=== PATIENT | male | born 1970 | race Caucasian/White ===

== ENCOUNTER 2019-06-30 17:33 | Inpatient (IN) | payer OTHER ==
[~2019-06-30] VITALS: Ht 162.6 cm; Wt 44.2 kg
--- NOTE | 2019-06-30 17:50 | NUR ---
ED Nurse Note: pt walked in c/o abd pain diffused and diarrhea, pt reports it started some day and unable to recall how many days has he been having it. pt AA&ox4, gcs=15, skin warm and dry, resp even and unlabored, NSR on monitoring manager, vss, skin warm and dry, good skin turgor, will cont monitor. ERMD aware of pt's pain, will follow up with orders.
[2019-06-30 18:00] VITALS: BP 140/86
[2019-06-30] MEDS ORDERED: Morphine Sulfate 2mg/ml Inj(IV/IM USE ONLY) IVP ONE (18:00)
--- NOTE | 2019-06-30 18:00 | NUR ---
ED Nurse Note: pt provided w/ warm blanket for comfort, pt advised to notify staff if needed assist.
--- NOTE | 2019-06-30 18:05 | Emergency Room Report ---
History of Present Illness General Chief Complaint: Diarrhea Source: Patient Present Illness HPI The patient presents with diarrhea for 1 week. Also he has been vomiting and cannot keep down liquids at this time. He is complaining about abdominal pain and mainly right flank pain. He has been incontinent of urine and had some hematuria also. He has had extreme weight loss and feels weak when he is standing at this time. He feels thirsty and dehydrated. Its been years since he was hospitalized. He has not been seeking medical help in the past. He denies vomiting blood, coffee grounds, hematochezia or melena. Stools have been brown. The patient has been noncompliant with HIV medications for 4 to 5 years. No fevers, chills, sore throat, chest pain, palpitations, shortness of breath, joint pain, rashes, depression, anxiety, visual changes, headache. Allergies: Coded Allergies: No Known Allergies (Unverified , 06/30/19) Patient History Past Medical History: see triage record Social History: Reports: smoking, alcohol use, drug use Social History Narrative on streets. [place]. [employer]. Reviewed Nursing Documentation: PMH: Agreed; PSxH: Agreed Nursing Documentation-PMH Past Medical History: No Stated History Review of Systems All Other Systems: negative except mentioned in HPI Physical Exam Vital Signs Date Time Temp Pulse Resp B/P (MAP) Pulse Ox O2 Delivery O2 Flow Rate FiO2 06/30/19 17:40 97.9 87 18 123/86 (98) 99 Room Air Sp02 EP Interpretation: reviewed, normal General Appearance: no apparent distress, alert, GCS 15, non-toxic, thin - cachexia Head: normocephalic, atraumatic Eyes: bilateral eye normal inspection, bilateral eye PERRL, bilateral eye EOMI ENT: normal pharynx, dry mucus membranes - Poor dentition Neck: supple, no bony tend Respiratory: chest non-tender, lungs clear, normal breath sounds Cardiovascular #1: regular rate, rhythm, no edema Cardiovascular #2: 2+ radial (R) Gastrointestinal: normal bowel sounds, no mass, no guarding, no rebound, tenderness - Diffuse, scaphoid Genitourinary: no CVA tenderness Musculoskeletal: gait/station normal, normal range of motion, no calf tenderness Neurologic: alert, oriented x3, grossly normal Psychiatric: depressed affect Skin: other - Mata lower lip Medical Decision Making Diagnostic Impression: Primary Impression: Marasmus Additional Impressions: UTI (urinary tract infection) Qualified Codes: N30.01 - Acute cystitis with hematuria Substance abuse Noncompliance with HIV medications ER Course Patient presents with vomiting, diarrhea and weight loss. Also he claims to be noncompliant on his HIV medications. Differential includes infectious diarrhea , Kaposi's sarcoma, malabsorption, viral gastroenteritis, urinary tract infection, dehydration, renal failure rhabdomyolysis amongst others. The patient clearly has marasmus. Evaluation will be with EKG, chest x-ray abdominal film and labs. The patient will be treated with IV hydration, analgesia and Zofran. EKG without injury. Chest x-ray no infiltrate. Abdomen nonspecific bowel gas pattern without obstruction. Labs with normal white count and slight anemia. CMP with elevated BUN. Urinalysis with pyuria and hematuria. Tox screen positive for THC and amphetamines. Antibiotics begun for UTI. Patient somewhat improved and able to eat some food. Discussed with patient amphetamine abuse. Patient admitted to medical floor Dr. Mehta on for Dr. Allen. Social service consult ordered. Laboratory Tests Test 06/30/19 18:10 White Blood Count 5.4 K/UL (4.8-10.8) Red Blood Count 4.18 M/UL (4.70-6.10) L Hemoglobin 12.0 G/DL (14.2-18.0) L Hematocrit 34.4 % (42.0-52.0) L Mean Corpuscular Volume 82 FL (80-99) Mean Corpuscular Hemoglobin 28.8 PG (27.0-31.0) Mean Corpuscular Hemoglobin Concent 35.0 G/DL (32.0-36.0) Red Cell Distribution Width 10.9 % (11.6-14.8) L Platelet Count 390 K/UL (150-450) Mean Platelet Volume 5.5 FL (6.5-10.1) L Neutrophils (%) (Auto) 63.6 % (45.0-75.0) Lymphocytes (%) (Auto) 23.8 % (20.0-45.0) Monocytes (%) (Auto) 10.3 % (1.0-10.0) H Eosinophils (%) (Auto) 0.4 % (0.0-3.0) Basophils (%) (Auto) 1.9 % (0.0-2.0) Urine Color Yellow Urine Appearance Cloudy Urine pH 6 (4.5-8.0) Urine Specific [place] 1.020 (1.005-1.035) Urine Protein 3+ (NEGATIVE) H Urine Glucose (UA) Negative (NEGATIVE) Urine Ketones Negative (NEGATIVE) Urine Blood 5+ (NEGATIVE) H Urine Nitrite Negative (NEGATIVE) Urine Bilirubin Negative (NEGATIVE) Urine Urobilinogen Normal MG/DL (0.0-1.0) Urine Leukocyte Esterase 3+ (NEGATIVE) H Urine RBC 60-80 /HPF (0 - 0) H Urine WBC 40-60 /HPF (0 - 0) H Urine Squamous Epithelial Cells Occasional /LPF Urine Bacteria Moderate /HPF (NONE) H Sodium Level 132 MMOL/L (136-145) L Potassium Level 3.9 MMOL/L (3.5-5.1) Chloride Level 98 MMOL/L (98-107) Carbon Dioxide Level 29 MMOL/L (21-32) Anion Gap 5 mmol/L (5-15) Blood Urea Nitrogen 26 mg/dL (7-18) H Creatinine 1.3 MG/DL (0.55-1.30) Estimate Glomerular Filtration Rate 58.7 mL/min (>60) Glucose Level 114 MG/DL (74-106) H Lactic Acid Level 0.80 mmol/L (0.4-2.0) Calcium Level 9.2 MG/DL (8.5-10.1) Total Bilirubin 0.3 MG/DL (0.2-1.0) Aspartate Amino Transferase (AST) 18 U/L (15-37) Alanine Aminotransferase (ALT) 20 U/L (12-78) Alkaline Phosphatase 85 U/L (46-116) Total Creatine Kinase 101 U/L (26-308) Troponin I 0.000 ng/mL (0.000-0.056) Total Protein 8.9 G/DL (6.4-8.2) H Albumin 3.2 G/DL (3.4-5.0) L Globulin 5.7 g/dL Albumin/Globulin Ratio 0.6 (1.0-2.7) L Salicylates Level 0.6 ug/mL (2.8-20) L Urine Opiates Screen Negative (NEGATIVE) Acetaminophen Level < 2 MCG/ML (10-30) L Urine Barbiturates Screen Negative (NEGATIVE) Phencyclidine (PCP) Screen Negative (NEGATIVE) Urine Amphetamines Screen Positive (NEGATIVE) H Urine Benzodiazepines Screen Negative (NEGATIVE) Urine Cocaine Screen Negative (NEGATIVE) Urine Marijuana (THC) Screen Positive (NEGATIVE) H Serum Alcohol < 3 mg/dL Chlamydia trachomatis RNA Pending Neisseria gonorrhoeae RNA Pending EKG Diagnostic Results Rate: normal Rhythm: NSR ST Segments: no acute changes Rhythm Strip Diag. Results EP Interpretation: yes Rhythm: NSR, no PVC's, no ectopy Chest X-Ray Diagnostic Results Chest X-Ray Diagnostic Results : Chest X-Ray Ordered: Yes # of Views/Limited/Complete: 1 View Indication: Other EP Interpretation: Yes Interpretation: no consolidation, no effusion, no pneumothorax Impression: No acute disease Electronically Signed by: Electronically signed by Tom Nair MD Other X-Ray Diagnostic Results Other X-Ray Diagnostic Results : X-Ray ordered: Abdomen # of Views/Limited Vs Complete: 1 View Indication: Other EP Interpretation: Yes Interpretation: nonspecific bowel gas, no sbo, other - No obstruction Impression: Other Electronically Signed by: Electronically signed by Tom Nair MD Last Vital Signs Date Time Temp Pulse Resp B/P (MAP) Pulse Ox O2 Delivery O2 Flow Rate FiO2 07/01/19 00:00 97.0 61 18 124/73 (90) 99 06/30/19 21:57 Room Air Status: improved Disposition: ADMITTED INPATIENT Condition: Serious Scripts No Active Prescriptions or Reported Meds Tom Nair MD Jun 30, 2019 18:05
--- NOTE | 2019-06-30 18:23 | Diagnostic Imaging Report ---
EXAM: XR Chest, 1 View CLINICAL HISTORY: VOMITING TECHNIQUE: Frontal view of the chest. COMPARISON: None FINDINGS: Hardware: None. Lungs/pleura: Normal. No focal consolidation. No pleural effusion or pneumothorax. Heart/mediastinum: Normal. No cardiomegaly. Soft tissues: Unremarkable. Bones: No acute fracture. Possible mild resection changes of the distal left clavicle. Upper abdomen: Normal. IMPRESSION: No acute disease identified.
--- NOTE | 2019-06-30 18:30 | Diagnostic Imaging Report ---
EXAM: XR Abdomen, 2 Views CLINICAL HISTORY: VOMITING TECHNIQUE: Frontal view of the abdomen/pelvis with upright view of the abdomen. COMPARISON: None FINDINGS: Hardware: None. Abdomen: Nonobstructive but nonspecific bowel gas pattern. No free air. Bones: Normal. Soft tissues: Normal. Lower chest: Normal. IMPRESSION: Nonobstructive but nonspecific bowel gas pattern. No free air.
[2019-06-30 18:44] LABS: BASOPHILS % (AUTO) 1.9 % (0.0-2.0); EOSINOPHILS % (AUTO) 0.4 % (0.0-3.0); HEMATOCRIT 34.4 % (42.0-52.0); LYMPHOCYTES % (AUTO) 23.8 % (20.0-45.0); MEAN CORPUSCULAR VOLUME 82 FL (80-99); MONOCYTES % (AUTO) 10.3 % (1.0-10.0); NEUTROPHILS % (AUTO) 63.6 % (45.0-75.0); PLATELET COUNT 390 K/UL (150-450); RED BLOOD COUNT 4.18 M/UL (4.70-6.10); RED CELL DISTRIBUTION WIDTH 10.9 % (11.6-14.8); WHITE BLOOD COUNT 5.4 K/UL (4.8-10.8)
[2019-06-30 18:46] LABS: APPEARANCE,URINE CLOUDY; BILIRUBIN, URINE NEGATIVE (NEGATIVE); GLUCOSE, URINE (UA) NEGATIVE (NEGATIVE); KETONES,URINE NEGATIVE (NEGATIVE); LEUKOCYTE ESTERASE ,URINE 3+ (NEGATIVE); NITRITE,URINE NEGATIVE (NEGATIVE); PH,URINE 6 (4.5-8.0); PROTEIN,URINE 3+ (NEGATIVE); UROBILINOGEN,URINE NORMAL MG/DL (0.0-1.0)
[2019-06-30 18:49] LABS: COLOR,URINE YELLOW
[2019-06-30 18:54] LABS: ANION GAP 5 mmol/L (5-15); BLOOD UREA NITROGEN 26 mg/dL (7-18); CALCIUM 9.2 MG/DL (8.5-10.1); CARBON DIOXIDE 29 MMOL/L (21-32); CHLORIDE 98 MMOL/L (98-107); CREATININE 1.3 MG/DL (0.55-1.30); POTASSIUM 3.9 MMOL/L (3.5-5.1); SODIUM 132 MMOL/L (136-145)
--- NOTE | 2019-06-30 18:57 | NUR ---
HAND-OFF: Report given to MALIA WATERS and endorsed care. pt resting at this time, safety precautions in place.
[2019-06-30 18:58] LABS: ALANINE AMINOTRANSFERASE 20 U/L (12-78); ALBUMIN 3.2 G/DL (3.4-5.0); ALBUMIN/GLOBULIN RATIO 0.6 (1.0-2.7); ALKALINE PHOSPHATASE 85 U/L (46-116); ASPARTATE AMINO TRANSFERASE 18 U/L (15-37); BILIRUBIN,TOTAL 0.3 MG/DL (0.2-1.0); CREATINE KINASE 101 U/L (26-308)
--- NOTE | 2019-06-30 19:00 | NUR ---
ED Nurse Note: report received from MALIA Phipps . pt in bed playing with his phone. VSS
[2019-06-30] MEDS ORDERED: cefTRIAXone 1 GM in NS 55 ML IVPB ONE (19:15)
[2019-06-30 20:06] VITALS: BP 128/80
--- NOTE | 2019-06-30 20:47 | NUR ---
ER DISCHARGE NOTE: pt was brought up to M/S room 402 via gurney in stable condition. Report given to MALIA Berrios. Belonging list signed. pt has a valencia back pack with items in the backpack. the backpack was sent to security and taken by
--- NOTE | 2019-06-30 21:15 | NUR ---
NURSE NOTES: Pt is admitted from ER under Dr. Allen for abdominal pain , diarrhea and hematuria and Hx of HIV.Report received from MALIA [facility]. Vitals stable. Pt is awake, alert and ambulatory. Pt has no home Meds. Pt is from the street. No diarrhea or hematuria or vomiting now. Pt does complain of abdominal pain. Pt oriented to the unit. Skin intact. Dr. Allen's exchange is called for admission orders, message left with Keli at the office to have the doctor return call with admission orders. Pt signed the belonging sheet. Security confiscated a briggs bag with sharps which is with the security.
[2019-06-30 21:38] VITALS: BP 107/76
--- NOTE | 2019-06-30 22:00 | NUR ---
NURSE NOTES: Dr. Mehta called back with admission orders. Orders acknowledged and carried out.
[2019-06-30] MEDS ORDERED: Morphine Sulfate 2mg/ml Inj(IV/IM USE ONLY) IVP PRN (22:30)
[2019-06-30] MEDS ORDERED: cefTRIAXone 1 GM in D5W 55 ML IVPB SCH (22:30)
[2019-07-01] VITALS: BP 124/73
[2019-07-01] MEDS: D5 1/2NS 1,000 ML IV SCH ×3 (00:48→18:05)
--- NOTE | 2019-07-01 02:17 | NUR ---
NURSE NOTES: Pt is in bed, asleep, No acute distress noted. Vitals stable. No BM yet, unable to collect stool for c.diff and ova&parasite. D5 1/2NS running at 100ml/hr. SCDs on bilaterally.
[2019-07-01 04:00] VITALS: BP 105/73
--- NOTE | 2019-07-01 07:15 | NUR ---
HAND-OFF: Report given to Julissa De La Torre RN. Informed to collect stool sample for lab if patient has a BM.
[2019-07-01 07:36] LABS: BASOPHILS % (AUTO) 1.4 % (0.0-2.0); EOSINOPHILS % (AUTO) 0.9 % (0.0-3.0); HEMATOCRIT 31.3 % (42.0-52.0); HEMOGLOBIN 10.5 G/DL (14.2-18.0); LYMPHOCYTES % (AUTO) 26.2 % (20.0-45.0); MEAN CORPUSCULAR VOLUME 87 FL (80-99); MONOCYTES % (AUTO) 9.1 % (1.0-10.0); NEUTROPHILS % (AUTO) 62.4 % (45.0-75.0); PLATELET COUNT 369 K/UL (150-450); RED BLOOD COUNT 3.62 M/UL (4.70-6.10); RED CELL DISTRIBUTION WIDTH 11.8 % (11.6-14.8); WHITE BLOOD COUNT 3.9 K/UL (4.8-10.8)
[2019-07-01 07:58] LABS: ANION GAP 6 mmol/L (5-15); BLOOD UREA NITROGEN 21 mg/dL (7-18); CALCIUM 8.3 MG/DL (8.5-10.1); CARBON DIOXIDE 28 MMOL/L (21-32); CHLORIDE 100 MMOL/L (98-107); CREATININE 1.1 MG/DL (0.55-1.30); POTASSIUM 3.4 MMOL/L (3.5-5.1); SODIUM 134 MMOL/L (136-145)
[2019-07-01 08:00] VITALS: BP 123/72
--- NOTE | 2019-07-01 08:07 | NUR ---
NURSE NOTES: Patient alert x4: on room air, no sign of distress and shortness of breath; no sign of chest pain; IV RAC 20G D51/2NS 100cc running; patient asks another tray of breakfast, dietary made aware; patient ambulate with out assist; side rails up x2, breaks engaged, bed at lowest position; call light within reach; will keep monitoring.
[2019-07-01 12:00] VITALS: BP 126/79
[2019-07-01] MEDS ORDERED: NS 275ml ONE (13:31)
[2019-07-01] MEDS ORDERED: D5 1/2NS 1000ml IV ONE (13:31)
[2019-07-01] MEDS ORDERED: Tubing IV Secondary IV ONE (13:31)
--- NOTE | 2019-07-01 15:04 | NUR ---
NURSE NOTES: Stool for C.Diff and Ova & Parasite collected and sent to lab. Waiting for results.
--- NOTE | 2019-07-01 15:52 | NUR ---
NURSE NOTES: Patient complained sever pain of the left shoulder and Morphine Sulfate 2 Mg given. Will keep monitoring.
[2019-07-01 16:00] VITALS: BP 131/82
--- NOTE | 2019-07-01 17:28 | Infectious Diseases Prog Note ---
Assessment/Plan Assessment/Plan Full consult dictated: A) 1) uti 2) hiv, ? anti-retroviral tx 3) allergies - nkda P) 1) ceftriaxone 2) patient does not want anti-retroviral tx or further hiv related testing 3) check urine culture 40 thank you Subjective Allergies: Coded Allergies: No Known Allergies (Unverified , 06/30/19) Objective Vital Signs Last 24 Hour Vital Signs Date Time Temp Pulse Resp B/P (MAP) Pulse Ox O2 Delivery O2 Flow Rate FiO2 07/01/19 16:00 98.4 80 18 131/82 (98) 96 07/01/19 15:13 98.1 07/01/19 12:00 98.1 86 17 126/79 (95) 98 07/01/19 09:00 Room Air 07/01/19 08:00 97.6 81 18 123/72 (89) 96 07/01/19 04:00 97.0 59 18 105/73 (84) 100 07/01/19 00:00 97.0 61 18 124/73 (90) 99 06/30/19 21:57 Room Air 06/30/19 21:38 97.9 72 18 107/76 (86) 99 06/30/19 20:47 98.0 84 17 130/84 99 Room Air 06/30/19 20:06 98.0 85 18 128/80 99 Room Air 06/30/19 18:00 97.9 81 18 140/86 99 Room Air 06/30/19 17:40 97.9 87 18 123/86 (98) 99 Room Air Height (Feet): 5 Height (Inches): 4.00 Weight (Pounds): 98 Microbiology Date/Time Source Procedure Growth Status 06/30/19 18:10 Urine,Clean Catch Urine Culture - Preliminary NO GROWTH Resulted 06/30/19 20:45 Rectum Received Laboratory Tests Test 06/30/19 18:10 07/01/19 06:34 White Blood Count 5.4 K/UL (4.8-10.8) 3.9 K/UL (4.8-10.8) L Red Blood Count 4.18 M/UL (4.70-6.10) L 3.62 M/UL (4.70-6.10) L Hemoglobin 12.0 G/DL (14.2-18.0) L 10.5 G/DL (14.2-18.0) L Hematocrit 34.4 % (42.0-52.0) L 31.3 % (42.0-52.0) L Mean Corpuscular Volume 82 FL (80-99) 87 FL (80-99) Mean Corpuscular Hemoglobin 28.8 PG (27.0-31.0) 29.0 PG (27.0-31.0) Mean Corpuscular Hemoglobin Concent 35.0 G/DL (32.0-36.0) 33.5 G/DL (32.0-36.0) Red Cell Distribution Width 10.9 % (11.6-14.8) L 11.8 % (11.6-14.8) Platelet Count 390 K/UL (150-450) 369 K/UL (150-450) Mean Platelet Volume 5.5 FL (6.5-10.1) L 6.3 FL (6.5-10.1) L Neutrophils (%) (Auto) 63.6 % (45.0-75.0) 62.4 % (45.0-75.0) Lymphocytes (%) (Auto) 23.8 % (20.0-45.0) 26.2 % (20.0-45.0) Monocytes (%) (Auto) 10.3 % (1.0-10.0) H 9.1 % (1.0-10.0) Eosinophils (%) (Auto) 0.4 % (0.0-3.0) 0.9 % (0.0-3.0) Basophils (%) (Auto) 1.9 % (0.0-2.0) 1.4 % (0.0-2.0) Urine Color Yellow Urine Appearance Cloudy Urine pH 6 (4.5-8.0) Urine Specific [place] 1.020 (1.005-1.035) Urine Protein 3+ (NEGATIVE) H Urine Glucose (UA) Negative (NEGATIVE) Urine Ketones Negative (NEGATIVE) Urine Blood 5+ (NEGATIVE) H Urine Nitrite Negative (NEGATIVE) Urine Bilirubin Negative (NEGATIVE) Urine Urobilinogen Normal MG/DL (0.0-1.0) Urine Leukocyte Esterase 3+ (NEGATIVE) H Urine RBC 60-80 /HPF (0 - 0) H Urine WBC 40-60 /HPF (0 - 0) H Urine Squamous Epithelial Cells Occasional /LPF Urine Bacteria Moderate /HPF (NONE) H Sodium Level 132 MMOL/L (136-145) L 134 MMOL/L (136-145) L Potassium Level 3.9 MMOL/L (3.5-5.1) 3.4 MMOL/L (3.5-5.1) L Chloride Level 98 MMOL/L (98-107) 100 MMOL/L (98-107) Carbon Dioxide Level 29 MMOL/L (21-32) 28 MMOL/L (21-32) Anion Gap 5 mmol/L (5-15) 6 mmol/L (5-15) Blood Urea Nitrogen 26 mg/dL (7-18) H 21 mg/dL (7-18) H Creatinine 1.3 MG/DL (0.55-1.30) 1.1 MG/DL (0.55-1.30) Estimat Glomerular Filtration Rate 58.7 mL/min (>60) > 60 mL/min (>60) Glucose Level 114 MG/DL (74-106) H 100 MG/DL (74-106) Lactic Acid Level 0.80 mmol/L (0.4-2.0) Calcium Level 9.2 MG/DL (8.5-10.1) 8.3 MG/DL (8.5-10.1) L Total Bilirubin 0.3 MG/DL (0.2-1.0) Aspartate Amino Transf (AST/SGOT) 18 U/L (15-37) Alanine Aminotransferase (ALT/SGPT) 20 U/L (12-78) Alkaline Phosphatase 85 U/L (46-116) Total Creatine Kinase 101 U/L (26-308) Troponin I 0.000 ng/mL (0.000-0.056) Total Protein 8.9 G/DL (6.4-8.2) H Albumin 3.2 G/DL (3.4-5.0) L Globulin 5.7 g/dL Albumin/Globulin Ratio 0.6 (1.0-2.7) L Salicylates Level 0.6 ug/mL (2.8-20) L Urine Opiates Screen Negative (NEGATIVE) Acetaminophen Level < 2 MCG/ML (10-30) L Urine Barbiturates Screen Negative (NEGATIVE) Phencyclidine (PCP) Screen Negative (NEGATIVE) Urine Amphetamines Screen Positive (NEGATIVE) H Urine Benzodiazepines Screen Negative (NEGATIVE) Urine Cocaine Screen Negative (NEGATIVE) Urine Marijuana (THC) Screen Positive (NEGATIVE) H Serum Alcohol < 3 mg/dL Chlamydia trachomatis RNA Pending Neisseria gonorrhoeae RNA Pending Current Medications Medications (Trade) Dose Ordered Sig/Kenia Route PRN Reason Start Time Stop Time Status Last Admin Dose Admin Ceftriaxone Sodium 1 gm/ Dextrose 55 ml @ 110 mls/hr Q24H IVPB 07/01/19 19:00 07/08/19 18:59 Dextrose/Sodium Chloride 1,000 ml @ 100 mls/hr Q10H IV 06/30/19 22:30 07/30/19 22:29 07/01/19 08:30 Morphine Sulfate (Morphine Sulfate) 2 mg Q4H PRN IVP For Pain 06/30/19 22:30 07/07/19 22:29 07/01/19 14:43 Ondansetron HCl (Zofran) 4 mg Q4H PRN IVP Nausea & Vomiting 06/30/19 22:30 07/30/19 22:29 Ortiz Magana MD Jul 01, 2019 17:28
--- NOTE | 2019-07-01 18:18 | NUR ---
NURSE NOTES: Patient insisted that his IV access to be removed; RN explained that patient needs to get continues IV fluid and antibiotics; patient said if I don't take it out, he will remove it. I communicated the matter to Charge nurse, Endy; Charge nurse spoke with patient and explained the reason we need to keep the IV access; however patient refused and asked IV access to be removed; per patient's request IV access removed. Patient doesn't allow RN to try to get another IV access on him. Patient want the mini shifter to try to get IV access on his later. .
--- NOTE | 2019-07-01 18:38 | NUR ---
NURSE NOTES: Patient requested snacks, crackers and cranberry juice provided.
[2019-07-01] MEDS ORDERED: cefTRIAXone 1 GM in D5W 55 ML IVPB SCH (19:00)
--- NOTE | 2019-07-01 19:36 | General Progress Note ---
Subjective Allergies: Coded Allergies: No Known Allergies (Unverified , 06/30/19) Objective Last 24 Hour Vital Signs Date Time Temp Pulse Resp B/P (MAP) Pulse Ox O2 Delivery O2 Flow Rate FiO2 07/01/19 16:00 98.4 80 18 131/82 (98) 96 07/01/19 15:13 98.1 07/01/19 12:00 98.1 86 17 126/79 (95) 98 07/01/19 09:00 Room Air 07/01/19 08:00 97.6 81 18 123/72 (89) 96 07/01/19 04:00 97.0 59 18 105/73 (84) 100 07/01/19 00:00 97.0 61 18 124/73 (90) 99 06/30/19 21:57 Room Air 06/30/19 21:38 97.9 72 18 107/76 (86) 99 06/30/19 20:47 98.0 84 17 130/84 99 Room Air 06/30/19 20:06 98.0 85 18 128/80 99 Room Air Intake and Output 06/30/19 07/01/19 19:00 07:00 Intake Total 655 ml Balance 655 ml Intake IV Total 655 ml # Voids 1 3 Laboratory Tests 07/01/19 06:34: White Blood Count 3.9L, Red Blood Count 3.62L, Hemoglobin 10.5L, Hematocrit 31.3L, Mean Corpuscular Volume 87, Mean Corpuscular Hemoglobin 29.0, Mean Corpuscular Hemoglobin Concent 33.5, Red Cell Distribution Width 11.8, Platelet Count 369, Mean Platelet Volume 6.3L, Neutrophils (%) (Auto) 62.4, Lymphocytes ( %) (Auto) 26.2, Monocytes (%) (Auto) 9.1, Eosinophils (%) (Auto) 0.9, Basophils (%) (Auto) 1.4, Sodium Level 134L, Potassium Level 3.4L, Chloride Level 100, Carbon Dioxide Level 28, Anion Gap 6, Blood Urea Nitrogen 21H, Creatinine 1.1, Estimat Glomerular Filtration Rate > 60, Glucose Level 100, Calcium Level 8.3L Height (Feet): 5 Height (Inches): 4.00 Weight (Pounds): 98 Gold Frias M.D. Jul 01, 2019 19:36
--- NOTE | 2019-07-01 19:38 | History and Physical ---
History of Present Illness General Date patient seen: Jul 01, 2019 Reason for Hospitalization: Diarrhea Present Illness HPI 49-year-old male, comes in to the ED for diarrhea, vomiting, abdominal pain. Patient also has urinary symptoms including dysuria and frequency. He has also had weight loss. History of HIV, not on medications. Denies chest pain, cough, sob, palpitations, sick contacts, recent travel, night sweats. Abdominal marina is constant and crampy. right before the encounter patient had an accident and loose stools note dont he floor of the bathroom. PMH: HIV. marasmus. ALLERGIES: No known drug allergies. SOCIAL HISTORY: Currently is negative for smoking, alcohol, or illicit drug use. FAMILY HISTORY: Noncontributory. No history of HTN or DM MEDICATIONS: reviewed. Allergies: Coded Allergies: No Known Allergies (Unverified , 06/30/19) Medication History No Active Prescriptions or Reported Meds Patient History Healthcare decision maker Resuscitation status Full Code Advanced Directive on File Review of Systems All Other Systems: negative except mentioned in HPI ROS Narrative 10 systems ROS negative except as in HPI Physical Exam Physical Exam Narrative GENERAL: Alert, responsive, in no distress. HEAD AND NECK: Oral exam, No thrush. Eye exam, no icterus. Neck is supple. No JVD. Normocephalic. HEART: Regular. No gallop or murmur. ABDOMEN: Soft. Positive bowel sounds. Nontender. LUNGS: Clear bilaterally. No rhonchi or rales. SKIN: No rash. MUSCULOSKELETAL: No effusion. Legs are without cellulitis. PERIPHERAL VASCULAR: No cyanosis. GENITOURINARY: No Ochoa. NEUROLOGIC: grossly intact LINES: Line sites without phlebitis. Last 24 Hour Vital Signs Date Time Temp Pulse Resp B/P (MAP) Pulse Ox O2 Delivery O2 Flow Rate FiO2 07/01/19 16:00 98.4 80 18 131/82 (98) 96 07/01/19 15:13 98.1 07/01/19 12:00 98.1 86 17 126/79 (95) 98 07/01/19 09:00 Room Air 07/01/19 08:00 97.6 81 18 123/72 (89) 96 07/01/19 04:00 97.0 59 18 105/73 (84) 100 07/01/19 00:00 97.0 61 18 124/73 (90) 99 8/30/19 21:57 Room Air 06/30/19 21:38 97.9 72 18 107/76 (86) 99 06/30/19 20:47 98.0 84 17 130/84 99 Room Air 06/30/19 20:06 98.0 85 18 128/80 99 Room Air Intake and Output 06/30/19 07/01/19 19:00 07:00 Intake Total 655 ml Balance 655 ml Intake IV Total 655 ml # Voids 1 3 Laboratory Tests Test 07/01/19 06:34 White Blood Count 3.9 K/UL (4.8-10.8) L Red Blood Count 3.62 M/UL (4.70-6.10) L Hemoglobin 10.5 G/DL (14.2-18.0) L Hematocrit 31.3 % (42.0-52.0) L Mean Corpuscular Volume 87 FL (80-99) Mean Corpuscular Hemoglobin 29.0 PG (27.0-31.0) Mean Corpuscular Hemoglobin Concent 33.5 G/DL (32.0-36.0) Red Cell Distribution Width 11.8 % (11.6-14.8) Platelet Count 369 K/UL (150-450) Mean Platelet Volume 6.3 FL (6.5-10.1) L Neutrophils (%) (Auto) 62.4 % (45.0-75.0) Lymphocytes (%) (Auto) 26.2 % (20.0-45.0) Monocytes (%) (Auto) 9.1 % (1.0-10.0) Eosinophils (%) (Auto) 0.9 % (0.0-3.0) Basophils (%) (Auto) 1.4 % (0.0-2.0) Sodium Level 134 MMOL/L (136-145) L Potassium Level 3.4 MMOL/L (3.5-5.1) L Chloride Level 100 MMOL/L (98-107) Carbon Dioxide Level 28 MMOL/L (21-32) Anion Gap 6 mmol/L (5-15) Blood Urea Nitrogen 21 mg/dL (7-18) H Creatinine 1.1 MG/DL (0.55-1.30) Estimat Glomerular Filtration Rate > 60 mL/min (>60) Glucose Level 100 MG/DL (74-106) Calcium Level 8.3 MG/DL (8.5-10.1) L Microbiology Date/Time Source Procedure Growth Status 06/30/19 20:45 Rectum Received Height (Feet): 5 Height (Inches): 4.00 Weight (Pounds): 98 Medications Current Medications Medications (Trade) Dose Ordered Sig/Kenia Route PRN Reason Start Time Stop Time Status Last Admin Dose Admin Ceftriaxone Sodium 1 gm/ Dextrose 55 ml @ 110 mls/hr Q24H IVPB 07/01/19 19:00 07/08/19 18:59 07/01/19 18:05 Dextrose/Sodium Chloride 1,000 ml @ 100 mls/hr Q10H IV 06/30/19 22:30 07/30/19 22:29 07/01/19 18:05 Morphine Sulfate (Morphine Sulfate) 2 mg Q4H PRN IVP For Pain 06/30/19 22:30 07/07/19 22:29 07/01/19 14:43 Ondansetron HCl (Zofran) 4 mg Q4H PRN IVP Nausea & Vomiting 06/30/19 22:30 07/30/19 22:29 Assessment/Plan Status: stable Assessment/Plan: # UTI and cystitis. continue Ceftriaxone for Gram-negative coverage. Check urine culture. iD consult and recs appreciated. #Complicated UTI. #HIV, off anti-retroviral therapy. He does not want any testing for HIV, CD4, or viral load. He does not want anti-retroviral therapy. ID consulted. #Failure to thrive. #code status: full code Time of this note may not reflect time of encounter. I spent 70 minutes on this encounter, greater than 50% on counselling and care coordination. Gold Frias M.D. Jul 01, 2019 19:38
--- NOTE | 2019-07-01 19:46 | NUR ---
HAND-OFF: Report given to MALIA Emerson.
--- NOTE | 2019-07-01 19:50 | NUR ---
NURSE NOTES: Pt received in bed, head of bed elevated, alert and oriented, no c/o pain or signs of distress, no IV access pt requested to have it removed, will contact MD about PO antibiotic and PO pain medication order, able to make needs known, call light within reach, requesting to take a shower, will assist the patient and will continue to monitor.
[2019-07-01 20:00] VITALS: BP 144/92
--- NOTE | 2019-07-01 20:00 | NUR ---
NURSE NOTES: Informed Dr. Gilbert concerning pt without IV Access and refusing IV fluids and IV antibiotics, MD Aware and will see the patient tomorrow.
--- NOTE | 2019-07-01 20:15 | Consultation ---
DATE OF CONSULTATION: 07/01/2019 INFECTIOUS DISEASE CONSULTATION CONSULTING PHYSICIAN: Ortiz Magana M.D. ATTENDING PHYSICIAN: Perry Allen M.D. REFERRING PHYSICIAN: Dr. Get Mehta. REASON FOR CONSULTATION: UTI, history of HIV. CHIEF COMPLAINT: The patient's chief complaint coming into the hospital is failure to thrive. HISTORY OF PRESENT ILLNESS: This is a 49-year-old male, comes in to [facility] and was noted to have vomiting and abdominal pain. The patient also has urinary symptoms including dysuria and frequency. The patient has looks like weight loss. The patient has a history of HIV. It was noted the patient has urinary tract infection, was started on Rocephin. Infectious Disease consultation is requested for antibiotic management. The patient will be continued on Rocephin for UTI. He is currently off anti-retroviral therapy. MAR was noted. Orders were noted. Notes and records were reviewed. REVIEW OF SYSTEMS: CONSTITUTIONAL: The patient has generalized fatigue, came in with failure to thrive, weight loss. HEAD AND NECK: No head pain or neck pain. CARDIAC: No chest pain. GASTROINTESTINAL: He came in with abdominal pain, nausea, or vomiting. GENITOURINARY: He has dysuria and frequency . PULMONARY: No shortness of breath or cough. SKIN: No rash. NEUROLOGIC: No seizures. PAST MEDICAL HISTORY: The patient's past medical history includes the history of the following. He has a past medical history of HIV. He does not know his anti-retroviral therapy. I do not believe he is taking it at this time. It looks like he has been noncompliant for 4 to 5 years. Also, other past medical history looks like marasmus. No history of diabetes or hypertension. He has history of substance abuse. ALLERGIES: No known drug allergies. SOCIAL HISTORY: Currently is negative for smoking, alcohol, or drug use. FAMILY HISTORY: Noncontributory. MEDICATIONS: Upon reviewing the MAR, the patient is on the following medications. The patient is on Rocephin, IV fluids, Zofran, morphine. Outside medications noted and reconciliated. He is currently off anti-retroviral therapy. PHYSICAL EXAMINATION: VITAL SIGNS: Temperature is 98.4, pulse rate 80, respiratory rate 18, blood pressure 131/82, saturation 96%. GENERAL: Alert, responsive, in no distress. HEAD AND NECK: Oral exam, no thrush. Eye exam, no icterus. Neck is supple. No JVD. Normocephalic. HEART: Regular. No gallop or murmur. ABDOMEN: Soft. Positive bowel sounds. Nontender. LUNGS: Clear bilaterally. No rhonchi or rales. SKIN: No rash. MUSCULOSKELETAL: No effusion. Legs are without cellulitis. PERIPHERAL VASCULAR: No cyanosis. GENITOURINARY: No Ochoa. NEUROLOGIC: Intact. He looks cachectic, again no icterus, no thrush. LINES: Line sites without phlebitis. LABORATORY AND DIAGNOSTIC DATA: Laboratory data as follows. Urine culture is negative to date. UA had 3+ leukocyte esterase, white blood cells. Urine culture negative to date. Creatinine is 1.1. White count 3.9, hemoglobin 10.5. Chlamydia and gonorrhea RNA testing is pending, was done. Creatinine 1.1. Again, white count 3.9, hemoglobin 10.5. The patient does not want any anti-retroviral treatment or testing such as T-cell count and viral load or checking for HIV status. ASSESSMENT AND PLAN: 1. The patient has acute UTI and cystitis. The patient will continue on Rocephin for Gram-negative coverage. Continue Rocephin for UTI. Check urine culture. 2. Complicated UTI. 3. HIV, off anti-retroviral therapy. He does not want any testing for HIV, CD4, or viral load. He does not want anti-retroviral therapy I discussed with the patient before. 4. The patient is cachectic. 5. Failure to thrive. 6. Weakness. 7. No known drug allergies. 8. Social history is negative. 9. Family history is noncontributory. 10. MAR was noted. 11. Case was discussed with RN. 12. Continue treatment per primary consultants. Ortiz Magana M.D. DR: LAVON JOB#: [id number] CC:
[2019-07-02] VITALS: BP 119/56
[2019-07-02 04:00] VITALS: BP 105/66
[2019-07-02] MEDS: D5 1/2NS 1,000 ML IV SCH ×2 (04:30→14:30)
[2019-07-02 06:55] LABS: BASOPHILS % (AUTO) 0.9 % (0.0-2.0); EOSINOPHILS % (AUTO) 0.5 % (0.0-3.0); HEMATOCRIT 34.4 % (42.0-52.0); HEMOGLOBIN 11.5 G/DL (14.2-18.0); LYMPHOCYTES % (AUTO) 30.4 % (20.0-45.0); MEAN CORPUSCULAR VOLUME 86 FL (80-99); MONOCYTES % (AUTO) 7.3 % (1.0-10.0); NEUTROPHILS % (AUTO) 60.8 % (45.0-75.0); PLATELET COUNT 421 K/UL (150-450); RED BLOOD COUNT 3.99 M/UL (4.70-6.10); RED CELL DISTRIBUTION WIDTH 11.8 % (11.6-14.8); WHITE BLOOD COUNT 6.3 K/UL (4.8-10.8)
--- NOTE | 2019-07-02 07:14 | NUR ---
HAND-OFF: Report given to MALIA Costa.
--- NOTE | 2019-07-02 07:21 | NUR ---
NURSE NOTES: Patient awake, alert x4; room air, no sign of shortness of breath and distress; no sign of chest pain; patient is talkative; eating his breakfast while sitting on bed high decker position; according to the report from PM nurse, MD Ofelia Scott is aware that patient doesn't have IV access, PM requested MD Gilbert to change patient's antibiotics and pain medications to PO, told PM nurse that MD guevara come to see patient for this shift; patient ambulatory, makes his needs known; took shower last night; bed at lowest position, side rails up x2, breaks engaged; call light within reach; will keep monitoring.
[2019-07-02 07:36] LABS: ALANINE AMINOTRANSFERASE 15 U/L (12-78); ALBUMIN 2.5 G/DL (3.4-5.0); ALBUMIN/GLOBULIN RATIO 0.5 (1.0-2.7); ALKALINE PHOSPHATASE 73 U/L (46-116); ANION GAP 8 mmol/L (5-15); ASPARTATE AMINO TRANSFERASE 14 U/L (15-37); BILIRUBIN,TOTAL 0.2 MG/DL (0.2-1.0); BLOOD UREA NITROGEN 16 mg/dL (7-18); CALCIUM 8.4 MG/DL (8.5-10.1); CARBON DIOXIDE 26 MMOL/L (21-32); CHLORIDE 102 MMOL/L (98-107); POTASSIUM 3.8 MMOL/L (3.5-5.1); SODIUM 136 MMOL/L (136-145)
[2019-07-02 08:00] VITALS: BP 148/98
--- NOTE | 2019-07-02 11:07 | NUR ---
NURSE NOTES: Patient requested for Apple juice and Jello, provided as requested.
[2019-07-02 12:00] VITALS: BP 126/87
--- NOTE | 2019-07-02 13:51 | NUR ---
RD ASSESSMENT & RECOMMENDATIONS SEE CARE ACTIVITY FOR COMPLETE ASSESSMENT DAILY ESTIMATED NEEDS: Needs based on HIV, underweight 44.5kg 30-40 kcals/kg 1177-2645 total kcals 1-2 g protein/kg 45-89 g total protein 25-30 mL/kg 1551-2966 total fluid mLs NUTRITION DIAGNOSIS: Increased kcal and pro needs r/t HIV, underweight status as evidenced by pt is @75% ideal body weight, BMI underweight per guidelines. CURRENT DIET:Regular PO DIET RECOMMENDATIONS: Regular diet/ BLAND as tolerated ADDITIONAL RECOMMENDATIONS: 1) Obtain a STANDING weight as able 2) Ensure Enlive TID w/ meals 3) Snacks in b/w meals as tolerated 4) Check lytes daily w/ diarrhea
--- NOTE | 2019-07-02 14:30 | NUR ---
NURSE NOTES: Patient couldn't let RN to try to get an IV line on him. Patient stated that he doesn't want to have IV access. I communicated the matter to MD Gilbert.
--- NOTE | 2019-07-02 15:04 | NUR ---
NURSE NOTES: I called and left a message to Dr Magana regarding patient's not having IV access and if MD can change that antibiotics to PO. Waiting for order.
--- NOTE | 2019-07-02 15:15 | NUR ---
NURSE NOTES: I received order from MD Magana for PO antibiotics. Order carried out as order given.
--- NOTE | 2019-07-02 15:27 | General Progress Note ---
Assessment/Plan Status: stable Assessment/Plan: # UTI and cystitis. . Follow up urine culture. ID consult and recs appreciated. Was receiving ceftriaxone but lost IV access, changed to Ceftin #Complicated UTI. #HIV, off anti-retroviral therapy. He does not want any testing for HIV, CD4, or viral load. He does not want anti-retroviral therapy. ID consulted. #Failure to thrive. #code status: full code Time of this note may not reflect time of encounter. I spent 40 minutes on this encounter, greater than 50% on counselling and care coordination. Subjective Date patient seen: Jul 02, 2019 ROS Limited/Unobtainable: No Constitutional: Reports: malaise, weakness HEENT: Denies: no symptoms, eye pain, blurred vision, tearing, double vision, ear pain, ear discharge, nose pain, nose congestion, throat pain, throat swelling, mouth pain, mouth swelling, other Cardiovascular: Denies: no symptoms, chest pain, edema, irregular heart rate, lightheadedness, palpitations, syncope, other Respiratory: Denies: no symptoms, cough, orthopnea, shortness of breath, SOB with excertion, SOB at rest, sputum, stridor, wheezing, other Gastrointestinal/Abdominal: Reports: diarrhea Allergies: Coded Allergies: No Known Allergies (Unverified , 06/30/19) Subjective stable. NO IV access antibiotics to change to po Objective Last 24 Hour Vital Signs Date Time Temp Pulse Resp B/P (MAP) Pulse Ox O2 Delivery O2 Flow Rate FiO2 07/02/19 12:00 97.0 74 18 126/87 (100) 98 07/02/19 09:00 Room Air 07/02/19 08:00 98.1 75 18 148/98 (115) 99 07/02/19 04:00 97.6 69 18 105/66 (79) 95 07/02/19 00:00 97.8 66 18 119/56 (77) 96 07/01/19 21:00 Room Air 07/01/19 20:00 97.6 69 18 144/92 (109) 96 07/01/19 16:00 98.4 80 18 131/82 (98) 96 Intake and Output 07/01/19 07/02/19 18:59 06:59 Intake Total 2600 ml 360 ml Balance 2600 ml 360 ml Intake Oral 360 ml IV Total 1100 ml Other 1500 ml # Voids 3 Laboratory Tests 07/02/19 05:35: White Blood Count 6.3#, Red Blood Count 3.99L, Hemoglobin 11.5L, Hematocrit 34.4L, Mean Corpuscular Volume 86, Mean Corpuscular Hemoglobin 28.9, Mean Corpuscular Hemoglobin Concent 33.5, Red Cell Distribution Width 11.8, Platelet Count 421, Mean Platelet Volume 5.9L, Neutrophils (%) (Auto) 60.8, Lymphocytes ( %) (Auto) 30.4, Monocytes (%) (Auto) 7.3, Eosinophils (%) (Auto) 0.5, Basophils (%) (Auto) 0.9, Sodium Level 136, Potassium Level 3.8, Chloride Level 102, Carbon Dioxide Level 26, Anion Gap 8, Blood Urea Nitrogen 16, Creatinine 1.0, Estimat Glomerular Filtration Rate > 60, Glucose Level 110H, Calcium Level 8.4L , Total Bilirubin 0.2, Aspartate Amino Transf (AST/SGOT) 14L, Alanine Aminotransferase (ALT/SGPT) 15, Alkaline Phosphatase 73, Total Protein 7.2, Albumin 2.5L, Globulin 4.7, Albumin/Globulin Ratio 0.5L Height (Feet): 5 Height (Inches): 4.00 Weight (Pounds): 98 General Appearance: no apparent distress, cachetic EENT: PERRL/EOMI Neck: supple Cardiovascular: normal rate, regular rhythm, no JVD Respiratory/Chest: lungs clear Abdomen: soft Extremities: normal range of motion 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 Jul 02, 2019 15:27
[2019-07-02 16:00] VITALS: BP 131/92
--- NOTE | 2019-07-02 16:00 | NUR ---
NURSE NOTES: MD Frias on the floor, is aware that patient doesn't have IV access. No new order received.
--- NOTE | 2019-07-02 19:25 | NUR ---
NURSE NOTES: Received pt in bed. AAO x 4, on room air. Pt is ambulatory. Pt has no IV access. MD aware it. No c/o pain, no acute distress noted at this time. Bed locked, lowest position, alarm on, side rails up x 2, call light within reach. Will continue to monitor.
--- NOTE | 2019-07-02 19:39 | NUR ---
HAND-OFF: Report given to MALIA Smith.
[2019-07-02 20:00] VITALS: BP 120/78
[2019-07-03] VITALS: BP 117/74
[2019-07-03] MEDS: D5 1/2NS 1,000 ML IV SCH (00:30)
[2019-07-03 04:00] VITALS: BP 115/84
[2019-07-03 07:43] LABS: BASOPHILS % (AUTO) 0.8 % (0.0-2.0); EOSINOPHILS % (AUTO) 0.5 % (0.0-3.0); HEMATOCRIT 33.2 % (42.0-52.0); HEMOGLOBIN 11.8 G/DL (14.2-18.0); LYMPHOCYTES % (AUTO) 27.9 % (20.0-45.0); MEAN CORPUSCULAR VOLUME 84 FL (80-99); MONOCYTES % (AUTO) 9.2 % (1.0-10.0); NEUTROPHILS % (AUTO) 61.7 % (45.0-75.0); PLATELET COUNT 456 K/UL (150-450); RED BLOOD COUNT 3.96 M/UL (4.70-6.10); RED CELL DISTRIBUTION WIDTH 11.5 % (11.6-14.8); WHITE BLOOD COUNT 6.3 K/UL (4.8-10.8)
--- NOTE | 2019-07-03 07:53 | NUR ---
HAND-OFF: Report given to MALIA Estevez.
[2019-07-03 08:00] VITALS: BP 122/83
[2019-07-03 08:21] LABS: ALANINE AMINOTRANSFERASE 14 U/L (12-78); ALBUMIN 2.4 G/DL (3.4-5.0); ALBUMIN/GLOBULIN RATIO 0.5 (1.0-2.7); ALKALINE PHOSPHATASE 75 U/L (46-116); ANION GAP 9 mmol/L (5-15); ASPARTATE AMINO TRANSFERASE 16 U/L (15-37); BILIRUBIN,TOTAL 0.2 MG/DL (0.2-1.0); BLOOD UREA NITROGEN 15 mg/dL (7-18); CALCIUM 8.4 MG/DL (8.5-10.1); CARBON DIOXIDE 27 MMOL/L (21-32); CHLORIDE 102 MMOL/L (98-107); POTASSIUM 3.4 MMOL/L (3.5-5.1); SODIUM 138 MMOL/L (136-145)
--- NOTE | 2019-07-03 08:52 | NUR ---
NURSE NOTES: Patient alert x4, on room air, no sing of distress and shortness of breath; no sing of chest pain; NO IV ACCESS, MD MAYNARD AWARE; side rails up x2, breaks engaged, bed at lowest position, call light within reach; will keep monitoring.
--- NOTE | 2019-07-03 09:05 | General Progress Note ---
Assessment/Plan Status: stable Assessment/Plan: # UTI and cystitis. . Follow up urine culture. ID consult and recs appreciated. Was receiving ceftriaxone but lost IV access, changed to Ceftin #Complicated UTI. #HIV, off anti-retroviral therapy. He does not want any testing for HIV, CD4, or viral load. He does not want anti-retroviral therapy. ID consulted. #Failure to thrive. #code status: full code Stable for discharge. Needs SW assistance as patient is homeless. Time of this note may not reflect time of encounter. I spent 40 minutes on this encounter, greater than 50% on counselling and care coordination. Subjective Date patient seen: Jul 03, 2019 ROS Limited/Unobtainable: No Constitutional: Reports: weakness HEENT: Denies: no symptoms, eye pain, blurred vision, tearing, double vision, ear pain, ear discharge, nose pain, nose congestion, throat pain, throat swelling, mouth pain, mouth swelling, other Cardiovascular: Denies: no symptoms, chest pain, edema, irregular heart rate, lightheadedness, palpitations, syncope, other Respiratory: Denies: no symptoms, cough, orthopnea, shortness of breath, SOB with excertion, SOB at rest, sputum, stridor, wheezing, other Gastrointestinal/Abdominal: Denies: no symptoms, abdomen distended, abdominal pain, black stools, tarry stools, blood in stool, constipated, diarrhea, difficulty swallowing, nausea, poor appetite, poor fluid intake, rectal bleeding , vomiting, other Genitourinary: Denies: no symptoms, burning, discharge, frequency, flank pain, hematuria, incontinence, pain, urgency, other Neurologic/Psychiatric: Denies: no symptoms, anxiety, depressed, emotional problems, headache, numbness, paresthesia, pre-existing deficit, seizure, tingling, tremors, weakness, other Endocrine: Denies: no symptoms, excessive sweating, flushing, intolerance to cold, intolerance to heat, increased hunger, increased thirst, increased urine, unexplained weight gain, unexplained weight loss, other Hematologic/Lymphatic: Denies: no symptoms, anemia, easy bleeding, easy bruising, other Allergies: Coded Allergies: No Known Allergies (Unverified , 06/30/19) Subjective stable. No IV access antibiotics to change to po Objective Last 24 Hour Vital Signs Date Time Temp Pulse Resp B/P (MAP) Pulse Ox O2 Delivery O2 Flow Rate FiO2 07/03/19 04:00 98.7 81 18 115/84 (94) 100 07/03/19 00:00 98.0 82 17 117/74 (88) 100 07/02/19 21:00 Room Air 07/02/19 20:00 97.8 88 16 120/78 (92) 100 07/02/19 16:00 97.7 78 17 131/92 (105) 100 07/02/19 12:00 97.0 74 18 126/87 (100) 98 Intake and Output 07/02/19 07/03/19 19:00 07:00 Intake Total 1200 ml Balance 1200 ml Other 1200 ml # Voids 4 3 Laboratory Tests 07/03/19 05:30: White Blood Count 6.3, Red Blood Count 3.96L, Hemoglobin 11.8L, Hematocrit 33.2L , Mean Corpuscular Volume 84, Mean Corpuscular Hemoglobin 29.7, Mean Corpuscular Hemoglobin Concent 35.4, Red Cell Distribution Width 11.5L, Platelet Count 456H, Mean Platelet Volume 5.4L, Neutrophils (%) (Auto) 61.7, Lymphocytes (%) (Auto) 27.9, Monocytes (%) (Auto) 9.2, Eosinophils (%) (Auto) 0.5, Basophils (%) (Auto) 0.8, Sodium Level 138, Potassium Level 3.4L, Chloride Level 102, Carbon Dioxide Level 27, Anion Gap 9, Blood Urea Nitrogen 15, Creatinine 1.0, Estimat Glomerular Filtration Rate > 60, Glucose Level 94, Calcium Level 8.4L, Total Bilirubin 0.2, Aspartate Amino Transf (AST/SGOT) 16, Alanine Aminotransferase (ALT/SGPT) 14, Alkaline Phosphatase 75, Total Protein 7.3, Albumin 2.4L, Globulin 4.9, Albumin/Globulin Ratio 0.5L Height (Feet): 5 Height (Inches): 4.00 Weight (Pounds): 98 Objective General Appearance: no apparent distress, cachetic EENT: PERRL/EOMI Neck: supple Cardiovascular: normal rate, regular rhythm, no JVD Respiratory/Chest: lungs clear Abdomen: soft Extremities: normal range of motion 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 Jul 03, 2019 09:05
--- NOTE | 2019-07-03 11:00 | NUR ---
NURSE NOTES: I received order from MD Frias to MARCELA D51/2NS; order carried out as order given.
[2019-07-03 12:00] VITALS: BP 121/74
--- NOTE | 2019-07-03 14:11 | Infectious Diseases Prog Note ---
Assessment/Plan Assessment/Plan ASSESSMENT AND PLAN: 1. complicated uti - ceftin x 5 days 2. gonorrhea and chlamydia testing negative 3. HIV, off anti-retroviral therapy and does not want. He does not want any testing for hiv cd4/viral load 4. The patient is cachectic. 5. Failure to thrive. 6. Weakness. 7. No known drug allergies. 8. Social history is negative. 9. Family history is noncontributory. 10. MAR was noted. 11. Case was discussed with RN. 12. Continue treatment per primary consultants. Subjective Constitutional: Denies: fever HEENT: Denies: congestion Respiratory: Denies: shortness of breath Cardiovascular: Denies: chest pain Gastrointestinal/Abdominal: Denies: nausea, vomiting, diarrhea Genitourinary: Denies: dysuria Neurologic: Denies: headache Psychiatric: Denies: depression Skin: Denies: rash Hematologic: Denies: bleeding Musculoskeletal: Denies: pain Allergies: Coded Allergies: No Known Allergies (Unverified , 06/30/19) Objective Vital Signs Last 24 Hour Vital Signs Date Time Temp Pulse Resp B/P (MAP) Pulse Ox O2 Delivery O2 Flow Rate FiO2 07/03/19 09:00 Room Air 07/03/19 08:00 97.1 88 18 122/83 (96) 99 07/03/19 04:00 98.7 81 18 115/84 (94) 100 07/03/19 00:00 98.0 82 17 117/74 (88) 100 07/02/19 21:00 Room Air 07/02/19 20:00 97.8 88 16 120/78 (92) 100 07/02/19 16:00 97.7 78 17 131/92 (105) 100 Height (Feet): 5 Height (Inches): 4.00 Weight (Pounds): 98 General Appearance: no acute distress HEENT: normocephalic, atraumatic, anicteric, mucous membranes moist Respiratory/Chest: chest wall non-tender, lungs clear, normal breath sounds, no respiratory distress, no accessory muscle use Cardiovascular: normal rate, regular rhythm, no gallop/murmur, no JVD Abdomen: normal bowel sounds, no organomegaly, non distended Genitourinary: other - no ruff, no cva pain Extremities: no cyanosis Skin: no rash 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 Complete 07/01/19 14:00 Stool WBC Smear - Final Complete 07/01/19 14:00 Stool Clostridium difficile Toxin Assay - Final Complete 06/30/19 18:10 Urine,Clean Catch Urine Culture - Final Mixed Gram Positive Organism Complete 06/30/19 20:45 Rectum VRE Culture - Final NO VANCOMYCIN RESISTANT ENTEROCOCCUS ... Complete 06/30/19 20:45 Rectum - Final NO CARBAPENEM-RESISTANT ENTEROBACTERI... Complete Laboratory Tests Test 07/03/19 05:30 White Blood Count 6.3 K/UL (4.8-10.8) Red Blood Count 3.96 M/UL (4.70-6.10) L Hemoglobin 11.8 G/DL (14.2-18.0) L Hematocrit 33.2 % (42.0-52.0) L Mean Corpuscular Volume 84 FL (80-99) Mean Corpuscular Hemoglobin 29.7 PG (27.0-31.0) Mean Corpuscular Hemoglobin Concent 35.4 G/DL (32.0-36.0) Red Cell Distribution Width 11.5 % (11.6-14.8) L Platelet Count 456 K/UL (150-450) H Mean Platelet Volume 5.4 FL (6.5-10.1) L Neutrophils (%) (Auto) 61.7 % (45.0-75.0) Lymphocytes (%) (Auto) 27.9 % (20.0-45.0) Monocytes (%) (Auto) 9.2 % (1.0-10.0) Eosinophils (%) (Auto) 0.5 % (0.0-3.0) Basophils (%) (Auto) 0.8 % (0.0-2.0) Sodium Level 138 MMOL/L (136-145) Potassium Level 3.4 MMOL/L (3.5-5.1) L Chloride Level 102 MMOL/L (98-107) Carbon Dioxide Level 27 MMOL/L (21-32) Anion Gap 9 mmol/L (5-15) Blood Urea Nitrogen 15 mg/dL (7-18) Creatinine 1.0 MG/DL (0.55-1.30) Estimat Glomerular Filtration Rate > 60 mL/min (>60) Glucose Level 94 MG/DL (74-106) Calcium Level 8.4 MG/DL (8.5-10.1) L Total Bilirubin 0.2 MG/DL (0.2-1.0) Aspartate Amino Transf (AST/SGOT) 16 U/L (15-37) Alanine Aminotransferase (ALT/SGPT) 14 U/L (12-78) Alkaline Phosphatase 75 U/L (46-116) Total Protein 7.3 G/DL (6.4-8.2) Albumin 2.4 G/DL (3.4-5.0) L Globulin 4.9 g/dL Albumin/Globulin Ratio 0.5 (1.0-2.7) L Current Medications Medications (Trade) Dose Ordered Sig/Kenia Route PRN Reason Start Time Stop Time Status Last Admin Dose Admin Cefuroxime Axetil (Ceftin) 500 mg EVERY 12 HOURS ORAL 07/02/19 21:00 07/09/19 20:59 07/03/19 10:28 Morphine Sulfate (Morphine Sulfate) 2 mg Q4H PRN IVP For Pain 06/30/19 22:30 07/07/19 22:29 07/01/19 14:43 Ondansetron HCl (Zofran) 4 mg Q4H PRN IVP Nausea & Vomiting 06/30/19 22:30 07/30/19 22:29 Ortiz Magana MD Jul 03, 2019 14:11
[2019-07-03 16:00] VITALS: BP 117/80
--- NOTE | 2019-07-03 19:10 | NUR ---
NURSE NOTES: Received pt in bed. AAO x 4, on room air. Pt is ambulatory. Pt has no IV access. Dr. Frias aware it. No c/o pain, no acute respiratory distress noted at this time. Bed locked, lowest position, alarm on, side rails up x 2, call light within reach. Will continue to monitor.
--- NOTE | 2019-07-03 19:54 | NUR ---
HAND-OFF: Report given to MALIA Smith.
[2019-07-03 20:00] VITALS: BP 121/84
[2019-07-04] VITALS: BP 133/82
[2019-07-04 04:00] VITALS: BP 127/85
[2019-07-04 07:09] LABS: BASOPHILS % (AUTO) 0.8 % (0.0-2.0); EOSINOPHILS % (AUTO) 1.1 % (0.0-3.0); HEMATOCRIT 35.9 % (42.0-52.0); HEMOGLOBIN 11.8 G/DL (14.2-18.0); LYMPHOCYTES % (AUTO) 25.7 % (20.0-45.0); MEAN CORPUSCULAR VOLUME 87 FL (80-99); MONOCYTES % (AUTO) 8.7 % (1.0-10.0); NEUTROPHILS % (AUTO) 63.7 % (45.0-75.0); PLATELET COUNT 455 K/UL (150-450); RED BLOOD COUNT 4.11 M/UL (4.70-6.10); WHITE BLOOD COUNT 5.4 K/UL (4.8-10.8)
[2019-07-04 07:29] LABS: ALANINE AMINOTRANSFERASE 16 U/L (12-78); ALBUMIN 2.5 G/DL (3.4-5.0); ALBUMIN/GLOBULIN RATIO 0.5 (1.0-2.7); ALKALINE PHOSPHATASE 71 U/L (46-116); ANION GAP 6 mmol/L (5-15); ASPARTATE AMINO TRANSFERASE 17 U/L (15-37); BILIRUBIN,TOTAL 0.2 MG/DL (0.2-1.0); BLOOD UREA NITROGEN 17 mg/dL (7-18); CALCIUM 8.7 MG/DL (8.5-10.1); CARBON DIOXIDE 30 MMOL/L (21-32); CHLORIDE 102 MMOL/L (98-107); CREATININE 0.8 MG/DL (0.55-1.30); POTASSIUM 3.3 MMOL/L (3.5-5.1); SODIUM 138 MMOL/L (136-145)
--- NOTE | 2019-07-04 07:29 | NUR ---
HAND-OFF: Report given to MALIA Ortiz.
[2019-07-04 08:00] VITALS: BP 117/77
--- NOTE | 2019-07-04 11:37 | Cardiology Report ---
APPROVED REPORT EKG Measurement Heart [id number] Normal sinus rhythm Incomplete right bundle branch block Borderline ECG
[2019-07-04 12:00] VITALS: BP 109/78
[2019-07-04] MEDS: oxyCODONE HCL/Acetaminophen 5/325mg ORAL PRN ×3 (12:17→22:09)
--- NOTE | 2019-07-04 13:18 | General Progress Note ---
Assessment/Plan Status: stable Assessment/Plan: # UTI and cystitis/ Complicated UTI.. ID consult and recs appreciated. Was receiving ceftriaxone but lost IV access, changed to Ceftin #HIV, off anti-retroviral therapy. He does not want any testing for HIV, CD4, or viral load. He does not want anti-retroviral therapy. ID consulted. #Failure to thrive. #code status: full code Patient is medically stable for discharge. Needs SW assistance as patient is homeless. Time of this note may not reflect time of encounter. I spent 40 minutes on this encounter, greater than 50% on counselling and care coordination. Subjective Date patient seen: Jul 04, 2019 ROS Limited/Unobtainable: No Constitutional: Reports: other - back pain HEENT: Denies: no symptoms, eye pain, blurred vision, tearing, double vision, ear pain, ear discharge, nose pain, nose congestion, throat pain, throat swelling, mouth pain, mouth swelling, other Cardiovascular: Denies: no symptoms, chest pain, edema, irregular heart rate, lightheadedness, palpitations, syncope, other Respiratory: Denies: no symptoms, cough, orthopnea, shortness of breath, SOB with excertion, SOB at rest, sputum, stridor, wheezing, other Gastrointestinal/Abdominal: Denies: no symptoms, abdomen distended, abdominal pain, black stools, tarry stools, blood in stool, constipated, diarrhea, difficulty swallowing, nausea, poor appetite, poor fluid intake, rectal bleeding , vomiting, other Genitourinary: Denies: no symptoms, burning, discharge, frequency, flank pain, hematuria, incontinence, pain, urgency, other Neurologic/Psychiatric: Denies: no symptoms, anxiety, depressed, emotional problems, headache, numbness, paresthesia, pre-existing deficit, seizure, tingling, tremors, weakness, other Endocrine: Denies: no symptoms, excessive sweating, flushing, intolerance to cold, intolerance to heat, increased hunger, increased thirst, increased urine, unexplained weight gain, unexplained weight loss, other Hematologic/Lymphatic: Denies: no symptoms, anemia, easy bleeding, easy bruising, other Allergies: Coded Allergies: No Known Allergies (Unverified , 06/30/19) Subjective stable. No IV access refusing most treatment Objective Last 24 Hour Vital Signs Date Time Temp Pulse Resp B/P (MAP) Pulse Ox O2 Delivery O2 Flow Rate FiO2 07/04/19 12:00 98.6 86 19 109/78 (88) 97 07/04/19 09:00 Room Air 07/04/19 08:00 98.1 85 17 117/77 (90) 98 07/04/19 04:00 98.3 87 18 127/85 (99) 99 07/04/19 00:00 98.3 91 20 133/82 (99) 99 07/03/19 21:00 Room Air 07/03/19 20:00 99.0 89 20 121/84 (96) 98 07/03/19 16:00 98.1 88 18 117/80 (92) 98 Intake and Output 07/03/19 07/04/19 19:00 07:00 Intake Total 1600 ml Balance 1600 ml Intake Oral 400 ml Other 1200 ml # Voids 4 3 Laboratory Tests 07/04/19 05:55: White Blood Count 5.4, Red Blood Count 4.11L, Hemoglobin 11.8L, Hematocrit 35.9L , Mean Corpuscular Volume 87, Mean Corpuscular Hemoglobin 28.8, Mean Corpuscular Hemoglobin Concent 33.0, Red Cell Distribution Width 12.0, Platelet Count 455H, Mean Platelet Volume 5.7L, Neutrophils (%) (Auto) 63.7, Lymphocytes (%) (Auto) 25.7, Monocytes (%) (Auto) 8.7, Eosinophils (%) (Auto) 1.1, Basophils (%) (Auto) 0.8, Sodium Level 138, Potassium Level 3.3L, Chloride Level 102, Carbon Dioxide Level 30, Anion Gap 6, Blood Urea Nitrogen 17, Creatinine 0.8, Estimat Glomerular Filtration Rate > 60, Glucose Level 98, Calcium Level 8.7, Total Bilirubin 0.2, Aspartate Amino Transf (AST/SGOT) 17, Alanine Aminotransferase (ALT/SGPT) 16, Alkaline Phosphatase 71, Total Protein 7.1, Albumin 2.5L, Globulin 4.6, Albumin/Globulin Ratio 0.5L Height (Feet): 5 Height (Inches): 4.00 Weight (Pounds): 98 Objective General Appearance: no apparent distress, cachetic EENT: PERRL/EOMI Neck: supple Cardiovascular: normal rate, regular rhythm, no JVD Respiratory/Chest: lungs clear Abdomen: soft Extremities: normal range of motion 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 Jul 04, 2019 13:18
--- NOTE | 2019-07-04 14:28 | NUR ---
NURSE NOTES: PT AXOX4, CALM, RESTING IN BED. PT STATED PAIN IN LOWER BACK 05/10. PT REQUESTS PAIN MEDICATION. RN RECEIVED ORDER FROM DR MAYNARD FOR PERCOCET 5/325MG Q4H PRN SEVERE PAIN. RN ADMINISTERED PRN PERCOCET ORDERED. REFUSING IV ACCESS AND DR MAYNARD MADE AWARE. WILL CONTINUE TO MONITOR.
[2019-07-04 15:54] VITALS: BP 123/73
--- NOTE | 2019-07-04 18:45 | NUR ---
CASE MANAGEMENT: INITIAL REVIEW 49 YO PRESENTED TO OUR ED FROM HOME CC: DIARRHEA PMHx: HIV SI:FTT. IMMUNOCOMPROMISE. MARASMUS. T 97.9 HR 87 RR 18 B/P 123/86 SATS 99% ON RA NA 132 BUN 26 GLU 114 IS: NS BOLUS X2 ZOFRAN IV X1 MORPHINE IV X1 PATIENT ADMITTED TO MED/SURG 06/30/2019 @ 1838 DCP: PATIENT TO BE DISCHARGED TO HOME ONCE MEDICALLY CLEARED. PLAN OF CARE: ID CONSULT Addendum: 07/05/19 at 0745 by Abbey Bagley CM INTERQUAL
--- NOTE | 2019-07-04 19:32 | NUR ---
HAND-OFF: Report given to Owen BAER RN.
[2019-07-04 20:00] VITALS: BP 112/77
--- NOTE | 2019-07-04 20:00 | NUR ---
NURSE NOTES: Received patient awake in bed, AOx4, no IV access, ambulatory. No s/s of acute distress. Will administer pain medication per MD order.
[2019-07-05] VITALS: BP 127/75
[2019-07-05 04:00] VITALS: BP 117/72
[2019-07-05] MEDS: oxyCODONE HCL/Acetaminophen 5/325mg ORAL PRN (06:32)
--- NOTE | 2019-07-05 07:34 | NUR ---
HAND-OFF: Report given to MALIA Vargas.
--- NOTE | 2019-07-05 08:06 | NUR ---
NURSE NOTES: pts awake, a/O x 4, calm . denies pain. no SOB noted. no IV access , MD aware. will continue to monitor.
[2019-07-05 08:19] VITALS: BP 102/64
--- NOTE | 2019-07-05 10:35 | NUR ---
*-* INSURANCE *-* CLINICALS AND REVIEWS HAVE BEEN FAXED TO: [facility] NCM: APRIL P- [phone] F- [phone].....REVIEW /CLINICAL & [facility]ARE NCM: KHADIJAH FORDE P- [phone] F- [phone].....REVIEW/CLINICAL
--- NOTE | 2019-07-05 11:40 | General Progress Note ---
Assessment/Plan Status: stable Assessment/Plan: # UTI and cystitis/ Complicated UTI.. ID consult and recs appreciated. Was receiving ceftriaxone but lost IV access, changed to Ceftin #HIV, off anti-retroviral therapy. He does not want any testing for HIV, CD4, or viral load. He does not want anti-retroviral therapy. ID consulted. #Failure to thrive. #code status: full code Patient is medically stable for discharge. Needs SW assistance as patient is homeless. Time of this note may not reflect time of encounter. I spent 40 minutes on this encounter, greater than 50% on counselling and care coordination. Subjective Date patient seen: Jul 05, 2019 ROS Limited/Unobtainable: No Constitutional: Denies: no symptoms, chills, diaphoresis, fever, malaise, weakness, other HEENT: Denies: no symptoms, eye pain, blurred vision, tearing, double vision, ear pain, ear discharge, nose pain, nose congestion, throat pain, throat swelling, mouth pain, mouth swelling, other Cardiovascular: Denies: no symptoms, chest pain, edema, irregular heart rate, lightheadedness, palpitations, syncope, other Respiratory: Denies: no symptoms, cough, orthopnea, shortness of breath, SOB with excertion, SOB at rest, sputum, stridor, wheezing, other Gastrointestinal/Abdominal: Denies: no symptoms, abdomen distended, abdominal pain, black stools, tarry stools, blood in stool, constipated, diarrhea, difficulty swallowing, nausea, poor appetite, poor fluid intake, rectal bleeding , vomiting, other Genitourinary: Denies: no symptoms, burning, discharge, frequency, flank pain, hematuria, incontinence, pain, urgency, other Neurologic/Psychiatric: Denies: no symptoms, anxiety, depressed, emotional problems, headache, numbness, paresthesia, pre-existing deficit, seizure, tingling, tremors, weakness, other Endocrine: Denies: no symptoms, excessive sweating, flushing, intolerance to cold, intolerance to heat, increased hunger, increased thirst, increased urine, unexplained weight gain, unexplained weight loss, other Hematologic/Lymphatic: Denies: no symptoms, anemia, easy bleeding, easy bruising, other Allergies: Coded Allergies: No Known Allergies (Unverified , 06/30/19) Subjective stable. medically stable for discharge Objective Last 24 Hour Vital Signs Date Time Temp Pulse Resp B/P (MAP) Pulse Ox O2 Delivery O2 Flow Rate FiO2 07/05/19 09:00 Room Air 07/05/19 08:19 98.6 76 17 102/64 (77) 98 07/05/19 07:02 98.6 07/05/19 04:00 98.6 75 17 117/72 (87) 99 07/05/19 00:00 98.3 65 18 127/75 (92) 96 07/04/19 23:15 Room Air 07/04/19 20:00 97.7 77 18 112/77 (89) 96 07/04/19 15:54 98.4 72 19 123/73 (90) 96 07/04/19 12:00 98.6 86 19 109/78 (88) 97 Intake and Output 07/04/19 07/05/19 19:00 07:00 Intake Total 1140 ml 500 ml Balance 1140 ml 500 ml Intake Oral 1140 ml 500 ml # Voids 3 2 Height (Feet): 5 Height (Inches): 4.00 Weight (Pounds): 97 Objective General Appearance: no apparent distress, cachetic EENT: PERRL/EOMI Neck: supple Cardiovascular: normal rate, regular rhythm, no JVD Respiratory/Chest: lungs clear Abdomen: soft Extremities: normal range of motion Neurologic: peace officer II-XII grossly normal Gold Frias M.D. Jul 05, 2019 11:39
--- NOTE | 2019-07-05 12:00 | Infectious Diseases Prog Note ---
Assessment/Plan Assessment/Plan ASSESSMENT AND PLAN: 1. complicated uti - ceftin x 3 days 2. gonorrhea and chlamydia testing negative 3. HIV, off anti-retroviral therapy and does not want. He does not want any testing for hiv cd4/viral load 4. The patient is cachectic. 5. Failure to thrive. 6. Weakness. 7. No known drug allergies. 8. Social history is negative. 9. Family history is noncontributory. 10. MAR was noted. 11. Case was discussed with RN. 12. Continue treatment per primary consultants. Subjective Constitutional: Denies: fever HEENT: Denies: congestion Respiratory: Denies: shortness of breath Cardiovascular: Denies: chest pain Gastrointestinal/Abdominal: Denies: nausea, vomiting, diarrhea Genitourinary: Denies: dysuria Neurologic: Denies: headache Psychiatric: Denies: depression Skin: Denies: rash Hematologic: Denies: bleeding Musculoskeletal: Denies: pain Allergies: Coded Allergies: No Known Allergies (Unverified , 06/30/19) Objective Vital Signs Last 24 Hour Vital Signs Date Time Temp Pulse Resp B/P (MAP) Pulse Ox O2 Delivery O2 Flow Rate FiO2 07/05/19 09:00 Room Air 07/05/19 08:19 98.6 76 17 102/64 (77) 98 07/05/19 07:02 98.6 07/05/19 04:00 98.6 75 17 117/72 (87) 99 07/05/19 00:00 98.3 65 18 127/75 (92) 96 07/04/19 23:15 Room Air 07/04/19 20:00 97.7 77 18 112/77 (89) 96 07/04/19 15:54 98.4 72 19 123/73 (90) 96 07/04/19 12:00 98.6 86 19 109/78 (88) 97 Height (Feet): 5 Height (Inches): 4.00 Weight (Pounds): 97 General Appearance: no acute distress HEENT: normocephalic, atraumatic, anicteric, mucous membranes moist Respiratory/Chest: lungs clear, normal breath sounds, no respiratory distress, no accessory muscle use Cardiovascular: normal rate, regular rhythm, no gallop/murmur, no JVD Abdomen: normal bowel sounds, soft, non tender, no organomegaly, non distended Genitourinary: other - no ruff Extremities: no cyanosis Skin: no rash Neurologic/Psychiatric: colorer II-XII grossly normal, alert, oriented x 3, responsive Lymphatic: no neck adenopathy Musculoskeletal: no effusion Objective chest x-ray - nad, report noted Microbiology Date/Time Source Procedure Growth Status 07/01/19 10:55 Blood Blood Culture - Preliminary NO GROWTH AFTER 72 HOURS Resulted 06/30/19 20:45 Nasal Nares MRSA Culture - Final NO METHICILLIN RESISTANT STAPH AUREUS... Complete 07/01/19 14:00 Stool WBC Smear - Final Complete 06/30/19 18:10 Urine,Clean Catch Urine Culture - Final Mixed Gram Positive Organism Complete 06/30/19 20:45 Rectum VRE Culture - Final NO VANCOMYCIN RESISTANT ENTEROCOCCUS ... Complete Labs Test 07/03/19 05:30 07/04/19 05:55 White Blood Count 6.3 K/UL (4.8-10.8) 5.4 K/UL (4.8-10.8) Red Blood Count 3.96 M/UL (4.70-6.10) 4.11 M/UL (4.70-6.10) Hemoglobin 11.8 G/DL (14.2-18.0) 11.8 G/DL (14.2-18.0) Hematocrit 33.2 % (42.0-52.0) 35.9 % (42.0-52.0) Mean Corpuscular Volume 84 FL (80-99) 87 FL (80-99) Mean Corpuscular Hemoglobin 29.7 PG (27.0-31.0) 28.8 PG (27.0-31.0) Mean Corpuscular Hemoglobin Concent 35.4 G/DL (32.0-36.0) 33.0 G/DL (32.0-36.0) Red Cell Distribution Width 11.5 % (11.6-14.8) 12.0 % (11.6-14.8) Platelet Count 456 K/UL (150-450) 455 K/UL (150-450) Mean Platelet Volume 5.4 FL (6.5-10.1) 5.7 FL (6.5-10.1) Neutrophils (%) (Auto) 61.7 % (45.0-75.0) 63.7 % (45.0-75.0) Lymphocytes (%) (Auto) 27.9 % (20.0-45.0) 25.7 % (20.0-45.0) Monocytes (%) (Auto) 9.2 % (1.0-10.0) 8.7 % (1.0-10.0) Eosinophils (%) (Auto) 0.5 % (0.0-3.0) 1.1 % (0.0-3.0) Basophils (%) (Auto) 0.8 % (0.0-2.0) 0.8 % (0.0-2.0) Sodium Level 138 MMOL/L (136-145) 138 MMOL/L (136-145) Potassium Level 3.4 MMOL/L (3.5-5.1) 3.3 MMOL/L (3.5-5.1) Chloride Level 102 MMOL/L (98-107) 102 MMOL/L (98-107) Carbon Dioxide Level 27 MMOL/L (21-32) 30 MMOL/L (21-32) Anion Gap 9 mmol/L (5-15) 6 mmol/L (5-15) Blood Urea Nitrogen 15 mg/dL (7-18) 17 mg/dL (7-18) Creatinine 1.0 MG/DL (0.55-1.30) 0.8 MG/DL (0.55-1.30) Estimat Glomerular Filtration Rate > 60 mL/min (>60) > 60 mL/min (>60) Glucose Level 94 MG/DL (74-106) 98 MG/DL (74-106) Calcium Level 8.4 MG/DL (8.5-10.1) 8.7 MG/DL (8.5-10.1) Total Bilirubin 0.2 MG/DL (0.2-1.0) 0.2 MG/DL (0.2-1.0) Aspartate Amino Transf (AST/SGOT) 16 U/L (15-37) 17 U/L (15-37) Alanine Aminotransferase (ALT/SGPT) 14 U/L (12-78) 16 U/L (12-78) Alkaline Phosphatase 75 U/L (46-116) 71 U/L (46-116) Total Protein 7.3 G/DL (6.4-8.2) 7.1 G/DL (6.4-8.2) Albumin 2.4 G/DL (3.4-5.0) 2.5 G/DL (3.4-5.0) Globulin 4.9 g/dL 4.6 g/dL Albumin/Globulin Ratio 0.5 (1.0-2.7) 0.5 (1.0-2.7) Current Medications Medications (Trade) Dose Ordered Sig/Kenia Route PRN Reason Start Time Stop Time Status Last Admin Dose Admin Cefuroxime Axetil (Ceftin) 500 mg EVERY 12 HOURS ORAL 07/02/19 21:00 07/09/19 20:59 07/05/19 08:18 Morphine Sulfate (Morphine Sulfate) 2 mg Q4H PRN IVP For Pain 06/30/19 22:30 07/07/19 22:29 07/01/19 14:43 Ondansetron HCl (Zofran) 4 mg Q4H PRN IVP Nausea & Vomiting 06/30/19 22:30 07/30/19 22:29 Oxycodone/ Acetaminophen (Percocet 5-325) 1 tab Q4H PRN ORAL Severe Pain (Pain Scale 7-10) 07/04/19 12:00 07/11/19 11:59 07/05/19 06:32 Ortiz Magana MD Jul 05, 2019 12:00
--- NOTE | 2019-07-05 13:29 | NUR ---
CASE MANAGEMENT: REVIEW 07/05/2019 SI:FTT. IMMUNOCOMPROMISE. MARASMUS. T 98.6 HR 76 RR 17 B/P 102/64 SATS 98% ON RA NO LABS TODAY IS: CEFTIN PO Q12H MED/SURG STATUS DCP: PATIENT TO BE DISCHARGED TO HOME ONCE MEDICALLY CLEARED. PLAN OF CARE: ID CONSULT >> PT IS REFUSING ANTIRETROVIRALS
--- NOTE | 2019-07-05 14:59 | NUR ---
DISCHARGE PLANNING: NOTE PT TO BE DC TO "HOME" WITH FILLED RX CM SPOKE TO NURSING HOMELESS DC COORDINATOR TO SEE PT
--- NOTE | 2019-07-05 15:36 | NUR ---
Pt request to be discharge, refused placement. notified MD, received order to DC pt. VS stable, pt stable condition, denies pain, No SOB noted. pt refused placement, list of placement options given, verbalize understanding. belongings with pt, bus tokens given, DC instruction given, verbalize understanding, homeless patient discharge planning checklist done.
--- NOTE | 2019-07-05 15:54 | NUR ---
HOMELESS COORDINATOR HC spoke with patient and patient is alert and oriented. Patient does not have a contact number. Patient states he is chronically homeless and has been staying on [address] and [address]. Patient states he has been homeless for 6 years and using crack cocaine contributes his homelessness. Patient does have a field contact person, CC (friend) [phone]. Patient states he is receiving 1,000 in SSI, but doesn't want to use any of his money for placement at this time. Patient states the last time he used meth was about a week ago and refuses resources for substance abuse and mental health. Patient states he would like resources for community clinics to make his own follow-up appointment. Patient states he would like bus token upon discharge.
--- NOTE | 2019-07-06 12:32 | Discharge Summary ---
Discharge Summary Hospital Course Date of Admission Jun 30, 2019 at 18:35 Date of Discharge Jul 05, 2019 at 15:33 Admitting Diagnosis /complicated UTI/FTT/immune compromise/marasmus HPI Isaias Christian Jr is a 49 year old male who was admitted on Jun 30, 2019 at 18:35 for Failure To Thrive,Immune Compromise,Marasmus Consultations ID: Dr. Ward Hospital Course 49-year-old male, comes in to [facility] and was noted to have vomiting and abdominal pain. He also has urinary symptoms including dysuria and frequency. He is cachetic and reports weight loss. History of HIV and not on HAART. He was found to have a urinary tract infection and was started on IV ceftriaxone. # UTI and cystitis/ Complicated UTI.. ID consult and recs appreciated. Was receiving ceftriaxone but lost IV access, changed to Ceftin. finished 6 days. blood cultures negative. Urine culture grew mixed gram positive organism COLONY COUNT: 30,000 - 40,000 CFU/ML #HIV, off anti-retroviral therapy. He does not want any testing for HIV, CD4, or viral load. He does not want anti-retroviral therapy. ID consulted. Dr. Ward recs appreciated #Failure to thrive. and diarrhea. Stool wbc and c diff negative. Diarrhea resolved completely. #code status: full code Time of this note may not reflect time of encounter. I spent 40 minutes on this encounter, greater than 50% on counselling and care coordination. Discharge Condition Upon Discharge: stable Discharge Disposition Patient was discharged to home (street, he is homeless and wanted to return to the streets) Discharge Diagnoses: (1) Complicated UTI (urinary tract infection) (2) Failure to thrive (3) Weakness (4) Cachexia (5) HIV (human immunodeficiency virus infection) Gold Frias M.D. Jul 06, 2019 12:32
--- NOTE | 2019-07-07 11:25 | NUR ---
*-* INSURANCE *-* CLINICALS AND REVIEWS HAVE BEEN FAXED TO: [facility]: PEND P- [phone].....REVIEW /CLINICAL Addendum: 07/07/19 at 1126 by ALEXANDRE JIMENEZ DISCHARGE SUMMARY ALSO FAXED
== END 2019-07-05 15:33 | disposition home or self-care (01) | DRG 463 ==
LOC: EMR 17:50 → 4E 18:35 → EDBEDREQ 19:37 → 4E 07-03 17:40
DX: N39.0 Urinary tract infection, site not specified (principal); B20 Human immunodeficiency virus [HIV] disease; R62.7 Adult failure to thrive; R19.7 Diarrhea, unspecified; R64 Cachexia; Z59.0 Homelessness; R53.1 Weakness; Z91.19 Patient's noncompliance with other medical treatment and regimen; Z68.1 Body mass index [BMI] 19.9 or less, adult
CPT/HCPCS: 36415; 71045; 74018; 80048; 80053; 80307; 80329; 81003; 82550; 83605; 84484; 85025; 87040; 87081; 87086; 87205; 87324; 87491; 87590; 93005; 96361; 96365; 96375; 99285; J2405; J8499

== ENCOUNTER 2020-03-27 07:48 | Inpatient (IN) | payer OTHER ==
[~2020-03-27] VITALS: Ht 162.6 cm; Wt 54.4 kg
[2020-03-27 08:15] VITALS: BP 132/81
[2020-03-27 08:33] LABS: APPEARANCE,URINE CLOUDY; BILIRUBIN, URINE NEGATIVE (NEGATIVE); GLUCOSE, URINE (UA) NEGATIVE (NEGATIVE); KETONES,URINE NEGATIVE (NEGATIVE); LEUKOCYTE ESTERASE ,URINE 3+ (NEGATIVE); NITRITE,URINE NEGATIVE (NEGATIVE); PH,URINE 6 (4.5-8.0); PROTEIN,URINE 3+ (NEGATIVE); UROBILINOGEN,URINE NORMAL MG/DL (0.0-1.0)
[2020-03-27 08:37] LABS: COLOR,URINE YELLOW
[2020-03-27 08:59] LABS: BASOPHILS % (AUTO) 0.6 % (0.0-2.0); EOSINOPHILS % (AUTO) 0.1 % (0.0-3.0); HEMOGLOBIN 11.5 G/DL (14.2-18.0); LYMPHOCYTES % (AUTO) 10.4 % (20.0-45.0); MEAN CORPUSCULAR VOLUME 78 FL (80-99); MONOCYTES % (AUTO) 6.3 % (1.0-10.0); NEUTROPHILS % (AUTO) 82.8 % (45.0-75.0); PLATELET COUNT 565 K/UL (150-450); RED BLOOD COUNT 4.33 M/UL (4.70-6.10); RED CELL DISTRIBUTION WIDTH 11.8 % (11.6-14.8); WHITE BLOOD COUNT 7.7 K/UL (4.8-10.8)
[2020-03-27] MEDS ORDERED: cefTRIAXone 1 GM in NS 55 ML IVPB ONE (09:00)
[2020-03-27 09:09] LABS: ANION GAP 5 mmol/L (5-15); BLOOD UREA NITROGEN 16 mg/dL (7-18); CALCIUM 8.3 MG/DL (8.5-10.1); CARBON DIOXIDE 31 MMOL/L (21-32); CHLORIDE 96 MMOL/L (98-107); CREATININE 1.3 MG/DL (0.55-1.30); POTASSIUM 3.2 MMOL/L (3.5-5.1); SODIUM 132 MMOL/L (136-145)
[2020-03-27 09:15] LABS: ALANINE AMINOTRANSFERASE 54 U/L (12-78); ALBUMIN 2.3 G/DL (3.4-5.0); ALBUMIN/GLOBULIN RATIO 0.4 (1.0-2.7); ALKALINE PHOSPHATASE 110 U/L (46-116); ASPARTATE AMINO TRANSFERASE 54 U/L (15-37); BILIRUBIN,TOTAL 0.4 MG/DL (0.2-1.0)
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
[2020-03-27] MEDS ORDERED: Nystatin Susp 500,000 units/5ml ORAL ONE (10:15)
[2020-03-27] MEDS ORDERED: Tetanus/Diptheria/Pertussis IM ONE (10:15)
[2020-03-27] MEDS ORDERED: Fluconazole 100mg tab ORAL ONE (10:15)
--- NOTE | 2020-03-27 10:40 | Diagnostic Imaging Report ---
Indication: Shortness of breath Technique: One view of the chest Comparison: none Findings: Lungs and pleural spaces are clear. Heart size is normal. Bilateral basilar nipple shadows are noted. There is no significant interim change Impression: No acute process
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
[2020-03-27] MEDS ORDERED: Morphine Sulfate 4mg/ml Inj (IV USE ONLY) IVP PRN (13:30)
[2020-03-27] MEDS ORDERED: Morphine Sulfate 2mg/ml Inj(IV/IM USE ONLY) IVP PRN (13:30)
[2020-03-27 16:00] VITALS: BP 130/72
[2020-03-27 16:33] VITALS: BP 130/82
--- NOTE | 2020-03-27 20:15 | History and Physical Report ---
DATE OF ADMISSION: 03/27/2020 REASON FOR ADMISSION: Failure to thrive, HIV. HISTORY OF PRESENT ILLNESS: This is a 49-year-old male, homeless, presents for evaluation. Patient appears to be very restless and weak overall. Patient is seen and evaluated in the emergency room. Patient has been having some painful urination since discharge, also some lower back pain, history of HIV, but not treated. Significant amount of weight loss. PAST MEDICAL HISTORY: Notable for the above. HIV. No COVID related symptoms noted at present. MEDICATIONS: Reviewed. ALLERGIES: Reviewed. REVIEW OF SYSTEMS: Notable for some diarrhea, weight loss, weakness, fatigue, penile discharge. PHYSICAL EXAMINATION: GENERAL: Ill-appearing male, appears to be chronically ill and debilitated. VITAL SIGNS: Stable. HEENT: Negative. NECK: Supple. LUNGS: Clear. CARDIAC: S1, S2. Regular rate and rhythm. ABDOMEN: Soft, nontender. EXTREMITIES: No edema. LABORATORY DATA: Reviewed. IMPRESSION: Hyponatremia, hypokalemia, hyperglycemia, transaminitis, severe protein-calorie malnutrition, HIV, anemia, thrombocytosis. RECOMMENDATION: IV hydration. ID evaluation. HIV viral load. T-cell count. Hydration. Swallow evaluation. PT evaluation and case management to assist with disposition. Tino Cao M.D. DR: MADELAINE JOB#: [id number] CC:
[2020-03-27] MEDS: Heparin 5000 units/ml inj SUBQ SCH (21:00)
[2020-03-28 04:00] VITALS: BP 124/74
[2020-03-28 06:22] LABS: BASOPHILS % (AUTO) 0.5 % (0.0-2.0); EOSINOPHILS % (AUTO) 0.2 % (0.0-3.0); HEMATOCRIT 30.1 % (42.0-52.0); HEMOGLOBIN 10.1 G/DL (14.2-18.0); LYMPHOCYTES % (AUTO) 17.7 % (20.0-45.0); MEAN CORPUSCULAR VOLUME 79 FL (80-99); MONOCYTES % (AUTO) 6.9 % (1.0-10.0); NEUTROPHILS % (AUTO) 74.7 % (45.0-75.0); PLATELET COUNT 531 K/UL (150-450); RED BLOOD COUNT 3.81 M/UL (4.70-6.10); RED CELL DISTRIBUTION WIDTH 11.9 % (11.6-14.8); WHITE BLOOD COUNT 7.5 K/UL (4.8-10.8)
[2020-03-28 06:54] LABS: ANION GAP 7 mmol/L (5-15); BLOOD UREA NITROGEN 10 mg/dL (7-18); CALCIUM 7.6 MG/DL (8.5-10.1); CARBON DIOXIDE 28 MMOL/L (21-32); CHLORIDE 99 MMOL/L (98-107); CREATININE 1.2 MG/DL (0.55-1.30); SODIUM 134 MMOL/L (136-145)
[2020-03-28 08:00] VITALS: BP 146/94
--- NOTE | 2020-03-28 08:56 | General Progress Note ---
Assessment/Plan Assessment/Plan: IMPRESSION: Hyponatremia, hypokalemia, hyperglycemia, transaminitis, severe protein-calorie malnutrition, HIV, anemia, thrombocytosis. PLAN as is ID to see CM to assist with dc planning speech and PT to see impression, plan, and exam edited and reviewed in detail care discussed with RN Subjective Allergies: Coded Allergies: No Known Allergies (Unverified , 06/30/19) Objective Last 24 Hour Vital Signs Date Time Temp Pulse Resp B/P (MAP) Pulse Ox O2 Delivery O2 Flow Rate FiO2 03/28/20 08:00 97.7 90 20 146/94 (111) 99 03/28/20 04:00 97.9 72 20 124/74 (91) 95 03/27/20 21:00 Room Air 03/27/20 16:33 97.7 74 17 130/82 (98) 100 03/27/20 16:00 97.9 71 20 130/72 (91) 97 03/27/20 15:38 Room Air 03/27/20 15:08 98.4 03/27/20 11:18 98.4 87 16 125/79 98 Room Air Intake and Output 03/27/20 03/28/20 19:00 07:00 Intake Total 600 ml 1100 ml Output Total 700 ml 5 ml Balance -100 ml 1095 ml Intake IV Total 600 ml 1100 ml Output Urine Total 700 ml 5 ml # Voids 1 # Bowel Movements 1 Laboratory Tests 03/27/20 09:19: Lactic Acid Level 0.90 03/27/20 16:35: Chlamydia trachomatis RNA [Pending], Neisseria gonorrhoeae RNA [Pending] 03/28/20 05:00: White Blood Count [Pending], Red Blood Count 3.81L, Hemoglobin 10.1L, Hematocrit 30.1L, Mean Corpuscular Volume 79L, Mean Corpuscular Hemoglobin 26.5L , Mean Corpuscular Hemoglobin Concent 33.6, Red Cell Distribution Width 11.9, Platelet Count 531H, Mean Platelet Volume 5.0L, Neutrophils (%) (Auto) 74.7, Lymphocytes (%) (Auto) 17.7L, Monocytes (%) (Auto) 6.9, Eosinophils (%) (Auto) 0.2, Basophils (%) (Auto) 0.5, Lymphocytes [Pending], Sodium Level 134L, Potassium Level 3.0L, Chloride Level 99, Carbon Dioxide Level 28, Anion Gap 7, Blood Urea Nitrogen 10, Creatinine 1.2, Estimat Glomerular Filtration Rate > 60 , Glucose Level 114H, Calcium Level 7.6L, Percent CD3 Cells [Pending], Absolute CD3 Count [Pending], Percent CD4 Cells [Pending], Absolute CD4 Count [Pending], T-Lymphocyte CD4/CD8 Ratio [Pending], Percent CD8 Cells [Pending], Absolute CD8 Count [Pending], Rapid Plasma Reagin [Pending], Hepatitis C Antibody [Pending], HIV-1 RNA (PCR) log10 Value [Pending], HIV-1 RNA Ultraquantitative (PCR) [ Pending] Height (Feet): 5 Height (Inches): 4.00 Weight (Pounds): 120 Objective GENERAL: Ill-appearing male, appears to be chronically ill and debilitated. VITAL SIGNS: Stable. HEENT: Negative. NECK: Supple. LUNGS: Clear. CARDIAC: S1, S2. Regular rate and rhythm. ABDOMEN: Soft, nontender. EXTREMITIES: No edema. Tino Cao MD March 28, 2020 08:56
[2020-03-28] MEDS: Heparin 5000 units/ml inj SUBQ SCH ×2 (09:13→22:00)
[2020-03-28 12:00] VITALS: BP 156/94
[2020-03-28] MEDS ORDERED: cefTRIAXone 1 GM in D5W 55 ML IVPB SCH (14:00)
[2020-03-28 16:00] VITALS: BP 122/83
--- NOTE | 2020-03-28 19:45 | Consultation ---
DATE OF CONSULTATION: 03/28/2020 INFECTIOUS DISEASE CONSULTATION This consult is for coverage of Dr. Ware. CONSULTING PHYSICIAN: Pasha Mendez MD. PRIMARY ATTENDING: Tino Cao MD. REASON FOR CONSULT: UTI, oral herpes, and HIV. HISTORY OF PRESENT ILLNESS: This is a 49-year-old white male admitted yesterday because of weakness, restlessness. Had painful urination. Patient has a history of HIV, but noncompliance with medications. Has painful oral lesion. PAST MEDICAL HISTORY: HIV unknown duration, anemia, protein-calorie malnutrition. MEDICATIONS: Started on acyclovir, ceftriaxone, Protonix, heparin, clotrimazole, morphine sulfate, Mylanta. SOCIAL HISTORY: Homeless. Denies alcohol abuse. Denies smoking. Smokes marijuana. REVIEW OF SYSTEMS: Very poor historian. Painful oral lesion. No fever. No cough. No shortness of breath. No nausea. No vomiting. Has pain in the rectal area. Has dysuria. PHYSICAL EXAMINATION: VITAL SIGNS: Temperature 97.7, pulse 90, blood pressure is 146/94. GENERAL APPEARANCE: Seems to be Malnourished. HEAD AND NECK: Has severe labial lesions that are painful. Has poor dental hygiene. HEART: Normal rate. LUNGS: Clear. ABDOMEN: Soft, nontender. EXTREMITIES: No edema. MUSCULOSKELETAL: Has muscle atrophy. LABORATORY AND DIAGNOSTIC DATA: Sodium 134, potassium 3, chloride 99, bicarbonate 28, BUN 10, creatinine 1.2, glucose is 114. Urine toxicology was positive for amphetamine and marijuana. UA showed wbc's of 60 to 80, rbc's of 10 to 15, blood 3+. Chest x-ray, no acute process. CT scan of the head negative for intracranial bleeding or mass. IMPRESSION: Pyuria, likely UTI. We will also try to rule out sexually transmitted disease. Has HIV, unknown stage. Has oral herpes. Has anemia. He is homeless. Has protein-calorie malnutrition. Has history of marasmus before. RECOMMENDATION: Continue ceftriaxone. Continue acyclovir. We will follow up HIV viral load, CD4. We will follow up urine chlamydia and Neisseria and RPR. We will follow up hepatitis C. At the end of my exam, I thank Dr. Cao, for involving me in the care of this patient. Pasha Mendez M.D. DR: NIKITA JOB#: [id number] CC:
[2020-03-28 20:00] VITALS: BP 148/76
[2020-03-29] VITALS: BP 150/93
[2020-03-29 04:00] VITALS: BP 134/91
[2020-03-29 08:00] VITALS: BP 131/88
[2020-03-29] MEDS: Heparin 5000 units/ml inj SUBQ SCH ×3 (08:35→21:00)
--- NOTE | 2020-03-29 08:47 | General Progress Note ---
Assessment/Plan Assessment/Plan: IMPRESSION: Hyponatremia, hypokalemia, hyperglycemia, transaminitis, severe protein-calorie malnutrition, HIV, anemia, thrombocytosis. UTI +RPR, + Hep C PLAN ID clearance ertapenam CM to assist with dc planning speech and PT outpatient follow up needed impression, plan, and exam edited and reviewed in detail care discussed with RN Subjective Allergies: Coded Allergies: No Known Allergies (Unverified , 06/30/19) Subjective ID noted +UTI Objective Last 24 Hour Vital Signs Date Time Temp Pulse Resp B/P (MAP) Pulse Ox O2 Delivery O2 Flow Rate FiO2 03/29/20 08:00 97.3 84 18 131/88 (102) 99 03/29/20 04:00 97.8 81 18 134/91 (105) 99 03/29/20 00:00 98.4 84 18 150/93 (112) 99 03/28/20 21:00 Room Air 03/28/20 20:00 98.8 86 19 148/76 (100) 99 03/28/20 16:00 97.9 80 19 122/83 (96) 97 03/28/20 12:00 97.7 88 18 156/94 (114) 99 03/28/20 09:00 Room Air Intake and Output 03/28/20 03/29/20 19:00 07:00 Intake Total 2255 ml 1100 ml Output Total 900 ml Balance 1355 ml 1100 ml Intake Oral 1000 ml IV Total 1255 ml 1100 ml Output Urine Total 900 ml # Voids 4 # Bowel Movements 2 Height (Feet): 5 Height (Inches): 4.00 Weight (Pounds): 120 Objective GENERAL: Ill-appearing male, appears to be chronically ill and debilitated. VITAL SIGNS: Stable. HEENT: Negative. NECK: Supple. LUNGS: Clear. CARDIAC: S1, S2. Regular rate and rhythm. ABDOMEN: Soft, nontender. EXTREMITIES: No edema. Tino Cao MD March 29, 2020 08:47
--- NOTE | 2020-03-29 11:01 | Infectious Diseases Prog Note ---
Assessment/Plan Assessment/Plan antibiotics : ceftriaxone, acyclovir A 1. e.coli esbl UTI 2. oral herpes 3. hepatitis C 4. HIV 5. syphilis P 1. start ertapenem 2. continue acyclovir 8 more days 3. 1 dose benzathine penicillin 4. will follow up cultures Subjective ROS Limited/Unobtainable: Yes Constitutional: Denies: fever Respiratory: Denies: shortness of breath, dry cough Gastrointestinal/Abdominal: Reports: diarrhea; Denies: nausea, vomiting Musculoskeletal: Reports: pain - in mouth Allergies: Coded Allergies: No Known Allergies (Unverified , 06/30/19) Objective Vital Signs Last 24 Hour Vital Signs Date Time Temp Pulse Resp B/P (MAP) Pulse Ox O2 Delivery O2 Flow Rate FiO2 03/29/20 08:00 97.3 84 18 131/88 (102) 99 03/29/20 04:00 97.8 81 18 134/91 (105) 99 03/29/20 00:00 98.4 84 18 150/93 (112) 99 03/28/20 21:00 Room Air 03/28/20 20:00 98.8 86 19 148/76 (100) 99 03/28/20 16:00 97.9 80 19 122/83 (96) 97 03/28/20 12:00 97.7 88 18 156/94 (114) 99 Height (Feet): 5 Height (Inches): 4.00 Weight (Pounds): 120 Microbiology Date/Time Source Procedure Growth Status 03/27/20 09:19 Blood Blood Culture - Preliminary NO GROWTH AFTER 24 HOURS Resulted 03/27/20 09:04 Blood Blood Culture - Preliminary NO GROWTH AFTER 24 HOURS Resulted 03/27/20 09:49 Nasal Nares MRSA Culture - Final NO METHICILLIN RESISTANT STAPH AUREUS... Complete 03/27/20 08:13 Urine,Clean Catch Urine Culture - Preliminary Escherichia Coli - Esbl Resulted 03/27/20 09:47 Rectum VRE Culture - Final NO VANCOMYCIN RESISTANT ENTEROCOCCUS ... Complete 03/27/20 09:47 Rectum - Final NO CARBAPENEM-RESISTANT ENTEROBACTERI... Complete Current Medications Medications (Trade) Dose Ordered Sig/Kenia Route PRN Reason Start Time Stop Time Status Last Admin Dose Admin Acetaminophen (Tylenol) 650 mg Q4H PRN ORAL Mild Pain (Pain Scale 1-3) 03/27/20 13:30 04/26/20 13:29 Acyclovir (Zovirax) 800 mg EVERY 8 HOURS ORAL 03/28/20 14:00 04/27/20 13:59 03/29/20 05:11 Al Hydroxide/Mg Hydroxide (Mylanta) 30 ml Q4H PRN ORAL stomach pain 03/27/20 13:30 04/26/20 13:29 Clotrimazole (Mycelex Lo) 10 mg QID RAJWINDER 03/27/20 18:00 04/03/20 17:59 03/29/20 08:34 Ertapenem 1 gm/ Sodium Chloride 55 ml @ 110 mls/hr Q24H IVPB 03/29/20 12:00 03/30/20 11:59 Heparin Sodium (Porcine) (Heparin 5000 units/ml) 5,000 units Q12HR SUBQ 03/27/20 21:00 05/11/20 20:59 03/28/20 22:00 Morphine Sulfate (Morphine Sulfate) 2 mg Q3H PRN IVP MODERATE PAIN 03/27/20 13:30 04/03/20 13:29 03/27/20 14:27 Morphine Sulfate (Morphine Sulfate) 4 mg Q3H PRN IVP Severe Pain (Pain Scale 7-10) 03/27/20 13:30 04/03/20 13:29 03/29/20 08:49 Pantoprazole (Protonix) 40 mg DAILY ORAL 03/28/20 09:00 04/27/20 08:59 03/29/20 08:41 Sodium Chloride 1,000 ml @ 100 mls/hr Q10H IV 03/27/20 13:30 04/26/20 13:29 03/29/20 05:30 Katie Ware MD March 29, 2020 11:01
[2020-03-29 12:00] VITALS: BP 118/86
[2020-03-29] MEDS: Ertapenem 1 GM in NS 55 ML IVPB SCH (12:25)
[2020-03-29] MEDS ORDERED: Bicillin LA 2.4MMU/4ML SYR IM SCH (13:00)
[2020-03-29 15:35] VITALS: BP 129/75
[2020-03-29 20:00] VITALS: BP 118/81
[2020-03-30] VITALS: BP 121/76
[2020-03-30 04:00] VITALS: BP 118/75
[2020-03-30] MEDS: Heparin 5000 units/ml inj SUBQ SCH ×2 (09:00→21:00)
[2020-03-30 10:17] VITALS: BP 135/64
[2020-03-30 12:00] VITALS: BP 155/106
[2020-03-30] MEDS: Ertapenem 1 GM in NS 55 ML IVPB SCH (14:26)
--- NOTE | 2020-03-30 15:13 | Pulmonology Progress Note ---
Subjective ROS Limited/Unobtainable: No Constitutional: Denies: fever Gastrointestinal/Abdominal: Reports: diarrhea; Denies: nausea, vomiting Musculoskeletal: Reports: pain - in mouth Allergies: Coded Allergies: No Known Allergies (Unverified , 06/30/19) Objective Last 24 Hour Vital Signs Date Time Temp Pulse Resp B/P (MAP) Pulse Ox O2 Delivery O2 Flow Rate FiO2 03/30/20 12:00 97.5 99 20 155/106 (122) 99 03/30/20 10:22 Room Air 03/30/20 10:17 98.1 104 18 135/64 (87) 99 03/30/20 04:00 98.0 83 18 118/75 (89) 97 03/30/20 00:00 97.9 85 18 121/76 (91) 99 03/29/20 21:00 Room Air 03/29/20 20:00 98.0 82 18 118/81 (93) 98 03/29/20 15:35 97.0 80 18 129/75 (93) 6 Intake and Output 03/29/20 03/30/20 19:00 07:00 Intake Total 1055 ml 650 ml Output Total 1150 ml Balance 1055 ml -500 ml Intake Oral 650 ml IV Total 1055 ml Output Urine Total 1150 ml # Voids 8 # Bowel Movements 3 1 Current Medications Medications (Trade) Dose Ordered Sig/Kenia Route PRN Reason Start Time Stop Time Status Last Admin Dose Admin Acetaminophen (Tylenol) 650 mg Q4H PRN ORAL Mild Pain (Pain Scale 1-3) 03/27/20 13:30 04/26/20 13:29 Acyclovir (Zovirax) 800 mg EVERY 8 HOURS ORAL 03/28/20 14:00 04/27/20 13:59 03/30/20 14:13 Al Hydroxide/Mg Hydroxide (Mylanta) 30 ml Q4H PRN ORAL stomach pain 03/27/20 13:30 04/26/20 13:29 Clotrimazole (Mycelex Lo) 10 mg QID RAJWINDER 03/27/20 18:00 04/03/20 17:59 03/30/20 14:13 Ertapenem 1 gm/ Sodium Chloride 55 ml @ 110 mls/hr Q24H IVPB 03/29/20 12:00 04/03/20 11:59 03/30/20 14:26 Heparin Sodium (Porcine) (Heparin 5000 units/ml) 5,000 units Q12HR SUBQ 03/27/20 21:00 05/11/20 20:59 03/28/20 22:00 Morphine Sulfate (Morphine Sulfate) 2 mg Q3H PRN IVP MODERATE PAIN 03/27/20 13:30 04/03/20 13:29 03/27/20 14:27 Morphine Sulfate (Morphine Sulfate) 4 mg Q3H PRN IVP Severe Pain (Pain Scale 7-10) 03/27/20 13:30 04/03/20 13:29 03/29/20 08:49 Pantoprazole (Protonix) 40 mg DAILY ORAL 03/28/20 09:00 04/27/20 08:59 03/30/20 10:09 Sodium Chloride 1,000 ml @ 100 mls/hr Q10H IV 03/27/20 13:30 04/26/20 13:29 03/30/20 14:13 Assessment/Plan Assessment/Plan Pulmonary Progress Note Assessment/Plan: IMPRESSION: Patient with hyponatremia, hypokalemia, hyperglycemia, transaminitis, severe protein-calorie malnutrition, HIV, anemia, thrombocytosis. UTI +RPR, + Hep C PLAN ID following ertapenam CM to assist with dc planning speech and PT outpatient follow up needed impression, plan, and exam edited and reviewed in detail care discussed with RN Subjective Allergies: Coded Allergies: No Known Allergies (Unverified , 06/30/19) Subjective ID noted +UTI, + Syphilis Objective Vital Signs Noted Height (Feet): 5 Height (Inches): 4.00 Weight (Pounds): 120 Objective GENERAL: Ill-appearing male, appears to be chronically ill and debilitated. VITAL SIGNS: Stable. HEENT: Negative. NECK: Supple. LUNGS: Clear. CARDIAC: S1, S2. Regular rate and rhythm. ABDOMEN: Soft, nontender. EXTREMITIES: No edema. Tom Laird MD March 30, 2020 15:13
[2020-03-30 16:00] VITALS: BP 112/72
[2020-03-30 20:00] VITALS: BP 154/79
[2020-03-31] VITALS: BP 121/87
[2020-03-31 04:00] VITALS: BP 123/76
[2020-03-31 08:00] VITALS: BP 129/78
[2020-03-31 09:01] LABS: ANION GAP 4 mmol/L (5-15); BLOOD UREA NITROGEN 11 mg/dL (7-18); CALCIUM 7.5 MG/DL (8.5-10.1); CARBON DIOXIDE 32 MMOL/L (21-32); CHLORIDE 105 MMOL/L (98-107); CREATININE 1.1 MG/DL (0.55-1.30); POTASSIUM 3.6 MMOL/L (3.5-5.1); SODIUM 141 MMOL/L (136-145)
[2020-03-31] MEDS: Heparin 5000 units/ml inj SUBQ SCH (09:35)
[2020-03-31 12:00] VITALS: BP 116/73
[2020-03-31] MEDS: Ertapenem 1 GM in NS 55 ML IVPB SCH (12:38)
--- NOTE | 2020-03-31 13:09 | Infectious Diseases Prog Note ---
Assessment/Plan Assessment/Plan A 1. E.coli esbl UTI 2. Oral herpes 3. Hepatitis C 4. HIV, AIDS CD4=37 5. syphilis P 1. Continue Ertapenem 2. continue acyclovir 6 more days 3. Got 1 dose benzathine penicillin 4. Start on Zithromax & Bactrim prophylaxis Subjective ROS Limited/Unobtainable: Yes Allergies: Coded Allergies: No Known Allergies (Unverified , 06/30/19) Objective Vital Signs Last 24 Hour Vital Signs Date Time Temp Pulse Resp B/P (MAP) Pulse Ox O2 Delivery O2 Flow Rate FiO2 03/31/20 12:00 96.8 99 18 116/73 (87) 99 03/31/20 09:45 Room Air 03/31/20 08:00 97.5 100 18 129/78 (95) 99 03/31/20 04:00 97.6 86 20 123/76 (92) 97 03/31/20 00:00 97.7 88 20 121/87 (98) 98 03/30/20 21:00 Room Air 03/30/20 20:00 98.1 102 20 154/79 (104) 100 03/30/20 16:00 98.0 109 20 112/72 (85) 99 Height (Feet): 5 Height (Inches): 4.00 Weight (Pounds): 120 General Appearance: no acute distress HEENT: other - lips lesions are better Respiratory/Chest: no respiratory distress Cardiovascular: normal rate Abdomen: soft, non tender Extremities: no edema Neurologic/Psychiatric: other - sleeping Laboratory Tests Test 03/31/20 06:29 Sodium Level 141 MMOL/L (136-145) Potassium Level 3.6 MMOL/L (3.5-5.1) Chloride Level 105 MMOL/L (98-107) Carbon Dioxide Level 32 MMOL/L (21-32) Anion Gap 4 mmol/L (5-15) L Blood Urea Nitrogen 11 mg/dL (7-18) Creatinine 1.1 MG/DL (0.55-1.30) Estimat Glomerular Filtration Rate > 60 mL/min (>60) Glucose Level 96 MG/DL (74-106) Calcium Level 7.5 MG/DL (8.5-10.1) L Current Medications Medications (Trade) Dose Ordered Sig/Kenia Route PRN Reason Start Time Stop Time Status Last Admin Dose Admin Acetaminophen (Tylenol) 650 mg Q4H PRN ORAL Mild Pain (Pain Scale 1-3) 03/27/20 13:30 04/26/20 13:29 Acyclovir (Zovirax) 800 mg EVERY 8 HOURS ORAL 03/28/20 14:00 04/27/20 13:59 03/31/20 06:08 Al Hydroxide/Mg Hydroxide (Mylanta) 30 ml Q4H PRN ORAL stomach pain 03/27/20 13:30 04/26/20 13:29 Clotrimazole (Mycelex Lo) 10 mg QID RAJWINDER 03/27/20 18:00 04/03/20 17:59 03/31/20 09:33 Ertapenem 1 gm/ Sodium Chloride 55 ml @ 110 mls/hr Q24H IVPB 03/29/20 12:00 04/03/20 11:59 03/31/20 12:38 Heparin Sodium (Porcine) (Heparin 5000 units/ml) 5,000 units Q12HR SUBQ 03/27/20 21:00 05/11/20 20:59 03/31/20 09:35 Morphine Sulfate (Morphine Sulfate) 2 mg Q3H PRN IVP MODERATE PAIN 03/27/20 13:30 04/03/20 13:29 03/27/20 14:27 Morphine Sulfate (Morphine Sulfate) 4 mg Q3H PRN IVP Severe Pain (Pain Scale 7-10) 03/27/20 13:30 04/03/20 13:29 03/29/20 08:49 Pantoprazole (Protonix) 40 mg DAILY ORAL 03/28/20 09:00 04/27/20 08:59 03/31/20 09:33 Sodium Chloride 1,000 ml @ 100 mls/hr Q10H IV 03/27/20 13:30 04/26/20 13:29 03/31/20 06:09 Pasha Mendez MD March 31, 2020 13:09
--- NOTE | 2020-03-31 13:19 | Pulmonology Progress Note ---
Subjective ROS Limited/Unobtainable: No Constitutional: Denies: fever Gastrointestinal/Abdominal: Reports: diarrhea; Denies: nausea, vomiting Musculoskeletal: Reports: pain - in mouth Allergies: Coded Allergies: No Known Allergies (Unverified , 06/30/19) Objective Last 24 Hour Vital Signs Date Time Temp Pulse Resp B/P (MAP) Pulse Ox O2 Delivery O2 Flow Rate FiO2 03/31/20 12:00 96.8 99 18 116/73 (87) 99 03/31/20 09:45 Room Air 03/31/20 08:00 97.5 100 18 129/78 (95) 99 03/31/20 04:00 97.6 86 20 123/76 (92) 97 03/31/20 00:00 97.7 88 20 121/87 (98) 98 03/30/20 21:00 Room Air 03/30/20 20:00 98.1 102 20 154/79 (104) 100 03/30/20 16:00 98.0 109 20 112/72 (85) 99 Intake and Output 03/30/20 03/31/20 19:00 07:00 Intake Total 2160 ml 2000 ml Output Total 200 ml Balance 1960 ml 2000 ml Intake Oral 960 ml 1000 ml IV Total 1200 ml 1000 ml Output Urine Total 200 ml # Voids 4 4 # Bowel Movements 1 Laboratory Tests 03/31/20 06:29: Sodium Level 141, Potassium Level 3.6, Chloride Level 105, Carbon Dioxide Level 32, Anion Gap 4L, Blood Urea Nitrogen 11, Creatinine 1.1, Estimat Glomerular Filtration Rate > 60, Glucose Level 96, Calcium Level 7.5L Current Medications Medications (Trade) Dose Ordered Sig/Kenia Route PRN Reason Start Time Stop Time Status Last Admin Dose Admin Acetaminophen (Tylenol) 650 mg Q4H PRN ORAL Mild Pain (Pain Scale 1-3) 03/27/20 13:30 04/26/20 13:29 Acyclovir (Zovirax) 800 mg EVERY 8 HOURS ORAL 03/28/20 14:00 04/27/20 13:59 03/31/20 06:08 Al Hydroxide/Mg Hydroxide (Mylanta) 30 ml Q4H PRN ORAL stomach pain 03/27/20 13:30 04/26/20 13:29 Azithromycin (Zithromax) 1,200 mg ONCE A WEEK ORAL 03/31/20 14:00 04/07/20 13:59 Clotrimazole (Mycelex Lo) 10 mg QID RAJWINDER 03/27/20 18:00 04/03/20 17:59 03/31/20 09:33 Ertapenem 1 gm/ Sodium Chloride 55 ml @ 110 mls/hr Q24H IVPB 03/29/20 12:00 04/03/20 11:59 03/31/20 12:38 Heparin Sodium (Porcine) (Heparin 5000 units/ml) 5,000 units Q12HR SUBQ 03/27/20 21:00 05/11/20 20:59 03/31/20 09:35 Morphine Sulfate (Morphine Sulfate) 2 mg Q3H PRN IVP MODERATE PAIN 03/27/20 13:30 04/03/20 13:29 03/27/20 14:27 Morphine Sulfate (Morphine Sulfate) 4 mg Q3H PRN IVP Severe Pain (Pain Scale 7-10) 03/27/20 13:30 04/03/20 13:29 03/29/20 08:49 Pantoprazole (Protonix) 40 mg DAILY ORAL 03/28/20 09:00 04/27/20 08:59 03/31/20 09:33 Sodium Chloride 1,000 ml @ 100 mls/hr Q10H IV 03/27/20 13:30 04/26/20 13:29 03/31/20 06:09 Trimethoprim/ Sulfamethoxazole (Bactrim Single Strength) 1 tab EVERY 12 HOURS ORAL 03/31/20 21:00 04/07/20 20:59 Assessment/Plan Assessment/Plan Pulmonary Progress Note Assessment/Plan: Patient with hyponatremia, hypokalemia, hyperglycemia, transaminitis, severe protein-calorie malnutrition, HIV, anemia, thrombocytosis. UTI +RPR, + Hep C ID following ertapenam CM to assist with dc planning speech and PT outpatient follow up needed impression, plan, and exam edited and reviewed in detail care discussed with RN Subjective Allergies: No Known Allergies Subjective ID noted +UTI, + Syphilis Objective Height (Feet): 5 Height (Inches): 4.00 Weight (Pounds): 120 Objective GENERAL: Chronically ill appearing debilitated. Vital Signs Noted HEENT: Negative. NECK: Supple. LUNGS: Clear. CARDIAC: S1, S2. Regular rate and rhythm. ABDOMEN: Soft, nontender. EXTREMITIES: No edema. Tom Laird MD March 31, 2020 13:19
[2020-03-31] MEDS ORDERED: Azithromycin 600mg Tab ORAL SCH (14:00)
[2020-03-31] MEDS ORDERED: Bactrim SS Tab ORAL SCH (21:00)
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
== END 2020-03-31 15:20 | disposition left against medical advice (07) | DRG 893 ==
LOC: EMR 08:10 → 4E 08:34 → EDBEDREQ 09:11
DX: A53.9 Syphilis, unspecified (principal); E43 Unspecified severe protein-calorie malnutrition; E87.1 Hypo-osmolality and hyponatremia; B20 Human immunodeficiency virus [HIV] disease; N39.0 Urinary tract infection, site not specified; E87.6 Hypokalemia; R73.9 Hyperglycemia, unspecified; D64.9 Anemia, unspecified; R74.0 Nonspecific elevation of levels of transaminase and lactic acid dehydrogenase [LDH]; D47.3 Essential (hemorrhagic) thrombocythemia; B00.89 Other herpesviral infection; Z91.14 Patient's other noncompliance with medication regimen; Z59.0 Homelessness; B96.20 Unspecified Escherichia coli [E. coli] as the cause of diseases classified elsewhere; Z16.12 Extended spectrum beta lactamase (ESBL) resistance; B19.20 Unspecified viral hepatitis C without hepatic coma; S00.81XA Abrasion of other part of head, initial encounter; W22.8XXA Striking against or struck by other objects, initial encounter; Z23 Encounter for immunization; B37.0 Candidal stomatitis; B96.1 Klebsiella pneumoniae [K. pneumoniae] as the cause of diseases classified elsewhere
CPT/HCPCS: 36415; 70450; 71045; 80048; 80053; 80307; 81003; 83605; 85025; 86360; 86592; 86803; 87040; 87081; 87086; 87181; 87491; 87536; 87590; 87635; 90471; 90715; 96361; 96365; 99285; G0480; J7030; J8499

== ENCOUNTER 2020-06-20 07:09 | Inpatient (IN) | payer OTHER ==
[~2020-06-20] VITALS: Ht 162.6 cm; Wt 49.9 kg
[2020-06-20 07:27] VITALS: BP 120/91
[2020-06-20] MEDS ORDERED: Nystatin Susp 500,000 units/5ml ORAL SCH (07:30)
[2020-06-20] MEDS ORDERED: Acyclovir 1,000 MG in D5W 275 ML IV ONE (07:30)
--- NOTE | 2020-06-20 07:35 | Emergency Room Report ---
History of Present Illness General Chief Complaint: General Complaint Source: Patient Present Illness HPI 50-year-old male history of HIV off his medications for many months, patient states that he has not been on his meds and cannot remember what medications they are patient endorses 2 weeks of right-sided chest wall pain sharp in nature /burning, pain in his mouth and when he swallows severity is moderate, constant he also endorses white patches forming in his mouth he endorses fever/chills, weakness, severity moderate, he endorses pain with swallowing alleviated by not swallowing he also endorses constant chest wall pain with no aggravating relieving factors Allergies: Coded Allergies: No Known Allergies (Unverified , 06/30/19) COVID-19 Screening Contact w/high risk pt: No Recent Travel to affected area: No Experienced COVID-19 symptoms?: No COVID-19 symptoms experienced: Cough, Runny Nose 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 Patient History Past Medical History: see triage record Reviewed Nursing Documentation: PMH: Agreed; PSxH: Agreed Nursing Documentation-PMH Past Medical History: No History, Except For Hx Cardiac Problems: No Hx Cancer: No Hx Gastrointestinal Problems: Yes - Abdominal pain, diarrhea Hx Neurological Problems: No Hx Weakness: Yes Hx Fatigue: Yes Review of Systems All Other Systems: negative except mentioned in HPI Physical Exam Vital Signs Date Time Temp Pulse Resp B/P (MAP) Pulse Ox O2 Delivery O2 Flow Rate FiO2 06/20/20 07:14 98.2 106 17 114/92 (99) 98 Sp02 EP Interpretation: reviewed, normal General Appearance: alert, moderate distress Head: normocephalic, atraumatic Eyes: bilateral eye PERRL, bilateral eye EOMI ENT: other - White patches throughout his entire mouth and lips, back of throat Neck: supple, thyroid normal, supple/symm/no masses Respiratory: lungs clear, no respiratory distress, no retraction, no accessory muscle use Cardiovascular #1: normal peripheral pulses, no edema, no gallop, no murmur, tachycardia Gastrointestinal: non tender, soft, no guarding, no rebound Musculoskeletal: normal inspection Neurologic: alert, oriented x3 Psychiatric: mood/affect normal Skin: rash - Vesicular rash right chest wall following a dermatome, warm/dry Medical Decision Making Diagnostic Impression: Primary Impression: AIDS Additional Impressions: Danita infection Herpes zoster complicated Pneumonia Qualified Codes: J18.9 - Pneumonia, unspecified organism ER Course 50-year-old male presents with HIV in full AIDS Plan for admission broad-spectrum antibiotic started for possible sepsis, patient will be started on nystatin for oral thrush, additionally patient will also be started on acyclovir given he also has zoster following a dermatomal distribution he will be complicated zoster given the fact that he is completely immunocompromised Patient given broad spectrum abx cefepime, and vanco. Patient with possible LLL pneumonia Patient admitted to Dr. Crawford Laboratory Tests Test 06/20/20 07:20 06/20/20 08:00 06/20/20 09:00 White Blood Count Pending 5.4 K/UL (4.8-10.8) Lymphocytes Pending Percent CD3 Cells Pending Absolute CD3 Count Pending Percent CD4 Cells Pending Absolute CD4 Count Pending T-Lymphocyte CD4/CD8 Ratio Pending Percent CD8 Cells Pending Absolute CD8 Count Pending Red Blood Count 3.74 M/UL (4.70-6.10) L Hemoglobin 9.6 G/DL (14.2-18.0) L Hematocrit 29.7 % (42.0-52.0) L Mean Corpuscular Volume 79 FL (80-99) L Mean Corpuscular Hemoglobin 25.7 PG (27.0-31.0) L Mean Corpuscular Hemoglobin Concent 32.3 G/DL (32.0-36.0) Red Cell Distribution Width 19.5 % (11.6-14.8) H Platelet Count 398 K/UL (150-450) Mean Platelet Volume 5.8 FL (6.5-10.1) L Neutrophils (%) (Auto) 69.3 % (45.0-75.0) Lymphocytes (%) (Auto) 19.4 % (20.0-45.0) L Monocytes (%) (Auto) 9.4 % (1.0-10.0) Eosinophils (%) (Auto) 1.3 % (0.0-3.0) Basophils (%) (Auto) 0.7 % (0.0-2.0) Prothrombin Time 12.0 SEC (9.30-11.50) H Prothrombin Time INR 1.1 (0.9-1.1) Activated Partial Thromboplast Time 29 SEC (23-33) Sodium Level 133 MMOL/L (136-145) L Potassium Level 3.0 MMOL/L (3.5-5.1) L Chloride Level 100 MMOL/L (98-107) Carbon Dioxide Level 29 MMOL/L (21-32) Anion Gap 4 mmol/L (5-15) L Blood Urea Nitrogen 13 mg/dL (7-18) Creatinine 1.0 MG/DL (0.55-1.30) Estimated Glomerular Filtration Rate > 60 mL/min (>60) Glucose Level 109 MG/DL (74-106) H Lactic Acid Level 1.00 mmol/L (0.4-2.0) Calcium Level 8.9 MG/DL (8.5-10.1) Phosphorus Level 3.3 MG/DL (2.5-4.9) Magnesium Level 1.5 MG/DL (1.8-2.4) L Total Bilirubin 0.3 MG/DL (0.2-1.0) Aspartate Amino Transferase (AST) 24 U/L (15-37) Alanine Aminotransferase (ALT) 16 U/L (12-78) Alkaline Phosphatase 96 U/L (46-116) Troponin I 0.000 ng/mL (0.000-0.056) Pro-B-Type Natriuretic Peptide 129 pg/mL (0-125) H Total Protein 8.9 G/DL (6.4-8.2) H Albumin 2.3 G/DL (3.4-5.0) L Globulin 6.6 g/dL Albumin/Globulin Ratio 0.3 (1.0-2.7) L Lipase 151 U/L (73-393) Urine Color Pale yellow Urine Appearance Slightly cloudy Urine pH 7 (4.5-8.0) Urine Specific [place] 1.010 (1.005-1.035) Urine Protein 2+ (NEGATIVE) H Urine Glucose (UA) Negative (NEGATIVE) Urine Ketones Negative (NEGATIVE) Urine Blood 2+ (NEGATIVE) H Urine Nitrite Negative (NEGATIVE) Urine Bilirubin Negative (NEGATIVE) Urine Urobilinogen Normal MG/DL (0.0-1.0) Urine Leukocyte Esterase 2+ (NEGATIVE) H Urine RBC 0 /HPF (0 - 0) Urine WBC 15-20 /HPF (0 - 0) H Urine Squamous Epithelial Cells Occasional /LPF Urine Bacteria Many /HPF (NONE) H Microbiology Date/Time Source Procedure Growth Status 06/20/20 08:00 Nasopharynx SARS-CoV-2 RdRp Gene Assay - Final Complete EKG Diagnostic Results EKG Time: 07:52 EP Interpretation: NSR, rate 78, QTc 506, no acute ST elevations, normal axis Rhythm Strip Diag. Results Rhythm Strip Time: 08:56 EP Interpretation: yes Rate: 99 Rhythm: NSR, no PVC's, no ectopy Chest X-Ray Diagnostic Results Chest X-Ray Diagnostic Results : Chest X-Ray Ordered: Yes # of Views/Limited/Complete: 1 View Indication: Shortness of Breath EP Interpretation: Yes Interpretation: other - consolidation LLL Impression: Other - consolidation LLL Electronically Signed by: Kieran Ellsworth MD Last Vital Signs Date Time Temp Pulse Resp B/P (MAP) Pulse Ox O2 Delivery O2 Flow Rate FiO2 06/20/20 07:14 98.2 106 17 114/92 (99) 98 Disposition: ADMITTED INPATIENT Condition: Stable Scripts No Active Prescriptions or Reported Meds Kieran Ellsworth MD Jun 20, 2020 07:35
[2020-06-20] MEDS ORDERED: Vancomycin 1 GM in NS 275 ML IVPB ONE (07:45)
[2020-06-20] MEDS ORDERED: Cefepime HCl 1 GM in D5W 55 ML IVPB ONE (07:45)
[2020-06-20] MEDS ORDERED: Morphine Sulfate 4mg/ml Inj (IV USE ONLY) IVP ONE (08:30)
[2020-06-20 08:32] LABS: BASOPHILS % (AUTO) 0.7 % (0.0-2.0); EOSINOPHILS % (AUTO) 1.3 % (0.0-3.0); HEMATOCRIT 29.7 % (42.0-52.0); HEMOGLOBIN 9.6 G/DL (14.2-18.0); LYMPHOCYTES % (AUTO) 19.4 % (20.0-45.0); MEAN CORPUSCULAR VOLUME 79 FL (80-99); MONOCYTES % (AUTO) 9.4 % (1.0-10.0); NEUTROPHILS % (AUTO) 69.3 % (45.0-75.0); PLATELET COUNT 398 K/UL (150-450); RED BLOOD COUNT 3.74 M/UL (4.70-6.10); RED CELL DISTRIBUTION WIDTH 19.5 % (11.6-14.8); WHITE BLOOD COUNT 5.4 K/UL (4.8-10.8)
[2020-06-20 08:43] LABS: INR 1.1 (0.9-1.1)
[2020-06-20 08:49] LABS: ANION GAP 4 mmol/L (5-15); BLOOD UREA NITROGEN 13 mg/dL (7-18); CALCIUM 8.9 MG/DL (8.5-10.1); CARBON DIOXIDE 29 MMOL/L (21-32); CHLORIDE 100 MMOL/L (98-107); SODIUM 133 MMOL/L (136-145)
[2020-06-20 08:52] LABS: ALANINE AMINOTRANSFERASE 16 U/L (12-78); ALBUMIN 2.3 G/DL (3.4-5.0); ALBUMIN/GLOBULIN RATIO 0.3 (1.0-2.7); ALKALINE PHOSPHATASE 96 U/L (46-116); ASPARTATE AMINO TRANSFERASE 24 U/L (15-37); BILIRUBIN,TOTAL 0.3 MG/DL (0.2-1.0); PHOSPHORUS 3.3 MG/DL (2.5-4.9)
--- NOTE | 2020-06-20 09:10 | Diagnostic Imaging Report ---
Indication: Reason For Exam: SOB Technique: Single AP view of the chest. Comparison: Chest radiograph dated 03/27/2020 Findings: The cardiomediastinal silhouette is unchanged in appearance. No new airspace consolidation. Patchy left infrahilar left basilar airspace opacity is noted. No pneumothorax or pleural effusion. No acute osseous abnormality. Bilateral nipple shadows are identified. IMPRESSION: New patchy left lower lung airspace opacity, which could represent atelectasis or pneumonia.
[2020-06-20 09:15] LABS: APPEARANCE,URINE SLIGHTLY CLOUDY; BILIRUBIN, URINE NEGATIVE (NEGATIVE); COLOR,URINE PALE YELLOW; GLUCOSE, URINE (UA) NEGATIVE (NEGATIVE); KETONES,URINE NEGATIVE (NEGATIVE); LEUKOCYTE ESTERASE ,URINE 2+ (NEGATIVE); NITRITE,URINE NEGATIVE (NEGATIVE); PH,URINE 7 (4.5-8.0); PROTEIN,URINE 2+ (NEGATIVE); UROBILINOGEN,URINE NORMAL MG/DL (0.0-1.0)
[2020-06-20] MEDS ORDERED: DiphenhydrAMINE 50mg/ml Inj IVP ONE (09:30)
[2020-06-20 10:53] VITALS: BP 123/86
[2020-06-20] MEDS ORDERED: Miralax 17gm pkt ORAL PRN (11:15)
[2020-06-20] MEDS ORDERED: Nitroglycerin Subl 0.4mg tab SL PRN (11:15)
[2020-06-20] MEDS ORDERED: Promethazine/Codeine 5ml UD ORAL PRN (11:15)
[2020-06-20] MEDS ORDERED: Albuterol/Ipratropium 3ml neb HHN PRN (11:15)
[2020-06-20 13:17] VITALS: BP 129/90
[2020-06-20 16:00] VITALS: BP 152/101
--- NOTE | 2020-06-20 18:15 | History & Physical ---
History and Physical History & Physicial Dictated for Int med-Dr Crawford no. [id number]. Jeovanny Watson MD Jun 20, 2020 18:15
[2020-06-20] MEDS: Fluconazole 100mg tab ORAL SCH (18:44)
--- NOTE | 2020-06-20 19:45 | History and Physical Report ---
DATE OF ADMISSION: 06/20/2020 CHIEF COMPLAINT: The patient is a 50-year-old male, who presents with a chief complaint of rash on his right chest. HISTORY OF PRESENT ILLNESS: Began approximately two weeks ago. The patient noticed a rash on his right flank and right chest. The patient has a history of HIV, he has been noncompliant with his medication. The patient presented to [place] emergency room. The patient appeared to have shingles to the right chest and right flank. The patient was also noted to have thrush. The patient is admitted with herpes zoster of the right chest area and oral candidiasis. REVIEW OF SYSTEMS: CONSTITUTIONAL: The patient denies weight loss or weight gain. The patient denies fevers or chills. HEENT: The patient denies ear or throat pain. The patient complains of oral thrush as above. CARDIOVASCULAR: The patient denies palpitations or chest pain. CHEST: The patient denies wheeze or shortness of breath. ABDOMEN: The patient denies nausea, vomiting, diarrhea, or constipation. GENITOURINARY: The patient denies dysuria or increased frequency of urination. NEUROMUSCULAR: The patient denies seizures or generalized weakness. PAST MEDICAL HISTORY: Significant for: 1. HIV which the patient has been noncompliant with his medications. 2. Hepatitis C, status post pegylated interferon treatment. PAST SURGICAL HISTORY: The patient denies. CURRENT MEDICATIONS: The patient denies. ALLERGIES: No known drug allergies. SOCIAL HISTORY: The patient is homeless. The patient admits to methamphetamine use. The patient states he last smoked methamphetamine on 06/20/2020. The patient denies tobacco use. The patient admits to rare alcohol use. PHYSICAL EXAMINATION: VITAL SIGNS: Temperature 98.2, respirations 17, pulse 106, blood pressure 114/92. GENERAL: The patient is a cachectic-appearing male, in no apparent distress. HEENT: The patient has copious amounts of thrush over the upper and lower lips and tongue. NECK: Supple without lymphadenopathy. CHEST: Lungs are clear to auscultation bilaterally without wheezes or rales. CARDIOVASCULAR: Regular rhythm and rate. S1, S2 normal without murmurs, rubs, or gallops. ABDOMEN: Soft, nontender, and nondistended. Positive bowel sounds. No evidence of hepatosplenomegaly. Currently, no rebound or guarding noted. EXTREMITIES: Negative for clubbing, cyanosis, or edema. INTEGUMENTARY: Presence of vesicular rash over the right rib cage, extending from the right flank to the right rib cage. NEUROMUSCULAR: Cranial nerves II through XII are grossly intact without focal deficits. Motor strength is 5/5 bilaterally. Deep tendon reflexes are 2+ plantar. LABORATORY STUDIES: WBC 5.4, hemoglobin 9.6, hematocrit 29.7, and platelets 398,000. Sodium 133, potassium 3.0, chloride 100, CO2 29, BUN 13, creatinine 1.0. Glucose 109. Chest x-ray revealed left lower lung airspace opacity consistent with left lower lobe pneumonia. ASSESSMENT: This is a 50-year-old male with: 1. Left lower lobe pneumonia. 2. Herpes zoster of the right rib cage. 3. Oral candidiasis, probable esophageal candidiasis. 4. HIV. 5. Probable full-blown AIDS. TREATMENT: 1. Left lower lobe pneumonia. The patient has been placed empirically on intravenous cefepime and vancomycin. A Pulmonary consultation has been obtained with Dr. Ricci Gates. We will follow recommendations of Pulmonary. Initial COVID-19 test was negative. 2. Herpes zoster. The patient has been placed empirically on intravenous acyclovir. An Infectious Disease consultation has been obtained with Dr. Toribio. 3. Oral candidiasis. The patient has been started on nystatin swish and swallow. The patient has also been started on fluconazole 200 mg p.o. daily. We will follow recommendations of Infectious Disease. 4. HIV. As above, an Infectious Disease consultation has been obtained with Dr. Toribio. A CD4 count and absolute HIV viral load is pending. Jeovanny Watson M.D. DR: ANTONIETA JOB#: [id number] CC:
[2020-06-20 20:00] VITALS: BP 141/100
[2020-06-20] MEDS: Nystatin Susp 500,000 units/5ml ORAL SCH (21:32)
[2020-06-20] MEDS: Cefepime HCl 1 GM in D5W 55 ML IV SCH (21:33)
[2020-06-20] MEDS: Heparin 5000 units/ml inj SUBQ SCH (21:41)
[2020-06-21] VITALS: BP 138/94
[2020-06-21 04:00] VITALS: BP 131/83
[2020-06-21 06:34] LABS: EOSINOPHILS % (AUTO) 2.5 % (0.0-3.0); HEMATOCRIT 30.4 % (42.0-52.0); HEMOGLOBIN 9.5 G/DL (14.2-18.0); MEAN CORPUSCULAR VOLUME 82 FL (80-99); MONOCYTES % (AUTO) 6.3 % (1.0-10.0); NEUTROPHILS % (AUTO) 72.2 % (45.0-75.0); PLATELET COUNT 415 K/UL (150-450); RED BLOOD COUNT 3.72 M/UL (4.70-6.10); RED CELL DISTRIBUTION WIDTH 18.4 % (11.6-14.8); WHITE BLOOD COUNT 6.2 K/UL (4.8-10.8)
[2020-06-21 06:59] LABS: ALBUMIN 2.2 G/DL (3.4-5.0); ANION GAP 6 mmol/L (5-15); BLOOD UREA NITROGEN 8 mg/dL (7-18); CALCIUM 7.8 MG/DL (8.5-10.1); CARBON DIOXIDE 28 MMOL/L (21-32); CHLORIDE 100 MMOL/L (98-107); CREATININE 0.9 MG/DL (0.55-1.30); PHOSPHORUS 2.5 MG/DL (2.5-4.9); POTASSIUM 4.7 MMOL/L (3.5-5.1); SODIUM 134 MMOL/L (136-145)
[2020-06-21 07:02] LABS: ANION GAP 6 mmol/L (5-15); BLOOD UREA NITROGEN 6 mg/dL (7-18); CALCIUM 7.8 MG/DL (8.5-10.1); CARBON DIOXIDE 28 MMOL/L (21-32); CHLORIDE 100 MMOL/L (98-107); CREATININE 0.9 MG/DL (0.55-1.30); SODIUM 134 MMOL/L (136-145)
[2020-06-21 08:00] VITALS: BP 120/67
[2020-06-21] MEDS: Heparin 5000 units/ml inj SUBQ SCH ×2 (08:56→21:56)
[2020-06-21] MEDS: Nystatin Susp 500,000 units/5ml ORAL SCH ×4 (08:57→21:58)
[2020-06-21] MEDS: Fluconazole 100mg tab ORAL SCH (08:57)
[2020-06-21] MEDS: Cefepime HCl 1 GM in D5W 55 ML IV SCH ×2 (08:57→21:59)
[2020-06-21 12:00] VITALS: BP 126/73
--- NOTE | 2020-06-21 12:56 | Internal Med Progress Note ---
Subjective Date of Service: Jun 21, 2020 Physician Name Jeovanny Watson Attending Physician Johny Crawford MD Current Medications Medications (Trade) Dose Ordered Sig/Kenia Route PRN Reason Start Time Stop Time Status Last Admin Dose Admin Acetaminophen (Tylenol) 650 mg Q4H PRN ORAL fever 06/20/20 11:15 07/20/20 11:14 06/21/20 05:42 Acyclovir (Zovirax) 800 mg EVERY 8 HOURS ORAL 06/20/20 16:30 07/20/20 16:29 06/21/20 05:41 Albuterol/ Ipratropium (Albuterol/ Ipratropium) 3 ml EVERY 4 HOURS PRN HHN Shortness of Breath 06/20/20 11:15 06/25/20 11:14 Cefepime HCl 1 gm/ Dextrose 55 ml @ 110 mls/hr EVERY 12 HOURS IV 06/20/20 21:00 06/27/20 20:59 06/21/20 08:57 Clonidine HCl (Catapres Tab) 0.1 mg Q4H PRN ORAL SBP>150 or DBP>100 06/20/20 18:30 09/18/20 18:29 06/20/20 18:45 Fluconazole (Diflucan) 200 mg DAILY ORAL 06/20/20 18:15 06/27/20 18:14 06/21/20 08:57 Heparin Sodium (Porcine) (Heparin 5000 units/ml) 5,000 units EVERY 12 HOURS SUBQ 06/20/20 21:00 08/04/20 20:59 06/21/20 08:56 Nitroglycerin (Ntg) 0.4 mg Q5M PRN SL Prn Chest Pain 06/20/20 11:15 07/20/20 11:14 Nystatin (Nystatin) 5 ml QID ORAL 06/20/20 21:00 06/27/20 07:29 06/21/20 08:57 Ondansetron HCl (Zofran) 4 mg Q6H PRN IVP Nausea & Vomiting 06/20/20 11:15 07/20/20 11:14 Polyethylene Glycol (Miralax) 17 gm DAILYPRN PRN ORAL Constipation 06/20/20 11:15 07/20/20 11:14 Promethazine HCl/ Codeine (Phenergan with Codeine) 5 ml Q4H PRN ORAL For Cough 06/20/20 11:15 07/20/20 11:14 Temazepam (Restoril) 15 mg HSPRN PRN ORAL Insomnia 06/20/20 11:15 06/27/20 11:14 06/20/20 21:32 Allergies: Coded Allergies: No Known Allergies (Unverified , 06/30/19) ROS Limited/Unobtainable: No Constitutional: Reports: no symptoms HEENT: Reports: no symptoms Cardiovascular: Reports: no symptoms Respiratory: Reports: no symptoms Gastrointestinal/Abdominal: Reports: no symptoms Genitourinary: Reports: no symptoms Neurologic/Psychiatric: Reports: no symptoms Subjective 50 YO M admitted with right chest pain. Now herpes zoster and oral thrush. Cover for Int Hira-Dr Crawford Objective Last Vital Signs Date Time Temp Pulse Resp B/P (MAP) Pulse Ox O2 Delivery O2 Flow Rate FiO2 06/21/20 12:00 98.9 89 18 126/73 (90) 97 06/21/20 09:00 Room Air 06/20/20 13:18 98 Laboratory Tests Test 06/21/20 05:25 White Blood Count 6.2 K/UL (4.8-10.8) Red Blood Count 3.72 M/UL (4.70-6.10) L Hemoglobin 9.5 G/DL (14.2-18.0) L Hematocrit 30.4 % (42.0-52.0) L Mean Corpuscular Volume 82 FL (80-99) Mean Corpuscular Hemoglobin 25.6 PG (27.0-31.0) L Mean Corpuscular Hemoglobin Concent 31.3 G/DL (32.0-36.0) L Red Cell Distribution Width 18.4 % (11.6-14.8) H Platelet Count 415 K/UL (150-450) Mean Platelet Volume 5.4 FL (6.5-10.1) L Neutrophils (%) (Auto) 72.2 % (45.0-75.0) Lymphocytes (%) (Auto) 18.0 % (20.0-45.0) L Monocytes (%) (Auto) 6.3 % (1.0-10.0) Eosinophils (%) (Auto) 2.5 % (0.0-3.0) Basophils (%) (Auto) 1.0 % (0.0-2.0) Sodium Level 134 MMOL/L (136-145) L Potassium Level 5.0 MMOL/L (3.5-5.1) Chloride Level 100 MMOL/L (98-107) Carbon Dioxide Level 28 MMOL/L (21-32) Anion Gap 6 mmol/L (5-15) Blood Urea Nitrogen 6 mg/dL (7-18) L Creatinine 0.9 MG/DL (0.55-1.30) Estimat Glomerular Filtration Rate > 60 mL/min (>60) Glucose Level 115 MG/DL (74-106) H Calcium Level 7.8 MG/DL (8.5-10.1) L Phosphorus Level 2.5 MG/DL (2.5-4.9) Albumin 2.2 G/DL (3.4-5.0) L Microbiology Date/Time Source Procedure Growth Status 06/20/20 08:00 Nasopharynx SARS-CoV-2 RdRp Gene Assay - Final Complete 06/20/20 09:00 Urine,Clean Catch Urine Culture - Preliminary Gram Negative Kunal Resulted Intake and Output 06/20/20 06/21/20 19:00 07:00 Intake Total 560 ml 415 ml Balance 560 ml 415 ml Intake Oral 360 ml 360 ml IV Total 200 ml 55 ml # Voids 2 # Bowel Movements 1 1 Objective PHYSICAL EXAMINATION: GENERAL: The patient is a cachectic-appearing male, in no apparent distress. HEENT: The patient has copious amounts of thrush over the upper and lower lips and tongue. NECK: Supple without lymphadenopathy. CHEST: Lungs are clear to auscultation bilaterally without wheezes or rales. CARDIOVASCULAR: Regular rhythm and rate. S1, S2 normal without murmurs, rubs, or gallops. ABDOMEN: Soft, nontender, and nondistended. Positive bowel sounds. No evidence of hepatosplenomegaly. Currently, no rebound or guarding noted. EXTREMITIES: Negative for clubbing, cyanosis, or edema. INTEGUMENTARY: Presence of vesicular rash over the right rib cage, extending from the right flank to the right rib cage. NEUROMUSCULAR: Cranial nerves II through XII are grossly intact without focal deficits. Motor strength is 5/5 bilaterally. Deep tendon reflexes are 2+ plantar. Assessment/Plan Assessment/Plan ASSESSMENT: This is a 50-year-old male with: 1. Left lower lobe pneumonia. 2. Herpes zoster of the right rib cage. 3. Oral candidiasis, probable esophageal candidiasis. 4. HIV. 5. Probable full-blown AIDS. TREATMENT: 1. Left lower lobe pneumonia. The patient has been placed empirically on intravenous cefepime and vancomycin. A Pulmonary consultation has been obtained with Dr. Ricci Gates. We will follow recommendations of Pulmonary. Initial COVID-19 test was negative. 2. Herpes zoster. The patient has been placed empirically on intravenous acyclovir. An Infectious Disease consultation has been obtained with Dr. Toribio. 3. Oral/esophageal candidiasis. The patient has been started on nystatin swish and swallow. The patient has also been started on fluconazole 200 mg p.o. daily. We will follow recommendations of Infectious Disease. 4. HIV. As above, an Infectious Disease consultation has been obtained with Dr. Toribio. Abs CD4 count=55 Jeovanny Watson MD Jun 21, 2020 12:56
--- NOTE | 2020-06-21 14:29 | Consultation ---
History of Present Illness General Chief Complaint: General Complaint Present Illness Allergies: Coded Allergies: No Known Allergies (Unverified , 06/30/19) Medication History No Active Prescriptions or Reported Meds Patient History Healthcare decision maker Resuscitation status Advanced Directive on File Physical Exam Last 24 Hour Vital Signs Date Time Temp Pulse Resp B/P (MAP) Pulse Ox O2 Delivery O2 Flow Rate FiO2 06/21/20 12:00 98.9 89 18 126/73 (90) 97 06/21/20 09:00 Room Air 06/21/20 08:00 99.0 100 19 120/67 (84) 97 06/21/20 04:00 98.0 95 19 131/83 (99) 95 06/21/20 00:00 97.8 98 19 138/94 (109) 94 06/20/20 21:00 Room Air 06/20/20 20:00 98.2 100 19 141/100 (114) 96 06/20/20 19:15 98.6 06/20/20 18:45 152/101 06/20/20 16:00 97.7 90 20 152/101 (118) 97 06/20/20 15:33 Room Air Intake and Output 06/20/20 06/21/20 19:00 07:00 Intake Total 560 ml 415 ml Balance 560 ml 415 ml Intake Oral 360 ml 360 ml IV Total 200 ml 55 ml # Voids 2 # Bowel Movements 1 1 Laboratory Tests Test 06/21/20 05:25 White Blood Count 6.2 K/UL (4.8-10.8) Red Blood Count 3.72 M/UL (4.70-6.10) L Hemoglobin 9.5 G/DL (14.2-18.0) L Hematocrit 30.4 % (42.0-52.0) L Mean Corpuscular Volume 82 FL (80-99) Mean Corpuscular Hemoglobin 25.6 PG (27.0-31.0) L Mean Corpuscular Hemoglobin Concent 31.3 G/DL (32.0-36.0) L Red Cell Distribution Width 18.4 % (11.6-14.8) H Platelet Count 415 K/UL (150-450) Mean Platelet Volume 5.4 FL (6.5-10.1) L Neutrophils (%) (Auto) 72.2 % (45.0-75.0) Lymphocytes (%) (Auto) 18.0 % (20.0-45.0) L Monocytes (%) (Auto) 6.3 % (1.0-10.0) Eosinophils (%) (Auto) 2.5 % (0.0-3.0) Basophils (%) (Auto) 1.0 % (0.0-2.0) Sodium Level 134 MMOL/L (136-145) L Potassium Level 5.0 MMOL/L (3.5-5.1) Chloride Level 100 MMOL/L (98-107) Carbon Dioxide Level 28 MMOL/L (21-32) Anion Gap 6 mmol/L (5-15) Blood Urea Nitrogen 6 mg/dL (7-18) L Creatinine 0.9 MG/DL (0.55-1.30) Estimat Glomerular Filtration Rate > 60 mL/min (>60) Glucose Level 115 MG/DL (74-106) H Calcium Level 7.8 MG/DL (8.5-10.1) L Phosphorus Level 2.5 MG/DL (2.5-4.9) Albumin 2.2 G/DL (3.4-5.0) L Height (Feet): 5 Height (Inches): 4.00 Weight (Pounds): 110 Medications Current Medications Medications (Trade) Dose Ordered Sig/Kenia Route PRN Reason Start Time Stop Time Status Last Admin Dose Admin Acetaminophen (Tylenol) 650 mg Q4H PRN ORAL fever 06/20/20 11:15 07/20/20 11:14 06/21/20 05:42 Acyclovir (Zovirax) 800 mg EVERY 8 HOURS ORAL 06/20/20 16:30 07/20/20 16:29 06/21/20 05:41 Albuterol/ Ipratropium (Albuterol/ Ipratropium) 3 ml EVERY 4 HOURS PRN HHN Shortness of Breath 06/20/20 11:15 06/25/20 11:14 Cefepime HCl 1 gm/ Dextrose 55 ml @ 110 mls/hr EVERY 12 HOURS IV 06/20/20 21:00 06/27/20 20:59 06/21/20 08:57 Clonidine HCl (Catapres Tab) 0.1 mg Q4H PRN ORAL SBP>150 or DBP>100 06/20/20 18:30 09/18/20 18:29 06/20/20 18:45 Fluconazole (Diflucan) 200 mg DAILY ORAL 06/20/20 18:15 06/27/20 18:14 06/21/20 08:57 Heparin Sodium (Porcine) (Heparin 5000 units/ml) 5,000 units EVERY 12 HOURS SUBQ 06/20/20 21:00 08/04/20 20:59 06/21/20 08:56 Nitroglycerin (Ntg) 0.4 mg Q5M PRN SL Prn Chest Pain 06/20/20 11:15 07/20/20 11:14 Nystatin (Nystatin) 5 ml QID ORAL 06/20/20 21:00 06/27/20 07:29 06/21/20 08:57 Ondansetron HCl (Zofran) 4 mg Q6H PRN IVP Nausea & Vomiting 06/20/20 11:15 07/20/20 11:14 Polyethylene Glycol (Miralax) 17 gm DAILYPRN PRN ORAL Constipation 06/20/20 11:15 07/20/20 11:14 Promethazine HCl/ Codeine (Phenergan with Codeine) 5 ml Q4H PRN ORAL For Cough 06/20/20 11:15 07/20/20 11:14 Temazepam (Restoril) 15 mg HSPRN PRN ORAL Insomnia 06/20/20 11:15 06/27/20 11:14 06/20/20 21:32 Assessment/Plan Problem List: (1) Danita infection ICD Codes: B37.9 - Candidiasis, unspecified SNOMED: 15583516 (2) Acute chest pain ICD Codes: R07.9 - Chest pain, unspecified SNOMED: 367943080 (3) COPD (chronic obstructive pulmonary disease) ICD Codes: J44.9 - Chronic obstructive pulmonary disease, unspecified SNOMED: 24914228 (4) AIDS ICD Codes: B20 - Human immunodeficiency virus [HIV] disease SNOMED: 43892529 (5) Severe protein-calorie malnutrition ICD Codes: E43 - Unspecified severe protein-calorie malnutrition SNOMED: 925358138, 868903319, 950114835 (6) Failure to thrive in child ICD Codes: R62.51 - Failure to thrive in child SNOMED: 981817593 Assessment/Plan: symptomatic treatment check sputum ID evaluation CD4 count dvt prophylaxis respiratory treatment chest PT Ricci Gates MD Jun 21, 2020 14:29
--- NOTE | 2020-06-21 14:40 | Internal Med Progress Note ---
Subjective Physician Name Johny Crawford Attending Physician Johny Crawford MD Current Medications Medications (Trade) Dose Ordered Sig/Kenia Route PRN Reason Start Time Stop Time Status Last Admin Dose Admin Acetaminophen (Tylenol) 650 mg Q4H PRN ORAL fever 06/20/20 11:15 07/20/20 11:14 06/21/20 05:42 Acyclovir (Zovirax) 800 mg EVERY 8 HOURS ORAL 06/20/20 16:30 07/20/20 16:29 06/21/20 05:41 Albuterol/ Ipratropium (Albuterol/ Ipratropium) 3 ml EVERY 4 HOURS PRN HHN Shortness of Breath 06/20/20 11:15 06/25/20 11:14 Cefepime HCl 1 gm/ Dextrose 55 ml @ 110 mls/hr EVERY 12 HOURS IV 06/20/20 21:00 06/27/20 20:59 06/21/20 08:57 Clonidine HCl (Catapres Tab) 0.1 mg Q4H PRN ORAL SBP>150 or DBP>100 06/20/20 18:30 09/18/20 18:29 06/20/20 18:45 Fluconazole (Diflucan) 200 mg DAILY ORAL 06/20/20 18:15 06/27/20 18:14 06/21/20 08:57 Heparin Sodium (Porcine) (Heparin 5000 units/ml) 5,000 units EVERY 12 HOURS SUBQ 06/20/20 21:00 08/04/20 20:59 06/21/20 08:56 Nitroglycerin (Ntg) 0.4 mg Q5M PRN SL Prn Chest Pain 06/20/20 11:15 07/20/20 11:14 Nystatin (Nystatin) 5 ml QID ORAL 06/20/20 21:00 06/27/20 07:29 06/21/20 08:57 Ondansetron HCl (Zofran) 4 mg Q6H PRN IVP Nausea & Vomiting 06/20/20 11:15 07/20/20 11:14 Polyethylene Glycol (Miralax) 17 gm DAILYPRN PRN ORAL Constipation 06/20/20 11:15 07/20/20 11:14 Promethazine HCl/ Codeine (Phenergan with Codeine) 5 ml Q4H PRN ORAL For Cough 06/20/20 11:15 9/19/20 11:14 Temazepam (Restoril) 15 mg HSPRN PRN ORAL Insomnia 06/20/20 11:15 06/27/20 11:14 06/20/20 21:32 Allergies: Coded Allergies: No Known Allergies (Unverified , 06/30/19) Subjective patient was seen earlier by Dr. Watson Objective Last Vital Signs Date Time Temp Pulse Resp B/P (MAP) Pulse Ox O2 Delivery O2 Flow Rate FiO2 06/21/20 12:00 98.9 89 18 126/73 (90) 97 06/21/20 09:00 Room Air 06/20/20 13:18 98 Laboratory Tests Test 06/21/20 05:25 White Blood Count 6.2 K/UL (4.8-10.8) Red Blood Count 3.72 M/UL (4.70-6.10) L Hemoglobin 9.5 G/DL (14.2-18.0) L Hematocrit 30.4 % (42.0-52.0) L Mean Corpuscular Volume 82 FL (80-99) Mean Corpuscular Hemoglobin 25.6 PG (27.0-31.0) L Mean Corpuscular Hemoglobin Concent 31.3 G/DL (32.0-36.0) L Red Cell Distribution Width 18.4 % (11.6-14.8) H Platelet Count 415 K/UL (150-450) Mean Platelet Volume 5.4 FL (6.5-10.1) L Neutrophils (%) (Auto) 72.2 % (45.0-75.0) Lymphocytes (%) (Auto) 18.0 % (20.0-45.0) L Monocytes (%) (Auto) 6.3 % (1.0-10.0) Eosinophils (%) (Auto) 2.5 % (0.0-3.0) Basophils (%) (Auto) 1.0 % (0.0-2.0) Sodium Level 134 MMOL/L (136-145) L Potassium Level 5.0 MMOL/L (3.5-5.1) Chloride Level 100 MMOL/L (98-107) Carbon Dioxide Level 28 MMOL/L (21-32) Anion Gap 6 mmol/L (5-15) Blood Urea Nitrogen 6 mg/dL (7-18) L Creatinine 0.9 MG/DL (0.55-1.30) Estimat Glomerular Filtration Rate > 60 mL/min (>60) Glucose Level 115 MG/DL (74-106) H Calcium Level 7.8 MG/DL (8.5-10.1) L Phosphorus Level 2.5 MG/DL (2.5-4.9) Albumin 2.2 G/DL (3.4-5.0) L Microbiology Date/Time Source Procedure Growth Status 06/20/20 08:00 Nasopharynx SARS-CoV-2 RdRp Gene Assay - Final Complete 06/20/20 09:00 Urine,Clean Catch Urine Culture - Preliminary Gram Negative Kunal Resulted Intake and Output 06/20/20 06/21/20 19:00 07:00 Intake Total 560 ml 415 ml Balance 560 ml 415 ml Intake Oral 360 ml 360 ml IV Total 200 ml 55 ml # Voids 2 # Bowel Movements 1 1 Johny Crawford MD Jun 21, 2020 14:40
[2020-06-21 16:00] VITALS: BP 129/79
[2020-06-21 20:00] VITALS: BP 127/80
[2020-06-22] VITALS: BP 121/69
[2020-06-22 04:00] VITALS: BP 138/74
[2020-06-22 06:32] LABS: EOSINOPHILS % (AUTO) 4.2 % (0.0-3.0); HEMATOCRIT 31.8 % (42.0-52.0); HEMOGLOBIN 10.1 G/DL (14.2-18.0); LYMPHOCYTES % (AUTO) 29.2 % (20.0-45.0); MEAN CORPUSCULAR VOLUME 82 FL (80-99); MONOCYTES % (AUTO) 5.2 % (1.0-10.0); NEUTROPHILS % (AUTO) 60.4 % (45.0-75.0); PLATELET COUNT 401 K/UL (150-450); RED BLOOD COUNT 3.86 M/UL (4.70-6.10); RED CELL DISTRIBUTION WIDTH 18.5 % (11.6-14.8); WHITE BLOOD COUNT 6.3 K/UL (4.8-10.8)
[2020-06-22 06:43] LABS: ANION GAP 6 mmol/L (5-15); BLOOD UREA NITROGEN 16 mg/dL (7-18); CALCIUM 8.4 MG/DL (8.5-10.1); CARBON DIOXIDE 30 MMOL/L (21-32); CHLORIDE 99 MMOL/L (98-107); CREATININE 1.2 MG/DL (0.55-1.30); POTASSIUM 4.5 MMOL/L (3.5-5.1); SODIUM 135 MMOL/L (136-145)
[2020-06-22 08:00] VITALS: BP 137/87
[2020-06-22] MEDS: Nystatin Susp 500,000 units/5ml ORAL SCH ×4 (08:46→21:08)
[2020-06-22] MEDS: Cefepime HCl 1 GM in D5W 55 ML IV SCH ×2 (08:47→21:09)
[2020-06-22] MEDS: Fluconazole 100mg tab ORAL SCH (08:47)
[2020-06-22] MEDS: Heparin 5000 units/ml inj SUBQ SCH ×2 (08:48→21:13)
[2020-06-22 12:00] VITALS: BP 125/80
[2020-06-22 16:00] VITALS: BP 137/83
--- NOTE | 2020-06-22 16:59 | Pulmonology Progress Note ---
Subjective ROS Limited/Unobtainable: No Allergies: Coded Allergies: No Known Allergies (Unverified , 06/30/19) Objective Last 24 Hour Vital Signs Date Time Temp Pulse Resp B/P (MAP) Pulse Ox O2 Delivery O2 Flow Rate FiO2 06/22/20 16:00 98.4 93 18 137/83 (101) 99 06/22/20 12:00 98.2 90 20 125/80 (95) 99 06/22/20 09:00 Room Air 06/22/20 08:00 99.0 98 20 137/87 (104) 99 06/22/20 04:00 97.7 98 18 138/74 (95) 95 06/22/20 00:00 98.0 94 19 121/69 (86) 95 06/21/20 21:00 Room Air 06/21/20 20:00 97.5 85 18 127/80 (96) 97 Intake and Output 06/21/20 06/22/20 19:00 07:00 Intake Total 500 ml 600 ml Balance 500 ml 600 ml Intake Oral 600 ml Other 500 ml # Voids 2 General Appearance: cachetic HEENT: normocephalic, atraumatic Respiratory: chest wall non-tender, lungs clear Cardiovascular: normal peripheral pulses, normal rate Abdomen: normal bowel sounds, soft, non tender Genitourinary: normal external genitalia Extremities: no cyanosis Skin: no ulcers Neurologic: breakfast and room attendant II-XII grossly normal, abnormal gait Microbiology Date/Time Source Procedure Growth Status 06/20/20 08:10 Blood Blood Culture - Preliminary NO GROWTH AFTER 24 HOURS Resulted 06/20/20 08:00 Blood Blood Culture - Preliminary NO GROWTH AFTER 24 HOURS Resulted 06/20/20 08:00 Nasopharynx SARS-CoV-2 RdRp Gene Assay - Final Complete 06/20/20 09:00 Urine,Clean Catch Urine Culture - Preliminary Gram Negative Kunal Resulted Laboratory Tests 06/22/20 05:00: White Blood Count 6.3, Red Blood Count 3.86L, Hemoglobin 10.1L, Hematocrit 31.8L , Mean Corpuscular Volume 82, Mean Corpuscular Hemoglobin 26.2L, Mean Corpuscular Hemoglobin Concent 31.8L, Red Cell Distribution Width 18.5H, Platelet Count 401, Mean Platelet Volume 5.3L, Neutrophils (%) (Auto) 60.4, Lymphocytes (%) (Auto) 29.2, Monocytes (%) (Auto) 5.2, Eosinophils (%) (Auto) 4.2H, Basophils (%) (Auto) 1.0, Sodium Level 135L, Potassium Level 4.5, Chloride Level 99, Carbon Dioxide Level 30, Anion Gap 6, Blood Urea Nitrogen 16 , Creatinine 1.2, Estimat Glomerular Filtration Rate > 60, Glucose Level 117H, Calcium Level 8.4L, Coccidioides Antibody (Comp Fix) [Pending], Cryptococcus Antigen [Pending], Histoplasma Mycelial Antibody [Pending], Histoplasma Antibody w Mycelial Ag [Pending], Histoplasma Antibody with Yeast Ag [Pending] 06/22/20 12:47: Histoplasma Antigen [Pending], Urine Legionella Antigen [Pending] Current Medications Medications (Trade) Dose Ordered Sig/Kenia Route PRN Reason Start Time Stop Time Status Last Admin Dose Admin Acetaminophen (Tylenol) 650 mg Q4H PRN ORAL fever 06/20/20 11:15 07/20/20 11:14 06/21/20 05:42 Acyclovir (Zovirax) 800 mg EVERY 8 HOURS ORAL 06/20/20 16:30 07/20/20 16:29 06/22/20 13:05 Albuterol/ Ipratropium (Albuterol/ Ipratropium) 3 ml EVERY 4 HOURS PRN HHN Shortness of Breath 06/20/20 11:15 06/25/20 11:14 Cefepime HCl 1 gm/ Dextrose 55 ml @ 110 mls/hr EVERY 12 HOURS IV 06/20/20 21:00 06/27/20 20:59 06/22/20 08:47 Clonidine HCl (Catapres Tab) 0.1 mg Q4H PRN ORAL SBP>150 or DBP>100 06/20/20 18:30 09/18/20 18:29 06/20/20 18:45 Fluconazole (Diflucan) 200 mg DAILY ORAL 06/22/20 09:00 06/29/20 08:59 06/22/20 08:47 Heparin Sodium (Porcine) (Heparin 5000 units/ml) 5,000 units EVERY 12 HOURS SUBQ 06/20/20 21:00 08/04/20 20:59 06/22/20 08:48 Nitroglycerin (Ntg) 0.4 mg Q5M PRN SL Prn Chest Pain 06/20/20 11:15 07/20/20 11:14 Nystatin (Nystatin) 5 ml QID ORAL 06/20/20 21:00 06/27/20 07:29 06/22/20 13:05 Ondansetron HCl (Zofran) 4 mg Q6H PRN IVP Nausea & Vomiting 06/20/20 11:15 07/20/20 11:14 Polyethylene Glycol (Miralax) 17 gm DAILYPRN PRN ORAL Constipation 06/20/20 11:15 07/20/20 11:14 Promethazine HCl/ Codeine (Phenergan with Codeine) 5 ml Q4H PRN ORAL For Cough 06/20/20 11:15 07/20/20 11:14 Temazepam (Restoril) 15 mg HSPRN PRN ORAL Insomnia 06/20/20 11:15 06/27/20 11:14 06/20/20 21:32 Assessment/Plan Problems: (1) Danita infection (2) Acute chest pain (3) COPD (chronic obstructive pulmonary disease) (4) AIDS (5) Severe protein-calorie malnutrition (6) Failure to thrive in child Assessment/Plan symptomatic treatment check sputum ID evaluation CD4 count dvt prophylaxis respiratory treatment chest PT Ricci Gates MD Jun 22, 2020 16:59
--- NOTE | 2020-06-22 18:15 | Internal Med Progress Note ---
Subjective Date of Service: Jun 22, 2020 Physician Name Jeovanny Watson Attending Physician Johny Crawford MD Current Medications Medications (Trade) Dose Ordered Sig/Kenia Route PRN Reason Start Time Stop Time Status Last Admin Dose Admin Acetaminophen (Tylenol) 650 mg Q4H PRN ORAL fever 06/20/20 11:15 07/20/20 11:14 06/21/20 05:42 Acyclovir (Zovirax) 800 mg EVERY 8 HOURS ORAL 06/20/20 16:30 07/20/20 16:29 06/22/20 13:05 Albuterol/ Ipratropium (Albuterol/ Ipratropium) 3 ml EVERY 4 HOURS PRN HHN Shortness of Breath 06/20/20 11:15 06/25/20 11:14 Cefepime HCl 1 gm/ Dextrose 55 ml @ 110 mls/hr EVERY 12 HOURS IV 06/20/20 21:00 06/27/20 20:59 06/22/20 08:47 Clonidine HCl (Catapres Tab) 0.1 mg Q4H PRN ORAL SBP>150 or DBP>100 06/20/20 18:30 09/18/20 18:29 06/20/20 18:45 Fluconazole (Diflucan) 200 mg DAILY ORAL 06/22/20 09:00 06/29/20 08:59 06/22/20 08:47 Heparin Sodium (Porcine) (Heparin 5000 units/ml) 5,000 units EVERY 12 HOURS SUBQ 06/20/20 21:00 08/04/20 20:59 06/22/20 08:48 Nitroglycerin (Ntg) 0.4 mg Q5M PRN SL Prn Chest Pain 06/20/20 11:15 07/20/20 11:14 Nystatin (Nystatin) 5 ml QID ORAL 06/20/20 21:00 06/27/20 07:29 06/22/20 17:01 Ondansetron HCl (Zofran) 4 mg Q6H PRN IVP Nausea & Vomiting 06/20/20 11:15 07/20/20 11:14 Polyethylene Glycol (Miralax) 17 gm DAILYPRN PRN ORAL Constipation 06/20/20 11:15 07/20/20 11:14 Promethazine HCl/ Codeine (Phenergan with Codeine) 5 ml Q4H PRN ORAL For Cough 06/20/20 11:15 07/20/20 11:14 Temazepam (Restoril) 15 mg HSPRN PRN ORAL Insomnia 06/20/20 11:15 06/27/20 11:14 06/20/20 21:32 Allergies: Coded Allergies: No Known Allergies (Unverified , 06/30/19) ROS Limited/Unobtainable: No Constitutional: Reports: no symptoms HEENT: Reports: no symptoms Cardiovascular: Reports: no symptoms Respiratory: Reports: no symptoms Gastrointestinal/Abdominal: Reports: no symptoms Genitourinary: Reports: no symptoms Neurologic/Psychiatric: Reports: no symptoms Subjective 50 YO M admitted with right chest pain. Now herpes zoster and oral thrush. Cover for Int Hira-Dr Crawford Objective Last Vital Signs Date Time Temp Pulse Resp B/P (MAP) Pulse Ox O2 Delivery O2 Flow Rate FiO2 06/22/20 16:00 98.4 93 18 137/83 (101) 99 06/22/20 09:00 Room Air 06/20/20 13:18 98 Laboratory Tests Test 06/22/20 05:00 06/22/20 12:47 White Blood Count 6.3 K/UL (4.8-10.8) Red Blood Count 3.86 M/UL (4.70-6.10) L Hemoglobin 10.1 G/DL (14.2-18.0) L Hematocrit 31.8 % (42.0-52.0) L Mean Corpuscular Volume 82 FL (80-99) Mean Corpuscular Hemoglobin 26.2 PG (27.0-31.0) L Mean Corpuscular Hemoglobin Concent 31.8 G/DL (32.0-36.0) L Red Cell Distribution Width 18.5 % (11.6-14.8) H Platelet Count 401 K/UL (150-450) Mean Platelet Volume 5.3 FL (6.5-10.1) L Neutrophils (%) (Auto) 60.4 % (45.0-75.0) Lymphocytes (%) (Auto) 29.2 % (20.0-45.0) Monocytes (%) (Auto) 5.2 % (1.0-10.0) Eosinophils (%) (Auto) 4.2 % (0.0-3.0) H Basophils (%) (Auto) 1.0 % (0.0-2.0) Sodium Level 135 MMOL/L (136-145) L Potassium Level 4.5 MMOL/L (3.5-5.1) Chloride Level 99 MMOL/L (98-107) Carbon Dioxide Level 30 MMOL/L (21-32) Anion Gap 6 mmol/L (5-15) Blood Urea Nitrogen 16 mg/dL (7-18) Creatinine 1.2 MG/DL (0.55-1.30) Estimat Glomerular Filtration Rate > 60 mL/min (>60) Glucose Level 117 MG/DL (74-106) H Calcium Level 8.4 MG/DL (8.5-10.1) L Coccidioides Antibody (Comp Fix) Pending Cryptococcus Antigen Pending Histoplasma Mycelial Antibody Pending Histoplasma Antibody w Mycelial Ag Pending Histoplasma Antibody with Yeast Ag Pending Histoplasma Antigen Pending Urine Legionella Antigen Pending Microbiology Date/Time Source Procedure Growth Status 06/20/20 08:10 Blood Blood Culture - Preliminary NO GROWTH AFTER 24 HOURS Resulted 06/20/20 08:00 Blood Blood Culture - Preliminary NO GROWTH AFTER 24 HOURS Resulted 06/20/20 08:00 Nasopharynx SARS-CoV-2 RdRp Gene Assay - Final Complete 06/20/20 09:00 Urine,Clean Catch Urine Culture - Preliminary Gram Negative Kunal Resulted Intake and Output 06/21/20 06/22/20 19:00 07:00 Intake Total 500 ml 600 ml Balance 500 ml 600 ml Intake Oral 600 ml Other 500 ml # Voids 2 Objective PHYSICAL EXAMINATION: GENERAL: The patient is a cachectic-appearing male, in no apparent distress. HEENT: The patient has copious amounts of thrush over the upper and lower lips and tongue. NECK: Supple without lymphadenopathy. CHEST: Lungs are clear to auscultation bilaterally without wheezes or rales. CARDIOVASCULAR: Regular rhythm and rate. S1, S2 normal without murmurs, rubs, or gallops. ABDOMEN: Soft, nontender, and nondistended. Positive bowel sounds. No evidence of hepatosplenomegaly. Currently, no rebound or guarding noted. EXTREMITIES: Negative for clubbing, cyanosis, or edema. INTEGUMENTARY: Presence of vesicular rash over the right rib cage, extending from the right flank to the right rib cage. NEUROMUSCULAR: Cranial nerves II through XII are grossly intact without focal deficits. Motor strength is 5/5 bilaterally. Deep tendon reflexes are 2+ plantar. Assessment/Plan Assessment/Plan ASSESSMENT: This is a 50-year-old male with: 1. Left lower lobe pneumonia. 2. Herpes zoster of the right rib cage. 3. Oral candidiasis, probable esophageal candidiasis. 4. HIV. 5. Probable full-blown AIDS. TREATMENT: 1. Left lower lobe pneumonia. ABX= cefepime and S/P vancomycin. A Pulmonary consultation has been obtained with Dr. Ricci Gates. We will follow recommendations of Pulmonary. Initial COVID-19 test was negative. 2. Herpes zoster. The patient has been placed empirically on intravenous acyclovir. An Infectious Disease consultation has been obtained with Dr. Martines. 3. Oral/esophageal candidiasis. The patient has been started on nystatin swish and swallow. The patient has also been started on fluconazole 200 mg p.o. daily. We will follow recommendations of Infectious Disease. 4. HIV. As above, an Infectious Disease consultation has been obtained with Dr. Toribio. Abs CD4 count=55 Jeovanny Watson MD Jun 22, 2020 18:15
[2020-06-22 20:00] VITALS: BP 124/92
[2020-06-23] VITALS: BP 132/93
[2020-06-23 04:00] VITALS: BP 128/70
[2020-06-23 07:11] LABS: BASOPHILS % (AUTO) 1.1 % (0.0-2.0); EOSINOPHILS % (AUTO) 3.2 % (0.0-3.0); HEMATOCRIT 32.1 % (42.0-52.0); HEMOGLOBIN 10.2 G/DL (14.2-18.0); LYMPHOCYTES % (AUTO) 34.2 % (20.0-45.0); MEAN CORPUSCULAR VOLUME 82 FL (80-99); MONOCYTES % (AUTO) 6.5 % (1.0-10.0); PLATELET COUNT 437 K/UL (150-450); RED BLOOD COUNT 3.91 M/UL (4.70-6.10); RED CELL DISTRIBUTION WIDTH 18.7 % (11.6-14.8); WHITE BLOOD COUNT 6.5 K/UL (4.8-10.8)
[2020-06-23 07:30] LABS: ANION GAP 8 mmol/L (5-15); BLOOD UREA NITROGEN 20 mg/dL (7-18); CALCIUM 8.7 MG/DL (8.5-10.1); CARBON DIOXIDE 29 MMOL/L (21-32); CHLORIDE 100 MMOL/L (98-107); CREATININE 1.1 MG/DL (0.55-1.30); POTASSIUM 4.4 MMOL/L (3.5-5.1); SODIUM 137 MMOL/L (136-145)
[2020-06-23 08:00] VITALS: BP_SYST 118; BP_SYST 132; BP_DIAS 80; BP_DIAS 93
[2020-06-23] MEDS: Heparin 5000 units/ml inj SUBQ SCH ×3 (09:00→20:19)
[2020-06-23] MEDS: Fluconazole 100mg tab ORAL SCH (09:07)
[2020-06-23] MEDS: Cefepime HCl 1 GM in D5W 55 ML IV SCH (09:07)
[2020-06-23] MEDS: Nystatin Susp 500,000 units/5ml ORAL SCH ×4 (09:07→20:19)
--- NOTE | 2020-06-23 11:19 | Infectious Diseases Prog Note ---
Subjective Allergies: Coded Allergies: No Known Allergies (Unverified , 06/30/19) DIc # [id number] Objective Last 24 Hour Vital Signs Date Time Temp Pulse Resp B/P (MAP) Pulse Ox O2 Delivery O2 Flow Rate FiO2 06/23/20 09:00 Room Air 06/23/20 08:00 98.0 100 18 118/80 (93) 98 06/23/20 04:00 97.6 102 22 128/70 (89) 96 06/23/20 00:00 98.4 96 22 132/93 (106) 98 06/22/20 21:00 Room Air 06/22/20 20:00 96.8 111 22 124/92 (103) 97 06/22/20 16:00 98.4 93 18 137/83 (101) 99 06/22/20 12:00 98.2 90 20 125/80 (95) 99 Height (Feet): 5 Height (Inches): 4.00 Weight (Pounds): 110 Laboratory Tests Test 06/22/20 12:47 06/23/20 06:30 Histoplasma Antigen Pending Urine Legionella Antigen Pending White Blood Count 6.5 K/UL (4.8-10.8) Red Blood Count 3.91 M/UL (4.70-6.10) L Hemoglobin 10.2 G/DL (14.2-18.0) L Hematocrit 32.1 % (42.0-52.0) L Mean Corpuscular Volume 82 FL (80-99) Mean Corpuscular Hemoglobin 26.0 PG (27.0-31.0) L Mean Corpuscular Hemoglobin Concent 31.7 G/DL (32.0-36.0) L Red Cell Distribution Width 18.7 % (11.6-14.8) H Platelet Count 437 K/UL (150-450) Mean Platelet Volume 5.7 FL (6.5-10.1) L Neutrophils (%) (Auto) 55.0 % (45.0-75.0) Lymphocytes (%) (Auto) 34.2 % (20.0-45.0) Monocytes (%) (Auto) 6.5 % (1.0-10.0) Eosinophils (%) (Auto) 3.2 % (0.0-3.0) H Basophils (%) (Auto) 1.1 % (0.0-2.0) Sodium Level 137 MMOL/L (136-145) Potassium Level 4.4 MMOL/L (3.5-5.1) Chloride Level 100 MMOL/L (98-107) Carbon Dioxide Level 29 MMOL/L (21-32) Anion Gap 8 mmol/L (5-15) Blood Urea Nitrogen 20 mg/dL (7-18) H Creatinine 1.1 MG/DL (0.55-1.30) Estimat Glomerular Filtration Rate > 60 mL/min (>60) Glucose Level 118 MG/DL (74-106) H Calcium Level 8.7 MG/DL (8.5-10.1) Current Medications Medications (Trade) Dose Ordered Sig/Kenia Route PRN Reason Start Time Stop Time Status Last Admin Dose Admin Acetaminophen (Tylenol) 650 mg Q4H PRN ORAL fever 06/20/20 11:15 07/20/20 11:14 06/22/20 21:10 Acyclovir (Zovirax) 800 mg EVERY 8 HOURS ORAL 06/20/20 16:30 07/20/20 16:29 06/23/20 05:21 Albuterol/ Ipratropium (Albuterol/ Ipratropium) 3 ml EVERY 4 HOURS PRN HHN Shortness of Breath 06/20/20 11:15 06/25/20 11:14 Cefepime HCl 1 gm/ Dextrose 55 ml @ 110 mls/hr EVERY 12 HOURS IV 06/20/20 21:00 06/27/20 20:59 06/23/20 09:07 Clonidine HCl (Catapres Tab) 0.1 mg Q4H PRN ORAL SBP>150 or DBP>100 06/20/20 18:30 09/18/20 18:29 06/20/20 18:45 Fluconazole (Diflucan) 200 mg DAILY ORAL 06/22/20 09:00 06/29/20 08:59 06/23/20 09:07 Heparin Sodium (Porcine) (Heparin 5000 units/ml) 5,000 units EVERY 12 HOURS SUBQ 06/20/20 21:00 08/04/20 20:59 06/22/20 21:13 Nitroglycerin (Ntg) 0.4 mg Q5M PRN SL Prn Chest Pain 06/20/20 11:15 07/20/20 11:14 Nystatin (Nystatin) 5 ml QID ORAL 06/20/20 21:00 06/27/20 07:29 06/23/20 09:07 Ondansetron HCl (Zofran) 4 mg Q6H PRN IVP Nausea & Vomiting 06/20/20 11:15 07/20/20 11:14 Polyethylene Glycol (Miralax) 17 gm DAILYPRN PRN ORAL Constipation 06/20/20 11:15 07/20/20 11:14 Promethazine HCl/ Codeine (Phenergan with Codeine) 5 ml Q4H PRN ORAL For Cough 06/20/20 11:15 07/20/20 11:14 Temazepam (Restoril) 15 mg HSPRN PRN ORAL Insomnia 06/20/20 11:15 06/27/20 11:14 06/22/20 21:08 Harvinder Gifford MD Jun 23, 2020 11:19
[2020-06-23 12:00] VITALS: BP 115/77
[2020-06-23] MEDS: Ertapenem 1 GM in NS 55 ML IVPB SCH (12:54)
[2020-06-23 16:00] VITALS: BP 111/73
--- NOTE | 2020-06-23 16:23 | Internal Med Progress Note ---
Subjective Date of Service: Jun 23, 2020 Physician Name Jeovanny Watson Attending Physician Johny Crawford MD Current Medications Medications (Trade) Dose Ordered Sig/Kenia Route PRN Reason Start Time Stop Time Status Last Admin Dose Admin Acetaminophen (Tylenol) 650 mg Q4H PRN ORAL fever 06/20/20 11:15 07/20/20 11:14 06/22/20 21:10 Albuterol/ Ipratropium (Albuterol/ Ipratropium) 3 ml EVERY 4 HOURS PRN HHN Shortness of Breath 06/20/20 11:15 06/25/20 11:14 Clonidine HCl (Catapres Tab) 0.1 mg Q4H PRN ORAL SBP>150 or DBP>100 06/20/20 18:30 09/18/20 18:29 06/20/20 18:45 Ertapenem 1 gm/ Sodium Chloride 55 ml @ 110 mls/hr Q24H IVPB 06/23/20 12:00 06/28/20 11:59 06/23/20 12:54 Fluconazole (Diflucan) 200 mg DAILY ORAL 06/22/20 09:00 06/29/20 08:59 06/23/20 09:07 Heparin Sodium (Porcine) (Heparin 5000 units/ml) 5,000 units EVERY 12 HOURS SUBQ 06/20/20 21:00 08/04/20 20:59 06/22/20 21:13 Nitroglycerin (Ntg) 0.4 mg Q5M PRN SL Prn Chest Pain 06/20/20 11:15 07/20/20 11:14 Nystatin (Nystatin) 5 ml QID ORAL 06/20/20 21:00 06/27/20 07:29 06/23/20 12:54 Ondansetron HCl (Zofran) 4 mg Q6H PRN IVP Nausea & Vomiting 06/20/20 11:15 07/20/20 11:14 Polyethylene Glycol (Miralax) 17 gm DAILYPRN PRN ORAL Constipation 06/20/20 11:15 07/20/20 11:14 Promethazine HCl/ Codeine (Phenergan with Codeine) 5 ml Q4H PRN ORAL For Cough 06/20/20 11:15 07/20/20 11:14 Temazepam (Restoril) 15 mg HSPRN PRN ORAL Insomnia 06/20/20 11:15 06/27/20 11:14 06/22/20 21:08 Trimethoprim/ Sulfamethoxazole (Bactrim-DS) 1 tab DAILY ORAL 06/24/20 12:00 07/01/20 11:59 Allergies: Coded Allergies: No Known Allergies (Unverified , 06/30/19) ROS Limited/Unobtainable: No Constitutional: Reports: no symptoms HEENT: Reports: no symptoms Cardiovascular: Reports: no symptoms Respiratory: Reports: no symptoms Gastrointestinal/Abdominal: Reports: no symptoms Genitourinary: Reports: no symptoms Neurologic/Psychiatric: Reports: no symptoms Subjective 50 YO M admitted with right chest pain. Now herpes zoster and oral thrush. Cover for Int Hira-Dr Crawford. C/O itch on zoster lesions. Pain not controlled with tylenol Objective Last Vital Signs Date Time Temp Pulse Resp B/P (MAP) Pulse Ox O2 Delivery O2 Flow Rate FiO2 06/23/20 16:00 98.4 90 18 111/73 (86) 98 06/23/20 09:00 Room Air 06/20/20 13:18 98 Laboratory Tests Test 06/23/20 06:30 White Blood Count 6.5 K/UL (4.8-10.8) Red Blood Count 3.91 M/UL (4.70-6.10) L Hemoglobin 10.2 G/DL (14.2-18.0) L Hematocrit 32.1 % (42.0-52.0) L Mean Corpuscular Volume 82 FL (80-99) Mean Corpuscular Hemoglobin 26.0 PG (27.0-31.0) L Mean Corpuscular Hemoglobin Concent 31.7 G/DL (32.0-36.0) L Red Cell Distribution Width 18.7 % (11.6-14.8) H Platelet Count 437 K/UL (150-450) Mean Platelet Volume 5.7 FL (6.5-10.1) L Neutrophils (%) (Auto) 55.0 % (45.0-75.0) Lymphocytes (%) (Auto) 34.2 % (20.0-45.0) Monocytes (%) (Auto) 6.5 % (1.0-10.0) Eosinophils (%) (Auto) 3.2 % (0.0-3.0) H Basophils (%) (Auto) 1.1 % (0.0-2.0) Sodium Level 137 MMOL/L (136-145) Potassium Level 4.4 MMOL/L (3.5-5.1) Chloride Level 100 MMOL/L (98-107) Carbon Dioxide Level 29 MMOL/L (21-32) Anion Gap 8 mmol/L (5-15) Blood Urea Nitrogen 20 mg/dL (7-18) H Creatinine 1.1 MG/DL (0.55-1.30) Estimat Glomerular Filtration Rate > 60 mL/min (>60) Glucose Level 118 MG/DL (74-106) H Calcium Level 8.7 MG/DL (8.5-10.1) Intake and Output 06/22/20 06/23/20 19:00 07:00 Intake Total 810 ml 625 ml Balance 810 ml 625 ml Intake Oral 700 ml 625 ml IV Total 110 ml # Voids 3 3 # Bowel Movements 1 2 Objective PHYSICAL EXAMINATION: GENERAL: The patient is a cachectic-appearing male, in no apparent distress. HEENT: The patient has copious amounts of thrush over the upper and lower lips and tongue. NECK: Supple without lymphadenopathy. CHEST: Lungs are clear to auscultation bilaterally without wheezes or rales. CARDIOVASCULAR: Regular rhythm and rate. S1, S2 normal without murmurs, rubs, or gallops. ABDOMEN: Soft, nontender, and nondistended. Positive bowel sounds. No evidence of hepatosplenomegaly. Currently, no rebound or guarding noted. EXTREMITIES: Negative for clubbing, cyanosis, or edema. INTEGUMENTARY: Presence of vesicular rash over the right rib cage, extending from the right flank to the right rib cage. NEUROMUSCULAR: Cranial nerves II through XII are grossly intact without focal deficits. Motor strength is 5/5 bilaterally. Deep tendon reflexes are 2+ plantar. Assessment/Plan Assessment/Plan ASSESSMENT: This is a 50-year-old male with: 1. Left lower lobe pneumonia. 2. Herpes zoster of the right rib cage. 3. Oral candidiasis, probable esophageal candidiasis. 4. HIV. 5. Probable full-blown AIDS. TREATMENT: 1. Left lower lobe pneumonia. ABX= cefepime and S/P vancomycin. A Pulmonary consultation has been obtained with Dr. Ricci Gates. We will follow recommendations of Pulmonary. Initial COVID-19 test was negative. 2. Herpes zoster. The patient has been placed empirically on intravenous acyclovir. An Infectious Disease consultation has been obtained with Dr. Martines. 3. Oral/esophageal candidiasis. The patient has been started on nystatin swish and swallow. The patient has also been started on fluconazole 200 mg p.o. daily. We will follow recommendations of Infectious Disease. 4. HIV. As above, an Infectious Disease consultation has been obtained with Dr. Toribio. Abs CD4 count=55; await HIV viral load Jeovanny Watson MD Jun 23, 2020 16:23
[2020-06-23] MEDS ORDERED: HYDROcodone/Acetamin 5/325 tab ORAL PRN (16:30)
[2020-06-23] MEDS ORDERED: HydrOXYzine tab 25mg tab ORAL PRN (16:30)
[2020-06-23] MEDS ORDERED: HYDROcodone/Acetamin 10/325 tab ORAL PRN (16:30)
--- NOTE | 2020-06-23 18:16 | Pulmonology Progress Note ---
Subjective ROS Limited/Unobtainable: No Constitutional: Reports: no symptoms HEENT: Repors: no symptoms Respiratory: Reports: no symptoms Allergies: Coded Allergies: No Known Allergies (Unverified , 06/30/19) Objective Last 24 Hour Vital Signs Date Time Temp Pulse Resp B/P (MAP) Pulse Ox O2 Delivery O2 Flow Rate FiO2 06/23/20 16:00 98.4 90 18 111/73 (86) 98 06/23/20 12:00 98.1 90 18 115/77 (90) 98 06/23/20 09:00 Room Air 06/23/20 08:00 98.0 100 18 118/80 (93) 98 06/23/20 04:00 97.6 102 22 128/70 (89) 96 06/23/20 00:00 98.4 96 22 132/93 (106) 98 06/22/20 21:00 Room Air 06/22/20 20:00 96.8 111 22 124/92 (103) 97 Intake and Output 06/22/20 06/23/20 19:00 07:00 Intake Total 810 ml 625 ml Balance 810 ml 625 ml Intake Oral 700 ml 625 ml IV Total 110 ml # Voids 3 3 # Bowel Movements 1 2 General Appearance: cachetic HEENT: normocephalic, atraumatic Respiratory: chest wall non-tender, lungs clear Cardiovascular: normal peripheral pulses, normal rate Abdomen: normal bowel sounds, soft, non tender Genitourinary: normal external genitalia Extremities: no cyanosis Skin: no ulcers 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, abnormal gait Laboratory Tests 06/23/20 06:30: White Blood Count 6.5, Red Blood Count 3.91L, Hemoglobin 10.2L, Hematocrit 32.1L , Mean Corpuscular Volume 82, Mean Corpuscular Hemoglobin 26.0L, Mean Corpuscular Hemoglobin Concent 31.7L, Red Cell Distribution Width 18.7H, Platelet Count 437, Mean Platelet Volume 5.7L, Neutrophils (%) (Auto) 55.0, Lymphocytes (%) (Auto) 34.2, Monocytes (%) (Auto) 6.5, Eosinophils (%) (Auto) 3.2H, Basophils (%) (Auto) 1.1, Sodium Level 137, Potassium Level 4.4, Chloride Level 100, Carbon Dioxide Level 29, Anion Gap 8, Blood Urea Nitrogen 20H, Creatinine 1.1, Estimat Glomerular Filtration Rate > 60, Glucose Level 118H, Calcium Level 8.7 06/23/20 16:55: HIV-1 RNA, Quantitative copies/mL [Pending], HIV-1 RNA (PCR) log10 Value [ Pending], HIV-1 RNA Ultraquantitative (PCR) [Pending], HIV Genotype [Pending] Current Medications Medications (Trade) Dose Ordered Sig/Kenia Route PRN Reason Start Time Stop Time Status Last Admin Dose Admin Acetaminophen (Tylenol) 650 mg Q4H PRN ORAL fever 06/20/20 11:15 07/20/20 11:14 06/22/20 21:10 Acetaminophen/ Hydrocodone Bitart ([place] 10/325) 1 tab Q4H PRN ORAL Severe Pain (Pain Scale 7-10) 06/23/20 16:30 06/30/20 16:29 Acetaminophen/ Hydrocodone Bitart ([place] 5/325) 1 tab Q4H PRN ORAL Moderate Pain (Pain Scale 4-6) 06/23/20 16:30 06/30/20 16:29 06/23/20 17:02 Albuterol/ Ipratropium (Albuterol/ Ipratropium) 3 ml EVERY 4 HOURS PRN HHN Shortness of Breath 06/20/20 11:15 06/25/20 11:14 Clonidine HCl (Catapres Tab) 0.1 mg Q4H PRN ORAL SBP>150 or DBP>100 06/20/20 18:30 09/18/20 18:29 06/20/20 18:45 Ertapenem 1 gm/ Sodium Chloride 55 ml @ 110 mls/hr Q24H IVPB 06/23/20 12:00 06/28/20 11:59 06/23/20 12:54 Fluconazole (Diflucan) 200 mg DAILY ORAL 06/22/20 09:00 06/29/20 08:59 06/23/20 09:07 Heparin Sodium (Porcine) (Heparin 5000 units/ml) 5,000 units EVERY 12 HOURS SUBQ 06/20/20 21:00 08/04/20 20:59 06/22/20 21:13 Hydroxyzine HCl (Atarax) 25 mg Q6H PRN ORAL Itching 06/23/20 16:30 07/23/20 16:29 06/23/20 17:02 Nitroglycerin (Ntg) 0.4 mg Q5M PRN SL Prn Chest Pain 06/20/20 11:15 07/20/20 11:14 Nystatin (Nystatin) 5 ml QID ORAL 06/20/20 21:00 06/27/20 07:29 06/23/20 17:01 Ondansetron HCl (Zofran) 4 mg Q6H PRN IVP Nausea & Vomiting 06/20/20 11:15 07/20/20 11:14 Polyethylene Glycol (Miralax) 17 gm DAILYPRN PRN ORAL Constipation 06/20/20 11:15 07/20/20 11:14 Promethazine HCl/ Codeine (Phenergan with Codeine) 5 ml Q4H PRN ORAL For Cough 06/20/20 11:15 07/20/20 11:14 Temazepam (Restoril) 15 mg HSPRN PRN ORAL Insomnia 06/20/20 11:15 06/27/20 11:14 06/22/20 21:08 Trimethoprim/ Sulfamethoxazole (Bactrim-DS) 1 tab DAILY ORAL 06/24/20 12:00 07/01/20 11:59 Assessment/Plan Problems: (1) Danita infection (2) Acute chest pain (3) COPD (chronic obstructive pulmonary disease) (4) AIDS (5) Severe protein-calorie malnutrition (6) Failure to thrive in child Assessment/Plan symptomatic treatment check sputum ID evaluation CD4 count dvt prophylaxis respiratory treatment chest PT Ricci Gates MD Jun 23, 2020 18:16
--- NOTE | 2020-06-23 19:00 | Consultation ---
DATE OF CONSULTATION: 06/23/2020 INFECTIOUS DISEASE CONSULTATION CONSULTING PHYSICIAN: Harvinder Gifford M.D. REFERRING PHYSICIAN: Jeovanny Watson M.D. REASON FOR CONSULTATION: Evaluation of the patient for UTI, HIV/AIDS, shingles, oral thrush. HISTORY OF PRESENT ILLNESS: The patient is a 50-year-old male with past medical history significant for HIV/AIDS, off of antiretroviral, who was admitted to this medical center with subjective history of fever. The patient was found to have oral thrush at the time of admission with rash over the right lower chest and abdomen. The patient does not complain of any cough or shortness of breath. Infectious disease consultation has been requested for further evaluation of the patient's antibiotic management. PAST MEDICAL HISTORY: 1. Significant for HIV/AIDS. 2. History of weight loss. 3. History of urinary tract infection. 4. Bipolar disorder/depression. 5. History of methamphetamine abuse (IV/smoking). 6. History of hepatitis C, status post treatment (the patient reportedly has cleared). SOCIAL HISTORY: As mentioned above. FAMILY HISTORY: Noncontributory. REVIEW OF SYSTEMS: A 10-point review was done. The patient has no shortness of breath. No cough. No abdominal pain. The patient has a rash over the lower chest and upper abdomen about 2 weeks ago. That area is pruritic. The patient has a history of dysuria. MEDICATIONS: The patient is off of antiretroviral. In the hospital, the patient is on acyclovir, Diflucan, and cefepime. ALLERGIES: No known drug allergies. PHYSICAL EXAMINATION: VITAL SIGNS: Temperature 96.8, pulse 86, respiratory rate 18, and blood pressure 118/80. HEENT: Poor oral hygiene. No thrush at the time of my examination. NECK: No lymphadenopathy. CHEST: Bilateral air entry. ABDOMEN: Soft. SKIN: The patient has vesicular rash since the patient has zoster in the area is healing. EXTREMITIES: No edema. NEUROLOGIC: Awake and alert. LABS: White blood cells 6.5, hemoglobin 10, platelets 437. UA, 15-20 white blood cells. BUN 20 and creatinine 1.1. Fungal serology is pending. CD4 count 55. Chest x-ray, lower lobe airspace disease consistent with atelectasis. ASSESSMENT: 1. The patient is a 50-year-old male with thrush at the time of admission. 2. Shingles, healed, episode about 2 weeks ago. 3. Dysuria, UTI, urine culture is growing ESBL E. coli. 4. Doubt pneumonia (no cough, no shortness of breath). 5. Chest x-ray showed left lower lobe atelectasis versus pneumonia. 6. SARS COVID rapid test negative. 7. HIV/AIDS, noncompliance, not willing to take medications at this time. PLAN: 1. We will discontinue acyclovir as the patient has no active shingles. 2. Continue Diflucan x10 days. 3. Change cefepime to ertapenem for uncomplicated UTI. 4. Start the patient on Bactrim for PCP prophylaxis. 5. Ultrasound of kidneys. 6. Discontinue contact airborne isolation. 7. The patient needs to follow up as an outpatient for HIV care. 8. A followup fungal serology has been ordered. Thank you, Dr. Watson, for allowing me to participate in the care of this patient. I will follow the patient with you in this hospitalization. Harvinder Gifford M.D. DR: MAYRA JOB#: [id number] CC:
[2020-06-23 20:00] VITALS: BP 135/100
[2020-06-24] VITALS: BP 141/93
[2020-06-24 04:00] VITALS: BP 130/89
[2020-06-24 08:00] VITALS: BP 124/78
[2020-06-24 08:32] LABS: HEMATOCRIT 33.5 % (42.0-52.0); HEMOGLOBIN 10.4 G/DL (14.2-18.0); LYMPHOCYTES % (AUTO) 25.1 % (20.0-45.0); MEAN CORPUSCULAR VOLUME 82 FL (80-99); MONOCYTES % (AUTO) 6.9 % (1.0-10.0); PLATELET COUNT 459 K/UL (150-450); RED BLOOD COUNT 4.08 M/UL (4.70-6.10); RED CELL DISTRIBUTION WIDTH 18.6 % (11.6-14.8); WHITE BLOOD COUNT 5.7 K/UL (4.8-10.8)
[2020-06-24 08:54] LABS: ANION GAP 7 mmol/L (5-15); BLOOD UREA NITROGEN 17 mg/dL (7-18); CALCIUM 9.6 MG/DL (8.5-10.1); CARBON DIOXIDE 30 MMOL/L (21-32); CHLORIDE 98 MMOL/L (98-107); CREATININE 0.9 MG/DL (0.55-1.30); POTASSIUM 4.4 MMOL/L (3.5-5.1); SODIUM 135 MMOL/L (136-145)
[2020-06-24] MEDS: Nystatin Susp 500,000 units/5ml ORAL SCH ×2 (09:03→12:21)
[2020-06-24] MEDS: Fluconazole 100mg tab ORAL SCH (09:03)
[2020-06-24] MEDS: Heparin 5000 units/ml inj SUBQ SCH (09:04)
--- NOTE | 2020-06-24 11:15 | Infectious Diseases Prog Note ---
Assessment/Plan ASSESSMENT: -. Shingles, healed, episode about 2 weeks ago. - Dysuria, UTI, urine culture is growing ESBL E. coli. -. Doubt pneumonia (no cough, no shortness of breath). -06/20 CXR: New patchy left lower lung airspace opacity, which could represent atelectasis orpneumonia. - SARS COVID rapid test negative. - HIV/AIDS, noncompliance, not willing to take medications at this time. --Cd4 55 (5%) - oral thrush History of weight loss. History of urinary tract infection. Bipolar disorder/depression. History of methamphetamine abuse (IV/smoking). . History of hepatitis C, status post treatment (the patient reportedly has cleared). PLAN: - Continue Diflucan #5 /10 -Ertapenem #2/5-7 for UTI -Continue Bactrim for PCP ppx and start prophylatic azithromycin -06/23 SP Acyclovir #4, Cefepime #4 - The patient needs to follow up as an outpatient for HIV care. - A followup fungal serology has been ordered. -RPR, GC/CL Thank you, Dr. Watson, for allowing me to participate in the care of this patient. I will follow the patient with you in this hospitalization. Subjective Allergies: Coded Allergies: No Known Allergies (Unverified , 06/30/19) afebrile Objective Last 24 Hour Vital Signs Date Time Temp Pulse Resp B/P (MAP) Pulse Ox O2 Delivery O2 Flow Rate FiO2 06/24/20 09:00 Room Air 06/24/20 08:00 97.7 88 20 124/78 (93) 97 06/24/20 04:00 98.2 98 19 130/89 (103) 97 06/24/20 00:00 97.9 102 20 141/93 (109) 98 06/23/20 21:00 Room Air 06/23/20 20:00 98.1 105 20 135/100 (112) 97 06/23/20 16:00 98.4 90 18 111/73 (86) 98 06/23/20 12:00 98.1 90 18 115/77 (90) 98 Height (Feet): 5 Height (Inches): 4.00 Weight (Pounds): 110 HEENT: Poor oral hygiene. No thrush at the time of my examination. NECK: No lymphadenopathy. CHEST: Bilateral air entry. ABDOMEN: Soft. EXTREMITIES: No edema. NEUROLOGIC: Awake and alert. Microbiology Date/Time Source Procedure Growth Status 06/22/20 12:47 Urine,Clean Catch Urine Culture - Preliminary NO GROWTH AFTER 24 HOURS Resulted Laboratory Tests Test 06/23/20 16:55 06/24/20 07:35 HIV-1 RNA, Quantitative copies/mL Pending HIV-1 RNA (PCR) log10 Value Pending HIV-1 RNA Ultraquantitative (PCR) Pending HIV Genotype Pending White Blood Count 5.7 K/UL (4.8-10.8) Red Blood Count 4.08 M/UL (4.70-6.10) L Hemoglobin 10.4 G/DL (14.2-18.0) L Hematocrit 33.5 % (42.0-52.0) L Mean Corpuscular Volume 82 FL (80-99) Mean Corpuscular Hemoglobin 25.6 PG (27.0-31.0) L Mean Corpuscular Hemoglobin Concent 31.2 G/DL (32.0-36.0) L Red Cell Distribution Width 18.6 % (11.6-14.8) H Platelet Count 459 K/UL (150-450) H Mean Platelet Volume 5.4 FL (6.5-10.1) L Neutrophils (%) (Auto) 62.0 % (45.0-75.0) Lymphocytes (%) (Auto) 25.1 % (20.0-45.0) Monocytes (%) (Auto) 6.9 % (1.0-10.0) Eosinophils (%) (Auto) 5.0 % (0.0-3.0) H Basophils (%) (Auto) 1.0 % (0.0-2.0) Sodium Level 135 MMOL/L (136-145) L Potassium Level 4.4 MMOL/L (3.5-5.1) Chloride Level 98 MMOL/L (98-107) Carbon Dioxide Level 30 MMOL/L (21-32) Anion Gap 7 mmol/L (5-15) Blood Urea Nitrogen 17 mg/dL (7-18) Creatinine 0.9 MG/DL (0.55-1.30) Estimat Glomerular Filtration Rate > 60 mL/min (>60) Glucose Level 100 MG/DL (74-106) Calcium Level 9.6 MG/DL (8.5-10.1) Current Medications Medications (Trade) Dose Ordered Sig/Kenia Route PRN Reason Start Time Stop Time Status Last Admin Dose Admin Acetaminophen (Tylenol) 650 mg Q4H PRN ORAL fever 06/20/20 11:15 07/20/20 11:14 06/22/20 21:10 Acetaminophen/ Hydrocodone Bitart ([place] 10/325) 1 tab Q4H PRN ORAL Severe Pain (Pain Scale 7-10) 06/23/20 16:30 06/30/20 16:29 Acetaminophen/ Hydrocodone Bitart ([place] 5/325) 1 tab Q4H PRN ORAL Moderate Pain (Pain Scale 4-6) 06/23/20 16:30 06/30/20 16:29 06/23/20 17:02 Albuterol/ Ipratropium (Albuterol/ Ipratropium) 3 ml EVERY 4 HOURS PRN HHN Shortness of Breath 06/20/20 11:15 06/25/20 11:14 Clonidine HCl (Catapres Tab) 0.1 mg Q4H PRN ORAL SBP>150 or DBP>100 06/20/20 18:30 09/18/20 18:29 06/20/20 18:45 Ertapenem 1 gm/ Sodium Chloride 55 ml @ 110 mls/hr Q24H IVPB 06/23/20 12:00 06/28/20 11:59 06/23/20 12:54 Fluconazole (Diflucan) 200 mg DAILY ORAL 06/22/20 09:00 06/29/20 08:59 06/24/20 09:03 Heparin Sodium (Porcine) (Heparin 5000 units/ml) 5,000 units EVERY 12 HOURS SUBQ 06/20/20 21:00 08/04/20 20:59 06/24/20 09:04 Hydroxyzine HCl (Atarax) 25 mg Q6H PRN ORAL Itching 06/23/20 16:30 07/23/20 16:29 06/23/20 17:02 Nitroglycerin (Ntg) 0.4 mg Q5M PRN SL Prn Chest Pain 06/20/20 11:15 07/20/20 11:14 Nystatin (Nystatin) 5 ml QID ORAL 06/20/20 21:00 06/27/20 07:29 06/24/20 09:03 Ondansetron HCl (Zofran) 4 mg Q6H PRN IVP Nausea & Vomiting 06/20/20 11:15 07/20/20 11:14 Polyethylene Glycol (Miralax) 17 gm DAILYPRN PRN ORAL Constipation 06/20/20 11:15 07/20/20 11:14 Promethazine HCl/ Codeine (Phenergan with Codeine) 5 ml Q4H PRN ORAL For Cough 06/20/20 11:15 07/20/20 11:14 Temazepam (Restoril) 15 mg HSPRN PRN ORAL Insomnia 06/20/20 11:15 06/27/20 11:14 06/22/20 21:08 Trimethoprim/ Sulfamethoxazole (Bactrim-DS) 1 tab DAILY ORAL 06/24/20 12:00 07/01/20 11:59 Pilar Toribio M.D. Jun 24, 2020 11:15
[2020-06-24] MEDS: Ertapenem 1 GM in NS 55 ML IVPB SCH (11:35)
[2020-06-24 12:00] VITALS: BP 142/89
[2020-06-24] MEDS ORDERED: Bactrim-DS 1 tab ORAL SCH (12:00)
--- NOTE | 2020-06-24 12:08 | Diagnostic Imaging Report ---
Indication: Right flank pain, hematuria, abnormal renal function tests Technique: Grayscale and duplex images of the kidneys, retroperitoneum, and bladder were obtained. Comparison: none Findings: Right kidney measures 10.9 cm in length. Left kidney measures 10.8 cm in length. Both kidneys demonstrate normal echogenicity. There is mild bilateral hydronephrosis, which persists after voiding. No focal abnormality. Normal inferior vena cava. Bladder demonstrates post void residual volume of 153 mL. Calculated prostate volume 27 mL Impression: Bilateral hydronephrosis, etiology not demonstrated Post void bladder residual volume 153 mL.
[2020-06-24] MEDS ORDERED: Azithromycin 600mg Tab ORAL SCH (13:00)
--- NOTE | 2020-06-24 13:07 | Pulmonology Progress Note ---
Subjective ROS Limited/Unobtainable: No Constitutional: Reports: no symptoms HEENT: Repors: no symptoms Respiratory: Reports: no symptoms Allergies: Coded Allergies: No Known Allergies (Unverified , 06/30/19) Objective Last 24 Hour Vital Signs Date Time Temp Pulse Resp B/P (MAP) Pulse Ox O2 Delivery O2 Flow Rate FiO2 06/24/20 12:00 97.9 94 19 142/89 (106) 99 06/24/20 09:00 Room Air 06/24/20 08:00 97.7 88 20 124/78 (93) 97 06/24/20 04:00 98.2 98 19 130/89 (103) 97 06/24/20 00:00 97.9 102 20 141/93 (109) 98 06/23/20 21:00 Room Air 06/23/20 20:00 98.1 105 20 135/100 (112) 97 06/23/20 16:00 98.4 90 18 111/73 (86) 98 Intake and Output 06/23/20 06/24/20 19:00 07:00 Intake Total 815 ml 720 ml Balance 815 ml 720 ml Intake Oral 760 ml 720 ml IV Total 55 ml # Voids 3 # Bowel Movements 1 General Appearance: cachetic HEENT: normocephalic, atraumatic Respiratory: chest wall non-tender, lungs clear Cardiovascular: normal peripheral pulses, normal rate Abdomen: normal bowel sounds, soft, non tender Genitourinary: normal external genitalia Extremities: no cyanosis Skin: no ulcers 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, abnormal gait Microbiology Date/Time Source Procedure Growth Status 06/22/20 12:47 Urine,Clean Catch Urine Culture - Preliminary NO GROWTH AFTER 24 HOURS Resulted Laboratory Tests 06/23/20 16:55: HIV-1 RNA, Quantitative copies/mL [Pending], HIV-1 RNA (PCR) log10 Value [ Pending], HIV-1 RNA Ultraquantitative (PCR) [Pending], HIV Genotype [Pending] 06/24/20 07:35: White Blood Count 5.7, Red Blood Count 4.08L, Hemoglobin 10.4L, Hematocrit 33.5L , Mean Corpuscular Volume 82, Mean Corpuscular Hemoglobin 25.6L, Mean Corpuscular Hemoglobin Concent 31.2L, Red Cell Distribution Width 18.6H, Platelet Count 459H, Mean Platelet Volume 5.4L, Neutrophils (%) (Auto) 62.0, Lymphocytes (%) (Auto) 25.1, Monocytes (%) (Auto) 6.9, Eosinophils (%) (Auto) 5.0H, Basophils (%) (Auto) 1.0, Sodium Level 135L, Potassium Level 4.4, Chloride Level 98, Carbon Dioxide Level 30, Anion Gap 7, Blood Urea Nitrogen 17 , Creatinine 0.9, Estimat Glomerular Filtration Rate > 60, Glucose Level 100, Calcium Level 9.6 Current Medications Medications (Trade) Dose Ordered Sig/Kenia Route PRN Reason Start Time Stop Time Status Last Admin Dose Admin Acetaminophen (Tylenol) 650 mg Q4H PRN ORAL fever 06/20/20 11:15 07/20/20 11:14 06/22/20 21:10 Acetaminophen/ Hydrocodone Bitart ([place] 10/325) 1 tab Q4H PRN ORAL Severe Pain (Pain Scale 7-10) 06/23/20 16:30 06/30/20 16:29 Acetaminophen/ Hydrocodone Bitart ([place] 5/325) 1 tab Q4H PRN ORAL Moderate Pain (Pain Scale 4-6) 06/23/20 16:30 06/30/20 16:29 06/23/20 17:02 Albuterol/ Ipratropium (Albuterol/ Ipratropium) 3 ml EVERY 4 HOURS PRN HHN Shortness of Breath 06/20/20 11:15 06/25/20 11:14 Azithromycin (Zithromax) 1,200 mg ONCE A WEEK ORAL 06/24/20 13:00 07/01/20 12:59 Clonidine HCl (Catapres Tab) 0.1 mg Q4H PRN ORAL SBP>150 or DBP>100 06/20/20 18:30 09/18/20 18:29 06/20/20 18:45 Ertapenem 1 gm/ Sodium Chloride 55 ml @ 110 mls/hr Q24H IVPB 06/23/20 12:00 06/28/20 11:59 06/24/20 11:35 Fluconazole (Diflucan) 200 mg DAILY ORAL 06/22/20 09:00 06/29/20 08:59 06/24/20 09:03 Heparin Sodium (Porcine) (Heparin 5000 units/ml) 5,000 units EVERY 12 HOURS SUBQ 06/20/20 21:00 08/04/20 20:59 06/24/20 09:04 Hydroxyzine HCl (Atarax) 25 mg Q6H PRN ORAL Itching 06/23/20 16:30 07/23/20 16:29 06/23/20 17:02 Nitroglycerin (Ntg) 0.4 mg Q5M PRN SL Prn Chest Pain 06/20/20 11:15 07/20/20 11:14 Nystatin (Nystatin) 5 ml QID ORAL 06/20/20 21:00 06/27/20 07:29 06/24/20 12:21 Ondansetron HCl (Zofran) 4 mg Q6H PRN IVP Nausea & Vomiting 06/20/20 11:15 07/20/20 11:14 Polyethylene Glycol (Miralax) 17 gm DAILYPRN PRN ORAL Constipation 06/20/20 11:15 07/20/20 11:14 Promethazine HCl/ Codeine (Phenergan with Codeine) 5 ml Q4H PRN ORAL For Cough 06/20/20 11:15 07/20/20 11:14 Temazepam (Restoril) 15 mg HSPRN PRN ORAL Insomnia 06/20/20 11:15 06/27/20 11:14 06/22/20 21:08 Trimethoprim/ Sulfamethoxazole (Bactrim-DS) 1 tab DAILY ORAL 06/24/20 12:00 07/01/20 11:59 06/24/20 11:35 Assessment/Plan Problems: (1) Danita infection (2) Acute chest pain (3) COPD (chronic obstructive pulmonary disease) (4) AIDS (5) Severe protein-calorie malnutrition (6) Failure to thrive in child Assessment/Plan symptomatic treatment check sputum ID evaluation CD4 count dvt prophylaxis respiratory treatment chest PT Ricci Gates MD Jun 24, 2020 13:07
--- NOTE | 2020-06-24 13:44 | Internal Med Progress Note ---
Subjective Date of Service: Jun 24, 2020 Physician Name ShirleyJeovanny Attending Physician Johny Crawford MD Current Medications Medications (Trade) Dose Ordered Sig/Kenia Route PRN Reason Start Time Stop Time Status Last Admin Dose Admin Acetaminophen (Tylenol) 650 mg Q4H PRN ORAL fever 06/20/20 11:15 07/20/20 11:14 06/22/20 21:10 Acetaminophen/ Hydrocodone Bitart ([place] 10/325) 1 tab Q4H PRN ORAL Severe Pain (Pain Scale 7-10) 06/23/20 16:30 06/30/20 16:29 Acetaminophen/ Hydrocodone Bitart ([place] 5/325) 1 tab Q4H PRN ORAL Moderate Pain (Pain Scale 4-6) 06/23/20 16:30 06/30/20 16:29 06/23/20 17:02 Albuterol/ Ipratropium (Albuterol/ Ipratropium) 3 ml EVERY 4 HOURS PRN HHN Shortness of Breath 06/20/20 11:15 06/25/20 11:14 Azithromycin (Zithromax) 1,200 mg ONCE A WEEK ORAL 06/24/20 13:00 07/01/20 12:59 06/24/20 13:17 Clonidine HCl (Catapres Tab) 0.1 mg Q4H PRN ORAL SBP>150 or DBP>100 06/20/20 18:30 09/18/20 18:29 06/20/20 18:45 Ertapenem 1 gm/ Sodium Chloride 55 ml @ 110 mls/hr Q24H IVPB 06/23/20 12:00 06/28/20 11:59 06/24/20 11:35 Fluconazole (Diflucan) 200 mg DAILY ORAL 06/22/20 09:00 06/29/20 08:59 06/24/20 09:03 Heparin Sodium (Porcine) (Heparin 5000 units/ml) 5,000 units EVERY 12 HOURS SUBQ 06/20/20 21:00 08/04/20 20:59 06/24/20 09:04 Hydroxyzine HCl (Atarax) 25 mg Q6H PRN ORAL Itching 06/23/20 16:30 07/23/20 16:29 06/23/20 17:02 Nitroglycerin (Ntg) 0.4 mg Q5M PRN SL Prn Chest Pain 06/20/20 11:15 07/20/20 11:14 Nystatin (Nystatin) 5 ml QID ORAL 06/20/20 21:00 06/27/20 07:29 06/24/20 12:21 Ondansetron HCl (Zofran) 4 mg Q6H PRN IVP Nausea & Vomiting 06/20/20 11:15 07/20/20 11:14 Polyethylene Glycol (Miralax) 17 gm DAILYPRN PRN ORAL Constipation 06/20/20 11:15 07/20/20 11:14 Promethazine HCl/ Codeine (Phenergan with Codeine) 5 ml Q4H PRN ORAL For Cough 06/20/20 11:15 07/20/20 11:14 Temazepam (Restoril) 15 mg HSPRN PRN ORAL Insomnia 06/20/20 11:15 06/27/20 11:14 06/22/20 21:08 Trimethoprim/ Sulfamethoxazole (Bactrim-DS) 1 tab DAILY ORAL 06/24/20 12:00 07/01/20 11:59 06/24/20 11:35 Allergies: Coded Allergies: No Known Allergies (Unverified , 06/30/19) ROS Limited/Unobtainable: No Constitutional: Reports: no symptoms HEENT: Reports: no symptoms Cardiovascular: Reports: no symptoms Respiratory: Reports: no symptoms Gastrointestinal/Abdominal: Reports: no symptoms Genitourinary: Reports: no symptoms Neurologic/Psychiatric: Reports: no symptoms Subjective 50 YO M admitted with right chest pain. Now herpes zoster and oral thrush. Cover for Int Hira-Dr Crawford. C/O itch on zoster lesions. Pain not controlled with tylenol Objective Last Vital Signs Date Time Temp Pulse Resp B/P (MAP) Pulse Ox O2 Delivery O2 Flow Rate FiO2 06/24/20 12:00 97.9 94 19 142/89 (106) 99 06/24/20 09:00 Room Air 06/20/20 13:18 98 Laboratory Tests Test 06/23/20 16:55 06/24/20 07:35 HIV-1 RNA, Quantitative copies/mL Pending HIV-1 RNA (PCR) log10 Value Pending HIV-1 RNA Ultraquantitative (PCR) Pending HIV Genotype Pending White Blood Count 5.7 K/UL (4.8-10.8) Red Blood Count 4.08 M/UL (4.70-6.10) L Hemoglobin 10.4 G/DL (14.2-18.0) L Hematocrit 33.5 % (42.0-52.0) L Mean Corpuscular Volume 82 FL (80-99) Mean Corpuscular Hemoglobin 25.6 PG (27.0-31.0) L Mean Corpuscular Hemoglobin Concent 31.2 G/DL (32.0-36.0) L Red Cell Distribution Width 18.6 % (11.6-14.8) H Platelet Count 459 K/UL (150-450) H Mean Platelet Volume 5.4 FL (6.5-10.1) L Neutrophils (%) (Auto) 62.0 % (45.0-75.0) Lymphocytes (%) (Auto) 25.1 % (20.0-45.0) Monocytes (%) (Auto) 6.9 % (1.0-10.0) Eosinophils (%) (Auto) 5.0 % (0.0-3.0) H Basophils (%) (Auto) 1.0 % (0.0-2.0) Sodium Level 135 MMOL/L (136-145) L Potassium Level 4.4 MMOL/L (3.5-5.1) Chloride Level 98 MMOL/L (98-107) Carbon Dioxide Level 30 MMOL/L (21-32) Anion Gap 7 mmol/L (5-15) Blood Urea Nitrogen 17 mg/dL (7-18) Creatinine 0.9 MG/DL (0.55-1.30) Estimat Glomerular Filtration Rate > 60 mL/min (>60) Glucose Level 100 MG/DL (74-106) Calcium Level 9.6 MG/DL (8.5-10.1) Microbiology Date/Time Source Procedure Growth Status 06/22/20 12:47 Urine,Clean Catch Urine Culture - Preliminary NO GROWTH AFTER 24 HOURS Resulted Intake and Output 06/23/20 06/24/20 19:00 07:00 Intake Total 815 ml 720 ml Balance 815 ml 720 ml Intake Oral 760 ml 720 ml IV Total 55 ml # Voids 3 # Bowel Movements 1 Objective PHYSICAL EXAMINATION: GENERAL: The patient is a cachectic-appearing male, in no apparent distress. HEENT: The patient has copious amounts of thrush over the upper and lower lips and tongue. NECK: Supple without lymphadenopathy. CHEST: Lungs are clear to auscultation bilaterally without wheezes or rales. CARDIOVASCULAR: Regular rhythm and rate. S1, S2 normal without murmurs, rubs, or gallops. ABDOMEN: Soft, nontender, and nondistended. Positive bowel sounds. No evidence of hepatosplenomegaly. Currently, no rebound or guarding noted. EXTREMITIES: Negative for clubbing, cyanosis, or edema. INTEGUMENTARY: Presence of vesicular rash over the right rib cage, extending from the right flank to the right rib cage. NEUROMUSCULAR: Cranial nerves II through XII are grossly intact without focal deficits. Motor strength is 5/5 bilaterally. Deep tendon reflexes are 2+ plantar. Assessment/Plan Assessment/Plan ASSESSMENT: This is a 50-year-old male with: 1. Left lower lobe pneumonia. 2. Herpes zoster of the right rib cage-improving 3. Oral candidiasis, probable esophageal candidiasis-improving 4. HIV. 5. Probable full-blown AIDS. TREATMENT: 1. Left lower lobe pneumonia. ABX= cefepime and S/P vancomycin. A Pulmonary consultation has been obtained with Dr. Ricci Gates. We will follow recommendations of Pulmonary. Initial COVID-19 test was negative. 2. Herpes zoster. The patient has been placed empirically on intravenous acyclovir. An Infectious Disease consultation has been obtained with Dr. Martines. 3. Oral/esophageal candidiasis. The patient has been started on nystatin swish and swallow. The patient has also been started on fluconazole 200 mg p.o. daily. We will follow recommendations of Infectious Disease. 4. HIV. As above, an Infectious Disease consultation has been obtained with Dr. Toribio. Abs CD4 count=55; await HIV viral load 5. discharge planning Jeovanny Watson MD Jun 24, 2020 13:44
--- NOTE | 2020-06-24 15:45 | Diagnostic Imaging Report ---
Indication: Cough Technique: One view of the chest Comparison: 06/20/2020 Findings: There are bilateral interstitial and airspace opacities in a peribronchial vascular distribution, increased from the prior exam. The heart size is normal. The pleural spaces are clear. Impression: Increased bilateral infiltrates, likely pneumonia, since prior exam of 4 days earlier
[2020-06-24 16:00] VITALS: BP 131/90
--- NOTE | 2020-06-25 12:03 | Discharge Summary ---
Discharge Summary Discharge Summary _ DATE OF ADMISSION: 06/20/2020 DATE OF DISCHARGE: 06/24/2020 DISCHARGED BY: Dr. Crawford REASON FOR ADMISSION: 50 years old male, with past medical history of HIV, off medications for many months, presented with two weeks of chest wall pain ; sharp, burning pain in his mouth when he swallowed along with multiple white patches in his mouth. He also reported fever and chills along with generalized weakness. He reported pain with swallowing. Upon evaluation patient was afebrile with mild tachycardia. Laboratory work-up revealed no leukocytosis, hemoglobin 9.6, hematocrit 29.7, platelet count 398. Sodium 133, potassium 3.0. BUN 13, creatinine 1.0. Lactic acid 1.0. Magnesium 1.5. Troponin negative. pro BNP 129. Albumin 2.3. Rapid COVID-19 was negative. Urinalysis revealed pyuria and many bacteria, +2 protein. Chest x-ray revealed new patchy left lower lung airspace opacity , representing atelectasis versus pneumonia. Physical examination revealed vesicular rash right chest wall following a dermatome, white patches throughout his entire mouth and lips as well as the back of the throat . Septic work-up initiated . Patient pancultured , started on broad-spectrum antibiotic and admitted for further management. CONSULTANTS: pulmonary Dr. Gates ID specialist Dr. Gifford [facility]SE: Patient admitted to medical surgical floor and started on empiric antibiotic as per ID specialist recommendation. Supplemental oxygen was on board as needed to keep pulse oximetry above 92% . Pulmonary toilet provided as needed. Follow-up chest x-ray revealed increased bilateral infiltrates , likely pneumonia Blood cultures were negative. Sputum culture came back negative. Initial urine culture revealed E. coli ESBL, repeat urine culture were negative T-cell subsets revealed CD4 55 . Patient was treated with acyclovir for shingles. Lesions were slowly drying. Patient started on prophylaxis for opportunistic infection with Bactrim and azithromycin. Patient was treated with Diflucan for oral thrush. Patient received treatment for UTI and pneumonia. Ordered fungal serology , RPR and GC/CL still pending at the time of this doctation. Renal ultrasound revealed bilateral hydronephrosis , post void residual 153 mL. Renal parameters electrolytes were closely monitored. Magnesium was replaced . Protein supplements provided as per registered dietitian recommendation. Patient clinically stabilized and was ready for discharge. Patient received a packet for jail preferences. The treating physician and consultants had assessed and agreed that patient was medically stable for discharge to an outpatient disposition. FINAL DIAGNOSES: HIV/AIDS with CD4 55 Noncompliance with medication Acute chest wall pain due to shingles UTI with E. coli ESBL Probably pneumonia Oral thrush/Danita infection Severe protein calorie malnutrition History of hepatitis C ,status post treatment History of methamphetamine abuse Bipolar disorder DISCHARGE MEDICATIONS: List of medication provided to patient. DISCHARGE INSTRUCTIONS: Patient was discharged to outpatient disposition. Patient was advised on compliance with medication regimen. I have been assigned to dictate discharge summary for this account. I was not involved in the patient's management. Geovanna Valdez NP Jun 25, 2020 12:03
== END 2020-06-24 18:25 | disposition home or self-care (01) | DRG 893 ==
LOC: EMR 07:35 → 3E 10:17 → EDBEDREQ 11:08 → 4E 12:43
DX: J18.9 Pneumonia, unspecified organism (principal); B37.81 Candidal esophagitis; B20 Human immunodeficiency virus [HIV] disease; B37.0 Candidal stomatitis; B02.9 Zoster without complications; R07.89 Other chest pain; J44.9 Chronic obstructive pulmonary disease, unspecified; E43 Unspecified severe protein-calorie malnutrition; Z91.14 Patient's other noncompliance with medication regimen; Z86.19 Personal history of other infectious and parasitic diseases; Z59.0 Homelessness; N39.0 Urinary tract infection, site not specified; B96.20 Unspecified Escherichia coli [E. coli] as the cause of diseases classified elsewhere; Z16.12 Extended spectrum beta lactamase (ESBL) resistance; F15.10 Other stimulant abuse, uncomplicated; F31.9 Bipolar disorder, unspecified; R62.7 Adult failure to thrive
CPT/HCPCS: 36415; 71045; 76770; 80048; 80053; 80069; 81003; 82164; 83605; 83690; 83735; 83880; 84100; 84484; 85025; 85610; 85730; 86171; 86360; 86635; 86777; 86778; 87040; 87070; 87086; 87181; 87205; 87385; 87449; 87535; 87536; 93005; 96361; 96365; 96367; 96368; 96375; 99285; J2405; J7030; J8499; U0002

== ENCOUNTER 2020-09-09 16:43 | Inpatient (IN) | payer OTHER ==
[~2020-09-09] VITALS: Ht 162.6 cm; Wt 54.4 kg
[2020-09-09 17:17] VITALS: BP 152/100
--- NOTE | 2020-09-09 17:17 | NUR ---
ED Nurse Note: Pt walked into ED for c/o mid chest pain 7/10 for 1 year and lower abdominal pain for 1 year. No distention or bloating. Pt has severe mouth thrush. EKG taken and IV established. He is alert and orientedx4, amb with assist.
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
[2020-09-09] MEDS: Nystatin Susp 500,000 units/5ml ORAL SCH (18:19)
[2020-09-09] MEDS ORDERED: Vancomycin 1 GM in NS 275 ML IVPB ONE (18:45)
[2020-09-09] MEDS ORDERED: Cefepime HCl 2 GM in D5W 55 ML IVPB ONE (18:45)
[2020-09-09] MEDS ORDERED: Trimethoprim/Sulfamethoxazole 10 ML in D5W 275 ML IV ONE (18:45)
[2020-09-09 19:06] LABS: BASOPHILS % (AUTO) 0.6 % (0.0-2.0); EOSINOPHILS % (AUTO) 0.3 % (0.0-3.0); HEMATOCRIT 35.8 % (42.0-52.0); HEMOGLOBIN 11.5 G/DL (14.2-18.0); LYMPHOCYTES % (AUTO) 18.4 % (20.0-45.0); MEAN CORPUSCULAR VOLUME 85 FL (80-99); NEUTROPHILS % (AUTO) 74.7 % (45.0-75.0); PLATELET COUNT 485 K/UL (150-450); RED CELL DISTRIBUTION WIDTH 15.9 % (11.6-14.8); WHITE BLOOD COUNT 6.1 K/UL (4.8-10.8)
[2020-09-09 19:07] LABS: ANION GAP 5 mmol/L (5-15); BLOOD UREA NITROGEN 14 mg/dL (7-18); CALCIUM 8.7 MG/DL (8.5-10.1); CARBON DIOXIDE 29 MMOL/L (21-32); CHLORIDE 98 MMOL/L (98-107); CREATININE 1.1 MG/DL (0.55-1.30); POTASSIUM 3.6 MMOL/L (3.5-5.1); SODIUM 132 MMOL/L (136-145)
[2020-09-09 19:08] LABS: INR 1.1 (0.9-1.1)
[2020-09-09 19:12] LABS: ALANINE AMINOTRANSFERASE 9 U/L (12-78); ALBUMIN/GLOBULIN RATIO 0.3 (1.0-2.7); ALKALINE PHOSPHATASE 117 U/L (46-116); ASPARTATE AMINO TRANSFERASE 24 U/L (15-37); BILIRUBIN,TOTAL 0.2 MG/DL (0.2-1.0); CREATINE KINASE 30 U/L (26-308)
[2020-09-09 19:22] VITALS: BP 159/110
[2020-09-09 19:23] LABS: APPEARANCE,URINE CLOUDY; BILIRUBIN, URINE NEGATIVE (NEGATIVE); GLUCOSE, URINE (UA) NEGATIVE (NEGATIVE); KETONES,URINE NEGATIVE (NEGATIVE); LEUKOCYTE ESTERASE ,URINE 3+ (NEGATIVE); NITRITE,URINE NEGATIVE (NEGATIVE); PH,URINE 6 (4.5-8.0); PROTEIN,URINE 2+ (NEGATIVE); UROBILINOGEN,URINE 1 MG/DL (0.0-1.0)
[2020-09-09] MEDS ORDERED: Aspirin Baby 81mg ORAL SCH (19:30)
--- NOTE | 2020-09-09 19:30 | NUR ---
ED Nurse Note: Pt resting in bed with eyes closed, mild labored breathing noted, spo2 95% on room air, IV fluids infusing per order
[2020-09-09 20:02] LABS: COLOR,URINE YELLOW
--- NOTE | 2020-09-09 21:00 | NUR ---
ED Nurse Note: PT to CT
--- NOTE | 2020-09-09 21:10 | NUR ---
ED Nurse Note: PT back from CT
--- NOTE | 2020-09-09 21:15 | Diagnostic Imaging Report ---
EXAM: CT Abdomen and Pelvis Without Intravenous Contrast CLINICAL HISTORY: PAIN TECHNIQUE: Axial computed tomography images of the abdomen and pelvis without intravenous contrast. CTDI is 3.0 mGy and DLP is 204.3 mGy-cm. One or more of the following dose reduction techniques were used: automated exposure control, adjustment of the mA and/or kV according to patient size, use of iterative reconstruction technique. COMPARISON: No relevant prior studies available. FINDINGS: Limitations: Limited noncontrast study ABDOMEN: Liver: Unremarkable Gallbladder and bile ducts: Cholelithiasis. Pancreas: Unremarkable. Spleen: Unremarkable. Adrenals: Unremarkable. Kidneys and ureters: Mild right hydroureteronephrosis and suggestion of mild thickening in the urothelium. Could be from inflammatory process/infection. No obstructing ureteral stone. Tiny right renal stone. Stomach and bowel: No marlin mural thickening. Nonobstructive bowel gas pattern. PELVIS: Appendix: Appendix not identified. Bladder: Unremarkable. Reproductive: Unremarkable. ABDOMEN and PELVIS: Intraperitoneal space: Unremarkable. Bones/joints: Avascular necrosis of the left hip Soft tissues: Unremarkable. Vasculature: Mild ectasia of the left collecting system. No abdominal aortic aneurysm. IMPRESSION: Mild right hydroureteronephrosis and suggestion of mild thickening in the urothelium. Could be from inflammatory process/infection. No obstructing ureteral stone. EXAM: CT Chest Without Intravenous Contrast CLINICAL HISTORY: PAIN TECHNIQUE: Axial computed tomography images of the chest without intravenous contrast. CTDI is 3.0 mGy and DLP is 204.3 mGy-cm. One or more of the following dose reduction techniques were used: automated exposure control, adjustment of the mA and/or kV according to patient size, use of iterative reconstruction technique. COMPARISON: No relevant prior studies available. FINDINGS: Limitations: Limited noncontrast study. Lungs: Bilateral diffuse airspace, groundglass, interstitial and nodular opacities with some cavitary lesions. Pulmonary emphysema. Pleural space: Moderate right pneumothorax. Heart: No cardiomegaly. No pericardial effusion. Bones/joints: No acute fracture. Soft tissues: Gynecomastia. Vasculature: Unremarkable. No thoracic aortic aneurysm. IMPRESSION: 1. Moderate right pneumothorax. 2. Bilateral diffuse airspace, groundglass, interstitial and nodular opacities with some cavitary lesions. <MYCVCSECTION> Communications: 09/09/20 21:17 Call Doctor Regarding Other, called Dr Swanson on 09/09 21:18 (-08:00)
[2020-09-09 21:30] VITALS: BP 148/98
[2020-09-09] MEDS ORDERED: Lidocaine 2% 20mg/ml/EPI 0.01mg/ml 20ml INJ ONE (21:30)
[2020-09-09] MEDS ORDERED: Midazolam 2mg/2ml Inj IVP ONE (21:30)
--- NOTE | 2020-09-09 21:50 | NUR ---
HAND-OFF: Report given to MALIA Lynn.
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
--- NOTE | 2020-09-09 22:08 | NUR ---
ED Nurse Note: assisted ermd for right chest tube placement. pleuravac attached to intermittent suction. imaging confirmation completed at bedside with cath lab radiology technician.
--- NOTE | 2020-09-09 22:15 | NUR ---
ED Nurse Note: report given to wesley broderick. patient to be admitted to sdu 243 under the care of negro mas. endorsed airborne precaution. per admitting nurse pt to be admitted to iso room 237; another patient currently in room; admitting nurse will call when room is ready .
--- NOTE | 2020-09-09 22:32 | Diagnostic Imaging Report ---
EXAM: XR Chest, 1 View CLINICAL HISTORY: TUBE PLCMT TECHNIQUE: Frontal view of the chest. COMPARISON: No relevant prior studies available. FINDINGS: Lungs: Bilateral pulmonary infiltrates. Pleural space: See below. Heart: Unremarkable. No cardiomegaly. Mediastinum: Unremarkable. Bones/joints: No acute fracture. Soft tissues: Subcutaneous emphysema in the right chest wall. Tubes, lines and devices: Interval placement of a right chest tube. No apparent pneumothorax. Other findings: Single view 09/09/20 at 2202. IMPRESSION: Interval placement of a right chest tube. No apparent pneumothorax.
[2020-09-09 22:41] VITALS: BP 135/96
--- NOTE | 2020-09-09 23:00 | NUR ---
ED Nurse Note: confirmed home address with patient. denies homelessness. denies home meds. belongings list completed with previous RN. EKG on file.
[2020-09-10] VITALS (7 sets, daily range): BP systolic 105–145; BP diastolic 71–89
--- NOTE | 2020-09-10 00:45 | NUR ---
TRANSFER TO FLOOR: Patient transferred to sdu 237 as ordered, per negro mas. Report given to wesley broderick. patient stable for transport. transferred to unit via gurney with rn. belongings and admission packet sent with patient.
--- NOTE | 2020-09-10 00:50 | NUR ---
NURSE NOTES: Pt received from MALIA Galarza alert and oriented x4 with no acute s/s of distress noted. Chest tube noted on R lateral chest connected to pleurevac (20cm H2O, connected to intermittent suction). No output noted upon admission. Received on 15L nonrebreather, saturating at 100%. cardiac monitor on - Sinus Rhythm (80s). Airborne isolations followed through per TB rule out protocol. IV site asymptomatic and patent on R ac 20g, saline lock. Belongings with patient upon admission. Partial thickness loss noted on R buttock, WCP taken and wound care protocol followed. VS stable.
[2020-09-10] MEDS: Nystatin Susp 500,000 units/5ml ORAL SCH ×5 (01:38→20:33)
--- NOTE | 2020-09-10 02:10 | NUR ---
NURSE NOTES: Pt weaned down from 15L nonrebreather to 5L NC, saturating at 98% with no acute s/s of distress noted. Yellow/White thrush noted on mouth and inner lips.
[2020-09-10 05:09] LABS: BASOPHILS % (AUTO) 0.7 % (0.0-2.0); EOSINOPHILS % (AUTO) 0.5 % (0.0-3.0); HEMOGLOBIN 10.4 G/DL (14.2-18.0); LYMPHOCYTES % (AUTO) 16.6 % (20.0-45.0); MEAN CORPUSCULAR VOLUME 88 FL (80-99); MONOCYTES % (AUTO) 5.8 % (1.0-10.0); NEUTROPHILS % (AUTO) 76.4 % (45.0-75.0); PLATELET COUNT 366 K/UL (150-450); RED BLOOD COUNT 3.76 M/UL (4.70-6.10); RED CELL DISTRIBUTION WIDTH 15.2 % (11.6-14.8); WHITE BLOOD COUNT 4.8 K/UL (4.8-10.8)
[2020-09-10 05:38] LABS: ALANINE AMINOTRANSFERASE < 6 U/L (12-78); ALBUMIN 1.6 G/DL (3.4-5.0); ALBUMIN/GLOBULIN RATIO 0.3 (1.0-2.7); ALKALINE PHOSPHATASE 96 U/L (46-116); ANION GAP 7 mmol/L (5-15); ASPARTATE AMINO TRANSFERASE 21 U/L (15-37); BILIRUBIN,TOTAL 0.2 MG/DL (0.2-1.0); BLOOD UREA NITROGEN 10 mg/dL (7-18); CALCIUM 7.9 MG/DL (8.5-10.1); CARBON DIOXIDE 25 MMOL/L (21-32); CHLORIDE 101 MMOL/L (98-107); POTASSIUM 3.2 MMOL/L (3.5-5.1); SODIUM 133 MMOL/L (136-145)
--- NOTE | 2020-09-10 07:00 | NUR ---
NURSE NOTES: Received patient from MALIA Casey. Patient is A&O x4 resting in bed. Sinus rhythm on the monitor, on 2L nasal cannula sating at 100%. Patient has a chest tube in place, clean and intact, 20 cm H2O intermittent suction. patient is currently NPO. Will continue plan of care.
--- NOTE | 2020-09-10 07:25 | NUR ---
NURSE HAND-OFF REPORT: Important Events on Shift: Chest tube output noted 10 ml sanguineous output. Pt tolerated wean from 15L nonrebreather to 2L NC. Patient Status: Stable Diet: NPO Pending Orders: Tyrone Duplex Pending Results/Labs: n/a Pending MD notification: n/a Latest Vital Signs: Temperature 98.4 , Pulse 75 , B/P 125 /88 , Respiratory Rate 21 , O2 SAT 99 , Nasal Cannula, O2 Flow Rate 2.0 . Vital Sign Comment: WNL EKG Rhythm: Sinus Rhythm Rhythm change?: N MD Notified?: - MD Response: Latest Estrella Fall Score: 45 Fall Risk: High Risk Safety Measures: Call light Within Reach, Bed Alarm Zone 2, Side Rails Side Rails x2, Bed position Low and Locked. Fall Precautions: Yes Yellow Socks Yellow Gown Door Sign Patient Fall Education Report given to Dede RN and Thanh RN.
[2020-09-10 08:02] LABS: PHOSPHORUS 3.7 MG/DL (2.5-4.9)
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
[2020-09-10] MEDS ORDERED: Fluconazole 100mg tab ORAL SCH (11:00)
--- NOTE | 2020-09-10 11:00 | Consultation ---
DATE OF CONSULTATION: 09/10/2020 PULMONARY CONSULTATION HISTORY OF PRESENT ILLNESS: This is a 50-year-old male who is noted to be HIV positive. He came to the hospital with shortness of breath. He also reported chest pain. The patient reports he has not been on medications for many years. He was admitted after he was found to have a pneumothorax. A left-sided chest tube was placed spontaneous pneumothorax. PAST MEDICAL HISTORY: Chronic marijuana usage, COPD, HIV positivity. HOME MEDICATIONS: The patient states at this time that he is taking no medications. Currently he is taking cefepime, vancomycin, potassium, and Bactrim. REVIEW OF SYSTEMS: Denies any headaches, hematemesis, melena, hematochezia, night sweats, or weight loss. PHYSICAL EXAMINATION: GENERAL: Reveals a 50-year-old male. VITAL SIGNS: Blood pressure 106/80, heart rate 74, respiratory rate 18, O2 saturation 99% on two liters of oxygen. HEENT: Unremarkable. CHEST: Decreased breath sounds bilaterally. He has a left-sided chest tube in place. ABDOMEN: Soft. EXTREMITIES: There is no edema. NEUROLOGIC: Nonfocal. LABORATORY AND DIAGNOSTIC DATA: Lab testing shows hemoglobin 10.4, platelet count is 366,000. Chemistry shows sodium 133, potassium 3.2, calcium 7.9. Coags are negative. Toxicology is positive for amphetamine. Urinalysis shows few pus cells. IMAGING STUDIES: The patient underwent initial chest, abdomen, pelvis CT which showed mild right hydronephrosis and a right pneumothorax. There are also cavitary lesions bilaterally. X-ray chest shows interval placement of right-sided chest tube with mild subcutaneous emphysema. There were no apparent cavitary lesion seen on this study. Review of the chest, abdomen, pelvis CT show apical bullae. There are multiple lesions scattered bilaterally, some of them may represent cavitary lesions. IMPRESSION: 1. Cavitary pneumonia. 2. Spontaneous right pneumothorax. 3. AIDS. 4. Chronic marijuana usage. DISCUSSION: I suspect he has PCP pneumonia with cavitary lesions and pneumothorax. A chest tube has been placed. He will benefit from antibiotics. We will recommend sputum induction for PCP. Bactrim discontinued. ID consult recommended. Continue oxygen and pulmonary hygiene. We will follow. All Magallon M.D. DR: Margot JOB#: [id number] CC:
--- NOTE | 2020-09-10 11:48 | Cardiac Electrophysiology PN ---
Subjective Subjective [id number] Objective Last 24 Hour Vital Signs Date Time Temp Pulse Resp B/P (MAP) Pulse Ox O2 Delivery O2 Flow Rate FiO2 09/10/20 08:00 2.0 09/10/20 08:00 Nasal Cannula 2.0 09/10/20 08:00 97.3 75 21 105/88 (94) 98 09/10/20 07:48 70 09/10/20 04:00 98.4 75 21 125/88 (100) 99 09/10/20 04:00 80 09/10/20 04:00 Nasal Cannula 2.0 09/10/20 01:32 5.0 09/10/20 01:30 97.1 81 20 124/71 (88) 100 09/10/20 01:27 Nasal Cannula 4.0 09/10/20 00:59 93 09/10/20 00:45 98.0 82 31 145/89 100 Non-Rebreather 15.0 09/10/20 00:33 98.0 82 31 145/89 100 Non-Rebreather 15.0 09/09/20 22:41 98.0 94 22 135/96 98 Non-Rebreather 15.0 09/09/20 21:30 98.0 98 18 148/98 97 Room Air 99 09/09/20 19:22 98.4 100 18 159/110 100 Room Air 09/09/20 17:17 98.4 104 15 152/100 99 Room Air 09/09/20 17:17 104 15 Room Air 99 09/09/20 16:56 98.4 115 16 161/109 (126) 100 Room Air Intake and Output 09/09/20 09/10/20 19:00 07:00 Intake Total 0 ml 250 ml Output Total 705 ml Balance 0 ml -455 ml Intake Oral 0 ml IV Total 250 ml Output Urine Total 700 ml Chest Tube Drainage Total 5 ml Laboratory Tests Test 09/09/20 18:08 09/09/20 18:10 09/10/20 04:30 09/10/20 10:50 White Blood Count 6.1 K/UL (4.8-10.8) 4.8 K/UL (4.8-10.8) Pending Red Blood Count 4.20 M/UL (4.70-6.10) L 3.76 M/UL (4.70-6.10) L Hemoglobin 11.5 G/DL (14.2-18.0) L 10.4 G/DL (14.2-18.0) L Hematocrit 35.8 % (42.0-52.0) L 33.0 % (42.0-52.0) L Mean Corpuscular Volume 85 FL (80-99) 88 FL (80-99) Mean Corpuscular Hemoglobin 27.5 PG (27.0-31.0) 27.8 PG (27.0-31.0) Mean Corpuscular Hemoglobin Concent 32.2 G/DL (32.0-36.0) 31.6 G/DL (32.0-36.0) L Red Cell Distribution Width 15.9 % (11.6-14.8) H 15.2 % (11.6-14.8) H Platelet Count 485 K/UL (150-450) H 366 K/UL (150-450) Mean Platelet Volume 6.0 FL (6.5-10.1) L 6.1 FL (6.5-10.1) L Neutrophils (%) (Auto) 74.7 % (45.0-75.0) 76.4 % (45.0-75.0) H Lymphocytes (%) (Auto) 18.4 % (20.0-45.0) L 16.6 % (20.0-45.0) L Monocytes (%) (Auto) 6.0 % (1.0-10.0) 5.8 % (1.0-10.0) Eosinophils (%) (Auto) 0.3 % (0.0-3.0) 0.5 % (0.0-3.0) Basophils (%) (Auto) 0.6 % (0.0-2.0) 0.7 % (0.0-2.0) Prothrombin Time 12.3 SEC (9.30-11.50) H Prothromb Time International Ratio 1.1 (0.9-1.1) Activated Partial Thromboplast Time 28 SEC (23-33) Sodium Level 132 MMOL/L (136-145) L 133 MMOL/L (136-145) L Potassium Level 3.6 MMOL/L (3.5-5.1) 3.2 MMOL/L (3.5-5.1) L Chloride Level 98 MMOL/L (98-107) 101 MMOL/L (98-107) Carbon Dioxide Level 29 MMOL/L (21-32) 25 MMOL/L (21-32) Anion Gap 5 mmol/L (5-15) 7 mmol/L (5-15) Blood Urea Nitrogen 14 mg/dL (7-18) 10 mg/dL (7-18) Creatinine 1.1 MG/DL (0.55-1.30) 1.0 MG/DL (0.55-1.30) Estimat Glomerular Filtration Rate > 60 mL/min (>60) > 60 mL/min (>60) Glucose Level 100 MG/DL (74-106) 102 MG/DL (74-106) Lactic Acid Level 0.90 mmol/L (0.4-2.0) Calcium Level 8.7 MG/DL (8.5-10.1) 7.9 MG/DL (8.5-10.1) L Magnesium Level 1.8 MG/DL (1.8-2.4) 1.7 MG/DL (1.8-2.4) L Total Bilirubin 0.2 MG/DL (0.2-1.0) 0.2 MG/DL (0.2-1.0) Aspartate Amino Transf (AST/SGOT) 24 U/L (15-37) 21 U/L (15-37) Alanine Aminotransferase (ALT/SGPT) 9 U/L (12-78) L < 6 U/L (12-78) L Alkaline Phosphatase 117 U/L (46-116) H 96 U/L (46-116) Total Creatine Kinase 30 U/L (26-308) Troponin I 0.001 ng/mL (0.000-0.056) Total Protein 8.8 G/DL (6.4-8.2) H 7.1 G/DL (6.4-8.2) Albumin 2.0 G/DL (3.4-5.0) L 1.6 G/DL (3.4-5.0) L Globulin 6.8 g/dL 5.5 g/dL Albumin/Globulin Ratio 0.3 (1.0-2.7) L 0.3 (1.0-2.7) L Urine Color Yellow Urine Appearance Cloudy Urine pH 6 (4.5-8.0) Urine Specific [place] 1.015 (1.005-1.035) Urine Protein 2+ (NEGATIVE) H Urine Glucose (UA) Negative (NEGATIVE) Urine Ketones Negative (NEGATIVE) Urine Blood 2+ (NEGATIVE) H Urine Nitrite Negative (NEGATIVE) Urine Bilirubin Negative (NEGATIVE) Urine Urobilinogen 1 MG/DL (0.0-1.0) H Urine Leukocyte Esterase 3+ (NEGATIVE) H Urine RBC 10-15 /HPF (0 - 0) H Urine WBC Tntc /HPF (0 - 0) H Urine Squamous Epithelial Cells None /LPF (NONE/OCC) Urine Bacteria Many /HPF (NONE) H Urine Opiates Screen Negative (NEGATIVE) Urine Barbiturates Screen Negative (NEGATIVE) Phencyclidine (PCP) Screen Negative (NEGATIVE) Urine Amphetamines Screen Positive (NEGATIVE) H Urine Benzodiazepines Screen Negative (NEGATIVE) Urine Cocaine Screen Negative (NEGATIVE) Urine Marijuana (THC) Screen Negative (NEGATIVE) Uric Acid 4.9 MG/DL (2.6-7.2) Phosphorus Level 3.7 MG/DL (2.5-4.9) Lactate Dehydrogenase 403 U/L (81-234) H Lymphocytes Pending Percent CD3 Cells Pending Absolute CD3 Count Pending Percent CD4 Cells Pending Absolute CD4 Count Pending T-Lymphocyte CD4/CD8 Ratio Pending Percent CD8 Cells Pending Absolute CD8 Count Pending TB Test (T-Spot) Pending TB Test Nil Control (T-Spot) Pending TB Test Panel A (T-Spot) Pending TB Test Panel B (T-Spot) Pending TB Test Positive Control (T-Spot) Pending Microbiology Date/Time Source Procedure Growth Status 09/09/20 18:08 Nasopharynx SARS-CoV-2 RdRp Gene Assay - Final Complete Artur Patton MD Sep 10, 2020 11:48
[2020-09-10] MEDS: Fluconazole 100mg tab ORAL SCH (13:03)
[2020-09-10] MEDS: Cefepime HCl 1 GM in D5W 55 ML IVPB SCH ×2 (13:05→20:33)
--- NOTE | 2020-09-10 13:40 | NUR ---
NURSE NOTES: contacted Dr. Mahmood regarding potassium chloride IVP. patient is not tolerating IV. Dr. Mahmood changed IV to potassium oral 20 mEq. Will take note and carry out.
--- NOTE | 2020-09-10 14:02 | Diagnostic Imaging Report ---
Indication: Reason For Exam: DVT Technique: Grayscale and duplex images of the bilateral lower extremity veins Comparison: Findings: Bilaterally, grayscale and duplex images demonstrate no evidence of intraluminal thrombus. Normal phasic Doppler waveforms, demonstrating normal augmentation response and no evidence of valvular insufficiency. Greater saphenous vein(s) and tibial veins are patent. Normal compressibility. Impression: Negative for evidence of lower extremity deep venous thrombosis bilaterally
[2020-09-10] MEDS ORDERED: Haloperidol 5mg/ml Inj IM PRN (15:30)
--- NOTE | 2020-09-10 15:45 | Consultation ---
DATE OF CONSULTATION: 09/10/2020 CARDIOLOGY CONSULTATION CONSULTING PHYSICIAN: Artur Patton MD REFERRING PHYSICIAN: Tino Rodriges MD REASON FOR CONSULTATION: Respiratory failure. HISTORY OF PRESENT ILLNESS: The patient is a 50-year-old gentleman with history of HIV, was has not been on his medication for last five years, presented to the emergency room with mouth pain due to thrush. The patient also was complaining of intermittent chest pain over the last year. The patient was noted to have pneumothorax and underwent right-sided chest tube placement. The patient was also noted to have UTI and amphetamine use. REVIEW OF SYSTEMS: Negative other than what was mentioned in history of present illness. PAST MEDICAL HISTORY: As mentioned above. FAMILY HISTORY: Noncontributory. SOCIAL HISTORY: There is a history of amphetamine use. PHYSICAL EXAMINATION: VITAL SIGNS: Blood pressure of 105/88, pulse 75, respiratory rate 20, temperature 97.3. HEAD AND NECK: No JVD. There is oral thrush. LUNGS: Coarse rhonchi. CARDIOVASCULAR: Regular S1 and S2 with no gallop. ABDOMEN: Soft. EXTREMITIES: No pitting edema. LABORATORY DATA: His labs show white count of 4.8, hematocrit 10.5, hematocrit 33, and platelet count of 366. Sodium 133, potassium 3.2, BUN of 10, creatinine 1, and glucose of 102. His first troponin is negative. ASSESSMENT AND PLAN: 1. Chest pain and shortness of breath. First troponin was negative. We will completely rule out CO protocol. The patient's amphetamine is positive. The patient, however, also has pneumothorax, related to the pain. We will get an echocardiogram for further evaluation. 2. HIV, with oral thrush. 3. Rule out TB in view of cavitary lesion. 4. Pneumothorax, status post right-sided chest tube, on IV antibiotic with cefepime and Diflucan. 5. Substance abuse. Thank you very much for allowing me to participate in the care of this patient. Please do not hesitate to contact me for any questions regarding my evaluation. Artur Patton M.D. DR: ERIN JOB#: [id number] CC:
--- NOTE | 2020-09-10 15:53 | Diagnostic Imaging Report ---
Indication: Chest pain Technique: One view of the chest Comparison: 06/24/2020 Findings: Nodular and ill-defined opacities are seen throughout both lungs, markedly increased, diffuse left lung, sparing the right upper lobe which probably has bullous changes. The heart size is normal. The pleural spaces are clear. Impression: Increased bilateral nodular and ill-defined opacities in both lungs; this could represent new/recurrent bilateral pneumonia. The possibility of metastatic neoplasm should also be considered. Correlate with clinical history
--- NOTE | 2020-09-10 16:34 | NUR ---
NURSE NOTES: left a message to Dr. Mendez regarding blood culture (+) for gram positive cocci X2 bottles. awaiting callback and new orders.
--- NOTE | 2020-09-10 17:30 | Consultation ---
DATE OF CONSULTATION: 09/10/2020 INFECTIOUS DISEASE CONSULTATION CONSULTING PHYSICIAN: Pasha Mendez M.D. PRIMARY ATTENDING PHYSICIAN: Tino Rodriges M.D. REASON FOR CONSULT: Oral candidiasis, HIV/AIDS, UTI, and pneumonia. HISTORY OF PRESENT ILLNESS: This is a 50-year-old white male admitted yesterday with complaint of right side chest pain. He was found to have pneumothorax and a chest tube was placed in the ER in the right side. He has also severe candidiasis, has pyuria, is suspected for UTI. The patient has HIV/AIDS with a CD4 count of 55, currently on no medication. PAST MEDICAL HISTORY: HIV for 15 years, anemia, emphysema, homelessness, bipolar disorder, cachexia, bilateral hydronephrosis that was present in the past admission in June 2020, and hepatitis C that according to the patient was treated. ALLERGIES: No known drug allergies. MEDICATIONS:, vancomycin, and cefepime. SOCIAL HISTORY: Single. Homeless. Uses methamphetamine. Denies alcohol abuse. Denies smoking. REVIEW OF SYSTEMS: Has weight loss. No fever. No chills. No significant coughing, but has chest pain at the site of chest tube. Has decreased appetite. No nausea. No vomiting. No dysuria. PHYSICAL EXAMINATION: VITAL SIGNS: Temperature is 97.3, pulse 75, blood pressure is 105/80. GENERAL APPEARANCE: Looks cachectic. HEAD AND NECK: Has oral candidiasis and poor dentition. HEART: Normal rate. LUNGS: Has chest tube in the right side. Decreased sounds. ABDOMEN: Soft, nontender. EXTREMITIES: Has no edema, has muscle atrophy. NEUROLOGIC: Awake, responsive. LABORATORY AND DIAGNOSTIC DATA: Sodium 133, potassium 4.2, chloride 101, bicarb 25, BUN 10, creatinine 1. Glucose 102. WBC 4.8, hemoglobin 10.4, hematocrit 33, platelets 366,000. Chest x-ray showed right chest tube. CT scan of the abdomen, pelvis, and chest was done, showed moderate right pneumothorax, bilateral airspace disease, ground-glass appearance, some cavitary lesions, mild right hydronephrosis, mild thickening of urothelium, cholelithiasis. IMPRESSION: Pneumonia with cavitary lesions, seems to be chronic. We will try to rule out tuberculosis. We will try to rule out Pneumocystis. Has pyuria, may have UTI. Has right hydronephrosis, HIV/AIDS, emphysema, severe oral candidiasis, anemia, cachexia. RECOMMENDATIONS: We will continue antibiotic with cefepime. We will send sputum for Pneumocystis. We will send AFB x3. We will check T spot test. We will give the patient oral fluconazole. We will follow up the cultures. At the end of my exam, I thank Dr. Rodriges for involving me in the care of this patient. Pasha Mendez M.D. DR: KYRIE JOB#: [id number] CC: DICK
--- NOTE | 2020-09-10 17:50 | Cardiology Report ---
APPROVED REPORT EXAM: Two-dimensional and M-mode echocardiogram with Doppler and color Doppler. INDICATION OTHER M-Mode DIMENSIONS IVSd0.6 (0.7-1.1cm)Left Atrium (MM)3.0 (1.6-4.0cm) LVDd4.0 (3.5-5.6cm)Aortic Root3.1 (2.0-3.7cm) PWd0.8 (0.7-1.1cm)Aortic Cusp Exc.1.4 (1.5-2.0cm) IVSs0.8 cm LVDs3.2 (2.5-4.0cm) PWs0.6 cm <Conclusion> Normal left ventricular chamber size. Mild proximal anterior wall hypokinesis. Left ventricular ejection fraction estimated to be 55-60 %. No evidence of left ventricular hypertrophy. No evidence of pericardial effusion. All other cardiac chamber sizes are within normal limits. Calcification of aortic valve with reduced cusp excursion. Thickened mitral valve leaflets with normal excursion. On some apical views increased mitral valve echos noted , clinical correlation recomended consider further evaluation if clinically indicated Mitral annulus and aortic root calcification. Pulmonic valve not well visualized. Normal tricuspid valve structure. IVC at normal size with physiologic collapse. A color flow and spectral Doppler study was performed and revealed: Trace to mild aortic insufficiency. Peak aortic valve gradient of 6 mm Hg and a mean of 3 mmHg. Aortic valve area 2.3 cm2 calculated by continuity equation. Trace mitral regurgitation. Mitral diastolic velocities suggest reduced left ventricular relaxation c/w mild LV diastolic dysfunction (Grade I ). Mild tricuspid regurgitation. Tricuspid systolic velocities suggests peak right ventricular systolic pressure of [address] message sent for [address] carvajal regarding Mitral valve finding at 17:49 pm 09/10/2020
--- NOTE | 2020-09-10 18:14 | Cardiology Report ---
APPROVED REPORT EKG Measurement Heart [id number] SD [id number] <Conclusion> Suspect arm lead reversal, interpretation assumes no reversal Normal sinus rhythm Right atrial enlargement Rightward axis Pulmonary disease pattern Junctional ST depression, probably normal Abnormal ECG
--- NOTE | 2020-09-10 18:14 | Cardiology Report ---
APPROVED REPORT EKG Measurement Heart [id number] NC 134P91 [id number] <Conclusion> Suspect arm lead reversal, interpretation assumes no reversal Normal sinus rhythm Rightward axis Borderline ECG
[2020-09-10] MEDS ORDERED: Varibar Thin Liquid powder 148gm MC PRN (18:45)
[2020-09-10] MEDS ORDERED: Varibar Pudding 230ml MC PRN (18:45)
[2020-09-10] MEDS ORDERED: Varibar Honey 250ml MC PRN (18:45)
[2020-09-10] MEDS ORDERED: Varibar Nectar 240ml MC PRN (18:45)
--- NOTE | 2020-09-10 19:17 | NUR ---
NURSE HAND-OFF REPORT: Important Events on Shift:patient stable Patient Status: FULL Diet: regular Pending Orders: ST eval, CXR, Labs Pending Results/Labs:[] Pending MD notification:[] Latest Vital Signs: Temperature 97.3 , Pulse 79 , B/P 125 /79 , Respiratory Rate 26 , O2 SAT 99 , Room Air, O2 Flow Rate 2.0 . Vital Sign Comment: stable EKG Rhythm: Sinus Rhythm Rhythm change?: N MD Notified?: - MD Response: Latest Estrella Fall Score: 45 Fall Risk: High Risk Safety Measures: Call light Within Reach, Bed Alarm Zone 1, Side Rails Side Rails x2, Bed position Low and Locked. Fall Precautions: Yellow Socks Yellow Gown Door Sign Patient Fall Education Report given to Stacey Woods RN.
--- NOTE | 2020-09-10 19:18 | NUR ---
NURSE NOTES: received pt from Dede RN., and Meche RN., pt is awake and AOx4 but pt occasionally confused. pt states " I am a doctor, you know that?" and asked if which specialized doctor. and pt states " no, I don't know what I want." and pt is screaming and talking to himself often. pt follows some commands yet pt refuses to have another IV insertion. pt is in RA O2sat is at 100% without SOB. skin alternation noted, dressing sites are intact, clean, and patent. left FA 22g Iv site intact clean, and patent. chest tube on right side with low intermittent suction. pt able to turn by himself and reposition. ABD soft and non-tender. chest tube site dressing, intact, secured, dry, and patent. call light within reach. will continue to monitor pt with plan of care. bed at the lowest position, alarmed, and locked. side rails x3 up.
[2020-09-10] MEDS: Vancomycin 750 MG in NS 275 ML IVPB SCH (20:32)
--- NOTE | 2020-09-10 20:45 | History and Physical Report ---
DATE OF ADMISSION: 09/09/2020 HISTORY OF PRESENT ILLNESS: The patient has a chest tube. He is homeless. He is complaining of weight loss and oral thrush. The patient was screaming, agitated and was not answering my questions appropriately. The patient does have some weight loss as well. Denies fever or chills. Did have some shortness of breath. The patient also has history of HIV, but no HIV medications, came in with oral thrush as well. We want to rule out TB. CT showed cavitary lesions. So the patient is on airborne isolation to rule out TB. The patient also had pneumothorax on the x-ray, so chest tube was placed by the ER doctor. The patient is also being treated for UTI as well. The patient is being admitted for respiratory insufficiency as well. The patient denies night sweats. Does have some sore throat. Denies fever or chills. Denies night sweats. PAST MEDICAL HISTORY: History of HIV, history of COPD, history of cachexia, anxiety, history of failure to thrive, history of malnutrition, and history of drug abuse. PAST SURGICAL HISTORY: The patient uses chest tube. MEDICATIONS: He does not take any medication. ALLERGIES: No known allergies. FAMILY HISTORY: Noncontributory. SOCIAL HISTORY: The patient denies history of alcohol abuse. Does have history of drug abuse. Denies history of smoking. REVIEW OF SYSTEMS: HEENT: Denies headaches. RESPIRATORY: Does have some shortness of breath. Denies cough. CARDIOVASCULAR: Denies chest pain. Denies nausea, vomiting, or diarrhea. EXTREMITIES: Denies pain in lower extremities. CENTRAL NERVOUS SYSTEM: Denies change in speech pattern. Feels weak. PHYSICAL EXAMINATION: VITAL SIGNS: Temperature is 98.4, pulse is 75, blood pressure 125/88. HEENT: PERRLA. NECK: Supple. No lymphadenopathy. CHEST: Clear to auscultation. CARDIOVASCULAR: Regular rate and rhythm. No murmurs or extra sounds. GASTROINTESTINAL: Soft, nontender, and nondistended. Chest tube site is intact. ABDOMEN: Soft. No organomegaly. Positive bowel sounds. EXTREMITIES: Lower extremity, no edema. He is able to move his extremities. Also, he did have pedal pulses present. Sensory intact to light touch. LABORATORY DATA: WBC of 6.1, hemoglobin 11.5, and platelets of 485. Sodium 133, potassium of 3.2, BUN of 10, creatinine of 1, and glucose of 102. ASSESSMENT AND PLAN: UTI, respiratory insufficiency, electrolyte imbalance, hypokalemia, the patient has a chest tube, history of HIV, agitated, screaming at times, rule out TB. The patient is on airborne isolation room. I have asked Dr. Jaquez, Dr. Mahmood, Dr. Patton, Dr. All Magallon, Dr. Pasha Mendez to see the patient for the above-mentioned abnormalities on the imaging as well as abnormalities on the laboratory and abdominal symptoms. Antibiotics per Dr. Pasha Mendez. The patient is on airborne isolation to rule out TB currently. Tino Rodriges M.D. DR: Eloisa JOB#: [id number] CC:
[2020-09-11] VITALS: BP 122/72
--- NOTE | 2020-09-11 | Consultation ---
DATE OF CONSULTATION: 09/10/2020 CONSULTING PHYSICIAN: Denae Jaquez MD HISTORY OF PRESENT ILLNESS: This is a 50-year-old male with history of COPD, HIV, failure to thrive, depression, anxiety, history of substance use disorder who came into the emergency room. Patient had , now he is in isolation for ruling out tuberculosis. Patient has been having weight loss, severely agitated, screaming, and is not able to be engaged in any evaluation. Patient has episodes of agitation. PAST PSYCHIATRIC HISTORY: Significant for anxiety, depression. No suicide attempt. PAST MEDICAL HISTORY: 1. COPD. 2. Cachexia. 3. Failure to thrive. ALLERGIES: No known drug allergies. SUBSTANCE ABUSE HISTORY: Significant for amphetamine addiction. MENTAL STATUS EXAMINATION: Patient is alert, oriented times self, place, situation. Mood is anxious. Affect is blunted, congruent with mood. Thought process is concrete. Thought content, there is no suicidal or homicidal ideation. Cognition is impaired. ASSESSMENT: Benton I Anxiety disorder. Depressive disorder. Benton II Deferred. Benton III HIV. Benton IV Moderate. Benton V 40. PLAN: 1. Seroquel mg at bedtime. 2. Haldol p.r.n. 3. Provide the patient with reality orientation and discussed with the nurse. Denae Jaquez M.D. DR: WILIAN JOB#: [id number] CC:
--- NOTE | 2020-09-11 | NUR ---
NURSE NOTES: pt sleeping at this time, no SOB noted. call light within reach. will continue to monitor pt
--- NOTE | 2020-09-11 03:00 | NUR ---
NURSE NOTES: pt called and BM noted. provided new gown, oral care, and changed whole bed. pt follow command ocassionally. pt gets mad frequently and screaming to staffs. pt uses inappropriate word towards staffs as well. explained why we are changing the whole bed due to BM. chest tube site intact, cleaned, and patent. call light within reach. will continue to monitor pt with plan of care.
[2020-09-11 04:00] VITALS: BP 115/82
--- NOTE | 2020-09-11 04:00 | NUR ---
HAND-OFF: Report given to [].
--- NOTE | 2020-09-11 04:30 | NUR ---
NURSE NOTES: collected sputum. sent out to lab. call light within reach. no SOB noted.
--- NOTE | 2020-09-11 04:50 | NUR ---
NURSE NOTES: pt refused to draw the blood for AM lab, Johnson (lab[employer]) notified. will endorse to AM nurse to follow up AM lab.
--- NOTE | 2020-09-11 07:20 | NUR ---
NURSE HAND-OFF REPORT: Important Events on Shift:[EKG SR, chest tube, pt cough with liquid, pt refused AM lab] Patient Status: [stable] Diet: [regular diet] Pending Orders: [n/a] Pending Results/Labs:[pt refused will need to do it again] Pending MD notification:[n/a] Latest Vital Signs: Temperature 98.0 , Pulse 87 , B/P 115 /82 , Respiratory Rate 26 , O2 SAT 99 , Room Air, O2 Flow Rate 2.0 . Vital Sign Comment: [stable] EKG Rhythm: Sinus Rhythm Rhythm change?: N MD Notified?: - MD Response: Latest Estrella Fall Score: 45 Fall Risk: High Risk Safety Measures: Call light Within Reach, Bed Alarm Zone 1, Side Rails Side Rails x2, Bed position Low and Locked. Fall Precautions: Yellow Socks Yellow Gown Door Sign Patient Fall Education Report given to [Prince FINLEY.,].
--- NOTE | 2020-09-11 07:36 | NUR ---
NURSE HAND-OFF REPORT: Important Events on Shift:[EKG SR, chest tube, pt cough with liquid, pt refused AM lab] Patient Status: [stable] Diet: [regular diet] Pending Orders: [n/a] Pending Results/Labs:[pt refused will need to do it again, sputum for TB] Pending MD notification:[n/a] Latest Vital Signs: Temperature 98.0 , Pulse 87 , B/P 115 /82 , Respiratory Rate 26 , O2 SAT 99 , Room Air, O2 Flow Rate 2.0 . Vital Sign Comment: [stable] EKG Rhythm: Sinus Rhythm Rhythm change?: N MD Notified?: - MD Response: Latest Estrella Fall Score: 45 Fall Risk: High Risk Safety Measures: Call light Within Reach, Bed Alarm Zone 1, Side Rails Side Rails x2, Bed position Low and Locked. Fall Precautions: Yellow Socks Yellow Gown Door Sign Patient Fall Education Report given to [Prince FINLEY.,].
--- NOTE | 2020-09-11 07:40 | NUR ---
NURSE NOTES: Received patient from MALIA Cochran under the care of Dr. Rodriges for the admitting dx. of PNA, sepsis, and psumothorax. Patient NKA, no allergies noted. On airborne isolation to rule out TB and has positive symptoms for Flu. Patient is alert and oriented x 4 with bi-polar tendencies. Patient is tolerating RA well, with no sign of distress noted. Has R side chest tube on low intermittent suctioning, draining well. Will continue to monitor.
[2020-09-11 08:00] VITALS: BP 149/92
[2020-09-11] MEDS: Vancomycin 750 MG in NS 275 ML IVPB SCH ×2 (08:00→20:38)
--- NOTE | 2020-09-11 08:15 | NUR ---
RESPIRATORY NOTE: Attempted to draw ABG ordered by however patient refused at time and to come after lunch. RN Prince notified. Will try again at a later time.
--- NOTE | 2020-09-11 08:17 | NUR ---
Speech Pathology Note (Dysphagia Evaluation) Brief note: Mr. Christian is a 50 year old male presents with HIV admitted OM on 09/09/2020 for right side pneumothorax, bullae, subQ emphysema, rule out TB. Right side chest tube was placed on 09/09/2020. Clinically he is doing well. PMH: HIV, COPD, Cachexia, failure to thrive, Drug abuse Labs, vital signs and imaging reviewed. Findings: Mr. Christian is having his breakfast meal independently. He denies dyspnea, odynophagia, dysphagia with solid or liquid. Oral exam revealed mild to moderate degree of thrush. His voice is intact. He was able to tolerate solid and liquid without dysphagia or s.s of aspiration. However, further discussion with RN and patient, he has problems with swallowing pills without crushing them. He occasionally cough on thin liquid. I observed him taking crush pills with apple sauce, and taking drinks from cup, he tolerated them well without clinical concerns. Interpretation: 1. Functional swallow for diet -Dysphagia with pills 2. Oral thrush c.w with mary kay due HIV 3. Possible and probable esophageal mary kay may results esophageal dysphagia Plan: 1. Regular diet and thin liquid -Crush pills with apple sauce 2.3. ID on board for anti-fungal swish swallow No skilled Speech tx indicated at this time. Ariel Garcia
--- NOTE | 2020-09-11 08:20 | NUR ---
RD ASSESSMENT & RECOMMENDATIONS SEE CARE ACTIVITY FOR COMPLETE ASSESSMENT DAILY ESTIMATED NEEDS: Needs based on HIV, h/o underweight/ 55kg 30-35 kcals/kg 3013-0535 total kcals 1-2 g protein/kg 55-110 g total protein 25-30 mL/kg 5772-4464 total fluid mLs NUTRITION DIAGNOSIS: Altered nutrition related lab values r/t clinical status as evidenced by low K(3.2), low mg(1.7), elev LD(403). CURRENT DIET:Regular PO DIET RECOMMENDATIONS: REGULAR/ texture as tolerated ADDITIONAL RECOMMENDATIONS: 1) Obtain a STANDING weight for accurate CBW 2) Ensure Enlive TID w/ meals + snacks in b/w 3) Monitor PO tolerance, need for texture downgrade: h/o +oral thrush 4) Monitor lytes, replete as needed 5) Rec WC eval, partial thickness buttock wound Add CARLO BID
[2020-09-11] MEDS: Nystatin Susp 500,000 units/5ml ORAL SCH ×4 (08:35→20:39)
[2020-09-11] MEDS: Cefepime HCl 1 GM in D5W 55 ML IVPB SCH ×2 (08:35→21:40)
[2020-09-11] MEDS: Fluconazole 100mg tab ORAL SCH (08:35)
[2020-09-11 08:53] LABS: BASOPHILS % (AUTO) 0.6 % (0.0-2.0); EOSINOPHILS % (AUTO) 3.1 % (0.0-3.0); HEMATOCRIT 35.4 % (42.0-52.0); HEMOGLOBIN 11.1 G/DL (14.2-18.0); LYMPHOCYTES % (AUTO) 19.3 % (20.0-45.0); MEAN CORPUSCULAR VOLUME 89 FL (80-99); MONOCYTES % (AUTO) 4.4 % (1.0-10.0); NEUTROPHILS % (AUTO) 72.6 % (45.0-75.0); PLATELET COUNT 389 K/UL (150-450); RED BLOOD COUNT 3.98 M/UL (4.70-6.10); RED CELL DISTRIBUTION WIDTH 15.3 % (11.6-14.8); WHITE BLOOD COUNT 4.6 K/UL (4.8-10.8)
--- NOTE | 2020-09-11 09:00 | NUR ---
NURSE NOTES: Patient awake and verbally responsive with clear speech. Denies pain at this time. No sign of apparent distress noted. Patient refused blood draw, explained risks and benefits, verbalized understanding. Patient verbalized "let's try after lunch, I think I can do after lunch". Will try again after lunch.
--- NOTE | 2020-09-11 09:11 | NUR ---
RADIOLOGY DEPT., CHEST X-RAY DONE.-P.DYE
[2020-09-11 09:15] LABS: GAMMA GLUTAMYL TRANSPEPTIDASE 15 U/L (5-85); LACTATE DEHYDROGENASE 207 U/L (81-234); PHOSPHORUS 2.7 MG/DL (2.5-4.9)
[2020-09-11 09:21] LABS: ALANINE AMINOTRANSFERASE 8 U/L (12-78); ALBUMIN 1.5 G/DL (3.4-5.0); ALBUMIN/GLOBULIN RATIO 0.3 (1.0-2.7); ALKALINE PHOSPHATASE 94 U/L (46-116); ANION GAP 6 mmol/L (5-15); ASPARTATE AMINO TRANSFERASE 19 U/L (15-37); BILIRUBIN,TOTAL 0.2 MG/DL (0.2-1.0); BLOOD UREA NITROGEN 13 mg/dL (7-18); CALCIUM 8.1 MG/DL (8.5-10.1); CARBON DIOXIDE 26 MMOL/L (21-32); CHLORIDE 102 MMOL/L (98-107); CHOLESTEROL 75 MG/DL (< 200); HDL CHOLESTEROL 22 MG/DL (40-60); POTASSIUM 3.9 MMOL/L (3.5-5.1); SODIUM 134 MMOL/L (136-145); TRIGLYCERIDES 73 MG/DL (30-150)
[2020-09-11 09:22] LABS: % IRON SATURATION 8 % (15-50); IRON 15 ug/dL (50-175); TOTAL IRON BINDING CAPACITY 196 ug/dL (250-450)
--- NOTE | 2020-09-11 09:44 | Nephrology Progress Note ---
Assessment/Plan Problem List: (1) Pneumothorax (2) Amphetamine abuse (3) HIV (human immunodeficiency virus infection) (4) Severe protein-calorie malnutrition (5) Electrolyte imbalance (6) Proteinuria Assessment Electrolyte imbalance: Hypokalemia, hyponatremia Hypoalbuminemia, 2+ proteinuria UTI Cavitary pneumonia Anemia Drug abuse, urine positive for amphetamine Right chest tube, spontaneous right pneumothorax AIDS Plan Aim to correct electrolytes Per pulmonary, per ID Keep the blood pressure and blood sugar in check Per orders Subjective ROS Limited/Unobtainable: No Constitutional: Reports: malaise, weakness Objective Objective Last 24 Hour Vital Signs Date Time Temp Pulse Resp B/P (MAP) Pulse Ox O2 Delivery O2 Flow Rate FiO2 09/11/20 08:00 Room Air 09/11/20 04:00 98.0 87 26 115/82 (93) 99 09/11/20 04:00 Room Air 09/11/20 03:27 100 09/11/20 00:00 Room Air 09/11/20 00:00 98.9 107 26 122/72 (89) 99 09/10/20 23:30 113 09/10/20 20:00 Room Air 09/10/20 20:00 98.8 94 26 125/77 (93) 99 09/10/20 19:21 95 09/10/20 16:00 97.3 79 26 125/79 (94) 99 09/10/20 16:00 Room Air 09/10/20 15:48 90 09/10/20 12:00 Nasal Cannula 2.0 09/10/20 12:00 97.1 98 26 125/88 (100) 100 09/10/20 11:51 84 Intake and Output 09/10/20 09/11/20 19:00 07:00 Intake Total 1800 ml 1030.000 ml Output Total 1467 ml 1303 ml Balance 333 ml -273.000 ml Intake Oral 1000 ml 400 ml IV Total 800 ml 630.000 ml Output Urine Total 1450 ml 1300 ml Chest Tube Drainage Total 17 ml 3 ml # Bowel Movements 2 Current Medications Medications (Trade) Dose Ordered Sig/Kenia Route PRN Reason Start Time Stop Time Status Last Admin Dose Admin Acetaminophen (Tylenol) 650 mg Q4H PRN ORAL Mild Pain (Pain Scale 1-3) 09/10/20 01:15 10/10/20 01:14 09/10/20 22:51 Barium Sulfate (Varibar Honey) 250 ml NOW PRN MC RAD 09/10/20 18:45 09/13/20 18:36 Barium Sulfate (Varibar [place]) 240 ml NOW PRN MC RAD 09/10/20 18:45 09/13/20 18:36 Barium Sulfate (Varibar Pudding) 230 ml NOW PRN MC RAD 09/10/20 18:45 09/13/20 18:36 Barium Sulfate (Varibar Thin Liquid powder) 148 gm NOW PRN MC RAD 09/10/20 18:45 09/13/20 18:36 Cefepime HCl 1 gm/ Dextrose 55 ml @ 110 mls/hr EVERY 12 HOURS IVPB 09/10/20 12:00 09/17/20 11:59 09/11/20 08:35 Fluconazole (Diflucan) 400 mg DAILY ORAL 09/10/20 11:00 09/17/20 10:59 09/11/20 08:35 Haloperidol Lactate (Haldol) 5 mg Q6H PRN IM Agitation 09/10/20 15:30 10/25/20 15:29 Magnesium Sulfate 100 ml @ 100 mls/hr Q1H IVPB 09/11/20 09:45 09/11/20 11:44 UNV Nystatin (Nystatin) 5 ml QID ORAL 09/09/20 18:00 09/16/20 17:59 09/11/20 08:35 Quetiapine Fumarate (SEROqueL) 50 mg BEDTIME ORAL 09/10/20 21:00 10/25/20 20:59 09/10/20 20:33 Vancomycin HCl (Vanco pharmacy to dose) 1 ea DAILY PRN MISC Per rx protocol 09/10/20 18:15 10/10/20 18:14 Vancomycin HCl 750 mg/Sodium Chloride 275 ml @ 183.333 mls/hr Q12HR@0800,2000 IVPB 09/10/20 20:00 09/15/20 19:59 09/10/20 20:32 Laboratory Tests 09/10/20 10:50: White Blood Count [Pending], Lymphocytes [Pending], Percent CD3 Cells [Pending], Absolute CD3 Count [Pending], Percent CD4 Cells [Pending], Absolute CD4 Count [Pending], T-Lymphocyte CD4/CD8 Ratio [Pending], Percent CD8 Cells [Pending], Absolute CD8 Count [Pending], TB Test (T-Spot) [Pending], TB Test Nil Control (T-Spot) [Pending], TB Test Panel A (T-Spot) [Pending], TB Test Panel B (T-Spot) [Pending], TB Test Positive Control (T-Spot) [Pending] 09/10/20 16:00: Urine Osmolality 504H, Urine Random Sodium 151H 09/11/20 08:35: White Blood Count 4.6L, Red Blood Count 3.98L, Hemoglobin 11.1L, Hematocrit 35.4L, Mean Corpuscular Volume 89, Mean Corpuscular Hemoglobin 27.8, Mean Corpuscular Hemoglobin Concent 31.2L, Red Cell Distribution Width 15.3H, Platelet Count 389, Mean Platelet Volume 5.9L, Neutrophils (%) (Auto) 72.6, Lymphocytes (%) (Auto) 19.3L, Monocytes (%) (Auto) 4.4, Eosinophils (%) (Auto) 3.1H, Basophils (%) (Auto) 0.6, Sodium Level 134L, Potassium Level 3.9, Chloride Level 102, Carbon Dioxide Level 26, Anion Gap 6, Blood Urea Nitrogen 13, Cr eatinine 1.0, Estimat Glomerular Filtration Rate > 60, Glucose Level 102, Hemoglobin A1c [Pending], Osmolality [Pending], Lactic Acid Level [Pending], Uric Acid 3.3, Calcium Level 8.1L, Phosphorus Level 2.7, Magnesium Level 1.6L, Iron Level 15L, Total Iron Binding Capacity 196L, Percent Iron Saturation 8L, Unsaturated Iron Binding 181, Total Bilirubin 0.2, Gamma Glutamyl Transpeptidase 15, Aspartate Amino Transf (AST/SGOT) 19, Alanine Aminotransferase (ALT/SGPT) 8L, Alkaline Phosphatase 94, Lactate Dehydrogenase 207, Troponin I [Pending], C- Reactive Protein, Quantitative 5.7H, Pro-B-Type Natriuretic Peptide 331H, Total Protein 7.3, Albumin 1.5L, Globulin 5.8, Albumin/Globulin Ratio 0.3L, Triglycerides Level 73, Cholesterol Level 75, LDL Cholesterol 50, HDL Cholesterol 22L, Cholesterol/HDL Ratio 3.4, Vitamin B12 Level [Pending], Folate [Pending], Thyroid Stimulating Hormone (TSH) 2.478 Height (Feet): 5 Height (Inches): 4.00 Weight (Pounds): 120 Cardiovascular: tachycardia Respiratory/Chest: decreased breath sounds Abdomen: distended Jimy Mahmood MD Sep 11, 2020 09:44
--- NOTE | 2020-09-11 09:53 | Pulmonology Progress Note ---
Subjective ROS Limited/Unobtainable: No Interval Events: None new Constitutional: Reports: no symptoms HEENT: Repors: no symptoms Respiratory: Reports: no symptoms Cardiovascular: Reports: no symptoms Gastrointestinal/Abdominal: Reports: no symptoms Genitourinary: Reports: no symptoms Neurologic: Reports: no symptoms Allergies: Coded Allergies: No Known Allergies (Unverified , 06/30/19) Objective Last 24 Hour Vital Signs Date Time Temp Pulse Resp B/P (MAP) Pulse Ox O2 Delivery O2 Flow Rate FiO2 09/11/20 08:00 Room Air 09/11/20 04:00 98.0 87 26 115/82 (93) 99 09/11/20 04:00 Room Air 09/11/20 03:27 100 09/11/20 00:00 Room Air 09/11/20 00:00 98.9 107 26 122/72 (89) 99 09/10/20 23:30 113 09/10/20 20:00 Room Air 09/10/20 20:00 98.8 94 26 125/77 (93) 99 09/10/20 19:21 95 09/10/20 16:00 97.3 79 26 125/79 (94) 99 09/10/20 16:00 Room Air 09/10/20 15:48 90 09/10/20 12:00 Nasal Cannula 2.0 09/10/20 12:00 97.1 98 26 125/88 (100) 100 09/10/20 11:51 84 Intake and Output 09/10/20 09/11/20 19:00 07:00 Intake Total 1800 ml 1030.000 ml Output Total 1467 ml 1303 ml Balance 333 ml -273.000 ml Intake Oral 1000 ml 400 ml IV Total 800 ml 630.000 ml Output Urine Total 1450 ml 1300 ml Chest Tube Drainage Total 17 ml 3 ml # Bowel Movements 2 General Appearance: no acute distress HEENT: normocephalic Respiratory: chest wall non-tender, lungs clear Cardiovascular: normal peripheral pulses, normal rate Abdomen: normal bowel sounds Microbiology Date/Time Source Procedure Growth Status 09/09/20 18:10 Urine,Clean Catch Urine Culture - Preliminary Gram Negative Kunal Resulted 09/09/20 18:08 Nasopharynx SARS-CoV-2 RdRp Gene Assay - Final Complete 09/09/20 17:53 Blood Blood Culture - Preliminary Resulted Laboratory Tests 09/10/20 10:50: White Blood Count [Pending], Lymphocytes [Pending], Percent CD3 Cells [Pending], Absolute CD3 Count [Pending], Percent CD4 Cells [Pending], Absolute CD4 Count [Pending], T-Lymphocyte CD4/CD8 Ratio [Pending], Percent CD8 Cells [Pending], Absolute CD8 Count [Pending], TB Test (T-Spot) [Pending], TB Test Nil Control (T -Spot) [Pending], TB Test Panel A (T-Spot) [Pending], TB Test Panel B (T-Spot) [Pending], TB Test Positive Control (T-Spot) [Pending] 09/10/20 16:00: Urine Osmolality 504H, Urine Random Sodium 151H 09/11/20 08:30: Ferritin [Pending] 09/11/20 08:35: White Blood Count 4.6L, Red Blood Count 3.98L, Hemoglobin 11.1L, Hematocrit 35.4L, Mean Corpuscular Volume 89, Mean Corpuscular Hemoglobin 27.8, Mean Corpuscular Hemoglobin Concent 31.2L, Red Cell Distribution Width 15.3H, Platelet Count 389, Mean Platelet Volume 5.9L, Neutrophils (%) (Auto) 72.6, Lymphocytes (%) (Auto) 19.3L, Monocytes (%) (Auto) 4.4, Eosinophils (%) (Auto) 3.1H, Basophils (%) (Auto) 0.6, Sodium Level 134L, Potassium Level 3.9, Chloride Level 102, Carbon Dioxide Level 26, Anion Gap 6, Blood Urea Nitrogen 13, Creatinine 1.0, Estimat Glomerular Filtration Rate > 60, Glucose Level 102, Hemoglobin A1c 6.4H, Osmolality [Pending], Lactic Acid Level 2.80H, Uric Acid 3.3, Calcium Level 8.1L, Phosphorus Level 2.7, Magnesium Level 1.6L, Iron Level 15L, Total Iron Binding Capacity 196L, Percent Iron Saturation 8L, Unsaturated Iron Binding 181, Total Bilirubin 0.2, Gamma Glutamyl Transpeptidase 15, Aspartate Amino Transf (AST/SGOT) 19, Alanine Aminotransferase (ALT/SGPT) 8L, Alkaline Phosphatase 94, Lactate Dehydrogenase 207, Troponin I [Pending], C- Reactive Protein, Quantitative 5.7H, Pro-B-Type Natriuretic Peptide 331H, Total Protein 7.3, Albumin 1.5L, Globulin 5.8, Albumin/Globulin Ratio 0.3L, Triglycerides Level 73, Cholesterol Level 75, LDL Cholesterol 50, HDL Cholesterol 22L, Cholesterol/HDL Ratio 3.4, Vitamin B12 Level [Pending], Folate [Pending], Thyroid Stimulating Hormone (TSH) 2.478 Current Medications Medications (Trade) Dose Ordered Sig/Kenia Route PRN Reason Start Time Stop Time Status Last Admin Dose Admin Acetaminophen (Tylenol) 650 mg Q4H PRN ORAL Mild Pain (Pain Scale 1-3) 09/10/20 01:15 10/10/20 01:14 09/10/20 22:51 Barium Sulfate (Varibar Honey) 250 ml NOW PRN MC RAD 09/10/20 18:45 09/13/20 18:36 Barium Sulfate (Varibar [place]) 240 ml NOW PRN MC RAD 09/10/20 18:45 09/13/20 18:36 Barium Sulfate (Varibar Pudding) 230 ml NOW PRN MC RAD 09/10/20 18:45 09/13/20 18:36 Barium Sulfate (Varibar Thin Liquid powder) 148 gm NOW PRN MC RAD 09/10/20 18:45 09/13/20 18:36 Cefepime HCl 1 gm/ Dextrose 55 ml @ 110 mls/hr EVERY 12 HOURS IVPB 09/10/20 12:00 09/17/20 11:59 09/11/20 08:35 Fluconazole (Diflucan) 400 mg DAILY ORAL 09/10/20 11:00 09/17/20 10:59 09/11/20 08:35 Haloperidol Lactate (Haldol) 5 mg Q6H PRN IM Agitation 09/10/20 15:30 10/25/20 15:29 Magnesium Sulfate 100 ml @ 100 mls/hr Q1H IVPB 09/11/20 09:45 09/11/20 11:44 Nystatin (Nystatin) 5 ml QID ORAL 09/09/20 18:00 09/16/20 17:59 09/11/20 08:35 Quetiapine Fumarate (SEROqueL) 50 mg BEDTIME ORAL 09/10/20 21:00 10/25/20 20:59 09/10/20 20:33 Vancomycin HCl (Vanco pharmacy to dose) 1 ea DAILY PRN MISC Per rx protocol 09/10/20 18:15 10/10/20 18:14 Vancomycin HCl 750 mg/Sodium Chloride 275 ml @ 183.333 mls/hr Q12HR@0800,1999 IVPB 09/10/20 20:00 09/15/20 19:59 09/11/20 08:00 Assessment/Plan Assessment/Plan IMPRESSION: 1. Cavitary pneumonia. 2. Spontaneous right pneumothorax. 3. AIDS. 4. Chronic marijuana usage. DISCUSSION: I suspect he has PCP pneumonia with cavitary lesions and pneumothorax. A chest tube has been placed. He will benefit from antibiotics. Await sputum induction for PCP. Bactrim to be continued. ID consult noted. Continue oxygen and pulmonary hygiene. I will follow. Will review CXR John Salguero Omar Syed MD Sep 11, 2020 09:53
[2020-09-11 12:00] VITALS: BP 126/88
--- NOTE | 2020-09-11 12:00 | NUR ---
NURSE NOTES: Patient is eating lunch and reminded him about the blood draw. Patient said that he "just cant do it, my blood vessels hurt, they take too much blood from me, we can try tomorrow". Explained risks and benefits again, and patient verbalized understanding, tried to bargain with patient regarding blood draw to this afternoon. Will try again.
--- NOTE | 2020-09-11 12:50 | Cardiac Electrophysiology PN ---
Assessment/Plan Assessment/Plan 1. Chest pain and shortness of breath. Ruled out for [place] protocol. The patient's amphetamine is positive. The patient, however, also has pneumothorax, related to the pain. EF 55% 2. HIV, with oral thrush. 3. Rule out TB in view of cavitary lesion. 4. Pneumothorax, status post right-sided chest tube, on IV antibiotic with cefepime and Diflucan. 5. Substance abuse. Subjective Subjective Alert in NAD. Second sputum Cx is pending. In TB isolation Objective Last 24 Hour Vital Signs Date Time Temp Pulse Resp B/P (MAP) Pulse Ox O2 Delivery O2 Flow Rate FiO2 09/11/20 08:00 92 09/11/20 08:00 Room Air 09/11/20 08:00 98.1 87 24 149/92 (111) 99 09/11/20 04:00 98.0 87 26 115/82 (93) 99 09/11/20 04:00 Room Air 09/11/20 03:27 100 09/11/20 00:00 Room Air 09/11/20 00:00 98.9 107 26 122/72 (89) 99 09/10/20 23:30 113 09/10/20 20:00 Room Air 09/10/20 20:00 98.8 94 26 125/77 (93) 99 09/10/20 19:21 95 09/10/20 16:00 97.3 79 26 125/79 (94) 99 09/10/20 16:00 Room Air 09/10/20 15:48 90 Intake and Output 09/10/20 09/11/20 18:59 06:59 Intake Total 1750 ml 1080.000 ml Output Total 1467 ml 1303 ml Balance 283 ml -223.000 ml Intake Oral 1000 ml 400 ml IV Total 750 ml 680.000 ml Output Urine Total 1450 ml 1300 ml Chest Tube Drainage Total 17 ml 3 ml # Bowel Movements 2 Laboratory Tests Test 09/10/20 16:00 09/11/20 08:30 09/11/20 08:35 Urine Osmolality 504 mOsm/kg (429-449) H Urine Random Sodium 151 mmol/L (20-110) H Ferritin 229 NG/ML (8-388) White Blood Count 4.6 K/UL (4.8-10.8) L Red Blood Count 3.98 M/UL (4.70-6.10) L Hemoglobin 11.1 G/DL (14.2-18.0) L Hematocrit 35.4 % (42.0-52.0) L Mean Corpuscular Volume 89 FL (80-99) Mean Corpuscular Hemoglobin 27.8 PG (27.0-31.0) Mean Corpuscular Hemoglobin Concent 31.2 G/DL (32.0-36.0) L Red Cell Distribution Width 15.3 % (11.6-14.8) H Platelet Count 389 K/UL (150-450) Mean Platelet Volume 5.9 FL (6.5-10.1) L Neutrophils (%) (Auto) 72.6 % (45.0-75.0) Lymphocytes (%) (Auto) 19.3 % (20.0-45.0) L Monocytes (%) (Auto) 4.4 % (1.0-10.0) Eosinophils (%) (Auto) 3.1 % (0.0-3.0) H Basophils (%) (Auto) 0.6 % (0.0-2.0) Sodium Level 134 MMOL/L (136-145) L Potassium Level 3.9 MMOL/L (3.5-5.1) Chloride Level 102 MMOL/L (98-107) Carbon Dioxide Level 26 MMOL/L (21-32) Anion Gap 6 mmol/L (5-15) Blood Urea Nitrogen 13 mg/dL (7-18) Creatinine 1.0 MG/DL (0.55-1.30) Estimat Glomerular Filtration Rate > 60 mL/min (>60) Glucose Level 102 MG/DL (74-106) Hemoglobin A1c 6.4 % (4.3-6.0) H Osmolality 284 mOsm/kg (297-317) L Lactic Acid Level 2.80 mmol/L (0.4-2.0) H Uric Acid 3.3 MG/DL (2.6-7.2) Calcium Level 8.1 MG/DL (8.5-10.1) L Phosphorus Level 2.7 MG/DL (2.5-4.9) Magnesium Level 1.6 MG/DL (1.8-2.4) L Iron Level 15 ug/dL (50-175) L Total Iron Binding Capacity 196 ug/dL (250-450) L Percent Iron Saturation 8 % (15-50) L Unsaturated Iron Binding 181 ug/dL (112-346) Total Bilirubin 0.2 MG/DL (0.2-1.0) Gamma Glutamyl Transpeptidase 15 U/L (5-85) Aspartate Amino Transf (AST/SGOT) 19 U/L (15-37) Alanine Aminotransferase (ALT/SGPT) 8 U/L (12-78) L Alkaline Phosphatase 94 U/L (46-116) Lactate Dehydrogenase 207 U/L (81-234) Troponin I 0.003 ng/mL (0.000-0.056) C-Reactive Protein, Quantitative 5.7 mg/dL (0.00-0.90) H Pro-B-Type Natriuretic Peptide 331 pg/mL (0-125) H Total Protein 7.3 G/DL (6.4-8.2) Albumin 1.5 G/DL (3.4-5.0) L Globulin 5.8 g/dL Albumin/Globulin Ratio 0.3 (1.0-2.7) L Triglycerides Level 73 MG/DL (30-150) Cholesterol Level 75 MG/DL (< 200) LDL Cholesterol 50 mg/dL (<100) HDL Cholesterol 22 MG/DL (40-60) L Cholesterol/HDL Ratio 3.4 (3.3-4.4) Vitamin B12 Level 274 PG/ML (193-986) Folate 4.4 NG/ML (8.6-58.9) L Thyroid Stimulating Hormone (TSH) 2.478 uiU/mL (0.358-3.740) Microbiology Date/Time Source Procedure Growth Status 09/09/20 18:10 Urine,Clean Catch Urine Culture - Preliminary Gram Negative Kunal Resulted 09/09/20 18:08 Nasopharynx SARS-CoV-2 RdRp Gene Assay - Final Complete 09/09/20 17:53 Blood Blood Culture - Preliminary Resulted Objective HEAD AND NECK: No JVD. There is oral thrush. LUNGS: Coarse rhonchi. CARDIOVASCULAR: Regular S1 and S2 with no gallop. ABDOMEN: Soft. EXTREMITIES: No pitting edema. Artur Patton MD Sep 11, 2020 12:50
--- NOTE | 2020-09-11 12:52 | Infectious Diseases Prog Note ---
Assessment/Plan Assessment/Plan IMPRESSION: Pneumonia with cavitary lesions Pneumothorax Bacteremia will try to rule out tuberculosis & Pneumocystis. Pyuria, may have UTI. Has right hydronephrosis, HIV/AIDS, Emphysema, Oral candidiasis, anemia, cachexia. RECOMMENDATIONS: We will continue antibiotic with cefepime, Vancomycin & fluconazole Will f/u sputum for Pneumocystis. We will f/u AFB x3. We will check T spot test. We will follow up the cultures. Subjective ROS Limited/Unobtainable: No Constitutional: Reports: no symptoms Respiratory: Reports: other - R sidechest pain Gastrointestinal/Abdominal: Reports: no symptoms Genitourinary: Reports: no symptoms Allergies: Coded Allergies: No Known Allergies (Unverified , 06/30/19) Objective Last 24 Hour Vital Signs Date Time Temp Pulse Resp B/P (MAP) Pulse Ox O2 Delivery O2 Flow Rate FiO2 09/11/20 08:00 92 09/11/20 08:00 Room Air 09/11/20 08:00 98.1 87 24 149/92 (111) 99 09/11/20 04:00 98.0 87 26 115/82 (93) 99 09/11/20 04:00 Room Air 09/11/20 03:27 100 09/11/20 00:00 Room Air 09/11/20 00:00 98.9 107 26 122/72 (89) 99 09/10/20 23:30 113 09/10/20 20:00 Room Air 09/10/20 20:00 98.8 94 26 125/77 (93) 99 09/10/20 19:21 95 09/10/20 16:00 97.3 79 26 125/79 (94) 99 09/10/20 16:00 Room Air 09/10/20 15:48 90 Height (Feet): 5 Height (Inches): 4.00 Weight (Pounds): 120 General Appearance: no acute distress HEENT: mucous membranes moist Respiratory/Chest: decreased breath sounds, other - R chest tube Abdomen: soft, non tender Extremities: no edema Neurologic/Psychiatric: alert, responsive Musculoskeletal: atrophy Microbiology Date/Time Source Procedure Growth Status 09/09/20 18:10 Urine,Clean Catch Urine Culture - Preliminary Gram Negative Kunal Resulted 09/09/20 18:08 Nasopharynx SARS-CoV-2 RdRp Gene Assay - Final Complete 09/09/20 17:53 Blood Blood Culture - Preliminary Resulted Laboratory Tests Test 09/10/20 16:00 09/11/20 08:30 09/11/20 08:35 Urine Osmolality 504 mOsm/kg (429-449) H Urine Random Sodium 151 mmol/L (20-110) H Ferritin 229 NG/ML (8-388) White Blood Count 4.6 K/UL (4.8-10.8) L Red Blood Count 3.98 M/UL (4.70-6.10) L Hemoglobin 11.1 G/DL (14.2-18.0) L Hematocrit 35.4 % (42.0-52.0) L Mean Corpuscular Volume 89 FL (80-99) Mean Corpuscular Hemoglobin 27.8 PG (27.0-31.0) Mean Corpuscular Hemoglobin Concent 31.2 G/DL (32.0-36.0) L Red Cell Distribution Width 15.3 % (11.6-14.8) H Platelet Count 389 K/UL (150-450) Mean Platelet Volume 5.9 FL (6.5-10.1) L Neutrophils (%) (Auto) 72.6 % (45.0-75.0) Lymphocytes (%) (Auto) 19.3 % (20.0-45.0) L Monocytes (%) (Auto) 4.4 % (1.0-10.0) Eosinophils (%) (Auto) 3.1 % (0.0-3.0) H Basophils (%) (Auto) 0.6 % (0.0-2.0) Sodium Level 134 MMOL/L (136-145) L Potassium Level 3.9 MMOL/L (3.5-5.1) Chloride Level 102 MMOL/L (98-107) Carbon Dioxide Level 26 MMOL/L (21-32) Anion Gap 6 mmol/L (5-15) Blood Urea Nitrogen 13 mg/dL (7-18) Creatinine 1.0 MG/DL (0.55-1.30) Estimat Glomerular Filtration Rate > 60 mL/min (>60) Glucose Level 102 MG/DL (74-106) Hemoglobin A1c 6.4 % (4.3-6.0) H Osmolality 284 mOsm/kg (297-317) L Lactic Acid Level 2.80 mmol/L (0.4-2.0) H Uric Acid 3.3 MG/DL (2.6-7.2) Calcium Level 8.1 MG/DL (8.5-10.1) L Phosphorus Level 2.7 MG/DL (2.5-4.9) Magnesium Level 1.6 MG/DL (1.8-2.4) L Iron Level 15 ug/dL (50-175) L Total Iron Binding Capacity 196 ug/dL (250-450) L Percent Iron Saturation 8 % (15-50) L Unsaturated Iron Binding 181 ug/dL (112-346) Total Bilirubin 0.2 MG/DL (0.2-1.0) Gamma Glutamyl Transpeptidase 15 U/L (5-85) Aspartate Amino Transf (AST/SGOT) 19 U/L (15-37) Alanine Aminotransferase (ALT/SGPT) 8 U/L (12-78) L Alkaline Phosphatase 94 U/L (46-116) Lactate Dehydrogenase 207 U/L (81-234) Troponin I 0.003 ng/mL (0.000-0.056) C-Reactive Protein, Quantitative 5.7 mg/dL (0.00-0.90) H Pro-B-Type Natriuretic Peptide 331 pg/mL (0-125) H Total Protein 7.3 G/DL (6.4-8.2) Albumin 1.5 G/DL (3.4-5.0) L Globulin 5.8 g/dL Albumin/Globulin Ratio 0.3 (1.0-2.7) L Triglycerides Level 73 MG/DL (30-150) Cholesterol Level 75 MG/DL (< 200) LDL Cholesterol 50 mg/dL (<100) HDL Cholesterol 22 MG/DL (40-60) L Cholesterol/HDL Ratio 3.4 (3.3-4.4) Vitamin B12 Level 274 PG/ML (193-986) Folate 4.4 NG/ML (8.6-58.9) L Thyroid Stimulating Hormone (TSH) 2.478 uiU/mL (0.358-3.740) Current Medications Medications (Trade) Dose Ordered Sig/Kenia Route PRN Reason Start Time Stop Time Status Last Admin Dose Admin Acetaminophen (Tylenol) 650 mg Q4H PRN ORAL Mild Pain (Pain Scale 1-3) 09/10/20 01:15 10/10/20 01:14 09/10/20 22:51 Barium Sulfate (Varibar Honey) 250 ml NOW PRN MC RAD 09/10/20 18:45 09/13/20 18:36 Barium Sulfate (Varibar [place]) 240 ml NOW PRN MC RAD 09/10/20 18:45 09/13/20 18:36 Barium Sulfate (Varibar Pudding) 230 ml NOW PRN MC RAD 09/10/20 18:45 09/13/20 18:36 Barium Sulfate (Varibar Thin Liquid powder) 148 gm NOW PRN MC RAD 09/10/20 18:45 09/13/20 18:36 Cefepime HCl 1 gm/ Dextrose 55 ml @ 110 mls/hr EVERY 12 HOURS IVPB 09/10/20 12:00 09/17/20 11:59 09/11/20 08:35 Fluconazole (Diflucan) 400 mg DAILY ORAL 09/10/20 11:00 09/17/20 10:59 09/11/20 08:35 Haloperidol Lactate (Haldol) 5 mg Q6H PRN IM Agitation 09/10/20 15:30 10/25/20 15:29 Nystatin (Nystatin) 5 ml QID ORAL 09/09/20 18:00 09/16/20 17:59 09/11/20 08:35 Quetiapine Fumarate (SEROqueL) 50 mg BEDTIME ORAL 09/10/20 21:00 10/25/20 20:59 09/10/20 20:33 Vancomycin HCl ([facility] pharmacy to dose) 1 ea DAILY PRN MISC Per rx protocol 09/10/20 18:15 10/10/20 18:14 Vancomycin HCl 750 mg/Sodium Chloride 275 ml @ 183.333 mls/hr Q12HR@0800,1999 IVPB 09/10/20 20:00 09/15/20 19:59 09/11/20 08:00 Pasha Mendez MD Sep 11, 2020 12:52
--- NOTE | 2020-09-11 12:55 | NUR ---
RESPIRATORY NOTE: Returned after lunch per patient's request to draw ABG however he refused. Patient states, " I do not want it at all". Explained the importance of the ABG and why it's done however patient still refuses. MALIA Morrison notified.
--- NOTE | 2020-09-11 13:27 | Diagnostic Imaging Report ---
Indication: Dyspnea Technique: One view of the chest Comparison: 09/09/2020 Findings: Right chest tube remains. There is decreased subcutaneous emphysema. No pneumothorax is apparent. Bilateral interstitial and nodular airspace opacities throughout both lungs are again demonstrated, probably unchanged. Impression: Decreased subcutaneous emphysema of the right chest wall. 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
[2020-09-11] MEDS ORDERED: 1/2 NS 1000ml IV ONE (13:44)
--- NOTE | 2020-09-11 13:45 | NUR ---
NURSE NOTES:WOUND ASSESSMENT PATIENT AWAKE ALERT AND ABLE TO ASSIST WITH REPOSITIONING. RIGHT CHEST TUBE NOTED. SACRUM-STAGE II PRESSURE ULCER MEASURES 2.0X1.0X0.2CM. WOUND BED WITH PINK GRANULATION TISSUE AND NO DRAINAGE. HEATHER-WOUND JEISON RED IN COLOR. RECOMMEND-CLEAN AREA WITH SALINE. PAT DRY. APPLY CALAZINE AND COVER WITH OPTIFOAM DRESSING. REPLACE DRESSING EVERY 2 DAYS OR NEEDED. ALSO RECOMMEND: REMIND PATIENT TO REPOSITION SELF FREQUENTLY ELEVATE HEELS WITH PILLOWS CONTINUE WOUND PREVENTION PROTOCOLS
--- NOTE | 2020-09-11 14:00 | NUR ---
NURSE NOTES: Tried to approach resident of blood draw. Patient said "maybe tomorrow, or in two days". Explained risks and benefits, Patient verbalized understanding. Patient noted with no distress or discomfort noted. Denies pain at this time. Alert and oriented x 4 responsive with clear speech. Noted with good appetite. Will continue to monitor.
--- NOTE | 2020-09-11 14:20 | Cardiology Report ---
APPROVED REPORT EKG Measurement Heart [id number] OK [id number] <Conclusion> Normal sinus rhythm Rightward axis Borderline ECG
--- NOTE | 2020-09-11 14:37 | Cardiology Report ---
APPROVED REPORT EKG Measurement Heart [id number] <Conclusion> Normal sinus rhythm Cannot rule out Anterior infarct, age undetermined Abnormal ECG
--- NOTE | 2020-09-11 15:23 | NUR ---
OFFICE SUPPORT ASSOCIATE NOTE SW met w/ pt to clarify his current living situation. Pt presents as A&O4x. Pt admits he is currently homeless and the address on facesheet is his mailing address [address] [address]. Pt has been homeless for more than 7 years. Pt's [place] [facility] [place]. Pt is single and has no children. Pt declined to provide emergency contact. Pt receives SSI and has $100 left for this month. UDS positive for amphetamine. Pt declined counseling/tx intervention on substance abuse. Pt also declined to receive community resource packet and substance abuse resource. Pt denies having mental health issue. Pt plans to return to his familiar area, [facility] when he is medically cleared. Pt awaiting r/o TB at this time. SW explained negative ramification of unlicensed facilities/self-directing. Pt verbalized understanding. Pt does not share any concern/needs at this time. SW will F/U as needed.
[2020-09-11 16:00] VITALS: BP 136/90
--- NOTE | 2020-09-11 16:00 | NUR ---
NURSE NOTES: Patient continues to be in stable condition. All due meds given, denies pain at this time. No sign of apparent distress or discomfort noted. Vitals WNL. will continue to monitor.
--- NOTE | 2020-09-11 16:10 | NUR ---
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 98.9 HR 113 RR 26 B/P 122/72 WBC 4.6 LACTID ACID 2.80 MG 1.6 AFB X 3 PENDING CXR=Decreased subcutaneous emphysema of the right chest wall. IS: VANCO IV CEFEPIME IV AIRBORNE ISOLATION STEP DOWN STATUS
--- NOTE | 2020-09-11 17:27 | NUR ---
INSURANCE CLINICALS/REVIEW (09/09-09/11) FAXED TO [facility] [phone]
--- NOTE | 2020-09-11 19:10 | NUR ---
NURSE NOTES: received report from Camryn Rao RN. pt remains stable. pt is alert and oriented times 4, able to follow simple commands. pt is on awake overnight monitor showing SR, no acute cardiac distress noted. pt is breathing room air, sating 97% O2. chest tube noted in pts r sided chest. pt bed is low, locked, armed, call light within reach, bed rails up times 3, will follow plan of care.
--- NOTE | 2020-09-11 19:15 | NUR ---
NURSE HAND-OFF REPORT: Important Events on Shift: Patient refused blood draws. Patient Status: Stable Diet: Regular Pending Orders: Pending Results/Labs: Pending MD notification: Latest Vital Signs: Temperature 98.0 , Pulse 108 , B/P 136 /90 , Respiratory Rate 22 , O2 SAT 99 , Room Air, O2 Flow Rate 2.0 . Vital Sign Comment: WNL EKG Rhythm: Sinus Tachycardia Rhythm change?: Y MD Notified?: N - MD Response: Latest Estrella Fall Score: 45 Fall Risk: High Risk Safety Measures: Call light Within Reach, Bed Alarm Zone 1, Side Rails Side Rails x2, Bed position Low and Locked. Fall Precautions: Yellow Socks Yellow Gown Door Sign Patient Fall Education Report given to MALIA Summers.
[2020-09-11 20:00] VITALS: BP 151/97
--- NOTE | 2020-09-11 20:20 | General Progress Note ---
Subjective ROS Limited/Unobtainable: Yes Allergies: Coded Allergies: No Known Allergies (Unverified , 06/30/19) Objective Last 24 Hour Vital Signs Date Time Temp Pulse Resp B/P (MAP) Pulse Ox O2 Delivery O2 Flow Rate FiO2 09/11/20 16:00 Room Air 09/11/20 16:00 108 09/11/20 16:00 98.0 108 22 136/90 (105) 99 09/11/20 12:00 Room Air 09/11/20 12:00 97.8 94 25 126/88 (101) 99 09/11/20 12:00 94 09/11/20 08:00 92 09/11/20 08:00 Room Air 09/11/20 08:00 98.1 87 24 149/92 (111) 99 09/11/20 04:00 98.0 87 26 115/82 (93) 99 09/11/20 04:00 Room Air 09/11/20 03:27 100 09/11/20 00:00 Room Air 09/11/20 00:00 98.9 107 26 122/72 (89) 99 09/10/20 23:30 113 Intake and Output 09/10/20 09/11/20 19:00 07:00 Intake Total 1800 ml 1030.000 ml Output Total 1467 ml 1303 ml Balance 333 ml -273.000 ml Intake Oral 1000 ml 400 ml IV Total 800 ml 630.000 ml Output Urine Total 1450 ml 1300 ml Chest Tube Drainage Total 17 ml 3 ml # Bowel Movements 2 Laboratory Tests 09/11/20 08:30: Ferritin 229 09/11/20 08:35: White Blood Count 4.6L, Red Blood Count 3.98L, Hemoglobin 11.1L, Hematocrit 35.4L, Mean Corpuscular Volume 89, Mean Corpuscular Hemoglobin 27.8, Mean Corpuscular Hemoglobin Concent 31.2L, Red Cell Distribution Width 15.3H, Platelet Count 389, Mean Platelet Volume 5.9L, Neutrophils (%) (Auto) 72.6, Lymphocytes (%) (Auto) 19.3L, Monocytes (%) (Auto) 4.4, Eosinophils (%) (Auto) 3.1H, Basophils (%) (Auto) 0.6, Sodium Level 134L, Potassium Level 3.9, Chloride Level 102, Carbon Dioxide Level 26, Anion Gap 6, Blood Urea Nitrogen 13, Cre atinine 1.0, Estimat Glomerular Filtration Rate > 60, Glucose Level 102, Hemoglobin A1c 6.4H, Osmolality 284L, Lactic Acid Level 2.80H, Uric Acid 3.3, Calcium Level 8.1L, Phosphorus Level 2.7, Magnesium Level 1.6L, Iron Level 15L, Total Iron Binding Capacity 196L, Percent Iron Saturation 8L, Unsaturated Iron Binding 181, Total Bilirubin 0.2, Gamma Glutamyl Transpeptidase 15, Aspartate Amino Transf (AST/SGOT) 19, Alanine Aminotransferase (ALT/SGPT) 8L, Alkaline Phosphatase 94, Lactate Dehydrogenase 207, Troponin I 0.003, C-Reactive Protein, Quantitative 5.7H, Pro-B-Type Natriuretic Peptide 331H, Total Protein 7.3, Albumin 1.5L, Globulin 5.8, Albumin/Globulin Ratio 0.3L, Triglycerides Level 73, Cholesterol Level 75, LDL Cholesterol 50, HDL Cholesterol 22L, Cholesterol/HDL Ratio 3.4, Vitamin B12 Level 274, Folate 4.4L, Thyroid Stimulating Hormone (TSH) 2.478 Height (Feet): 5 Height (Inches): 4.00 Weight (Pounds): 120 Assessment/Plan Problem List: (1) Oral thrush ICD Codes: B37.0 - Candidal stomatitis SNOMED: 23798446 (2) Pneumonia ICD Codes: J18.9 - Pneumonia, unspecified organism SNOMED: 607882039 (3) Amphetamine abuse ICD Codes: F15.10 - Other stimulant abuse, uncomplicated SNOMED: 64426214 (4) Pneumonia ICD Codes: J18.9 - Pneumonia, unspecified organism SNOMED: 548410723 (5) Pneumothorax ICD Codes: J93.9 - Pneumothorax, unspecified SNOMED: 94730299 (6) Cachexia ICD Codes: R64 - Cachexia SNOMED: 511538549 (7) HIV (human immunodeficiency virus infection) ICD Codes: B20 - Human immunodeficiency virus [HIV] disease SNOMED: 17542140 (8) COPD (chronic obstructive pulmonary disease) ICD Codes: J44.9 - Chronic obstructive pulmonary disease, unspecified SNOMED: 40287252 (9) Severe protein-calorie malnutrition ICD Codes: E43 - Unspecified severe protein-calorie malnutrition SNOMED: 966210267, 702515502, 881372521 Status: progressing Assessment/Plan: afebrile hiv cachexia r/o TB pneumothorax chest tube malnutrition pna cavitary lesion Tino Rodriges MD Sep 11, 2020 20:20
--- NOTE | 2020-09-11 21:00 | NUR ---
NURSE NOTES: assessed pt, vital signs stable. chest tube in place. pt is sating 95% O2.
--- NOTE | 2020-09-11 23:09 | Psychiatric Progress Note ---
Psychiatry Progress Note Psychiatry Progress Note Medications Current Medications Medications (Trade) Dose Ordered Sig/Kenia Route PRN Reason Start Time Stop Time Status Last Admin Dose Admin Acetaminophen (Tylenol) 650 mg Q4H PRN ORAL Mild Pain (Pain Scale 1-3) 09/10/20 01:15 10/10/20 01:14 09/10/20 22:51 Barium Sulfate (Varibar Honey) 250 ml NOW PRN RAD 09/10/20 18:45 09/13/20 18:36 Barium Sulfate (Varibar [place]) 240 ml NOW PRN RAD 09/10/20 18:45 09/13/20 18:36 Barium Sulfate (Varibar Pudding) 230 ml NOW PRN RAD 09/10/20 18:45 09/13/20 18:36 Barium Sulfate (Varibar Thin Liquid powder) 148 gm NOW PRN RAD 09/10/20 18:45 09/13/20 18:36 Cefepime HCl 1 gm/ Dextrose 55 ml @ 110 mls/hr EVERY 12 HOURS IVPB 09/10/20 12:00 09/17/20 11:59 09/11/20 21:40 Fluconazole (Diflucan) 400 mg DAILY ORAL 09/10/20 11:00 09/17/20 10:59 09/11/20 08:35 Haloperidol Lactate (Haldol) 5 mg Q6H PRN IM Agitation 09/10/20 15:30 10/25/20 15:29 Nystatin (Nystatin) 5 ml QID ORAL 09/09/20 18:00 09/16/20 17:59 09/11/20 20:39 Quetiapine Fumarate (SEROqueL) 50 mg BEDTIME ORAL 09/10/20 21:00 10/25/20 20:59 09/11/20 20:38 Vancomycin HCl (Vanco pharmacy to dose) 1 ea DAILY PRN MISC Per rx protocol 09/10/20 18:15 10/10/20 18:14 Vancomycin HCl 750 mg/Sodium Chloride 275 ml @ 183.333 mls/hr Q12HR@0800,2000 IVPB 09/10/20 20:00 09/15/20 19:59 09/11/20 20:38 Neurological/Psychiatric: Reports: anxiety, depressed, emotional problems Allergies: Coded Allergies: No Known Allergies (Unverified , 06/30/19) Objective Data Height (Feet): 5 Height (Inches): 4.00 Weight (Pounds): 120 Additional Comments: lert, oriented times self, place, situation. Mood is anxious. Affect is blunted, congruent with mood. Thought process is concrete. Thought content, there is no suicidal or homicidal ideation. Cognition is impaired. Assessment/Plan Status: progressing Assessment/Plan: ASSESSMENT: [place] I Anxiety disorder. Depressive disorder. [place] II Deferred. [place] III HIV. [place] IV Moderate. [place] V 40. PLAN: 1. Seroquel at bedtime. 2. Haldol p.r.n. 3. Provide the patient with reality orientation and discussed with the nurse. Denae Jaquez MD Sep 11, 2020 23:08
--- NOTE | 2020-09-11 23:10 | NUR ---
NURSE NOTES: assessed pt. pt requested "juice and a snack." offered pt 1 cup apple juice and two crackers from unit pantry.
[2020-09-12] VITALS: BP 123/88
--- NOTE | 2020-09-12 01:00 | NUR ---
NURSE NOTES: pt is asleep at the moment. vital signs stable. no apparent distress noted.
--- NOTE | 2020-09-12 03:15 | NUR ---
NURSE NOTES: pt refused to be cleaned. IV tubings up to date. vital signs stable. no signs symptoms of acute resp distress.
[2020-09-12 04:00] VITALS: BP 129/90
--- NOTE | 2020-09-12 06:00 | NUR ---
NURSE NOTES: pts sputum sent to lab.
--- NOTE | 2020-09-12 07:10 | NUR ---
NURSE HAND-OFF REPORT: Important Events on Shift:[monitoring chest tube] Patient Status: [stable] Diet: [as doctor order] Pending Orders: [NA] Pending Results/Labs:[NA] Pending MD notification:[NA] Latest Vital Signs: Temperature 97.6 , Pulse 115 , B/P 129 /90 , Respiratory Rate 22 , O2 SAT 95 , Room Air, O2 Flow Rate 2.0 . Vital Sign Comment: [stable] EKG Rhythm: Sinus Rhythm Rhythm change?: N MD Notified?: N - MD Response: Latest Estrella Fall Score: 45 Fall Risk: High Risk Safety Measures: Call light Within Reach, Bed Alarm Zone 1, Side Rails Side Rails x2, Bed position Low and Locked. Fall Precautions: Yellow Socks Yellow Gown Door Sign Patient Fall Education Report given to [Tone Terrell RN].
[2020-09-12 08:00] VITALS: BP 141/99
--- NOTE | 2020-09-12 08:16 | NUR ---
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 Patient has SCD's on bilateral lower extremities, patient is on isolation for rule out TB, chest tube is in place and draining to gravity on intermittent suction. L IV site is clean dry and intact running 1/2NS@50Ml/HR. Bed in the low and locked position with call light within reach, will follow plan of care.
[2020-09-12] MEDS: Vancomycin 750 MG in NS 275 ML IVPB SCH ×3 (08:29→23:32)
--- NOTE | 2020-09-12 09:15 | Pulmonology Progress Note ---
Subjective ROS Limited/Unobtainable: Yes Interval Events: None new Constitutional: Reports: no symptoms HEENT: Repors: no symptoms Respiratory: Reports: no symptoms Cardiovascular: Reports: no symptoms Gastrointestinal/Abdominal: Reports: no symptoms Genitourinary: Reports: no symptoms Neurologic: Reports: no symptoms Allergies: Coded Allergies: No Known Allergies (Unverified , 06/30/19) Objective Last 24 Hour Vital Signs Date Time Temp Pulse Resp B/P (MAP) Pulse Ox O2 Delivery O2 Flow Rate FiO2 09/12/20 08:00 98.1 117 17 141/99 (113) 97 09/12/20 08:00 Room Air 09/12/20 04:00 Room Air 09/12/20 04:00 97.6 115 22 129/90 (103) 95 09/12/20 03:39 106 09/12/20 00:00 Room Air 09/12/20 00:00 131 09/12/20 00:00 97.4 117 22 123/88 (100) 94 09/11/20 20:00 Room Air 09/11/20 20:00 98.5 108 22 151/97 (115) 95 09/11/20 19:01 109 09/11/20 16:00 Room Air 09/11/20 16:00 108 09/11/20 16:00 98.0 108 22 136/90 (105) 99 09/11/20 12:00 Room Air 09/11/20 12:00 97.8 94 25 126/88 (101) 99 09/11/20 12:00 94 Intake and Output 09/11/20 09/12/20 19:00 07:00 Intake Total 700 ml 330.000 ml Output Total 1453 ml 2000 ml Balance -753 ml -1670.000 ml Intake Oral 700 ml IV Total 330.000 ml Output Urine Total 1450 ml 2000 ml Chest Tube Drainage Total 3 ml # Bowel Movements 6 1 General Appearance: no acute distress HEENT: normocephalic Respiratory: chest wall non-tender, lungs clear Cardiovascular: normal peripheral pulses, normal rate Abdomen: normal bowel sounds Microbiology Date/Time Source Procedure Growth Status 09/10/20 18:00 Sputum AFB Specimen Processing Tissue - Final Resulted 09/10/20 18:00 Sputum Acid Fast Bacilli Smear - Final Resulted 09/10/20 18:00 Sputum Acid Fast Bacilli Culture Pending Resulted 09/09/20 18:10 Urine,Clean Catch Urine Culture - Final Escherichia Coli - Esbl Complete 09/09/20 18:08 Nasopharynx SARS-CoV-2 RdRp Gene Assay - Final Complete 09/09/20 18:08 Blood Blood Culture - Preliminary NO GROWTH AFTER 48 HOURS Resulted 09/09/20 17:53 Blood Blood Culture - Preliminary Gram Positive Cocci Resulted Laboratory Tests 09/12/20 07:15: Vancomycin Level Trough [Pending] 09/12/20 08:49: Arterial Blood pH 7.444, Arterial Blood Partial Pressure CO2 37.0, Arterial Blood Partial Pressure O2 64.7L, Arterial Blood HCO3 24.8, Arterial Blood Oxygen Saturation 91.9L, Arterial Blood Base Excess 0.9, Rudi Test Positive Current Medications Medications (Trade) Dose Ordered Sig/Kenia Route PRN Reason Start Time Stop Time Status Last Admin Dose Admin Acetaminophen (Tylenol) 650 mg Q4H PRN ORAL Mild Pain (Pain Scale 1-3) 09/10/20 01:15 10/10/20 01:14 09/10/20 22:51 Barium Sulfate (Varibar Honey) 250 ml NOW PRN MC RAD 09/10/20 18:45 09/13/20 18:36 Barium Sulfate (Varibar [place]) 240 ml NOW PRN MC RAD 09/10/20 18:45 09/13/20 18:36 Barium Sulfate (Varibar Pudding) 230 ml NOW PRN MC RAD 09/10/20 18:45 09/13/20 18:36 Barium Sulfate (Varibar Thin Liquid powder) 148 gm NOW PRN MC RAD 09/10/20 18:45 09/13/20 18:36 Cefepime HCl 1 gm/ Dextrose 55 ml @ 110 mls/hr EVERY 12 HOURS IVPB 09/10/20 12:00 09/17/20 11:59 09/11/20 21:40 Fluconazole (Diflucan) 400 mg DAILY ORAL 09/10/20 11:00 09/17/20 10:59 09/11/20 08:35 Haloperidol Lactate (Haldol) 5 mg Q6H PRN IM Agitation 09/10/20 15:30 10/25/20 15:29 Nystatin (Nystatin) 5 ml QID ORAL 09/09/20 18:00 09/16/20 17:59 09/11/20 20:39 Quetiapine Fumarate (SEROqueL) 50 mg BEDTIME ORAL 09/10/20 21:00 10/25/20 20:59 09/11/20 20:38 Vancomycin HCl (Vanco pharmacy to dose) 1 ea DAILY PRN MISC Per rx protocol 09/10/20 18:15 10/10/20 18:14 Vancomycin HCl 750 mg/Sodium Chloride 275 ml @ 183.333 mls/hr Q12HR@0800,2000 IVPB 09/10/20 20:00 09/15/20 19:59 09/12/20 08:29 Assessment/Plan Assessment/Plan IMPRESSION: 1. Cavitary pneumonia. 2. Spontaneous right pneumothorax. 3. AIDS. 4. Chronic marijuana usage. DISCUSSION: I suspect he has PCP pneumonia with cavitary lesions and pneumothorax. A chest tube has been placed. He will benefit from antibiotics. Await sputum induction for PCP. Bactrim to be continued. ID consult noted. Continue oxygen and pulmonary hygiene. I will follow. Reviewed CXR Will clamp CT All Magallon M.D. All Magallon MD Sep 12, 2020 09:15
--- NOTE | 2020-09-12 09:33 | Nephrology Progress Note ---
Assessment/Plan Problem List: (1) Pneumothorax (2) Amphetamine abuse (3) HIV (human immunodeficiency virus infection) (4) Severe protein-calorie malnutrition (5) Electrolyte imbalance (6) Proteinuria Assessment Electrolyte imbalance: Hypokalemia, hyponatremia Hypoalbuminemia, 2+ proteinuria UTI Cavitary pneumonia Anemia Drug abuse, urine positive for amphetamine Right chest tube, spontaneous right pneumothorax AIDS Plan September 12: Patient continues to have chest tube over the right side. Minimal drainage according to the RN. Chemistry panel done today. Continue to watch electrolytes and renal parameters. Continue per consultants. Like acid and B12 ordered Previously: Aim to correct electrolytes Per pulmonary, per ID Keep the blood pressure and blood sugar in check Per orders Subjective ROS Limited/Unobtainable: No Constitutional: Reports: malaise Objective Objective Last 24 Hour Vital Signs Date Time Temp Pulse Resp B/P (MAP) Pulse Ox O2 Delivery O2 Flow Rate FiO2 09/12/20 08:00 98.1 117 17 141/99 (113) 97 09/12/20 08:00 Room Air 09/12/20 04:00 Room Air 09/12/20 04:00 97.6 115 22 129/90 (103) 95 09/12/20 03:39 106 09/12/20 00:00 Room Air 09/12/20 00:00 131 09/12/20 00:00 97.4 117 22 123/88 (100) 94 09/11/20 20:00 Room Air 09/11/20 20:00 98.5 108 22 151/97 (115) 95 09/11/20 19:01 109 09/11/20 16:00 Room Air 09/11/20 16:00 108 09/11/20 16:00 98.0 108 22 136/90 (105) 99 09/11/20 12:00 Room Air 09/11/20 12:00 97.8 94 25 126/88 (101) 99 09/11/20 12:00 94 Intake and Output 09/11/20 09/12/20 19:00 07:00 Intake Total 700 ml 330.000 ml Output Total 1453 ml 2000 ml Balance -753 ml -1670.000 ml Intake Oral 700 ml IV Total 330.000 ml Output Urine Total 1450 ml 2000 ml Chest Tube Drainage Total 3 ml # Bowel Movements 6 1 Laboratory Tests 09/12/20 07:15: Vancomycin Level Trough [Pending] 09/12/20 08:49: Arterial Blood pH 7.444, Arterial Blood Partial Pressure CO2 37.0, Arterial Blood Partial Pressure O2 64.7L, Arterial Blood HCO3 24.8, Arterial Blood Oxygen Saturation 91.9L, Arterial Blood Base Excess 0.9, Rudi Test Positive Height (Feet): 5 Height (Inches): 4.00 Weight (Pounds): 120 General Appearance: no apparent distress EENT: other - O2 in room air Cardiovascular: tachycardia Respiratory/Chest: decreased breath sounds, other - Chest tube on the right side with minimal drainage Abdomen: distended Jimy Mahmood MD Sep 12, 2020 09:33
[2020-09-12] MEDS: Cefepime HCl 1 GM in D5W 55 ML IVPB SCH (09:59)
[2020-09-12] MEDS: Fluconazole 100mg tab ORAL SCH (10:00)
[2020-09-12] MEDS: Nystatin Susp 500,000 units/5ml ORAL SCH ×4 (10:01→21:25)
--- NOTE | 2020-09-12 10:05 | NUR ---
NURSE NOTES:Dr Magallon rounded on patient and gave order to clamp chest tube. Chest tube clamped per MD order by Jazmin wong RN who demonstrated to me how to clamp the chest tube. Also ordered CXR at 1600.
--- NOTE | 2020-09-12 10:24 | NUR ---
NURSE NOTES: DR. Magallon made rounds ,ordered to clamp right chest tube- with light pink drainage,no shortness of breath,sitting on bed 1024 right chest tube clamp,encouraged to do deep breathing exercise,he verbalize he is doing it,continue to observe chest X ray 1600
--- NOTE | 2020-09-12 10:29 | Infectious Diseases Prog Note ---
Assessment/Plan Assessment/Plan IMPRESSION: Pneumonia with cavitary lesions E coli ESBL Pneumothorax Bacteremia will try to rule out tuberculosis, AFB X 1+ neg R/O Pneumocystis. Pyuria, may have UTI. Has right hydronephrosis, HIV/AIDS, CD4=29 Emphysema, Oral candidiasis, anemia, cachexia. RECOMMENDATIONS: We will change cefepime to Meropenem Continue Vancomycin & fluconazole Add Zithromax & Bactrim Will f/u sputum for Pneumocystis. We will f/u AFB x3. We will check T spot test. We will follow up the cultures. Subjective ROS Limited/Unobtainable: Yes Constitutional: Reports: no symptoms Respiratory: Reports: other - R side chest pain Musculoskeletal: Reports: pain Allergies: Coded Allergies: No Known Allergies (Unverified , 06/30/19) Objective Last 24 Hour Vital Signs Date Time Temp Pulse Resp B/P (MAP) Pulse Ox O2 Delivery O2 Flow Rate FiO2 09/12/20 08:00 98.1 117 17 141/99 (113) 97 09/12/20 08:00 Room Air 09/12/20 04:00 Room Air 09/12/20 04:00 97.6 115 22 129/90 (103) 95 09/12/20 03:39 106 09/12/20 00:00 Room Air 09/12/20 00:00 131 09/12/20 00:00 97.4 117 22 123/88 (100) 94 09/11/20 20:00 Room Air 09/11/20 20:00 98.5 108 22 151/97 (115) 95 09/11/20 19:01 109 09/11/20 16:00 Room Air 09/11/20 16:00 108 09/11/20 16:00 98.0 108 22 136/90 (105) 99 09/11/20 12:00 Room Air 09/11/20 12:00 97.8 94 25 126/88 (101) 99 09/11/20 12:00 94 Height (Feet): 5 Height (Inches): 4.00 Weight (Pounds): 120 General Appearance: no acute distress HEENT: mucous membranes moist Respiratory/Chest: other - R side chest tube Cardiovascular: normal rate Abdomen: soft, non tender Extremities: no edema Neurologic/Psychiatric: alert, responsive Microbiology Date/Time Source Procedure Growth Status 09/10/20 18:00 Sputum AFB Specimen Processing Tissue - Final Resulted 09/10/20 18:00 Sputum Acid Fast Bacilli Smear - Final Resulted 09/10/20 18:00 Sputum Acid Fast Bacilli Culture Pending Resulted 09/09/20 18:10 Urine,Clean Catch Urine Culture - Final Escherichia Coli - Esbl Complete 09/09/20 18:08 Nasopharynx SARS-CoV-2 RdRp Gene Assay - Final Complete 09/09/20 18:08 Blood Blood Culture - Preliminary NO GROWTH AFTER 48 HOURS Resulted 09/09/20 17:53 Blood Blood Culture - Preliminary Gram Positive Cocci Resulted Laboratory Tests Test 09/12/20 07:15 09/12/20 08:49 Vancomycin Level Trough 10.6 ug/mL (5.0-12.0) Arterial Blood pH 7.444 (7.350-7.450) Arterial Blood Partial Pressure CO2 37.0 mmHg (35.0-45.0) Arterial Blood Partial Pressure O2 64.7 mmHg (75.0-100.0) L Arterial Blood HCO3 24.8 mmol/L (22.0-26.0) Arterial Blood Oxygen Saturation 91.9 % (95-100) L Arterial Blood Base Excess 0.9 (-2-2) Rudi Test Positive Current Medications Medications (Trade) Dose Ordered Sig/Kenia Route PRN Reason Start Time Stop Time Status Last Admin Dose Admin Acetaminophen (Tylenol) 650 mg Q4H PRN ORAL Mild Pain (Pain Scale 1-3) 09/10/20 01:15 10/10/20 01:14 09/10/20 22:51 Barium Sulfate (Varibar Honey) 250 ml NOW PRN RAD 09/10/20 18:45 09/13/20 18:36 Barium Sulfate (Varibar [place]) 240 ml NOW PRN MC RAD 09/10/20 18:45 09/13/20 18:36 Barium Sulfate (Varibar Pudding) 230 ml NOW PRN MC RAD 09/10/20 18:45 09/13/20 18:36 Barium Sulfate (Varibar Thin Liquid powder) 148 gm NOW PRN MC RAD 09/10/20 18:45 09/13/20 18:36 Cefepime HCl 1 gm/ Dextrose 55 ml @ 110 mls/hr EVERY 12 HOURS IVPB 09/10/20 12:00 09/17/20 11:59 09/12/20 09:59 Cyanocobalamin (Vitamin B12) 1,000 mcg ONCE ONCE IM 09/12/20 10:30 09/12/20 10:31 Fluconazole (Diflucan) 400 mg DAILY ORAL 09/10/20 11:00 09/17/20 10:59 09/12/20 10:00 Folic Acid (Folate) 1 mg DAILY ORAL 09/12/20 09:30 10/12/20 09:29 09/12/20 10:05 Haloperidol Lactate (Haldol) 5 mg Q6H PRN IM Agitation 09/10/20 15:30 10/25/20 15:29 Nystatin (Nystatin) 5 ml QID ORAL 09/09/20 18:00 09/16/20 17:59 09/12/20 10:01 Quetiapine Fumarate (SEROqueL) 50 mg BEDTIME ORAL 09/10/20 21:00 10/25/20 20:59 09/11/20 20:38 Vancomycin HCl (Vanco pharmacy to dose) 1 ea DAILY PRN MISC Per rx protocol 09/10/20 18:15 10/10/20 18:14 Vancomycin HCl 750 mg/Sodium Chloride 275 ml @ 183.333 mls/hr Q8H IVPB 09/12/20 16:00 09/17/20 15:59 Pasha Mendez MD Sep 12, 2020 10:29
[2020-09-12] MEDS ORDERED: Vitamin B12 1000mcg/ml Inj IM ONE (10:30)
--- NOTE | 2020-09-12 10:35 | Cardiac Electrophysiology PN ---
Assessment/Plan Assessment/Plan 1. Chest pain and shortness of breath. Ruled out for MD protocol. The patient's amphetamine is positive. The patient, however, also has pneumothorax EF 55% 2. HIV, with oral thrush. 3. Rule out TB in view of cavitary lesion. 4. Pneumothorax, status post right-sided chest tube, on IV antibiotic Clamped and repeat XR at 4 pm pending 5. Substance abuse. Subjective Subjective Alert in NAD. Second and 3rd sputum Cx results is pending. In TB isolation. In SR with no CP.ABG done Objective Last 24 Hour Vital Signs Date Time Temp Pulse Resp B/P (MAP) Pulse Ox O2 Delivery O2 Flow Rate FiO2 09/12/20 08:00 98.1 117 17 141/99 (113) 97 09/12/20 08:00 Room Air 09/12/20 04:00 Room Air 09/12/20 04:00 97.6 115 22 129/90 (103) 95 09/12/20 03:39 106 09/12/20 00:00 Room Air 09/12/20 00:00 131 09/12/20 00:00 97.4 117 22 123/88 (100) 94 09/11/20 20:00 Room Air 09/11/20 20:00 98.5 108 22 151/97 (115) 95 09/11/20 19:01 109 09/11/20 16:00 Room Air 09/11/20 16:00 108 09/11/20 16:00 98.0 108 22 136/90 (105) 99 09/11/20 12:00 Room Air 09/11/20 12:00 97.8 94 25 126/88 (101) 99 09/11/20 12:00 94 Intake and Output 09/11/20 09/12/20 19:00 07:00 Intake Total 700 ml 330.000 ml Output Total 1453 ml 2000 ml Balance -753 ml -1670.000 ml Intake Oral 700 ml IV Total 330.000 ml Output Urine Total 1450 ml 2000 ml Chest Tube Drainage Total 3 ml # Bowel Movements 6 1 Laboratory Tests Test 09/12/20 07:15 09/12/20 08:49 Vancomycin Level Trough 10.6 ug/mL (5.0-12.0) Arterial Blood pH 7.444 (7.350-7.450) Arterial Blood Partial Pressure CO2 37.0 mmHg (35.0-45.0) Arterial Blood Partial Pressure O2 64.7 mmHg (75.0-100.0) L Arterial Blood HCO3 24.8 mmol/L (22.0-26.0) Arterial Blood Oxygen Saturation 91.9 % (95-100) L Arterial Blood Base Excess 0.9 (-2-2) Rudi Test Positive Microbiology Date/Time Source Procedure Growth Status 09/10/20 18:00 Sputum AFB Specimen Processing Tissue - Final Resulted 09/10/20 18:00 Sputum Acid Fast Bacilli Smear - Final Resulted 09/10/20 18:00 Sputum Acid Fast Bacilli Culture Pending Resulted 09/09/20 18:10 Urine,Clean Catch Urine Culture - Final Escherichia Coli - Esbl Complete 09/09/20 18:08 Nasopharynx SARS-CoV-2 RdRp Gene Assay - Final Complete 09/09/20 18:08 Blood Blood Culture - Preliminary NO GROWTH AFTER 48 HOURS Resulted 09/09/20 17:53 Blood Blood Culture - Preliminary Gram Positive Cocci Resulted Objective HEAD AND NECK: No JVD. There is oral thrush. LUNGS: Coarse rhonchi. CARDIOVASCULAR: Regular S1 and S2 with no gallop. ABDOMEN: Soft. EXTREMITIES: No pitting edema. Artur Patton MD Sep 12, 2020 10:35
[2020-09-12] MEDS ORDERED: Azithromycin 600mg Tab ORAL SCH (11:00)
--- NOTE | 2020-09-12 11:14 | General Progress Note ---
Subjective ROS Limited/Unobtainable: Yes Allergies: Coded Allergies: No Known Allergies (Unverified , 06/30/19) Objective Last 24 Hour Vital Signs Date Time Temp Pulse Resp B/P (MAP) Pulse Ox O2 Delivery O2 Flow Rate FiO2 09/12/20 08:00 98.1 117 17 141/99 (113) 97 09/12/20 08:00 Room Air 09/12/20 07:48 108 09/12/20 04:00 Room Air 09/12/20 04:00 97.6 115 22 129/90 (103) 95 09/12/20 03:39 106 09/12/20 00:00 Room Air 09/12/20 00:00 131 09/12/20 00:00 97.4 117 22 123/88 (100) 94 09/11/20 20:00 Room Air 09/11/20 20:00 98.5 108 22 151/97 (115) 95 09/11/20 19:01 109 09/11/20 16:00 Room Air 09/11/20 16:00 108 09/11/20 16:00 98.0 108 22 136/90 (105) 99 09/11/20 12:00 Room Air 09/11/20 12:00 97.8 94 25 126/88 (101) 99 09/11/20 12:00 94 Intake and Output 09/11/20 09/12/20 19:00 07:00 Intake Total 700 ml 330.000 ml Output Total 1453 ml 2000 ml Balance -753 ml -1670.000 ml Intake Oral 700 ml IV Total 330.000 ml Output Urine Total 1450 ml 2000 ml Chest Tube Drainage Total 3 ml # Bowel Movements 6 1 Laboratory Tests 09/12/20 07:15: Vancomycin Level Trough 10.6 09/12/20 08:49: Arterial Blood pH 7.444, Arterial Blood Partial Pressure CO2 37.0, Arterial Blood Partial Pressure O2 64.7L, Arterial Blood HCO3 24.8, Arterial Blood Oxygen Saturation 91.9L, Arterial Blood Base Excess 0.9, Rudi Test Positive Height (Feet): 5 Height (Inches): 4.00 Weight (Pounds): 120 Assessment/Plan Problem List: (1) Oral thrush ICD Codes: B37.0 - Candidal stomatitis SNOMED: 76348795 (2) Pneumonia ICD Codes: J18.9 - Pneumonia, unspecified organism SNOMED: 871834518 (3) Amphetamine abuse ICD Codes: F15.10 - Other stimulant abuse, uncomplicated SNOMED: 16137188 (4) Pneumonia ICD Codes: J18.9 - Pneumonia, unspecified organism SNOMED: 696816220 (5) Pneumothorax ICD Codes: J93.9 - Pneumothorax, unspecified SNOMED: 28109057 (6) Cachexia ICD Codes: R64 - Cachexia SNOMED: 011609753 (7) HIV (human immunodeficiency virus infection) ICD Codes: B20 - Human immunodeficiency virus [HIV] disease SNOMED: 27195146 (8) COPD (chronic obstructive pulmonary disease) ICD Codes: J44.9 - Chronic obstructive pulmonary disease, unspecified SNOMED: 31013779 (9) Severe protein-calorie malnutrition ICD Codes: E43 - Unspecified severe protein-calorie malnutrition SNOMED: 689270417, 711332246, 974264589 Status: progressing Assessment/Plan: hiv r/o TB pneumothorax chest tube draining afebrile anxious malnutrition pna cavitary lesion await tb results Tino Rodriges MD Sep 12, 2020 11:14
[2020-09-12 12:00] VITALS: BP 136/96
[2020-09-12] MEDS: Bactrim-DS 1 tab ORAL SCH ×2 (12:19→21:26)
--- NOTE | 2020-09-12 12:30 | NUR ---
NURSE NOTES:Patient accidentally removed IV whilst taking his gown off. New IV placed.
[2020-09-12] MEDS: Meropenem 500 MG in NS 55 ML IVPB SCH ×2 (14:06→21:26)
--- NOTE | 2020-09-12 15:18 | NUR ---
TIP INSERTERJACKSCREW MAN SI: SEPSIS,R/O TB RIGHT CHEST TUBE T. 97.4 HR 117 RR 17 B/P 141/99 AFB#1 NEGATIVE IS: VANCO IV MEROPENEM IV BACTRIM PO ZITHROMAX PO AIRBORNE ISOLATION STEP DOWN STATUS
--- NOTE | 2020-09-12 15:23 | NUR ---
VENDING SERVICE TECHNICIAN NOTES CLINICALS REVIEWED AND FAXED.
[2020-09-12 16:00] VITALS: BP 143/106
--- NOTE | 2020-09-12 16:52 | Diagnostic Imaging Report ---
Indication: Shortness of breath Technique: One view of the chest Comparison: 09/11/2020 Findings: Right chest tube remains. There is minimal residual subcutaneous emphysema in the right chest wall. No pneumothorax. Bilateral interstitial and nodular airspace opacities are again demonstrated, unchanged Impression: Decreased right chest wall emphysema. Otherwise unchanged.
--- NOTE | 2020-09-12 17:52 | NUR ---
NURSE NOTES:Called and spoke to Dr Magallon regarding 1600 Chest X-ray. Read back the results of the CXR to MD who stated to leave the chest tube clamped.
--- NOTE | 2020-09-12 19:10 | NUR ---
NURSE NOTES: pt report received from Tone Rao RN pt remains stable. pt is alert and oriented times 4, able to follow commands. pt breathing room air, sating at 97% O2, no complaints of shortness of breath. pt is on bushel girl showing ST, no other cardiac abnormalities noted. pt bed is low, locked, armed call light within reach, bed rails up times 3. will follow plan of care.
--- NOTE | 2020-09-12 19:15 | NUR ---
NURSE HAND-OFF REPORT: Important Events on Shift: Patient Status: Stable Diet:Regular Pending Orders: Pending Results/Labs: Pending MD notification: Latest Vital Signs: Temperature 97.6 , Pulse 104 , B/P 143 /106 , Respiratory Rate 20 , O2 SAT 97 , Room Air, O2 Flow Rate 2.0 . Vital Sign Comment: EKG Rhythm: Sinus Tachycardia Rhythm change?: N MD Notified?: N - MD Response: Latest Estrella Fall Score: 45 Fall Risk: High Risk Safety Measures: Call light Within Reach, Bed Alarm Zone 1, Side Rails Side Rails x2, Bed position Low and Locked. Fall Precautions: Yellow Socks Yellow Gown Door Sign Patient Fall Education Report given to MALIA Hollis.
[2020-09-12 20:00] VITALS: BP 135/93
--- NOTE | 2020-09-12 21:20 | NUR ---
NURSE NOTES: assessed pts chest tube. chest tube is clamped at the moment. no abnormalities to site. pt is breathing 2 L NC, 27 breaths/ min. sating 97% O2.
--- NOTE | 2020-09-12 22:21 | NUR ---
NURSE NOTES: pt found with chest tube removed. no bleeding to site. no change in condition, pt is alert and oriented times 4, able to respond to commands, able to follow commands. vital signs stable. pt is sating 97%O2 on 2L NC. respiration at 31 breath per min. petroleum dressing has been applied, 4 by 4 gauze applied and has been taped on 3 sides to previous chest tube site.
--- NOTE | 2020-09-12 22:26 | NUR ---
NURSE NOTES: called doctor Sherita O. reported pt pulled R chest tube. stated to doctor that petroleum dressing has been applied, 4 by 4 gauze applied and has been taped on 3 sides. reported no apparent change in condition, vital signs stable. respiration as 30, O2 sat 98% on 2 L NC. Doctor Magallon is made aware. Doctor Magallon ordered Chest X ray for tomorrow, 09/13/20. will continue to monitor pt.
--- NOTE | 2020-09-12 23:37 | Psychiatric Progress Note ---
Psychiatry Progress Note Psychiatry Progress Note Medications Current Medications Medications (Trade) Dose Ordered Sig/Kenia Route PRN Reason Start Time Stop Time Status Last Admin Dose Admin Acetaminophen (Tylenol) 650 mg Q4H PRN ORAL Mild Pain (Pain Scale 1-3) 09/10/20 01:15 10/10/20 01:14 09/10/20 22:51 Azithromycin (Zithromax) 1,200 mg ONCE A WEEK ORAL 09/12/20 11:00 09/19/20 10:59 09/12/20 12:20 Barium Sulfate (Varibar Honey) 250 ml NOW PRN RAD 09/10/20 18:45 09/13/20 18:36 Barium Sulfate (Varibar [place]) 240 ml NOW PRN MC RAD 09/10/20 18:45 09/13/20 18:36 Barium Sulfate (Varibar Pudding) 230 ml NOW PRN RAD 09/10/20 18:45 09/13/20 18:36 Barium Sulfate (Varibar Thin Liquid powder) 148 gm NOW PRN RAD 09/10/20 18:45 09/13/20 18:36 Folic Acid (Folate) 1 mg DAILY ORAL 09/12/20 09:30 10/12/20 09:29 09/12/20 10:05 Haloperidol Lactate (Haldol) 5 mg Q6H PRN IM Agitation 09/10/20 15:30 10/25/20 15:29 Meropenem 500 mg/ Sodium Chloride 55 ml @ 110 mls/hr EVERY 8 HOURS IVPB 09/12/20 14:00 09/17/20 13:59 09/12/20 21:26 Nystatin (Nystatin) 5 ml QID ORAL 09/09/20 18:00 09/16/20 17:59 09/12/20 21:25 Quetiapine Fumarate (SEROqueL) 50 mg BEDTIME ORAL 09/10/20 21:00 10/25/20 20:59 09/12/20 21:26 Trimethoprim/ Sulfamethoxazole (Bactrim-DS) 1 tab Q12HR ORAL 09/12/20 11:00 09/19/20 10:59 09/12/20 21:26 Vancomycin HCl (Vanco pharmacy to dose) 1 ea DAILY PRN MISC Per rx protocol 09/10/20 18:15 10/10/20 18:14 Vancomycin HCl 750 mg/Sodium Chloride 275 ml @ 183.333 mls/hr Q8H IVPB 09/12/20 16:00 09/17/20 15:59 09/12/20 23:32 Neurological/Psychiatric: Reports: anxiety, depressed, emotional problems Allergies: Coded Allergies: No Known Allergies (Unverified , 06/30/19) Objective Data Height (Feet): 5 Height (Inches): 4.00 Weight (Pounds): 120 General Appearance: alert, alert oriented x3 Additional Comments: lert, oriented times self, place, situation. Mood is anxious. Affect is blunted, congruent with mood. Thought process is concrete. Thought content, there is no suicidal or homicidal ideation. Cognition is impaired. Assessment/Plan Sigurd I: ASSESSMENT: Sigurd I Anxiety disorder. Depressive disorder. Sigurd II Deferred. Sigurd III HIV. Sigurd IV Moderate. Sigurd V 40. PLAN: 1. Seroquel at bedtime. 2. Haldol p.r.n. 3. Provide the patient with reality orientation and discussed with the nurse. Status: progressing Status Narrative ASSESSMENT: Sigurd I Anxiety disorder. Depressive disorder. Sigurd II Deferred. Sigurd III HIV. Sigurd IV Moderate. Sigurd V 40. PLAN: 1. Seroquel at bedtime. 2. Haldol p.r.n. 3. Provide the patient with reality orientation and discussed with the nurse. Assessment/Plan: ASSESSMENT: Sigurd I Anxiety disorder. Depressive disorder. Sigurd II Deferred. Sigurd III HIV. Sigurd IV Moderate. Sigurd V 40. PLAN: 1. Seroquel at bedtime. 2. Haldol p.r.n. 3. Provide the patient with reality orientation and discussed with the nurse. Denae Jaquez MD Sep 12, 2020 23:37
[2020-09-13] VITALS: BP 131/98
--- NOTE | 2020-09-13 00:15 | NUR ---
NURSE NOTES: assessed pt. pt resting comfortably in bed, sleeping. vital signs stable, no acute resp distress noted.
--- NOTE | 2020-09-13 01:55 | NUR ---
NURSE NOTES: pt was cleaned, bed linen changed. times 1 small BM noted. vital signs stable. pt is still on 2 L NC sating 99% O2.
--- NOTE | 2020-09-13 03:46 | NUR ---
NURSE NOTES: pt sleeping comfortably in bed, no apparent distress. vital sings stable. bed lock, and armed.
[2020-09-13 04:00] VITALS: BP 153/84
--- NOTE | 2020-09-13 04:20 | NUR ---
NURSE NOTES: pt refused lab/ blood draw.
[2020-09-13] MEDS: Meropenem 500 MG in NS 55 ML IVPB SCH ×3 (06:05→22:07)
--- NOTE | 2020-09-13 06:21 | NUR ---
NURSE NOTES: pt pulled put previous IV line. new 18G IV established R forearm.
--- NOTE | 2020-09-13 07:10 | NUR ---
NURSE HAND-OFF REPORT: Important Events on Shift:[Chest tube removal. monitoring.] Patient Status: [Stable] Diet: [as per Doctor order] Pending Orders: [follow up Chest X ray] Pending Results/Labs:[follow up Chest X ray] Pending MD notification:[follow up Chest X ray] Latest Vital Signs: Temperature 97.9 , Pulse 112 , B/P 153 /84 , Respiratory Rate 20 , O2 SAT 98 , Room Air, O2 Flow Rate 2.0 . Vital Sign Comment: [Stable] EKG Rhythm: Sinus Tachycardia Rhythm change?: N MD Notified?: N - MD Response: Latest Estrella Fall Score: 45 Fall Risk: High Risk Safety Measures: Call light Within Reach, Bed Alarm Zone 1, Side Rails Side Rails x2, Bed position Low and Locked. Fall Precautions: Yellow Socks Yellow Gown Door Sign Patient Fall Education Report given to [AVINASH aRo RN].
--- NOTE | 2020-09-13 07:15 | NUR ---
NURSE NOTES: Received patient from MALIA Summers under the care of Dr. Rodriges for the admitting dx. of PNA, sepsis, and psumothorax. Patient NKA and full code. On airborne isolation to rule out TB and has positive symptoms for Flu. Patient is alert and oriented x 4 with bi-polar tendencies. Patient is tolerating RA well, with no sign of distress noted. Patient S/P R side chest tube removal. Will continue to monitor.
[2020-09-13 08:00] VITALS: BP 127/86
[2020-09-13] MEDS: Vancomycin 750 MG in NS 275 ML IVPB SCH (08:00)
--- NOTE | 2020-09-13 08:00 | NUR ---
NURSE NOTES: Patient expressed that he is still hungry after breakfast, snacks provided. Denies pain at this time. Seen and examined by GLO Francisco at this time.
[2020-09-13] MEDS: Nystatin Susp 500,000 units/5ml ORAL SCH ×4 (08:50→20:14)
[2020-09-13] MEDS: Bactrim-DS 1 tab ORAL SCH ×2 (08:50→20:15)
--- NOTE | 2020-09-13 08:54 | Nephrology Progress Note ---
Assessment/Plan Problem List: (1) Pneumothorax (2) Amphetamine abuse (3) HIV (human immunodeficiency virus infection) (4) Severe protein-calorie malnutrition (5) Electrolyte imbalance (6) Proteinuria Assessment Electrolyte imbalance: Hypokalemia, hyponatremia Hypoalbuminemia, 2+ proteinuria UTI Cavitary pneumonia Anemia Drug abuse, urine positive for amphetamine Right chest tube, spontaneous right pneumothorax AIDS Plan September 13: No labs drawn yet today. Patient pulled out his chest tube last night. Continue per pulmonary. Further comments upon getting the blood results today. September 12: Patient continues to have chest tube over the right side. Minimal drainage according to the RN. Chemistry panel done today. Continue to watch electrolytes and renal parameters. Continue per consultants. Like acid and B12 ordered Previously: Aim to correct electrolytes Per pulmonary, per ID Keep the blood pressure and blood sugar in check Per orders Subjective ROS Limited/Unobtainable: No Objective Objective Last 24 Hour Vital Signs Date Time Temp Pulse Resp B/P (MAP) Pulse Ox O2 Delivery O2 Flow Rate FiO2 09/13/20 04:00 Room Air 09/13/20 04:00 97.9 63 20 153/84 (107) 98 09/13/20 04:00 112 09/13/20 00:00 97.2 115 20 131/98 (109) 98 09/13/20 00:00 Room Air 09/13/20 00:00 120 09/12/20 20:00 97.1 108 20 135/93 (107) 98 09/12/20 20:00 110 09/12/20 20:00 Room Air 09/12/20 16:00 104 09/12/20 16:00 Room Air 09/12/20 16:00 97.6 117 20 143/106 (118) 97 09/12/20 12:00 97.4 103 20 136/96 (109) 98 09/12/20 12:00 103 09/12/20 12:00 Room Air Intake and Output 09/12/20 09/13/20 19:00 07:00 Intake Total 480 ml 330.000 ml Output Total 1350 ml 1000 ml Balance -870 ml -670.000 ml Intake Oral 480 ml IV Total 330.000 ml Output Urine Total 1350 ml 1000 ml # Bowel Movements 1 2 No labs drawn yet today Height (Feet): 5 Height (Inches): 4.00 Weight (Pounds): 120 General Appearance: no apparent distress, lethargic Cardiovascular: tachycardia Respiratory/Chest: decreased breath sounds Abdomen: distended Jimy Mahmood MD Sep 13, 2020 08:54
--- NOTE | 2020-09-13 09:00 | NUR ---
NURSE NOTES: Patient refused blood draw for LABS, offered 3x still refused. Explained risks and consequences, patient verbalized understanding. Will try again later. Will continue to monitor.
--- NOTE | 2020-09-13 09:24 | Pulmonology Progress Note ---
Subjective ROS Limited/Unobtainable: No Interval Events: Chest tube dislodged yesterday Constitutional: Reports: no symptoms HEENT: Repors: no symptoms Respiratory: Reports: no symptoms Cardiovascular: Reports: no symptoms Gastrointestinal/Abdominal: Reports: no symptoms Genitourinary: Reports: no symptoms Neurologic: Reports: no symptoms Musculoskeletal: Reports: pain Allergies: Coded Allergies: No Known Allergies (Unverified , 06/30/19) Objective Last 24 Hour Vital Signs Date Time Temp Pulse Resp B/P (MAP) Pulse Ox O2 Delivery O2 Flow Rate FiO2 09/13/20 04:00 Room Air 09/13/20 04:00 97.9 63 20 153/84 (107) 98 09/13/20 04:00 112 09/13/20 00:00 97.2 115 20 131/98 (109) 98 09/13/20 00:00 Room Air 09/13/20 00:00 120 09/12/20 20:00 97.1 108 20 135/93 (107) 98 09/12/20 20:00 110 09/12/20 20:00 Room Air 09/12/20 16:00 104 09/12/20 16:00 Room Air 09/12/20 16:00 97.6 117 20 143/106 (118) 97 09/12/20 12:00 97.4 103 20 136/96 (109) 98 09/12/20 12:00 103 09/12/20 12:00 Room Air Intake and Output 09/12/20 09/13/20 19:00 07:00 Intake Total 480 ml 330.000 ml Output Total 1350 ml 1000 ml Balance -870 ml -670.000 ml Intake Oral 480 ml IV Total 330.000 ml Output Urine Total 1350 ml 1000 ml # Bowel Movements 1 2 General Appearance: no acute distress HEENT: normocephalic Respiratory: chest wall non-tender, lungs clear Cardiovascular: normal peripheral pulses, normal rate Abdomen: normal bowel sounds Microbiology Date/Time Source Procedure Growth Status 09/11/20 04:30 Sputum AFB Specimen Processing Tissue - Final Resulted 09/11/20 04:30 Sputum Acid Fast Bacilli Smear - Final Resulted 09/11/20 04:30 Sputum Acid Fast Bacilli Culture Pending Resulted 09/10/20 18:00 Sputum AFB Specimen Processing Tissue - Final Resulted 09/10/20 18:00 Sputum Acid Fast Bacilli Smear - Final Resulted 09/10/20 18:00 Sputum Acid Fast Bacilli Culture Pending Resulted Current Medications Medications (Trade) Dose Ordered Sig/Kenia Route PRN Reason Start Time Stop Time Status Last Admin Dose Admin Acetaminophen (Tylenol) 650 mg Q4H PRN ORAL Mild Pain (Pain Scale 1-3) 09/10/20 01:15 10/10/20 01:14 09/10/20 22:51 Azithromycin (Zithromax) 1,200 mg ONCE A WEEK ORAL 09/12/20 11:00 09/19/20 10:59 09/12/20 12:20 Barium Sulfate (Varibar Honey) 250 ml NOW PRN RAD 09/10/20 18:45 09/13/20 18:36 Barium Sulfate (Varibar [place]) 240 ml NOW PRN MC RAD 09/10/20 18:45 09/13/20 18:36 Barium Sulfate (Varibar Pudding) 230 ml NOW PRN RAD 09/10/20 18:45 09/13/20 18:36 Barium Sulfate (Varibar Thin Liquid powder) 148 gm NOW PRN RAD 09/10/20 18:45 09/13/20 18:36 Folic Acid (Folate) 1 mg DAILY ORAL 09/12/20 09:30 10/12/20 09:29 09/13/20 08:50 Haloperidol Lactate (Haldol) 5 mg Q6H PRN IM Agitation 09/10/20 15:30 10/25/20 15:29 Meropenem 500 mg/ Sodium Chloride 55 ml @ 110 mls/hr EVERY 8 HOURS IVPB 09/12/20 14:00 09/17/20 13:59 09/13/20 06:05 Nystatin (Nystatin) 5 ml QID ORAL 09/09/20 18:00 09/16/20 17:59 09/13/20 08:50 Quetiapine Fumarate (SEROqueL) 50 mg BEDTIME ORAL 09/10/20 21:00 10/25/20 20:59 09/12/20 21:26 Trimethoprim/ Sulfamethoxazole (Bactrim-DS) 1 tab Q12HR ORAL 09/12/20 11:00 09/19/20 10:59 09/13/20 08:50 Vancomycin HCl (Vanco pharmacy to dose) 1 ea DAILY PRN MISC Per rx protocol 09/10/20 18:15 10/10/20 18:14 Vancomycin HCl 750 mg/Sodium Chloride 275 ml @ 183.333 mls/hr Q8H IVPB 09/12/20 16:00 09/17/20 15:59 09/13/20 08:00 Assessment/Plan Assessment/Plan IMPRESSION: 1. Cavitary pneumonia. 2. Spontaneous right pneumothorax. 3. AIDS. 4. Chronic marijuana usage. DISCUSSION: Chest tube clamped yesterday Dislodged last night This Am cxr does not show PTX; lung stays fully expanded AFB smear x 2 negative OK to dc home if third AFB is also negative Would recommend treatment for PCP (empirically) John Salguero Omar Syed MD Sep 13, 2020 09:24
--- NOTE | 2020-09-13 09:43 | NUR ---
RADIOLOGY DEPT., CHEST X-RAY DONE.-P.DYE
[2020-09-13 12:01] VITALS: BP 123/83
--- NOTE | 2020-09-13 13:00 | NUR ---
NURSE NOTES: Patient asleep but easily arousable to voice. No distress or discomfort noted. Denies pain at this time. Will continue to monitor. Seen and examined by GLO Gonzalez at this time will continue with current plan of care.
--- NOTE | 2020-09-13 13:14 | Cardiac Electrophysiology PN ---
Assessment/Plan Assessment/Plan 1. Chest pain and shortness of breath. Ruled out for VT protocol. The patient's amphetamine is positive. The patient, however, also has pneumothorax EF 55% 2. HIV, with oral thrush. 3. Rule out TB in view of cavitary lesion. 4. Pneumothorax, status post right-sided chest tube, on IV antibiotic Pulled out his chest tube today 5. Substance abuse. SANDRA RN Subjective Subjective Alert in NAD. Second and 3rd sputum Cx results is pending. In TB isolation. In SR with no CP Pulled out his chest tube and is now covered with dressing. Objective Last 24 Hour Vital Signs Date Time Temp Pulse Resp B/P (MAP) Pulse Ox O2 Delivery O2 Flow Rate FiO2 09/13/20 12:01 97.1 61 18 123/83 (96) 97 09/13/20 12:00 102 09/13/20 08:00 102 09/13/20 08:00 Room Air 09/13/20 08:00 97.9 104 22 127/86 (100) 99 09/13/20 04:00 Room Air 09/13/20 04:00 97.9 63 20 153/84 (107) 98 09/13/20 04:00 112 09/13/20 00:00 97.2 115 20 131/98 (109) 98 09/13/20 00:00 Room Air 09/13/20 00:00 120 09/12/20 20:00 97.1 108 20 135/93 (107) 98 09/12/20 20:00 110 09/12/20 20:00 Room Air 09/12/20 16:00 104 09/12/20 16:00 Room Air 09/12/20 16:00 97.6 117 20 143/106 (118) 97 Intake and Output 09/12/20 09/13/20 19:00 07:00 Intake Total 480 ml 330.000 ml Output Total 1350 ml 1000 ml Balance -870 ml -670.000 ml Intake Oral 480 ml IV Total 330.000 ml Output Urine Total 1350 ml 1000 ml # Bowel Movements 1 2 Microbiology Date/Time Source Procedure Growth Status 09/11/20 04:30 Sputum AFB Specimen Processing Tissue - Final Resulted 09/11/20 04:30 Sputum Acid Fast Bacilli Smear - Final Resulted 09/11/20 04:30 Sputum Acid Fast Bacilli Culture Pending Resulted 09/10/20 18:00 Sputum AFB Specimen Processing Tissue - Final Resulted 09/10/20 18:00 Sputum Acid Fast Bacilli Smear - Final Resulted 09/10/20 18:00 Sputum Acid Fast Bacilli Culture Pending Resulted Objective HEAD AND NECK: No JVD. There is oral thrush. LUNGS: Coarse rhonchi. CARDIOVASCULAR: Regular S1 and S2 with no gallop. ABDOMEN: Soft. EXTREMITIES: No pitting edema. Artur Patton MD Sep 13, 2020 13:14
--- NOTE | 2020-09-13 14:13 | Infectious Diseases Prog Note ---
Assessment/Plan Assessment/Plan IMPRESSION: Pneumonia with cavitary lesions E coli ESBL Pneumothorax Postive blood culture with Leuconostoc & Staph epidermidis will try to rule out tuberculosis, AFB X 2; neg R/O Pneumocystis. Pyuria, may have UTI. Has right hydronephrosis, HIV/AIDS, CD4=29 Emphysema, Oral candidiasis, anemia, cachexia. RECOMMENDATIONS: Continue Meropenem & fluconazole Discontinue Vancomycin Continue Zithromax & Bactrim Will f/u sputum for Pneumocystis. We will f/u AFB x3. Negative T spot test. We will follow up the cultures. Subjective ROS Limited/Unobtainable: No Constitutional: Reports: no symptoms Respiratory: Reports: no symptoms, other - removed chest tube Gastrointestinal/Abdominal: Reports: no symptoms Genitourinary: Reports: no symptoms Allergies: Coded Allergies: No Known Allergies (Unverified , 06/30/19) Objective Last 24 Hour Vital Signs Date Time Temp Pulse Resp B/P (MAP) Pulse Ox O2 Delivery O2 Flow Rate FiO2 09/13/20 12:01 97.1 61 18 123/83 (96) 97 09/13/20 12:00 102 09/13/20 12:00 Room Air 09/13/20 08:00 102 09/13/20 08:00 Room Air 09/13/20 08:00 97.9 104 22 127/86 (100) 99 09/13/20 04:00 Room Air 09/13/20 04:00 97.9 63 20 153/84 (107) 98 09/13/20 04:00 112 09/13/20 00:00 97.2 115 20 131/98 (109) 98 09/13/20 00:00 Room Air 09/13/20 00:00 120 09/12/20 20:00 97.1 108 20 135/93 (107) 98 09/12/20 20:00 110 09/12/20 20:00 Room Air 09/12/20 16:00 104 09/12/20 16:00 Room Air 09/12/20 16:00 97.6 117 20 143/106 (118) 97 Height (Feet): 5 Height (Inches): 4.00 Weight (Pounds): 120 General Appearance: no acute distress, cachetic HEENT: mucous membranes moist Respiratory/Chest: lungs clear Cardiovascular: normal rate Abdomen: soft, non tender Extremities: no edema Neurologic/Psychiatric: alert, responsive Microbiology Date/Time Source Procedure Growth Status 09/11/20 04:30 Sputum AFB Specimen Processing Tissue - Final Resulted 09/11/20 04:30 Sputum Acid Fast Bacilli Smear - Final Resulted 09/11/20 04:30 Sputum Acid Fast Bacilli Culture Pending Resulted 09/10/20 18:00 Sputum AFB Specimen Processing Tissue - Final Resulted 09/10/20 18:00 Sputum Acid Fast Bacilli Smear - Final Resulted 09/10/20 18:00 Sputum Acid Fast Bacilli Culture Pending Resulted Current Medications Medications (Trade) Dose Ordered Sig/Kenia Route PRN Reason Start Time Stop Time Status Last Admin Dose Admin Acetaminophen (Tylenol) 650 mg Q4H PRN ORAL Mild Pain (Pain Scale 1-3) 09/10/20 01:15 10/10/20 01:14 09/10/20 22:51 Azithromycin (Zithromax) 1,200 mg ONCE A WEEK ORAL 09/12/20 11:00 09/19/20 10:59 09/12/20 12:20 Barium Sulfate (Varibar Honey) 250 ml NOW PRN MC RAD 09/10/20 18:45 09/13/20 18:36 Barium Sulfate (Varibar [place]) 240 ml NOW PRN MC RAD 09/10/20 18:45 09/13/20 18:36 Barium Sulfate (Varibar Pudding) 230 ml NOW PRN MC RAD 09/10/20 18:45 09/13/20 18:36 Barium Sulfate (Varibar Thin Liquid powder) 148 gm NOW PRN MC RAD 09/10/20 18:45 09/13/20 18:36 Folic Acid (Folate) 1 mg DAILY ORAL 09/12/20 09:30 10/12/20 09:29 09/13/20 08:50 Haloperidol Lactate (Haldol) 5 mg Q6H PRN IM Agitation 09/10/20 15:30 10/25/20 15:29 Meropenem 500 mg/ Sodium Chloride 55 ml @ 110 mls/hr EVERY 8 HOURS IVPB 09/12/20 14:00 09/17/20 13:59 09/13/20 14:05 Nystatin (Nystatin) 5 ml QID ORAL 09/09/20 18:00 09/16/20 17:59 09/13/20 13:00 Quetiapine Fumarate (SEROqueL) 50 mg BEDTIME ORAL 09/10/20 21:00 10/25/20 20:59 09/12/20 21:26 Trimethoprim/ Sulfamethoxazole (Bactrim-DS) 1 tab Q12HR ORAL 09/12/20 11:00 09/19/20 10:59 09/13/20 08:50 Vancomycin HCl (Vanco pharmacy to dose) 1 ea DAILY PRN MISC Per rx protocol 09/10/20 18:15 10/10/20 18:14 Vancomycin HCl 750 mg/Sodium Chloride 275 ml @ 183.333 mls/hr Q8H IVPB 09/12/20 16:00 09/17/20 15:59 09/13/20 08:00 Pasha Mendez MD Sep 13, 2020 14:13
--- NOTE | 2020-09-13 14:15 | NUR ---
NURSE NOTES: Seen and examined by Dr. Suzy Mendez with new orders noted and carried out.
[2020-09-13] MEDS: Fluconazole 100mg tab ORAL SCH (14:39)
--- NOTE | 2020-09-13 14:39 | NUR ---
CASE MANAGEMENT: REVIEW 09/13/2020 SI:Cavitary pneumonia. VS: T 97.1 HR 61 RR 18 B/P 123/83 SATS 97% ON RA LABS: NO LABS TODAY IS:MEROPENEM IV Q8H AZITHROMYCIN PO QWEEK SEROQUEL PO QHS DIFLUCAN PO QD BACTRIM PO Q12H NYSTATIN PO QID SDU DCP: HOME PLAN OF CARE: Continue Meropenem & fluconazole Discontinue Vancomycin Continue Zithromax & Bactrim Will f/u sputum for Pneumocystis. f/u AFB x3.
--- NOTE | 2020-09-13 14:46 | NUR ---
INSURANCE CLINICALS FAXED TO [employer] IN FULL RISK FAX [phone] TELE [phone] CM- NOT ASSIGNED YET PENDING AUTH [facility] FAX [phone] TELE [phone]
[2020-09-13 16:00] VITALS: BP 126/71
--- NOTE | 2020-09-13 16:19 | Diagnostic Imaging Report ---
Indication: Shortness of breath Technique: One view of the chest Comparison: 11/12/2019 Findings: Interim removal of previously demonstrated right chest tube. Bilateral infiltrates, right upper lobe hyperlucency persists, unchanged. No recurrent pneumothorax Impression: No evidence of recurrent pneumothorax, status post chest tube removal. Stable findings as described
--- NOTE | 2020-09-13 19:20 | NUR ---
NURSE HAND-OFF REPORT: Important Events on Shift:Refused blood draw. D/C vancomycin by MD Patient Status: Stable Diet: Regular Pending Orders: Pending Results/Labs: Pending MD notification: Latest Vital Signs: Temperature 98.1 , Pulse 116 , B/P 126 /71 , Respiratory Rate 18 , O2 SAT 99 , Room Air, O2 Flow Rate 2.0 . Vital Sign Comment: EKG Rhythm: Sinus Tachycardia Rhythm change?: N MD Notified?: N - MD Response: Latest Estrella Fall Score: 45 Fall Risk: High Risk Safety Measures: Call light Within Reach, Bed Alarm Zone 1, Side Rails Side Rails x2, Bed position Low and Locked. Fall Precautions: Yellow Socks Yellow Gown Door Sign Patient Fall Education Report given to MALIA Young.
--- NOTE | 2020-09-13 19:21 | NUR ---
NURSE NOTES: Report received from MALIA Morrison. Pt A/Ox4. Responsive to verbal and tactile stimuli. Irritable affect upon assessment. Disheveled appearance. Pt observed without Nasal Canula saturating 92%. When asked not to remove, pt is noncompliant. 5-lead EKG shows ST at 120 BPM. BP WNL and afebrile. Made aware of alterations in skin integrity and plan of care. No bleeding at the site of previous chest-tube placement. Bed kept in lowest and locked position. call light and urinal within reach. Will monitor.
--- NOTE | 2020-09-13 19:33 | General Progress Note ---
Subjective ROS Limited/Unobtainable: Yes Allergies: Coded Allergies: No Known Allergies (Unverified , 06/30/19) Objective Last 24 Hour Vital Signs Date Time Temp Pulse Resp B/P (MAP) Pulse Ox O2 Delivery O2 Flow Rate FiO2 09/13/20 16:00 Room Air 09/13/20 16:00 116 09/13/20 16:00 98.1 72 18 126/71 (89) 99 09/13/20 12:01 97.1 61 18 123/83 (96) 97 09/13/20 12:00 102 09/13/20 12:00 Room Air 09/13/20 08:00 102 09/13/20 08:00 Room Air 09/13/20 08:00 97.9 104 22 127/86 (100) 99 09/13/20 04:00 Room Air 09/13/20 04:00 97.9 63 20 153/84 (107) 98 09/13/20 04:00 112 09/13/20 00:00 97.2 115 20 131/98 (109) 98 09/13/20 00:00 Room Air 09/13/20 00:00 120 09/12/20 20:00 97.1 108 20 135/93 (107) 98 09/12/20 20:00 110 09/12/20 20:00 Room Air Intake and Output 09/12/20 09/13/20 19:00 07:00 Intake Total 480 ml 330.000 ml Output Total 1350 ml 1000 ml Balance -870 ml -670.000 ml Intake Oral 480 ml IV Total 330.000 ml Output Urine Total 1350 ml 1000 ml # Bowel Movements 1 2 Laboratory Tests 09/13/20 19:30: White Blood Count [Pending], Red Blood Count [Pending], Hemoglobin [Pending], Hematocrit [Pending], Mean Corpuscular Volume [Pending], Mean Corpuscular Hemoglobin [Pending], Mean Corpuscular Hemoglobin Concent [Pending], Red Cell Distribution Width [Pending], Platelet Count [Pending], Mean Platelet Volume [Pending], Neutrophils (%) (Auto) [Pending], Lymphocytes (%) (Auto) [Pending], Monocytes (%) (Auto) [Pending], Eosinophils (%) (Auto) [Pending], Basophils (%) (Auto) [Pending], Sodium Level [Pending], Potassium Level [Pending], Chloride Level [Pending], Carbon Dioxide Level [Pending], Blood Urea Nitrogen [Pending], Creatinine [Pending], Estimat Glomerular Filtration Rate [Pending], Glucose Level [Pending], Calcium Level [Pending], Phosphorus Level [Pending], Magnesium Level [Pending], Total Bilirubin [Pending], Aspartate Amino Transf (AST/SGOT) [Pending], Alanine Aminotransferase (ALT/SGPT) [Pending], Alkaline Phosphatase [Pending], C-Reactive Protein, Quantitative [Pending], Total Protein [Pending], Albumin [Pending], Globulin [Pending] Height (Feet): 5 Height (Inches): 4.00 Weight (Pounds): 120 Assessment/Plan Problem List: (1) Oral thrush ICD Codes: B37.0 - Candidal stomatitis SNOMED: 81472558 (2) Pneumonia ICD Codes: J18.9 - Pneumonia, unspecified organism SNOMED: 112799754 (3) Amphetamine abuse ICD Codes: F15.10 - Other stimulant abuse, uncomplicated SNOMED: 73055203 (4) Pneumonia ICD Codes: J18.9 - Pneumonia, unspecified organism SNOMED: 633552820 (5) Pneumothorax ICD Codes: J93.9 - Pneumothorax, unspecified SNOMED: 59011273 (6) Cachexia ICD Codes: R64 - Cachexia SNOMED: 031607317 (7) HIV (human immunodeficiency virus infection) ICD Codes: B20 - Human immunodeficiency virus [HIV] disease SNOMED: 97549126 (8) COPD (chronic obstructive pulmonary disease) ICD Codes: J44.9 - Chronic obstructive pulmonary disease, unspecified SNOMED: 12011388 (9) Severe protein-calorie malnutrition ICD Codes: E43 - Unspecified severe protein-calorie malnutrition SNOMED: 966698270, 131387268, 841897338 Status: progressing Assessment/Plan: no sob wt loss reviewed chart and labs hiv r/o TB pneumothorx pna cavitary lesion await tb results Tino Rodriges MD Sep 13, 2020 19:33
[2020-09-13 19:48] LABS: BASOPHILS % (AUTO) 1.1 % (0.0-2.0); EOSINOPHILS % (AUTO) 4.1 % (0.0-3.0); HEMATOCRIT 35.2 % (42.0-52.0); HEMOGLOBIN 11.5 G/DL (14.2-18.0); LYMPHOCYTES % (AUTO) 27.7 % (20.0-45.0); MEAN CORPUSCULAR VOLUME 85 FL (80-99); MONOCYTES % (AUTO) 5.7 % (1.0-10.0); NEUTROPHILS % (AUTO) 61.3 % (45.0-75.0); PLATELET COUNT 532 K/UL (150-450); RED BLOOD COUNT 4.15 M/UL (4.70-6.10); RED CELL DISTRIBUTION WIDTH 15.7 % (11.6-14.8); WHITE BLOOD COUNT 7.4 K/UL (4.8-10.8)
[2020-09-13 20:00] VITALS: BP 128/88
[2020-09-13 20:12] LABS: ALANINE AMINOTRANSFERASE 19 U/L (12-78); ALBUMIN 1.6 G/DL (3.4-5.0); ALBUMIN/GLOBULIN RATIO 0.2 (1.0-2.7); ALKALINE PHOSPHATASE 107 U/L (46-116); ANION GAP 7 mmol/L (5-15); ASPARTATE AMINO TRANSFERASE 35 U/L (15-37); BILIRUBIN,TOTAL 0.2 MG/DL (0.2-1.0); BLOOD UREA NITROGEN 18 mg/dL (7-18); CALCIUM 8.5 MG/DL (8.5-10.1); CARBON DIOXIDE 26 MMOL/L (21-32); CHLORIDE 99 MMOL/L (98-107); CREATININE 1.2 MG/DL (0.55-1.30); PHOSPHORUS 3.1 MG/DL (2.5-4.9); POTASSIUM 4.2 MMOL/L (3.5-5.1); SODIUM 132 MMOL/L (136-145)
--- NOTE | 2020-09-13 21:32 | NUR ---
NURSE NOTES: Pt noncompliant with nasal cannula, says he "cannot breathe." RT placed on Venti mask at 12L 50% fiO2. Pt in stable condition. All meds given in a timely manner. Will monitor.
--- NOTE | 2020-09-13 22:36 | NUR ---
NURSE NOTES: Pt noncompliant and continues to remove oxygen mask despite all needs met.
[2020-09-14] VITALS: BP 124/79
[2020-09-14 04:00] VITALS: BP 138/84
[2020-09-14] MEDS: Meropenem 500 MG in NS 55 ML IVPB SCH ×3 (05:06→21:22)
--- NOTE | 2020-09-14 07:12 | NUR ---
NURSE HAND-OFF REPORT: Important Events on Shift: No changes Patient Status: Stable Diet: Regular Pending Orders: N Pending Results/Labs: Y - AFB Pending MD notification: N Latest Vital Signs: Temperature 97.5 , Pulse 111 , B/P 138 /84 , Respiratory Rate 20 , O2 SAT 100 , Venturi Mask, O2 Flow Rate 12.0 . Vital Sign Comment: WNL EKG Rhythm: Sinus Rhythm Rhythm change?: N MD Notified?: N - MD Response: Latest Estrella Fall Score: 45 Fall Risk: High Risk Safety Measures: Call light Within Reach, Bed Alarm Zone 1, Side Rails Side Rails x3, Bed position Low and Locked. Fall Precautions: Yellow Socks Yellow Gown Report given to MALIA Olivares.
--- NOTE | 2020-09-14 07:31 | NUR ---
NURSE NOTES: Received report from Mickey Young pt. in bed awake appears to be A/O x's 3-4- able to make needs known, no signs or symptoms of acute cardiac or respiratory distress noted, bed alarm on, side rails up x's3 and safety brakes engaged, call light within easy reach, pt. appears to be sating well on Venturi mask 12L @50%, skin precautions and aspiration precautions observed, RFA 18G- TKO, safety measures continued, will continue with plan of care.
--- NOTE | 2020-09-14 07:53 | NUR ---
NURSE HAND-OFF REPORT: Important Events on Shift:none Patient Status: stable Diet: regular Pending Orders: Pending Results/Labs: Pending MD notification: Latest Vital Signs: Temperature 97.5 , Pulse 111 , B/P 138 /84 , Respiratory Rate 20 , O2 SAT 100 , Venturi Mask, O2 Flow Rate 12.0 . Vital Sign Comment: EKG Rhythm: Sinus Rhythm Rhythm change?: N MD Notified?: N - MD Response: Latest Estrella Fall Score: 45 Fall Risk: High Risk Safety Measures: Call light Within Reach, Bed Alarm Zone 1, Side Rails Side Rails x3, Bed position Low and Locked. Fall Precautions: Yellow Socks Yellow Gown Report given to Desi Rn, pt. remains stable and no signs of distress noted.
--- NOTE | 2020-09-14 07:54 | NUR ---
NURSE NOTES: Received patient from Paco RN, patient is asleep, easily awoken by name, alert and oriented x4. Sinus Tachycardia on the heart monitor, HR 116. Receiving oxygen via 2L/min nasal cannula, O2 saturation at 100%, no signs of respiratory distress. IV site is Right forearm 18g patent and intact. Bed is locked, placed in lowest position, side rails up x3, bed alarm on, head of bed elevated, call light within reach, all safety measure met. Will continue to monitor.
[2020-09-14 08:00] VITALS: BP 126/91
[2020-09-14] MEDS: Nystatin Susp 500,000 units/5ml ORAL SCH ×4 (08:57→20:20)
[2020-09-14] MEDS: Fluconazole 100mg tab ORAL SCH (08:57)
[2020-09-14] MEDS: Bactrim-DS 1 tab ORAL SCH ×2 (08:57→20:21)
--- NOTE | 2020-09-14 10:07 | NUR ---
NURSE NOTES: Patient is resting in bed, complained that he is cold, provided patient with extra blankets, patient's oral temperature read 97.4 degrees.
--- NOTE | 2020-09-14 10:56 | NUR ---
NURSE NOTES: Provided patient with sandwich upon request.
--- NOTE | 2020-09-14 11:21 | NUR ---
NURSE NOTES: Patient seen and assessed by Dr. Magallon.
--- NOTE | 2020-09-14 11:53 | Pulmonology Progress Note ---
Subjective ROS Limited/Unobtainable: Yes Interval Events: Chest tube no longer inplace; follwoup CXR show s re-expanded lung Constitutional: Reports: no symptoms HEENT: Repors: no symptoms Respiratory: Reports: no symptoms Cardiovascular: Reports: no symptoms Gastrointestinal/Abdominal: Reports: no symptoms Genitourinary: Reports: no symptoms Neurologic: Reports: no symptoms Musculoskeletal: Reports: pain Allergies: Coded Allergies: No Known Allergies (Unverified , 06/30/19) Objective Last 24 Hour Vital Signs Date Time Temp Pulse Resp B/P (MAP) Pulse Ox O2 Delivery O2 Flow Rate FiO2 09/14/20 08:00 121 09/14/20 08:00 Venturi Mask 12.0 09/14/20 08:00 97.4 115 18 126/91 (103) 96 09/14/20 04:00 Venturi Mask 12.0 09/14/20 04:00 97.5 111 20 138/84 (102) 100 09/14/20 03:44 113 09/14/20 00:00 Room Air 09/14/20 00:00 98.4 120 22 124/79 (94) 100 09/13/20 23:33 121 09/13/20 20:00 Room Air 09/13/20 20:00 97.9 119 18 128/88 (101) 98 09/13/20 19:28 121 09/13/20 16:00 Room Air 09/13/20 16:00 116 09/13/20 16:00 98.1 72 18 126/71 (89) 99 09/13/20 12:01 97.1 61 18 123/83 (96) 97 09/13/20 12:00 102 09/13/20 12:00 Room Air Intake and Output 09/13/20 09/14/20 19:00 07:00 Intake Total 800 ml 509 ml Output Total 900 ml 600 ml Balance -100 ml -91 ml Intake Oral 800 ml 300 ml IV Total 209 ml Output Urine Total 900 ml 600 ml # Bowel Movements 2 General Appearance: no acute distress HEENT: normocephalic Respiratory: chest wall non-tender, lungs clear Cardiovascular: normal peripheral pulses, normal rate Abdomen: normal bowel sounds Microbiology Date/Time Source Procedure Growth Status 09/12/20 06:00 Sputum AFB Specimen Processing Tissue - Final Resulted 09/12/20 06:00 Sputum Acid Fast Bacilli Smear - Final Resulted 09/12/20 06:00 Sputum Acid Fast Bacilli Culture Pending Resulted Laboratory Tests 09/13/20 19:30: White Blood Count 7.4, Red Blood Count 4.15L, Hemoglobin 11.5L, Hematocrit 35.2L , Mean Corpuscular Volume 85, Mean Corpuscular Hemoglobin 27.7, Mean Corpuscular Hemoglobin Concent 32.6, Red Cell Distribution Width 15.7H, Platelet Count 532H, Mean Platelet Volume 5.9L, Neutrophils (%) (Auto) 61.3, Lymphocytes (%) (Auto) 27.7, Monocytes (%) (Auto) 5.7, Eosinophils (%) (Auto) 4.1H, Basophils (%) (Auto) 1.1, Sodium Level 132L, Potassium Level 4.2, Chloride Level 99, Carbon Dioxide Level 26, Anion Gap 7, Blood Urea Nitrogen 18, Creatinine 1.2, Estimat Glomerular Filtration Rate > 60, Glucose Level 133H, Calcium Level 8.5, Phosphorus Level 3.1, Magnesium Level 1.6L, Total Bilirubin 0.2, Aspartate Amino Transf (AST/SGOT) 35, Alanine Aminotransferase (ALT/SGPT) 19, Alkaline Phosphatase 107, C-Reactive Protein, Quantitative 2.3H, Total Protein 8.0, Albumin 1.6L, Globulin 6.4, Albumin/Globulin Ratio 0.2L Current Medications Medications (Trade) Dose Ordered Sig/Kenia Route PRN Reason Start Time Stop Time Status Last Admin Dose Admin Acetaminophen (Tylenol) 650 mg Q4H PRN ORAL Mild Pain (Pain Scale 1-3) 09/10/20 01:15 10/10/20 01:14 09/10/20 22:51 Azithromycin (Zithromax) 1,200 mg ONCE A WEEK ORAL 09/12/20 11:00 09/19/20 10:59 09/12/20 12:20 Fluconazole (Diflucan) 200 mg DAILY ORAL 09/13/20 14:15 09/20/20 14:14 09/14/20 08:57 Folic Acid (Folate) 1 mg DAILY ORAL 09/12/20 09:30 10/12/20 09:29 09/14/20 08:57 Haloperidol Lactate (Haldol) 5 mg Q6H PRN IM Agitation 09/10/20 15:30 10/25/20 15:29 Meropenem 500 mg/ Sodium Chloride 55 ml @ 110 mls/hr EVERY 8 HOURS IVPB 09/12/20 14:00 09/17/20 13:59 09/14/20 05:06 Nystatin (Nystatin) 5 ml QID ORAL 09/09/20 18:00 09/16/20 17:59 09/14/20 08:57 Quetiapine Fumarate (SEROqueL) 50 mg BEDTIME ORAL 09/10/20 21:00 10/25/20 20:59 09/13/20 20:14 Trimethoprim/ Sulfamethoxazole (Bactrim-DS) 1 tab Q12HR ORAL 09/12/20 11:00 09/19/20 10:59 09/14/20 08:57 Assessment/Plan Assessment/Plan IMPRESSION: 1. Cavitary pneumonia. 2. Spontaneous right pneumothorax. 3. AIDS. 4. Chronic marijuana usage. DISCUSSION: Chest tube clamped yesterday Dislodged last night This Am cxr does not show PTX; lung stays fully expanded AFB smear x 2 negative Advised to titrate FiO2 down OK to dc home if third AFB is also negative Would recommend treatment for PCP (empirically) John Salguero Omar Syed MD Sep 14, 2020 11:53
[2020-09-14 12:00] VITALS: BP 120/87
--- NOTE | 2020-09-14 12:07 | Nephrology Progress Note ---
Assessment/Plan Problem List: (1) Pneumothorax (2) Amphetamine abuse (3) HIV (human immunodeficiency virus infection) (4) Severe protein-calorie malnutrition (5) Electrolyte imbalance (6) Proteinuria Assessment Electrolyte imbalance: Hypokalemia, hyponatremia Hypoalbuminemia, 2+ proteinuria UTI Cavitary pneumonia Anemia Drug abuse, urine positive for amphetamine Right chest tube, spontaneous right pneumothorax AIDS Plan September 14: No labs drawn today. Labs from September 13 reviewed. Serum sodium 132. Serum magnesium 1.6. Will repeat lab tomorrow. Per orders. September 13: No labs drawn yet today. Patient pulled out his chest tube last night. Continue per pulmonary. Further comments upon getting the blood results today. September 12: Patient continues to have chest tube over the right side. Minimal drainage according to the RN. Chemistry panel done today. Continue to watch electrolytes and renal parameters. Continue per consultants. Like acid and B12 ordered Previously: Aim to correct electrolytes Per pulmonary, per ID Keep the blood pressure and blood sugar in check Per orders Subjective ROS Limited/Unobtainable: Yes Objective Objective Last 24 Hour Vital Signs Date Time Temp Pulse Resp B/P (MAP) Pulse Ox O2 Delivery O2 Flow Rate FiO2 09/14/20 12:00 98.6 65 21 120/87 (98) 100 09/14/20 12:00 Venturi Mask 12.0 09/14/20 08:00 121 09/14/20 08:00 Venturi Mask 12.0 09/14/20 08:00 97.4 115 18 126/91 (103) 96 09/14/20 04:00 Venturi Mask 12.0 09/14/20 04:00 97.5 111 20 138/84 (102) 100 09/14/20 03:44 113 09/14/20 00:00 Room Air 09/14/20 00:00 98.4 120 22 124/79 (94) 100 09/13/20 23:33 121 09/13/20 20:00 Room Air 09/13/20 20:00 97.9 119 18 128/88 (101) 98 09/13/20 19:28 121 09/13/20 16:00 Room Air 09/13/20 16:00 116 09/13/20 16:00 98.1 72 18 126/71 (89) 99 Intake and Output 09/13/20 09/14/20 19:00 07:00 Intake Total 800 ml 509 ml Output Total 900 ml 600 ml Balance -100 ml -91 ml Intake Oral 800 ml 300 ml IV Total 209 ml Output Urine Total 900 ml 600 ml # Bowel Movements 2 Laboratory Tests 09/13/20 19:30: White Blood Count 7.4, Red Blood Count 4.15L, Hemoglobin 11.5L, Hematocrit 35.2L , Mean Corpuscular Volume 85, Mean Corpuscular Hemoglobin 27.7, Mean Corpuscular Hemoglobin Concent 32.6, Red Cell Distribution Width 15.7H, Platelet Count 532H, Mean Platelet Volume 5.9L, Neutrophils (%) (Auto) 61.3, Lymphocytes (%) (Auto) 27.7, Monocytes (%) (Auto) 5.7, Eosinophils (%) (Auto) 4.1H, Basophils (%) (Auto) 1.1, Sodium Level 132L, Potassium Level 4.2, Chloride Level 99, Carbon Dioxide Level 26, Anion Gap 7, Blood Urea Nitrogen 18, Creatinine 1.2, Estimat Glomerular Filtration Rate > 60, Glucose Level 133H, Calcium Level 8.5, Phosphorus Level 3.1, Magnesium Level 1.6L, Total Bilirubin 0.2, Aspartate Amino Transf (AST/SGOT) 35, Alanine Aminotransferase (ALT/SGPT) 19, Alkaline Phosphatase 107, C-Reactive Protein, Quantitative 2.3H, Total Protein 8.0, Albumin 1.6L, Globulin 6.4, Albumin/Globulin Ratio 0.2L Height (Feet): 5 Height (Inches): 4.00 Weight (Pounds): 120 General Appearance: no apparent distress, lethargic Cardiovascular: tachycardia Respiratory/Chest: decreased breath sounds Abdomen: distended Jimy Mahmood MD Sep 14, 2020 12:07
--- NOTE | 2020-09-14 13:48 | Cardiac Electrophysiology PN ---
Assessment/Plan Assessment/Plan 1. Chest pain and shortness of breath. Ruled out for [place] protocol. The patient's amphetamine is positive. The patient, however, also has pneumothorax EF 55% 2. HIV, with oral thrush. 3. Rule out TB in view of cavitary lesion. 4. Pneumothorax, status post right-sided chest tube, on IV antibiotic Pulled out his chest tube 09/13/20 5. Substance abuse. SANDRA RN Subjective Subjective Alert in NAD. Awaiting last sputum AFB results. In TB isolation. In SR with no CP. Pulled out his chest tube and is now covered with dressing. Objective Last 24 Hour Vital Signs Date Time Temp Pulse Resp B/P (MAP) Pulse Ox O2 Delivery O2 Flow Rate FiO2 09/14/20 12:00 98.6 65 21 120/87 (98) 100 09/14/20 12:00 Venturi Mask 12.0 09/14/20 08:00 121 09/14/20 08:00 Venturi Mask 12.0 09/14/20 08:00 97.4 115 18 126/91 (103) 96 09/14/20 04:00 Venturi Mask 12.0 09/14/20 04:00 97.5 111 20 138/84 (102) 100 09/14/20 03:44 113 09/14/20 00:00 Room Air 09/14/20 00:00 98.4 120 22 124/79 (94) 100 09/13/20 23:33 121 09/13/20 20:00 Room Air 09/13/20 20:00 97.9 119 18 128/88 (101) 98 09/13/20 19:28 121 09/13/20 16:00 Room Air 09/13/20 16:00 116 09/13/20 16:00 98.1 72 18 126/71 (89) 99 Intake and Output 09/13/20 09/14/20 19:00 07:00 Intake Total 800 ml 509 ml Output Total 900 ml 600 ml Balance -100 ml -91 ml Intake Oral 800 ml 300 ml IV Total 209 ml Output Urine Total 900 ml 600 ml # Bowel Movements 2 Laboratory Tests Test 09/13/20 19:30 White Blood Count 7.4 K/UL (4.8-10.8) Red Blood Count 4.15 M/UL (4.70-6.10) L Hemoglobin 11.5 G/DL (14.2-18.0) L Hematocrit 35.2 % (42.0-52.0) L Mean Corpuscular Volume 85 FL (80-99) Mean Corpuscular Hemoglobin 27.7 PG (27.0-31.0) Mean Corpuscular Hemoglobin Concent 32.6 G/DL (32.0-36.0) Red Cell Distribution Width 15.7 % (11.6-14.8) H Platelet Count 532 K/UL (150-450) H Mean Platelet Volume 5.9 FL (6.5-10.1) L Neutrophils (%) (Auto) 61.3 % (45.0-75.0) Lymphocytes (%) (Auto) 27.7 % (20.0-45.0) Monocytes (%) (Auto) 5.7 % (1.0-10.0) Eosinophils (%) (Auto) 4.1 % (0.0-3.0) H Basophils (%) (Auto) 1.1 % (0.0-2.0) Sodium Level 132 MMOL/L (136-145) L Potassium Level 4.2 MMOL/L (3.5-5.1) Chloride Level 99 MMOL/L (98-107) Carbon Dioxide Level 26 MMOL/L (21-32) Anion Gap 7 mmol/L (5-15) Blood Urea Nitrogen 18 mg/dL (7-18) Creatinine 1.2 MG/DL (0.55-1.30) Estimat Glomerular Filtration Rate > 60 mL/min (>60) Glucose Level 133 MG/DL (74-106) H Calcium Level 8.5 MG/DL (8.5-10.1) Phosphorus Level 3.1 MG/DL (2.5-4.9) Magnesium Level 1.6 MG/DL (1.8-2.4) L Total Bilirubin 0.2 MG/DL (0.2-1.0) Aspartate Amino Transf (AST/SGOT) 35 U/L (15-37) Alanine Aminotransferase (ALT/SGPT) 19 U/L (12-78) Alkaline Phosphatase 107 U/L (46-116) C-Reactive Protein, Quantitative 2.3 mg/dL (0.00-0.90) H Total Protein 8.0 G/DL (6.4-8.2) Albumin 1.6 G/DL (3.4-5.0) L Globulin 6.4 g/dL Albumin/Globulin Ratio 0.2 (1.0-2.7) L Microbiology Date/Time Source Procedure Growth Status 09/12/20 06:00 Sputum AFB Specimen Processing Tissue - Final Resulted 09/12/20 06:00 Sputum Acid Fast Bacilli Smear - Final Resulted 09/12/20 06:00 Sputum Acid Fast Bacilli Culture Pending Resulted Objective HEAD AND NECK: No JVD. There is oral thrush. LUNGS: Coarse rhonchi. CARDIOVASCULAR: Regular S1 and S2 with no gallop. ABDOMEN: Soft. EXTREMITIES: No pitting edema. Artur Patton MD Sep 14, 2020 13:48
--- NOTE | 2020-09-14 15:21 | Infectious Diseases Prog Note ---
Assessment/Plan Assessment/Plan IMPRESSION: Pneumonia with cavitary lesions E coli ESBL Pneumothorax Postive blood culture with Leuconostoc & Staph epidermidis will try to rule out tuberculosis, AFB X 3; neg R/O Pneumocystis. Pyuria, may have UTI. Has right hydronephrosis, HIV/AIDS, CD4=29 Emphysema, Oral candidiasis, anemia, cachexia. RECOMMENDATIONS: Continue Meropenem & fluconazole Discontinue Airborne isolation Continue Zithromax & Bactrim Will f/u sputum for Pneumocystis. Negative T spot test. We will follow up the cultures. Subjective ROS Limited/Unobtainable: No Constitutional: Reports: no symptoms Respiratory: Reports: no symptoms Gastrointestinal/Abdominal: Reports: no symptoms Genitourinary: Reports: no symptoms Allergies: Coded Allergies: No Known Allergies (Unverified , 06/30/19) Objective Last 24 Hour Vital Signs Date Time Temp Pulse Resp B/P (MAP) Pulse Ox O2 Delivery O2 Flow Rate FiO2 09/14/20 12:00 98.6 65 21 120/87 (98) 100 09/14/20 12:00 104 09/14/20 12:00 Venturi Mask 12.0 09/14/20 08:00 121 09/14/20 08:00 Venturi Mask 12.0 09/14/20 08:00 97.4 115 18 126/91 (103) 96 09/14/20 04:00 Venturi Mask 12.0 09/14/20 04:00 97.5 111 20 138/84 (102) 100 09/14/20 03:44 113 09/14/20 00:00 Room Air 09/14/20 00:00 98.4 120 22 124/79 (94) 100 09/13/20 23:33 121 09/13/20 20:00 Room Air 09/13/20 20:00 97.9 119 18 128/88 (101) 98 09/13/20 19:28 121 09/13/20 16:00 Room Air 09/13/20 16:00 116 09/13/20 16:00 98.1 72 18 126/71 (89) 99 Height (Feet): 5 Height (Inches): 4.00 Weight (Pounds): 120 General Appearance: no acute distress HEENT: mucous membranes moist Respiratory/Chest: lungs clear Cardiovascular: tachycardia Abdomen: soft, non tender Extremities: no edema Neurologic/Psychiatric: alert, responsive Musculoskeletal: atrophy Microbiology Date/Time Source Procedure Growth Status 09/12/20 06:00 Sputum AFB Specimen Processing Tissue - Final Resulted 09/12/20 06:00 Sputum Acid Fast Bacilli Smear - Final Resulted 09/12/20 06:00 Sputum Acid Fast Bacilli Culture Pending Resulted Laboratory Tests Test 09/13/20 19:30 White Blood Count 7.4 K/UL (4.8-10.8) Red Blood Count 4.15 M/UL (4.70-6.10) L Hemoglobin 11.5 G/DL (14.2-18.0) L Hematocrit 35.2 % (42.0-52.0) L Mean Corpuscular Volume 85 FL (80-99) Mean Corpuscular Hemoglobin 27.7 PG (27.0-31.0) Mean Corpuscular Hemoglobin Concent 32.6 G/DL (32.0-36.0) Red Cell Distribution Width 15.7 % (11.6-14.8) H Platelet Count 532 K/UL (150-450) H Mean Platelet Volume 5.9 FL (6.5-10.1) L Neutrophils (%) (Auto) 61.3 % (45.0-75.0) Lymphocytes (%) (Auto) 27.7 % (20.0-45.0) Monocytes (%) (Auto) 5.7 % (1.0-10.0) Eosinophils (%) (Auto) 4.1 % (0.0-3.0) H Basophils (%) (Auto) 1.1 % (0.0-2.0) Sodium Level 132 MMOL/L (136-145) L Potassium Level 4.2 MMOL/L (3.5-5.1) Chloride Level 99 MMOL/L (98-107) Carbon Dioxide Level 26 MMOL/L (21-32) Anion Gap 7 mmol/L (5-15) Blood Urea Nitrogen 18 mg/dL (7-18) Creatinine 1.2 MG/DL (0.55-1.30) Estimat Glomerular Filtration Rate > 60 mL/min (>60) Glucose Level 133 MG/DL (74-106) H Calcium Level 8.5 MG/DL (8.5-10.1) Phosphorus Level 3.1 MG/DL (2.5-4.9) Magnesium Level 1.6 MG/DL (1.8-2.4) L Total Bilirubin 0.2 MG/DL (0.2-1.0) Aspartate Amino Transf (AST/SGOT) 35 U/L (15-37) Alanine Aminotransferase (ALT/SGPT) 19 U/L (12-78) Alkaline Phosphatase 107 U/L (46-116) C-Reactive Protein, Quantitative 2.3 mg/dL (0.00-0.90) H Total Protein 8.0 G/DL (6.4-8.2) Albumin 1.6 G/DL (3.4-5.0) L Globulin 6.4 g/dL Albumin/Globulin Ratio 0.2 (1.0-2.7) L Current Medications Medications (Trade) Dose Ordered Sig/Kenia Route PRN Reason Start Time Stop Time Status Last Admin Dose Admin Acetaminophen (Tylenol) 650 mg Q4H PRN ORAL Mild Pain (Pain Scale 1-3) 09/10/20 01:15 10/10/20 01:14 09/10/20 22:51 Azithromycin (Zithromax) 1,200 mg ONCE A WEEK ORAL 09/12/20 11:00 09/19/20 10:59 09/12/20 12:20 Fluconazole (Diflucan) 200 mg DAILY ORAL 09/13/20 14:15 09/20/20 14:14 09/14/20 08:57 Folic Acid (Folate) 1 mg DAILY ORAL 09/12/20 09:30 10/12/20 09:29 09/14/20 08:57 Haloperidol Lactate (Haldol) 5 mg Q6H PRN IM Agitation 09/10/20 15:30 10/25/20 15:29 Meropenem 500 mg/ Sodium Chloride 55 ml @ 110 mls/hr EVERY 8 HOURS IVPB 09/12/20 14:00 09/17/20 13:59 09/14/20 14:54 Nystatin (Nystatin) 5 ml QID ORAL 09/09/20 18:00 09/16/20 17:59 09/14/20 13:28 Quetiapine Fumarate (SEROqueL) 50 mg BEDTIME ORAL 09/10/20 21:00 10/25/20 20:59 09/13/20 20:14 Trimethoprim/ Sulfamethoxazole (Bactrim-DS) 1 tab Q12HR ORAL 09/12/20 11:00 09/19/20 10:59 09/14/20 08:57 Pasha Mendez MD Sep 14, 2020 15:20
--- NOTE | 2020-09-14 15:35 | NUR ---
NURSE NOTES: Patient seen and assessed by Dr. Mendez. Discontinue Airborne Isolation.
[2020-09-14 16:00] VITALS: BP 134/95
--- NOTE | 2020-09-14 19:19 | NUR ---
NURSE HAND-OFF REPORT: Important Events on Shift: Patient Status: Stable Diet: Regular Diet Pending Orders: n/a Pending Results/Labs:n/a Pending MD notification:n/a Latest Vital Signs: Temperature 97.2 , Pulse 109 , B/P 134 /95 , Respiratory Rate 20 , O2 SAT 94 , Venturi Mask, O2 Flow Rate 12.0 . Vital Sign Comment: Stable EKG Rhythm: Sinus Tachycardia Rhythm change?: N MD Notified?: N - MD Response: Latest Estrella Fall Score: 60 Fall Risk: High Risk Safety Measures: Call light Within Reach, Bed Alarm Zone 1, Side Rails Side Rails x3, Bed position Low and Locked. Fall Precautions: Yellow Socks Yellow Gown Report given to Jluis FINLEY.
--- NOTE | 2020-09-14 19:42 | NUR ---
NURSE NOTES: Report received from Desi FINLEY. Patient is noted to be awake and alert x3. Patient is noted to currently have venturi mask with no complaints of chest pain or shortness of breath. Was endorsed to Jluis FINLEY that patient was titrated down to nasal canula but patient refuses to wear, patient also refuses to wear venturi mask at times as well. It noted that per MD orders that goal is to keep the patients oxygen saturation above 90 %. Jluis FINLEY educated that patient to purpose of supplemental oxygen and the risks of not using it. Reinforcement is needed. Patient is noted to have right forearm 18 mane IV access at this time. Bed is locked, in lowest position. Call light in reach. Will continue to follow plan of care.
[2020-09-14 20:00] VITALS: BP 140/90
--- NOTE | 2020-09-14 21:19 | General Progress Note ---
Subjective ROS Limited/Unobtainable: Yes Allergies: Coded Allergies: No Known Allergies (Unverified , 06/30/19) Objective Last 24 Hour Vital Signs Date Time Temp Pulse Resp B/P (MAP) Pulse Ox O2 Delivery O2 Flow Rate FiO2 09/14/20 16:00 Venturi Mask 12.0 09/14/20 16:00 97.2 111 20 134/95 (108) 94 09/14/20 16:00 109 09/14/20 12:00 98.6 65 21 120/87 (98) 100 09/14/20 12:00 104 09/14/20 12:00 Venturi Mask 12.0 09/14/20 08:00 121 09/14/20 08:00 Venturi Mask 12.0 09/14/20 08:00 97.4 115 18 126/91 (103) 96 09/14/20 04:00 Venturi Mask 12.0 09/14/20 04:00 97.5 111 20 138/84 (102) 100 09/14/20 03:44 113 09/14/20 00:00 Room Air 09/14/20 00:00 98.4 120 22 124/79 (94) 100 09/13/20 23:33 121 Intake and Output 09/13/20 09/14/20 19:00 07:00 Intake Total 800 ml 509 ml Output Total 900 ml 600 ml Balance -100 ml -91 ml Intake Oral 800 ml 300 ml IV Total 209 ml Output Urine Total 900 ml 600 ml # Bowel Movements 2 Height (Feet): 5 Height (Inches): 4.00 Weight (Pounds): 120 Assessment/Plan Problem List: (1) Oral thrush ICD Codes: B37.0 - Candidal stomatitis SNOMED: 02752202 (2) Pneumonia ICD Codes: J18.9 - Pneumonia, unspecified organism SNOMED: 694185352 (3) Amphetamine abuse ICD Codes: F15.10 - Other stimulant abuse, uncomplicated SNOMED: 77082844 (4) Pneumonia ICD Codes: J18.9 - Pneumonia, unspecified organism SNOMED: 851465122 (5) Pneumothorax ICD Codes: J93.9 - Pneumothorax, unspecified SNOMED: 19943304 (6) Cachexia ICD Codes: R64 - Cachexia SNOMED: 044559854 (7) HIV (human immunodeficiency virus infection) ICD Codes: B20 - Human immunodeficiency virus [HIV] disease SNOMED: 59321797 (8) COPD (chronic obstructive pulmonary disease) ICD Codes: J44.9 - Chronic obstructive pulmonary disease, unspecified SNOMED: 95833509 (9) Severe protein-calorie malnutrition ICD Codes: E43 - Unspecified severe protein-calorie malnutrition SNOMED: 201220172, 188878270, 193265293 Status: progressing Assessment/Plan: hiv r/o TB pneumothorx prn oxygen agitated at times reviewed chart pna cavitary lesion Tino Rodriges MD Sep 14, 2020 21:19
--- NOTE | 2020-09-14 22:45 | NUR ---
NURSE NOTES: Patient had bowel movement on bed gillette. Assisted patient with cleaning. Jluis FINLEY cleaned sacral area and wound to buttocks. Wound care picture obtained. Optifoam dressing put in place.
--- NOTE | 2020-09-14 23:12 | Psychiatric Progress Note ---
Psychiatry Progress Note Psychiatry Progress Note Medications Current Medications Medications (Trade) Dose Ordered Sig/Kenia Route PRN Reason Start Time Stop Time Status Last Admin Dose Admin Acetaminophen (Tylenol) 650 mg Q4H PRN ORAL Mild Pain (Pain Scale 1-3) 09/10/20 01:15 10/10/20 01:14 09/10/20 22:51 Azithromycin (Zithromax) 1,200 mg ONCE A WEEK ORAL 09/12/20 11:00 09/19/20 10:59 09/12/20 12:20 Fluconazole (Diflucan) 200 mg DAILY ORAL 09/13/20 14:15 09/20/20 14:14 09/14/20 08:57 Folic Acid (Folate) 1 mg DAILY ORAL 09/12/20 09:30 10/12/20 09:29 09/14/20 08:57 Haloperidol Lactate (Haldol) 5 mg Q6H PRN IM Agitation 09/10/20 15:30 10/25/20 15:29 Meropenem 500 mg/ Sodium Chloride 55 ml @ 110 mls/hr EVERY 8 HOURS IVPB 09/12/20 14:00 09/17/20 13:59 09/14/20 21:22 Nystatin (Nystatin) 5 ml QID ORAL 09/09/20 18:00 09/16/20 17:59 09/14/20 20:20 Quetiapine Fumarate (SEROqueL) 50 mg BEDTIME ORAL 09/10/20 21:00 10/25/20 20:59 09/14/20 20:20 Trimethoprim/ Sulfamethoxazole (Bactrim-DS) 1 tab Q12HR ORAL 09/12/20 11:00 09/19/20 10:59 09/14/20 20:21 Neurological/Psychiatric: Reports: anxiety, depressed, emotional problems Allergies: Coded Allergies: No Known Allergies (Unverified , 06/30/19) Objective Data Height (Feet): 5 Height (Inches): 4.00 Weight (Pounds): 120 General Appearance: no apparent distress, lethargic Additional Comments: lert, oriented times self, place, situation. Mood is anxious. Affect is blunted, congruent with mood. Thought process is concrete. Thought content, there is no suicidal or homicidal ideation. Cognition is impaired. Assessment/Plan [place] I: ASSESSMENT: [place] I Anxiety disorder. Depressive disorder. [place] II Deferred. [place] III HIV. [place] IV Moderate. [place] V 40. PLAN: 1. Seroquel at bedtime. 2. Haldol p.r.n. 3. Provide the patient with reality orientation and discussed with the nurse. Status: progressing Status Narrative ASSESSMENT: [place] I Anxiety disorder. Depressive disorder. [place] II Deferred. [place] III HIV. [place] IV Moderate. [place] V 40. PLAN: 1. Seroquel at bedtime. 2. Haldol p.r.n. 3. Provide the patient with reality orientation and discussed with the nurse. Assessment/Plan: ASSESSMENT: [place] I Anxiety disorder. Depressive disorder. [place] II Deferred. [place] III HIV. [place] IV Moderate. [place] V 40. PLAN: 1. Seroquel at bedtime. 2. Haldol p.r.n. 3. Provide the patient with reality orientation and discussed with the nurse. Denae Jaquez MD Sep 14, 2020 23:12
[2020-09-15] VITALS: BP 117/80
[2020-09-15 04:00] VITALS: BP 127/86
--- NOTE | 2020-09-15 04:33 | NUR ---
NURSE NOTES: Sponge bath given to patient. wound care done. dressing on sacrum changed. complete bed change done.
[2020-09-15] MEDS: Meropenem 500 MG in NS 55 ML IVPB SCH ×3 (05:31→21:34)
[2020-09-15 05:32] LABS: BASOPHILS % (AUTO) 0.6 % (0.0-2.0); HEMATOCRIT 35.8 % (42.0-52.0); HEMOGLOBIN 11.2 G/DL (14.2-18.0); LYMPHOCYTES % (AUTO) 22.5 % (20.0-45.0); MEAN CORPUSCULAR VOLUME 88 FL (80-99); MONOCYTES % (AUTO) 7.6 % (1.0-10.0); NEUTROPHILS % (AUTO) 67.3 % (45.0-75.0); PLATELET COUNT 416 K/UL (150-450); RED CELL DISTRIBUTION WIDTH 15.5 % (11.6-14.8)
[2020-09-15 06:20] LABS: ALANINE AMINOTRANSFERASE 22 U/L (12-78); ALBUMIN 1.5 G/DL (3.4-5.0); ALBUMIN/GLOBULIN RATIO 0.2 (1.0-2.7); ALKALINE PHOSPHATASE 107 U/L (46-116); ANION GAP 4 mmol/L (5-15); ASPARTATE AMINO TRANSFERASE 41 U/L (15-37); BILIRUBIN,TOTAL 0.1 MG/DL (0.2-1.0); BLOOD UREA NITROGEN 20 mg/dL (7-18); CALCIUM 8.6 MG/DL (8.5-10.1); CARBON DIOXIDE 28 MMOL/L (21-32); CHLORIDE 100 MMOL/L (98-107); CREATININE 1.1 MG/DL (0.55-1.30); PHOSPHORUS 3.6 MG/DL (2.5-4.9); POTASSIUM 4.7 MMOL/L (3.5-5.1); SODIUM 132 MMOL/L (136-145)
--- NOTE | 2020-09-15 07:47 | NUR ---
NURSE HAND-OFF REPORT: Important Events on Shift: Patient is cooperative with care. ask for snacks and drinks frequently. stable throughout shift Patient Status: Full Code Diet: regular Pending Orders: none Pending Results/Labs:none Pending MD notification:none Latest Vital Signs: Temperature 98.2 , Pulse 114 , B/P 127 /86 , Respiratory Rate 19 , O2 SAT 98 , Nasal Cannula, O2 Flow Rate 4.0 . Vital Sign Comment: within normal limits. EKG Rhythm: Sinus Tachycardia Rhythm change?: N MD Notified?: N - MD Response: Latest Estrella Fall Score: 60 Fall Risk: High Risk Safety Measures: Call light Within Reach, Bed Alarm Zone 1, Side Rails Side Rails x3, Bed position Low and Locked. Fall Precautions: Yellow Socks Yellow Gown Report given to Suma FINLEY.
--- NOTE | 2020-09-15 07:59 | NUR ---
NURSE NOTES: pt in bed, he throws dirty soiled chucks on the grown. Pt Alert and able to verbalized his needs. Pt on cardiac specialist having breakfast. bed in lowest position, call light within reach. Will continue to monitor pt.
[2020-09-15 08:00] VITALS: BP 125/81
[2020-09-15] MEDS: Bactrim-DS 1 tab ORAL SCH ×2 (09:00→21:34)
[2020-09-15] MEDS: Fluconazole 100mg tab ORAL SCH (09:53)
[2020-09-15] MEDS: Nystatin Susp 500,000 units/5ml ORAL SCH ×4 (09:54→21:33)
--- NOTE | 2020-09-15 10:41 | Pulmonology Progress Note ---
Subjective ROS Limited/Unobtainable: Yes Interval Events: Chest tube no longer inplace; follwoup CXR show s re-expanded lung Constitutional: Reports: no symptoms HEENT: Repors: no symptoms Respiratory: Reports: no symptoms Cardiovascular: Reports: no symptoms Gastrointestinal/Abdominal: Reports: no symptoms Genitourinary: Reports: no symptoms Neurologic: Reports: no symptoms Musculoskeletal: Reports: pain Allergies: Coded Allergies: No Known Allergies (Unverified , 06/30/19) Objective Last 24 Hour Vital Signs Date Time Temp Pulse Resp B/P (MAP) Pulse Ox O2 Delivery O2 Flow Rate FiO2 09/15/20 04:00 98.2 112 19 127/86 (100) 98 09/15/20 04:00 Nasal Cannula 4.0 09/15/20 04:00 114 09/15/20 00:00 116 09/15/20 00:00 Nasal Cannula 4.0 09/15/20 00:00 98.0 115 20 117/80 (92) 94 09/14/20 20:00 Nasal Cannula 4.0 09/14/20 20:00 113 09/14/20 20:00 98.2 106 22 140/90 (107) 95 09/14/20 16:00 Venturi Mask 12.0 09/14/20 16:00 97.2 111 20 134/95 (108) 94 09/14/20 16:00 109 09/14/20 12:00 98.6 65 21 120/87 (98) 100 09/14/20 12:00 104 09/14/20 12:00 Venturi Mask 12.0 Intake and Output 09/14/20 09/15/20 19:00 07:00 Intake Total 755 ml 775 ml Output Total 1100 ml 1200 ml Balance -345 ml -425 ml Intake Oral 500 ml 720 ml IV Total 255 ml 55 ml Output Urine Total 1100 ml 1200 ml # Bowel Movements 2 4 General Appearance: no acute distress HEENT: normocephalic Respiratory: chest wall non-tender, lungs clear Cardiovascular: normal peripheral pulses, normal rate Abdomen: normal bowel sounds Laboratory Tests 09/15/20 03:39: White Blood Count 6.0, Red Blood Count 4.10L, Hemoglobin 11.2L, Hematocrit 35.8L , Mean Corpuscular Volume 88, Mean Corpuscular Hemoglobin 27.4, Mean Corpuscular Hemoglobin Concent 31.3L, Red Cell Distribution Width 15.5H, Platelet Count 416, Mean Platelet Volume 5.7L, Neutrophils (%) (Auto) 67.3, Lymphocytes (%) (Auto) 22.5, Monocytes (%) (Auto) 7.6, Eosinophils (%) (Auto) 2.0, Basophils (%) (Auto) 0.6, Sodium Level 132L, Potassium Level 4.7, Chloride Level 100, Carbon Dioxide Level 28, Anion Gap 4L, Blood Urea Nitrogen 20H, Creatinine 1.1, Estimat Glomerular Filtration Rate > 60, Glucose Level 92, Uric Acid 3.1, Calcium Level 8.6, Phosphorus Level 3.6, Magnesium Level 1.9, Total Bilirubin 0.1L, Aspartate Amino Transf (AST/SGOT) 41H, Alanine Aminotransferase (ALT/SGPT) 22, Alkaline Phosphatase 107, C-Reactive Protein, Quantitative 3.2H, Pro-B-Type Natriuretic Peptide 57, Total Protein 7.5, Albumin 1.5L, Globulin 6.0, Albumin/Globulin Ratio 0.2L Current Medications Medications (Trade) Dose Ordered Sig/Kenia Route PRN Reason Start Time Stop Time Status Last Admin Dose Admin Acetaminophen (Tylenol) 650 mg Q4H PRN ORAL Mild Pain (Pain Scale 1-3) 09/10/20 01:15 10/10/20 01:14 09/10/20 22:51 Azithromycin (Zithromax) 1,200 mg ONCE A WEEK ORAL 09/12/20 11:00 09/19/20 10:59 09/12/20 12:20 Fluconazole (Diflucan) 200 mg DAILY ORAL 09/13/20 14:15 09/20/20 14:14 09/15/20 09:53 Folic Acid (Folate) 1 mg DAILY ORAL 09/12/20 09:30 10/12/20 09:29 09/15/20 09:53 Haloperidol Lactate (Haldol) 5 mg Q6H PRN IM Agitation 09/10/20 15:30 10/25/20 15:29 Meropenem 500 mg/ Sodium Chloride 55 ml @ 110 mls/hr EVERY 8 HOURS IVPB 09/12/20 14:00 09/17/20 13:59 09/15/20 05:31 Nystatin (Nystatin) 5 ml QID ORAL 09/09/20 18:00 09/16/20 17:59 09/15/20 09:54 Quetiapine Fumarate (SEROqueL) 50 mg BEDTIME ORAL 09/10/20 21:00 10/25/20 20:59 09/14/20 20:20 Trimethoprim/ Sulfamethoxazole (Bactrim-DS) 1 tab Q12HR ORAL 09/12/20 11:00 09/19/20 10:59 09/15/20 09:00 Assessment/Plan Assessment/Plan IMPRESSION: 1. Cavitary pneumonia. 2. Spontaneous right pneumothorax. 3. AIDS. 4. Chronic marijuana usage. DISCUSSION: Chest tube clamped yesterday Dislodged last night This Am cxr does not show PTX; lung stays fully expanded AFB smear x 3 negative Advised to titrate FiO2 down; saturating 98% on 4 L OK to dc home as third AFB is also negative Would recommend treatment for PCP (empirically) John Salguero Omar Syed MD Sep 15, 2020 10:41
[2020-09-15 12:01] VITALS: BP 117/88
--- NOTE | 2020-09-15 12:39 | NUR ---
CASE MANAGEMENT:REVIEW SI;CAVITARY PNEUMONIA 98.2 115 20 140/90 94% 4L NC NA 132 BUN 20 AST 41 CRP 3.2 ALB 1.5 IS;DIFLUCAN PO QD BACTRIM DS PO Q12 MEROPENEM IV Q8 NYSTATIN PO QID JUANA STATUS DCP;FROM HOME PLAN; TITRATE O2
--- NOTE | 2020-09-15 13:35 | General Progress Note ---
Subjective ROS Limited/Unobtainable: Yes Allergies: Coded Allergies: No Known Allergies (Unverified , 06/30/19) Objective Last 24 Hour Vital Signs Date Time Temp Pulse Resp B/P (MAP) Pulse Ox O2 Delivery O2 Flow Rate FiO2 09/15/20 12:01 97.4 101 20 117/88 (98) 94 09/15/20 12:00 Nasal Cannula 4.0 09/15/20 08:00 115 09/15/20 08:00 Nasal Cannula 4.0 09/15/20 08:00 98.2 112 18 125/81 (96) 98 114 09/15/20 04:00 98.2 112 19 127/86 (100) 98 09/15/20 04:00 Nasal Cannula 4.0 09/15/20 04:00 114 09/15/20 00:00 116 09/15/20 00:00 Nasal Cannula 4.0 09/15/20 00:00 98.0 115 20 117/80 (92) 94 09/14/20 20:00 Nasal Cannula 4.0 09/14/20 20:00 113 09/14/20 20:00 98.2 106 22 140/90 (107) 95 09/14/20 16:00 Venturi Mask 12.0 09/14/20 16:00 97.2 111 20 134/95 (108) 94 09/14/20 16:00 109 l Intake and Output 09/14/20 09/15/20 19:00 07:00 Intake Total 755 ml 775 ml Output Total 1100 ml 1200 ml Balance -345 ml -425 ml Intake Oral 500 ml 720 ml IV Total 255 ml 55 ml Output Urine Total 1100 ml 1200 ml # Bowel Movements 2 4 Laboratory Tests 09/15/20 03:39: White Blood Count 6.0, Red Blood Count 4.10L, Hemoglobin 11.2L, Hematocrit 35.8L , Mean Corpuscular Volume 88, Mean Corpuscular Hemoglobin 27.4, Mean Corpuscular Hemoglobin Concent 31.3L, Red Cell Distribution Width 15.5H, Platelet Count 416, Mean Platelet Volume 5.7L, Neutrophils (%) (Auto) 67.3, Lymphocytes (%) (Auto) 22.5, Monocytes (%) (Auto) 7.6, Eosinophils (%) (Auto) 2.0, Basophils (%) (Auto) 0.6, Sodium Level 132L, Potassium Level 4.7, Chloride Level 100, Carbon Dioxide Level 28, Anion Gap 4L, Blood Urea Nitrogen 20H, Creatinine 1.1, Estimat Glomerular Filtration Rate > 60, Glucose Level 92, Uric Acid 3.1, Calcium Level 8.6, Phosphorus Level 3.6, Magnesium Level 1.9, Total Bilirubin 0.1L, Aspartate Amino Transf (AST/SGOT) 41H, Alanine Aminotransferase (ALT/SGPT) 22, Alkaline Phosphatase 107, C-Reactive Protein, Quantitative 3.2H, Pro-B-Type Natriuretic Peptide 57, Total Protein 7.5, Albumin 1.5L, Globulin 6.0, Albumin/Globulin Ratio 0.2L Height (Feet): 5 Height (Inches): 4.00 Weight (Pounds): 120 Assessment/Plan Problem List: (1) Oral thrush ICD Codes: B37.0 - Candidal stomatitis SNOMED: 72196942 (2) Pneumonia ICD Codes: J18.9 - Pneumonia, unspecified organism SNOMED: 081144844 (3) Amphetamine abuse ICD Codes: F15.10 - Other stimulant abuse, uncomplicated SNOMED: 08301203 (4) Pneumonia ICD Codes: J18.9 - Pneumonia, unspecified organism SNOMED: 996963007 (5) Pneumothorax ICD Codes: J93.9 - Pneumothorax, unspecified SNOMED: 05773003 (6) Cachexia ICD Codes: R64 - Cachexia SNOMED: 634097446 (7) HIV (human immunodeficiency virus infection) ICD Codes: B20 - Human immunodeficiency virus [HIV] disease SNOMED: 12968277 (8) COPD (chronic obstructive pulmonary disease) ICD Codes: J44.9 - Chronic obstructive pulmonary disease, unspecified SNOMED: 21803659 (9) Severe protein-calorie malnutrition ICD Codes: E43 - Unspecified severe protein-calorie malnutrition SNOMED: 364821474, 503808952, 102447555 Status: progressing Assessment/Plan: hiv r/o TB pneumothorx prn oxygen pna cavitary lesion no change abx per id await culutures Tino Rodriges MD Sep 15, 2020 13:35
--- NOTE | 2020-09-15 13:43 | Nephrology Progress Note ---
Assessment/Plan Problem List: (1) Pneumothorax (2) Amphetamine abuse (3) HIV (human immunodeficiency virus infection) (4) Severe protein-calorie malnutrition (5) Electrolyte imbalance (6) Proteinuria Assessment Electrolyte imbalance: Hypokalemia, hyponatremia Hypoalbuminemia, 2+ proteinuria UTI Cavitary pneumonia Anemia Drug abuse, urine positive for amphetamine Right chest tube, spontaneous right pneumothorax AIDS Plan September 15: Labs reviewed. Stable from renal standpoint of view. Serum sodium 132. Continue per consultants. September 14: No labs drawn today. Labs from September 13 reviewed. Serum sodium 132. Serum magnesium 1.6. Will repeat lab tomorrow. Per orders. September 13: No labs drawn yet today. Patient pulled out his chest tube last night. Continue per pulmonary. Further comments upon getting the blood results today. September 12: Patient continues to have chest tube over the right side. Minimal drainage according to the RN. Chemistry panel done today. Continue to watch electrolytes and renal parameters. Continue per consultants. Like acid and B12 ordered Previously: Aim to correct electrolytes Per pulmonary, per ID Keep the blood pressure and blood sugar in check Per orders Subjective ROS Limited/Unobtainable: Yes Objective Objective Last 24 Hour Vital Signs Date Time Temp Pulse Resp B/P (MAP) Pulse Ox O2 Delivery O2 Flow Rate FiO2 09/15/20 12:01 97.4 101 20 117/88 (98) 94 09/15/20 12:00 Nasal Cannula 4.0 09/15/20 08:00 115 09/15/20 08:00 Nasal Cannula 4.0 09/15/20 08:00 98.2 112 18 125/81 (96) 98 114 09/15/20 04:00 98.2 112 19 127/86 (100) 98 09/15/20 04:00 Nasal Cannula 4.0 09/15/20 04:00 114 09/15/20 00:00 116 09/15/20 00:00 Nasal Cannula 4.0 09/15/20 00:00 98.0 115 20 117/80 (92) 94 09/14/20 20:00 Nasal Cannula 4.0 09/14/20 20:00 113 09/14/20 20:00 98.2 106 22 140/90 (107) 95 09/14/20 16:00 Venturi Mask 12.0 09/14/20 16:00 97.2 111 20 134/95 (108) 94 09/14/20 16:00 109 Intake and Output 09/14/20 09/15/20 19:00 07:00 Intake Total 755 ml 775 ml Output Total 1100 ml 1200 ml Balance -345 ml -425 ml Intake Oral 500 ml 720 ml IV Total 255 ml 55 ml Output Urine Total 1100 ml 1200 ml # Bowel Movements 2 4 Laboratory Tests 09/15/20 03:39: White Blood Count 6.0, Red Blood Count 4.10L, Hemoglobin 11.2L, Hematocrit 35.8L , Mean Corpuscular Volume 88, Mean Corpuscular Hemoglobin 27.4, Mean Corpuscular Hemoglobin Concent 31.3L, Red Cell Distribution Width 15.5H, Platelet Count 416, Mean Platelet Volume 5.7L, Neutrophils (%) (Auto) 67.3, Lymphocytes (%) (Auto) 22.5, Monocytes (%) (Auto) 7.6, Eosinophils (%) (Auto) 2.0, Basophils (%) (Auto) 0.6, Sodium Level 132L, Potassium Level 4.7, Chloride Level 100, Carbon Dioxide Level 28, Anion Gap 4L, Blood Urea Nitrogen 20H, Creatinine 1.1, Estimat Glomerular Filtration Rate > 60, Glucose Level 92, Uric Acid 3.1, Calcium Level 8.6, Phosphorus Level 3.6, Magnesium Level 1.9, Total Bilirubin 0.1L, Aspartate Amino Transf (AST/SGOT) 41H, Alanine Aminotransferase (ALT/SGPT) 22, Alkaline Phosphatase 107, C-Reactive Protein, Quantitative 3.2H, Pro-B-Type Natriuretic Peptide 57, Total Protein 7.5, Albumin 1.5L, Globulin 6.0, Albumin/Globulin Ratio 0.2L Height (Feet): 5 Height (Inches): 4.00 Weight (Pounds): 120 General Appearance: no apparent distress Cardiovascular: normal rate Respiratory/Chest: decreased breath sounds Abdomen: soft Objective No change Jimy Mahmood MD Sep 15, 2020 13:43
[2020-09-15] MEDS ORDERED: 1/2 NS 1000ml IV ONE (15:21)
[2020-09-15] MEDS ORDERED: NS 275ml ONE (15:21)
[2020-09-15] MEDS ORDERED: Tubing IV Secondary IV ONE (15:21)
[2020-09-15 16:00] VITALS: BP 137/90
--- NOTE | 2020-09-15 17:11 | Cardiac Electrophysiology PN ---
Assessment/Plan Assessment/Plan 1. Chest pain and shortness of breath. Ruled out for [place] protocol. The patient's amphetamine is positive. The patient, however, also has pneumothorax EF 55% 2. HIV, with oral thrush. 3. Rule out TB in view of cavitary lesion. 4. Pneumothorax, status post right-sided chest tube, on IV antibiotic Pulled out his chest tube 09/13/20 5. Substance abuse. SANDRA FINLEY DC tele. Subjective Subjective Alert in NAD. Awaiting last sputum AFB results. In TB isolation. In SR with no CP. Pulled out his chest tube Objective Last 24 Hour Vital Signs Date Time Temp Pulse Resp B/P (MAP) Pulse Ox O2 Delivery O2 Flow Rate FiO2 09/15/20 16:00 Nasal Cannula 4.0 09/15/20 12:01 97.4 101 20 117/88 (98) 94 09/15/20 12:00 Nasal Cannula 4.0 09/15/20 12:00 102 09/15/20 08:00 115 09/15/20 08:00 Nasal Cannula 4.0 09/15/20 08:00 98.2 112 18 125/81 (96) 98 114 09/15/20 04:00 98.2 112 19 127/86 (100) 98 09/15/20 04:00 Nasal Cannula 4.0 09/15/20 04:00 114 09/15/20 00:00 116 09/15/20 00:00 Nasal Cannula 4.0 09/15/20 00:00 98.0 115 20 117/80 (92) 94 09/14/20 20:00 Nasal Cannula 4.0 09/14/20 20:00 113 09/14/20 20:00 98.2 106 22 140/90 (107) 95 Intake and Output 09/14/20 09/15/20 19:00 07:00 Intake Total 755 ml 775 ml Output Total 1100 ml 1200 ml Balance -345 ml -425 ml Intake Oral 500 ml 720 ml IV Total 255 ml 55 ml Output Urine Total 1100 ml 1200 ml # Bowel Movements 2 4 Laboratory Tests Test 09/15/20 03:39 White Blood Count 6.0 K/UL (4.8-10.8) Red Blood Count 4.10 M/UL (4.70-6.10) L Hemoglobin 11.2 G/DL (14.2-18.0) L Hematocrit 35.8 % (42.0-52.0) L Mean Corpuscular Volume 88 FL (80-99) Mean Corpuscular Hemoglobin 27.4 PG (27.0-31.0) Mean Corpuscular Hemoglobin Concent 31.3 G/DL (32.0-36.0) L Red Cell Distribution Width 15.5 % (11.6-14.8) H Platelet Count 416 K/UL (150-450) Mean Platelet Volume 5.7 FL (6.5-10.1) L Neutrophils (%) (Auto) 67.3 % (45.0-75.0) Lymphocytes (%) (Auto) 22.5 % (20.0-45.0) Monocytes (%) (Auto) 7.6 % (1.0-10.0) Eosinophils (%) (Auto) 2.0 % (0.0-3.0) Basophils (%) (Auto) 0.6 % (0.0-2.0) Sodium Level 132 MMOL/L (136-145) L Potassium Level 4.7 MMOL/L (3.5-5.1) Chloride Level 100 MMOL/L (98-107) Carbon Dioxide Level 28 MMOL/L (21-32) Anion Gap 4 mmol/L (5-15) L Blood Urea Nitrogen 20 mg/dL (7-18) H Creatinine 1.1 MG/DL (0.55-1.30) Estimat Glomerular Filtration Rate > 60 mL/min (>60) Glucose Level 92 MG/DL (74-106) Uric Acid 3.1 MG/DL (2.6-7.2) Calcium Level 8.6 MG/DL (8.5-10.1) Phosphorus Level 3.6 MG/DL (2.5-4.9) Magnesium Level 1.9 MG/DL (1.8-2.4) Total Bilirubin 0.1 MG/DL (0.2-1.0) L Aspartate Amino Transf (AST/SGOT) 41 U/L (15-37) H Alanine Aminotransferase (ALT/SGPT) 22 U/L (12-78) Alkaline Phosphatase 107 U/L (46-116) C-Reactive Protein, Quantitative 3.2 mg/dL (0.00-0.90) H Pro-B-Type Natriuretic Peptide 57 pg/mL (0-125) Total Protein 7.5 G/DL (6.4-8.2) Albumin 1.5 G/DL (3.4-5.0) L Globulin 6.0 g/dL Albumin/Globulin Ratio 0.2 (1.0-2.7) L Objective HEAD AND NECK: No JVD. There is oral thrush. LUNGS: Coarse rhonchi. CARDIOVASCULAR: Regular S1 and S2 with no gallop. ABDOMEN: Soft. EXTREMITIES: No pitting edema. Artur Patton MD Sep 15, 2020 17:11
--- NOTE | 2020-09-15 17:40 | NUR ---
NURSE NOTES: Received patient from JUANA into room 407-2,patient is alert and oriented,respirations unlabored.Noted left lateral chest dressing intact.From report chest tube was taken out.No complaint of pain at this time.patient has his belongings ,cell phone.Saline lock right arm intact.Bed alarm on,call light within reach.
--- NOTE | 2020-09-15 17:40 | NUR ---
NURSE NOTES: pt safely transfer to [facility]. in stable condition. Report given to Chichi. Belongings were checked agains belonging sheet by nurse and patient, pt has cell phone with him as well as another electric device that is purple or dark blue in color. there is a plastic bad with his covers, shoes socks and checkered shirt at bedside. Pt is wearing ring. pt iv is intact and patent. changed optifoam from sacral area, applied barrier cream and cover with optifoam. Bed is locked and lowest condition. call light within reach. Pt is having dinner sitting in bed.
--- NOTE | 2020-09-15 19:35 | NUR ---
NURSE HAND-OFF: Carina FINLEY Important Events on Shift: Patient Status: [stable Diet: [ regular] Pending Orders: [] Pending Results/Labs:[] Pending MD notification:[] Latest Vital Signs: Temperature 97.0 , Pulse 105 , B/P 137 /90 , Respiratory Rate 22 , O2 SAT 96 , Nasal Cannula, O2 Flow Rate 4.0 . Vital Sign Comment: [] Latest Estrella Fall Score: 60 Fall Risk: High Risk Safety Measures: Call light Within Reach, Bed Alarm Zone 1, Side Rails Side Rails x2, Bed position Low and Locked. Fall Precautions: Yellow Socks Yellow Gown y Report given to [].
--- NOTE | 2020-09-15 19:35 | NUR ---
NURSE NOTES: Received report from MALIA Cadet. AAO x 3, on NC 4L. Iv site intact and patent. Denies pain or discomfort. Pt had chest tube but took off. Covered 4 x 4 on the R lateral chest. Bed locked,lowest position, alarm on, side rails up, call light within reach. Will continue to monitor.
[2020-09-15 20:00] VITALS: BP 128/90
[2020-09-16] VITALS: BP 119/79
[2020-09-16 04:00] VITALS: BP 119/80
[2020-09-16] MEDS: Meropenem 500 MG in NS 55 ML IVPB SCH ×3 (05:03→21:13)
--- NOTE | 2020-09-16 06:51 | NUR ---
NURSE HAND-OFF: Important Events on Shift:tachy Patient Status: stable Diet: reg Pending Orders: Pending Results/Labs: Pending MD notification: Latest Vital Signs: Temperature 97.8 , Pulse 111 , B/P 119 /80 , Respiratory Rate 20 , O2 SAT 94 , Nasal Cannula, O2 Flow Rate 3.0 . Vital Sign Comment: [] Latest Estrella Fall Score: 60 Fall Risk: High Risk Safety Measures: Call light Within Reach, Bed Alarm Zone 1, Side Rails Side Rails x2, Bed position Low and Locked. Fall Precautions: Yellow Socks Yellow Gown Addendum: 09/16/20 at 0745 by SOLEDAD KING RN RN HAND-OFF: Report given to
[2020-09-16 08:00] VITALS: BP 123/83
[2020-09-16] MEDS: Bactrim-DS 1 tab ORAL SCH ×2 (09:22→21:13)
[2020-09-16] MEDS: Nystatin Susp 500,000 units/5ml ORAL SCH ×2 (09:22→15:21)
[2020-09-16] MEDS: Fluconazole 100mg tab ORAL SCH (09:23)
--- NOTE | 2020-09-16 10:42 | Pulmonology Progress Note ---
Subjective ROS Limited/Unobtainable: Yes Interval Events: Chest tube no longer inplace; follwoup CXR show s re-expanded lung Constitutional: Reports: no symptoms HEENT: Repors: no symptoms Respiratory: Reports: no symptoms Cardiovascular: Reports: no symptoms Gastrointestinal/Abdominal: Reports: no symptoms Genitourinary: Reports: no symptoms Neurologic: Reports: no symptoms Musculoskeletal: Reports: pain Allergies: Coded Allergies: No Known Allergies (Unverified , 06/30/19) Objective Last 24 Hour Vital Signs Date Time Temp Pulse Resp B/P (MAP) Pulse Ox O2 Delivery O2 Flow Rate FiO2 09/16/20 08:00 97.2 100 19 123/83 (96) 93 09/16/20 04:00 97.8 111 20 119/80 (93) 94 09/16/20 00:00 98.2 110 16 119/79 (92) 95 09/15/20 21:00 Nasal Cannula 3.0 09/15/20 20:00 99.1 113 22 128/90 (103) 93 09/15/20 17:38 Nasal Cannula 4.0 09/15/20 16:00 105 09/15/20 16:00 Nasal Cannula 4.0 09/15/20 16:00 97.0 106 22 137/90 (106) 96 09/15/20 12:01 97.4 101 20 117/88 (98) 94 09/15/20 12:00 Nasal Cannula 4.0 09/15/20 12:00 102 Intake and Output 09/15/20 09/16/20 19:00 07:00 Output Total 100 ml 500 ml Balance -100 ml -500 ml Output Urine Total 100 ml 500 ml # Bowel Movements 7 1 General Appearance: no acute distress HEENT: normocephalic Respiratory: chest wall non-tender, lungs clear Cardiovascular: normal peripheral pulses, normal rate Abdomen: normal bowel sounds Current Medications Medications (Trade) Dose Ordered Sig/Kenia Route PRN Reason Start Time Stop Time Status Last Admin Dose Admin Acetaminophen (Tylenol) 650 mg Q4H PRN ORAL Mild Pain (Pain Scale 1-3) 09/10/20 01:15 10/10/20 01:14 09/10/20 22:51 Azithromycin (Zithromax) 1,200 mg ONCE A WEEK ORAL 09/12/20 11:00 09/19/20 10:59 09/12/20 12:20 Fluconazole (Diflucan) 200 mg DAILY ORAL 09/13/20 14:15 09/20/20 14:14 09/16/20 09:23 Folic Acid (Folate) 1 mg DAILY ORAL 09/12/20 09:30 10/12/20 09:29 09/16/20 09:22 Haloperidol Lactate (Haldol) 5 mg Q6H PRN IM Agitation 09/10/20 15:30 10/25/20 15:29 Meropenem 500 mg/ Sodium Chloride 55 ml @ 110 mls/hr EVERY 8 HOURS IVPB 09/12/20 14:00 09/17/20 13:59 09/16/20 05:03 Nystatin (Nystatin) 5 ml QID ORAL 09/09/20 18:00 09/16/20 17:59 09/16/20 09:22 Quetiapine Fumarate (SEROqueL) 50 mg BEDTIME ORAL 09/10/20 21:00 10/25/20 20:59 09/15/20 21:33 Trimethoprim/ Sulfamethoxazole (Bactrim-DS) 1 tab Q12HR ORAL 09/12/20 11:00 09/19/20 10:59 09/16/20 09:22 Assessment/Plan Assessment/Plan IMPRESSION: 1. Cavitary pneumonia. 2. Spontaneous right pneumothorax. 3. AIDS. 4. Chronic marijuana usage. DISCUSSION: Chest tube clamped yesterday Dislodged last night This Am cxr does not show PTX; lung stays fully expanded AFB smear x 3 negative Advised to titrate FiO2 down; saturating 98% on 3 L OK to dc home as third AFB is also negative Would recommend treatment for PCP (empirically) John Salguero Omar Syed MD Sep 16, 2020 10:42
--- NOTE | 2020-09-16 11:36 | Cardiac Electrophysiology PN ---
Assessment/Plan Assessment/Plan 1. Chest pain and shortness of breath. R[place] out for [place] protocol. The patient's amphetamine is positive. Likely due to pneumothorax EF 55% 2. HIV, with oral thrush. 3. Rule out TB in view of cavitary lesion. 4. Pneumothorax, status post right-sided chest tube, on IV antibiotic Pulled out his chest tube 09/13/20 5. Substance abuse. SANDRA RN Subjective Subjective Alert in NAD. In TB isolation. No CP. Pulled out his chest tube and still has dressing on his chest Objective Last 24 Hour Vital Signs Date Time Temp Pulse Resp B/P (MAP) Pulse Ox O2 Delivery O2 Flow Rate FiO2 09/16/20 08:00 97.2 100 19 123/83 (96) 93 09/16/20 04:00 97.8 111 20 119/80 (93) 94 09/16/20 00:00 98.2 110 16 119/79 (92) 95 09/15/20 21:00 Nasal Cannula 3.0 09/15/20 20:00 99.1 113 22 128/90 (103) 93 09/15/20 17:38 Nasal Cannula 4.0 09/15/20 16:00 105 09/15/20 16:00 Nasal Cannula 4.0 09/15/20 16:00 97.0 106 22 137/90 (106) 96 09/15/20 12:01 97.4 101 20 117/88 (98) 94 09/15/20 12:00 Nasal Cannula 4.0 09/15/20 12:00 102 Intake and Output 09/15/20 09/16/20 19:00 07:00 Output Total 100 ml 500 ml Balance -100 ml -500 ml Output Urine Total 100 ml 500 ml # Bowel Movements 7 1 Objective HEAD AND NECK: No JVD. There is oral thrush. LUNGS: Coarse rhonchi. CARDIOVASCULAR: Regular S1 and S2 with no gallop. ABDOMEN: Soft. EXTREMITIES: No pitting edema. Artur Patton MD Sep 16, 2020 11:36
[2020-09-16 12:00] VITALS: BP 121/83
--- NOTE | 2020-09-16 13:13 | Nephrology Progress Note ---
Assessment/Plan Problem List: (1) Pneumothorax (2) Amphetamine abuse (3) HIV (human immunodeficiency virus infection) (4) Severe protein-calorie malnutrition (5) Electrolyte imbalance (6) Proteinuria Assessment Electrolyte imbalance: Hypokalemia, hyponatremia Hypoalbuminemia, 2+ proteinuria UTI Cavitary pneumonia Anemia Drug abuse, urine positive for amphetamine Right chest tube, spontaneous right pneumothorax AIDS Plan September 16: No labs drawn today. Stable from renal standpoint of view. Will check labs tomorrow. September 15: Labs reviewed. Stable from renal standpoint of view. Serum sodium 132. Continue per consultants. September 14: No labs drawn today. Labs from September 13 reviewed. Serum sodium 132. Serum magnesium 1.6. Will repeat lab tomorrow. Per orders. September 13: No labs drawn yet today. Patient pulled out his chest tube last night. Continue per pulmonary. Further comments upon getting the blood results today. September 12: Patient continues to have chest tube over the right side. Minimal drainage according to the RN. Chemistry panel done today. Continue to watch electrolytes and renal parameters. Continue per consultants. Like acid and B12 ordered Previously: Aim to correct electrolytes Per pulmonary, per ID Keep the blood pressure and blood sugar in check Per orders Subjective ROS Limited/Unobtainable: No Constitutional: Reports: malaise Objective Objective Last 24 Hour Vital Signs Date Time Temp Pulse Resp B/P (MAP) Pulse Ox O2 Delivery O2 Flow Rate FiO2 09/16/20 12:00 97.7 98 18 121/83 (96) 98 09/16/20 08:00 97.2 100 19 123/83 (96) 93 09/16/20 04:00 97.8 111 20 119/80 (93) 94 09/16/20 00:00 98.2 110 16 119/79 (92) 95 09/15/20 21:00 Nasal Cannula 3.0 09/15/20 20:00 99.1 113 22 128/90 (103) 93 09/15/20 17:38 Nasal Cannula 4.0 09/15/20 16:00 105 09/15/20 16:00 Nasal Cannula 4.0 09/15/20 16:00 97.0 106 22 137/90 (106) 96 Intake and Output 09/15/20 09/16/20 19:00 07:00 Output Total 100 ml 500 ml Balance -100 ml -500 ml Output Urine Total 100 ml 500 ml # Bowel Movements 7 1 Current Medications Medications (Trade) Dose Ordered Sig/Kenia Route PRN Reason Start Time Stop Time Status Last Admin Dose Admin Acetaminophen (Tylenol) 650 mg Q4H PRN ORAL Mild Pain (Pain Scale 1-3) 09/10/20 01:15 10/10/20 01:14 09/10/20 22:51 Azithromycin (Zithromax) 1,200 mg ONCE A WEEK ORAL 09/12/20 11:00 09/19/20 10:59 09/12/20 12:20 Fluconazole (Diflucan) 200 mg DAILY ORAL 09/13/20 14:15 09/20/20 14:14 09/16/20 09:23 Folic Acid (Folate) 1 mg DAILY ORAL 09/12/20 09:30 10/12/20 09:29 09/16/20 09:22 Haloperidol Lactate (Haldol) 5 mg Q6H PRN IM Agitation 09/10/20 15:30 10/25/20 15:29 Meropenem 500 mg/ Sodium Chloride 55 ml @ 110 mls/hr EVERY 8 HOURS IVPB 09/12/20 14:00 09/17/20 13:59 09/16/20 05:03 Nystatin (Nystatin) 5 ml QID ORAL 09/09/20 18:00 09/16/20 17:59 09/16/20 09:22 Quetiapine Fumarate (SEROqueL) 50 mg BEDTIME ORAL 09/10/20 21:00 10/25/20 20:59 09/15/20 21:33 Trimethoprim/ Sulfamethoxazole (Bactrim-DS) 1 tab Q12HR ORAL 09/12/20 11:00 09/19/20 10:59 09/16/20 09:22 Height (Feet): 5 Height (Inches): 4.00 Weight (Pounds): 120 General Appearance: no apparent distress Objective No change Jimy Mahmood MD Sep 16, 2020 13:13
--- NOTE | 2020-09-16 14:53 | Infectious Diseases Prog Note ---
Assessment/Plan Assessment/Plan IMPRESSION: Pneumonia with cavitary lesions E coli ESBL Pneumothorax Postive blood culture with Leuconostoc & Staph epidermidis will try to rule out tuberculosis, AFB X 3; neg R/O Pneumocystis. Pyuria, may have UTI. Has right hydronephrosis, HIV/AIDS, CD4=29 Emphysema, Oral candidiasis, anemia, cachexia. RECOMMENDATIONS: Continue Meropenem & fluconazole X 1 day Continue Zithromax & Bactrim Will f/u sputum for Pneumocystis. Negative T spot test. Will start on ART soon Subjective ROS Limited/Unobtainable: No Respiratory: Reports: other - R chest pain at site of chest tube Gastrointestinal/Abdominal: Reports: no symptoms Genitourinary: Reports: no symptoms Allergies: Coded Allergies: No Known Allergies (Unverified , 06/30/19) Objective Last 24 Hour Vital Signs Date Time Temp Pulse Resp B/P (MAP) Pulse Ox O2 Delivery O2 Flow Rate FiO2 09/16/20 12:00 97.7 98 18 121/83 (96) 98 09/16/20 08:00 97.2 100 19 123/83 (96) 93 09/16/20 04:00 97.8 111 20 119/80 (93) 94 09/16/20 00:00 98.2 110 16 119/79 (92) 95 09/15/20 21:00 Nasal Cannula 3.0 09/15/20 20:00 99.1 113 22 128/90 (103) 93 09/15/20 17:38 Nasal Cannula 4.0 09/15/20 16:00 105 09/15/20 16:00 Nasal Cannula 4.0 09/15/20 16:00 97.0 106 22 137/90 (106) 96 Height (Feet): 5 Height (Inches): 4.00 Weight (Pounds): 120 General Appearance: cachetic HEENT: mucous membranes moist, other - poo dentition Respiratory/Chest: lungs clear, other - oxygen by nasal cannula Cardiovascular: normal rate Abdomen: soft, non tender Extremities: no edema Neurologic/Psychiatric: alert, oriented x 3, responsive Current Medications Medications (Trade) Dose Ordered Sig/Kenia Route PRN Reason Start Time Stop Time Status Last Admin Dose Admin Acetaminophen (Tylenol) 650 mg Q4H PRN ORAL Mild Pain (Pain Scale 1-3) 09/10/20 01:15 10/10/20 01:14 09/10/20 22:51 Azithromycin (Zithromax) 1,200 mg ONCE A WEEK ORAL 09/12/20 11:00 09/19/20 10:59 09/12/20 12:20 Fluconazole (Diflucan) 200 mg DAILY ORAL 09/13/20 14:15 09/20/20 14:14 09/16/20 09:23 Folic Acid (Folate) 1 mg DAILY ORAL 09/12/20 09:30 10/12/20 09:29 09/16/20 09:22 Haloperidol Lactate (Haldol) 5 mg Q6H PRN IM Agitation 09/10/20 15:30 10/25/20 15:29 Meropenem 500 mg/ Sodium Chloride 55 ml @ 110 mls/hr EVERY 8 HOURS IVPB 09/12/20 14:00 09/17/20 13:59 09/16/20 05:03 Nystatin (Nystatin) 5 ml QID ORAL 09/09/20 18:00 09/16/20 17:59 09/16/20 09:22 Quetiapine Fumarate (SEROqueL) 50 mg BEDTIME ORAL 09/10/20 21:00 10/25/20 20:59 09/15/20 21:33 Trimethoprim/ Sulfamethoxazole (Bactrim-DS) 1 tab Q12HR ORAL 09/12/20 11:00 09/19/20 10:59 09/16/20 09:22 Pasha Mendez MD Sep 16, 2020 14:53
[2020-09-16 15:26] VITALS: BP 126/89
--- NOTE | 2020-09-16 15:36 | NUR ---
CASE MANAGEMENT:REVIEW SI;CAVITARY PNEUMONIA 98.2 111 20 126/89 93% 2L NC IS;DIFLUCAN PO QD MEROPENEM IV Q8 BACTRIM DS PO Q12 NYSTATIN PO QID MED SURG STATUS DCP;PATIENT REPORTS HOMELESSNESS
--- NOTE | 2020-09-16 16:08 | NUR ---
Social Work This SW received a consult due to homelessness, substance abuse. This SW met with patient who appears to show malnutrition, thin-frail. Patient appears to have poor personal hygiene, while requesting to receive a shower here, as able. Patient admitting to homelessness, has been living [address] in [place], while using Methamphetamine. Patients health and teeth appear to be deteriorating to substance abuse. Patient admits to hearing voices and has a history of Schizophrenia. Patient receives $1030.00 per month. This SW strongly advised patient to abstain from substance abuse, while patient states, "I don't have an addiction, I only use Meth three times per week." Board and Care recommended, while patient explains he no longer has any of his income remaining (due to spending it on his drug habit). Long-Term recommended upon discharge. Patient stating he is agreement with nursing home placement upon discharge. This SW provided list of nursing home, Mental health clinics, and substance abuse resources (clothing to be provided, as needed). Pending progress here; SW to follow, as needed. Psychiatry following as well. Patient denied any S.I/H.I at this time. Brief counseling/emotional support provided to patient regarding changes, along with housing/Board and Care available once patient has his next months SSI check.
--- NOTE | 2020-09-16 17:30 | NUR ---
NURSE NOTES: hanged dressing right flank, sutures in place, no secretion or redness
--- NOTE | 2020-09-16 19:11 | NUR ---
NURSE HAND-OFF: Important Events on Shift:[changed dressing right flank, sutures in place, no secretion or redness] Patient Status: [] Diet: [reg, crush meds] Pending Orders: [] Pending Results/Labs:[] Pending MD notification:[] Latest Vital Signs: Temperature 97.8 , Pulse 91 , B/P 126 /89 , Respiratory Rate 20 , O2 SAT 98 , Nasal Cannula, O2 Flow Rate 3.0 . Vital Sign Comment: [] Latest Estrella Fall Score: 60 Fall Risk: High Risk Safety Measures: Call light Within Reach, Bed Alarm Zone 1, Side Rails Side Rails x2, Bed position Low and Locked. Fall Precautions: Yellow Socks Yellow Gown Report given to [RN Luis].
[2020-09-16] MEDS ORDERED: NS 275ml ONE (19:35)
[2020-09-16] MEDS ORDERED: Tubing IV Secondary IV ONE (19:35)
--- NOTE | 2020-09-16 19:42 | NUR ---
NURSE NOTES: Received report from MALIA Hair. AAO x 3, on NC 3L. Iv site intact and patent. Denies pain or discomfort. Pt had chest tube but took off. Covered 4 x 4 on the R lateral chest. Bed locked,lowest position, alarm on, side rails up, call light within reach. Will continue to monitor.
[2020-09-16 20:00] VITALS: BP 133/88
--- NOTE | 2020-09-16 21:01 | General Progress Note ---
Subjective ROS Limited/Unobtainable: Yes Allergies: Coded Allergies: No Known Allergies (Unverified , 06/30/19) Objective Last 24 Hour Vital Signs Date Time Temp Pulse Resp B/P (MAP) Pulse Ox O2 Delivery O2 Flow Rate FiO2 09/16/20 15:26 97.8 91 20 126/89 (101) 98 09/16/20 12:00 97.7 98 18 121/83 (96) 98 09/16/20 08:00 97.2 100 19 123/83 (96) 93 09/16/20 04:00 97.8 111 20 119/80 (93) 94 09/16/20 00:00 98.2 110 16 119/79 (92) 95 Intake and Output 09/15/20 09/16/20 19:00 07:00 Output Total 100 ml 500 ml Balance -100 ml -500 ml Output Urine Total 100 ml 500 ml # Bowel Movements 7 1 Height (Feet): 5 Height (Inches): 4.00 Weight (Pounds): 120 Assessment/Plan Problem List: (1) Oral thrush ICD Codes: B37.0 - Candidal stomatitis SNOMED: 41898384 (2) Pneumonia ICD Codes: J18.9 - Pneumonia, unspecified organism SNOMED: 846986466 (3) Amphetamine abuse ICD Codes: F15.10 - Other stimulant abuse, uncomplicated SNOMED: 30482974 (4) Pneumonia ICD Codes: J18.9 - Pneumonia, unspecified organism SNOMED: 902407748 (5) Pneumothorax ICD Codes: J93.9 - Pneumothorax, unspecified SNOMED: 00060849 (6) Cachexia ICD Codes: R64 - Cachexia SNOMED: 676578611 (7) HIV (human immunodeficiency virus infection) ICD Codes: B20 - Human immunodeficiency virus [HIV] disease SNOMED: 67187658 (8) COPD (chronic obstructive pulmonary disease) ICD Codes: J44.9 - Chronic obstructive pulmonary disease, unspecified SNOMED: 65643366 (9) Severe protein-calorie malnutrition ICD Codes: E43 - Unspecified severe protein-calorie malnutrition SNOMED: 749996506, 874561442, 336604730 Status: progressing Assessment/Plan: pneumothorax resolved r/o tb dc once cleared by pulmonary and id prn oxygen support Tino Rodriges MD Sep 16, 2020 21:01
--- NOTE | 2020-09-16 23:21 | Psychiatric Progress Note ---
Psychiatry Progress Note Psychiatry Progress Note Subjective the pt is the same Medications Current Medications Medications (Trade) Dose Ordered Sig/Kenia Route PRN Reason Start Time Stop Time Status Last Admin Dose Admin Acetaminophen (Tylenol) 650 mg Q4H PRN ORAL Mild Pain (Pain Scale 1-3) 09/10/20 01:15 10/10/20 01:14 09/10/20 22:51 Azithromycin (Zithromax) 1,200 mg ONCE A WEEK ORAL 09/12/20 11:00 09/19/20 10:59 09/12/20 12:20 Fluconazole (Diflucan) 200 mg DAILY ORAL 09/13/20 14:15 09/17/20 23:59 09/16/20 09:23 Folic Acid (Folate) 1 mg DAILY ORAL 09/12/20 09:30 10/12/20 09:29 09/16/20 09:22 Haloperidol Lactate (Haldol) 5 mg Q6H PRN IM Agitation 09/10/20 15:30 10/25/20 15:29 Meropenem 500 mg/ Sodium Chloride 55 ml @ 110 mls/hr EVERY 8 HOURS IVPB 09/12/20 14:00 09/17/20 23:59 09/16/20 21:13 Quetiapine Fumarate (SEROqueL) 50 mg BEDTIME ORAL 09/10/20 21:00 10/25/20 20:59 09/16/20 21:13 Trimethoprim/ Sulfamethoxazole (Bactrim-DS) 1 tab Q12HR ORAL 09/12/20 11:00 09/19/20 10:59 09/16/20 21:13 Neurological/Psychiatric: Reports: anxiety, depressed, emotional problems Allergies: Coded Allergies: No Known Allergies (Unverified , 06/30/19) Objective Data Height (Feet): 5 Height (Inches): 4.00 Weight (Pounds): 120 General Appearance: no apparent distress Additional Comments: lert, oriented times self, place, situation. Mood is anxious. Affect is blunted, congruent with mood. Thought process is concrete. Thought content, there is no suicidal or homicidal ideation. Cognition is impaired. Assessment/Plan [place] I: ASSESSMENT: [place] I Anxiety disorder. Depressive disorder. [place] II Deferred. [place] III HIV. [place] IV Moderate. [place] V 40. PLAN: 1. Seroquel at bedtime. 2. Haldol p.r.n. 3. Provide the patient with reality orientation and discussed with the nurse. Status: progressing Status Narrative ASSESSMENT: [place] I Anxiety disorder. Depressive disorder. [place] II Deferred. [place] III HIV. [place] IV Moderate. [place] V 40. PLAN: 1. Seroquel at bedtime. 2. Haldol p.r.n. 3. Provide the patient with reality orientation and discussed with the nurse. Assessment/Plan: ASSESSMENT: [place] I Anxiety disorder. Depressive disorder. [place] II Deferred. [place] III HIV. [place] IV Moderate. [place] V 40. PLAN: 1. Seroquel at bedtime. 2. Haldol p.r.n. 3. Provide the patient with reality orientation and discussed with the nurse. Denae Jaquez MD Sep 16, 2020 23:21
[2020-09-17] VITALS: BP 130/78
[2020-09-17 04:00] VITALS: BP 117/83
[2020-09-17] MEDS: Meropenem 500 MG in NS 55 ML IVPB SCH (05:12)
[2020-09-17 07:14] LABS: BASOPHILS % (AUTO) 1.6 % (0.0-2.0); EOSINOPHILS % (AUTO) 2.2 % (0.0-3.0); HEMATOCRIT 36.3 % (42.0-52.0); HEMOGLOBIN 11.1 G/DL (14.2-18.0); LYMPHOCYTES % (AUTO) 25.1 % (20.0-45.0); MEAN CORPUSCULAR VOLUME 88 FL (80-99); MONOCYTES % (AUTO) 7.9 % (1.0-10.0); NEUTROPHILS % (AUTO) 63.2 % (45.0-75.0); PLATELET COUNT 447 K/UL (150-450); RED BLOOD COUNT 4.11 M/UL (4.70-6.10); RED CELL DISTRIBUTION WIDTH 16.1 % (11.6-14.8); WHITE BLOOD COUNT 5.7 K/UL (4.8-10.8)
--- NOTE | 2020-09-17 07:31 | NUR ---
NURSE HAND-OFF: Important Events on Shift:tachycardia Patient Status: stable Diet: reg soft easy chew Pending Orders: Pending Results/Labs:AM labs Pending MD notification: Latest Vital Signs: Temperature 97.5 , Pulse 106 , B/P 117 /83 , Respiratory Rate 18 , O2 SAT 94 , Nasal Cannula, O2 Flow Rate 3.0 . Vital Sign Comment: [] Latest Estrella Fall Score: 60 Fall Risk: High Risk Safety Measures: Call light Within Reach, Bed Alarm Zone 1, Side Rails Side Rails x2, Bed position Low and Locked. Fall Precautions: Yellow Socks Yellow Gown Report given to [Najin].
--- NOTE | 2020-09-17 07:32 | NUR ---
NURSE NOTES: Received patient in bed,awake, alert and oriented x4. Not in respiratory distress. Breathing is even and unlabored. Bed is in lowest position and locked. Call light within reach. Bed alarm is on. Patient denies pain or discomfort. Will continue plan of care.
[2020-09-17 07:40] LABS: ALANINE AMINOTRANSFERASE 31 U/L (12-78); ALBUMIN 1.6 G/DL (3.4-5.0); ALBUMIN/GLOBULIN RATIO 0.3 (1.0-2.7); ALKALINE PHOSPHATASE 112 U/L (46-116); ANION GAP 5 mmol/L (5-15); ASPARTATE AMINO TRANSFERASE 48 U/L (15-37); BILIRUBIN,TOTAL 0.1 MG/DL (0.2-1.0); BLOOD UREA NITROGEN 21 mg/dL (7-18); CALCIUM 9.2 MG/DL (8.5-10.1); CARBON DIOXIDE 29 MMOL/L (21-32); CHLORIDE 103 MMOL/L (98-107); CREATININE 1.1 MG/DL (0.55-1.30); PHOSPHORUS 3.5 MG/DL (2.5-4.9); POTASSIUM 4.5 MMOL/L (3.5-5.1); SODIUM 136 MMOL/L (136-145)
[2020-09-17 08:00] VITALS: BP 112/75
[2020-09-17] MEDS: Fluconazole 100mg tab ORAL SCH (08:14)
[2020-09-17] MEDS: Bactrim-DS 1 tab ORAL SCH ×3 (08:14→22:53)
--- NOTE | 2020-09-17 08:23 | Cardiac Electrophysiology PN ---
Assessment/Plan Assessment/Plan 1. Chest pain and shortness of breath. Ruled out for ID protocol. The patient's amphetamine is positive. Likely due to pneumothorax EF 55% 2. HIV, with oral thrush. 3. Ruled out for TB despite cavitary lesion. 4. Pneumothorax, status post right-sided chest tube, on IV antibiotic Pulled out his chest tube 09/13/20 5. Substance abuse. SANDRA RN Subjective Subjective Alert in NAD. Off TB isolation as 3 AFBs were negative. No CP. Pulled out his chest tube and still has dressing on his chest Objective Last 24 Hour Vital Signs Date Time Temp Pulse Resp B/P (MAP) Pulse Ox O2 Delivery O2 Flow Rate FiO2 09/17/20 04:00 97.5 106 18 117/83 (94) 94 09/17/20 00:00 97.7 99 18 130/78 (95) 95 09/16/20 21:00 Nasal Cannula 3.0 09/16/20 20:00 98.1 104 20 133/88 (103) 95 09/16/20 15:26 97.8 91 20 126/89 (101) 98 09/16/20 12:00 97.7 98 18 121/83 (96) 98 Intake and Output 09/16/20 09/17/20 19:00 07:00 Intake Total 500 ml 360 ml Output Total 600 ml Balance 500 ml -240 ml Intake Oral 360 ml Other 500 ml Output Urine Total 600 ml Laboratory Tests Test 09/17/20 06:39 White Blood Count 5.7 K/UL (4.8-10.8) Red Blood Count 4.11 M/UL (4.70-6.10) L Hemoglobin 11.1 G/DL (14.2-18.0) L Hematocrit 36.3 % (42.0-52.0) L Mean Corpuscular Volume 88 FL (80-99) Mean Corpuscular Hemoglobin 27.1 PG (27.0-31.0) Mean Corpuscular Hemoglobin Concent 30.7 G/DL (32.0-36.0) L Red Cell Distribution Width 16.1 % (11.6-14.8) H Platelet Count 447 K/UL (150-450) Mean Platelet Volume 6.3 FL (6.5-10.1) L Neutrophils (%) (Auto) 63.2 % (45.0-75.0) Lymphocytes (%) (Auto) 25.1 % (20.0-45.0) Monocytes (%) (Auto) 7.9 % (1.0-10.0) Eosinophils (%) (Auto) 2.2 % (0.0-3.0) Basophils (%) (Auto) 1.6 % (0.0-2.0) Sodium Level 136 MMOL/L (136-145) Potassium Level 4.5 MMOL/L (3.5-5.1) Chloride Level 103 MMOL/L (98-107) Carbon Dioxide Level 29 MMOL/L (21-32) Anion Gap 5 mmol/L (5-15) Blood Urea Nitrogen 21 mg/dL (7-18) H Creatinine 1.1 MG/DL (0.55-1.30) Estimat Glomerular Filtration Rate > 60 mL/min (>60) Glucose Level 100 MG/DL (74-106) Calcium Level 9.2 MG/DL (8.5-10.1) Phosphorus Level 3.5 MG/DL (2.5-4.9) Magnesium Level 1.9 MG/DL (1.8-2.4) Total Bilirubin 0.1 MG/DL (0.2-1.0) L Aspartate Amino Transf (AST/SGOT) 48 U/L (15-37) H Alanine Aminotransferase (ALT/SGPT) 31 U/L (12-78) Alkaline Phosphatase 112 U/L (46-116) C-Reactive Protein, Quantitative 1.6 mg/dL (0.00-0.90) H Total Protein 7.7 G/DL (6.4-8.2) Albumin 1.6 G/DL (3.4-5.0) L Globulin 6.1 g/dL Albumin/Globulin Ratio 0.3 (1.0-2.7) L Objective HEAD AND NECK: No JVD. There is oral thrush. LUNGS: Coarse rhonchi. CARDIOVASCULAR: Regular S1 and S2 with no gallop. ABDOMEN: Soft. EXTREMITIES: No pitting edema. Artur Patton MD Sep 17, 2020 08:23
--- NOTE | 2020-09-17 09:56 | Pulmonology Progress Note ---
Subjective ROS Limited/Unobtainable: Yes Interval Events: Chest tube no longer inplace; follwoup CXR show s re-expanded lung Constitutional: Reports: no symptoms HEENT: Repors: no symptoms Respiratory: Reports: no symptoms Cardiovascular: Reports: no symptoms Gastrointestinal/Abdominal: Reports: no symptoms Genitourinary: Reports: no symptoms Neurologic: Reports: no symptoms Musculoskeletal: Reports: pain Allergies: Coded Allergies: No Known Allergies (Unverified , 06/30/19) Objective Last 24 Hour Vital Signs Date Time Temp Pulse Resp B/P (MAP) Pulse Ox O2 Delivery O2 Flow Rate FiO2 09/17/20 04:00 97.5 106 18 117/83 (94) 94 09/17/20 00:00 97.7 99 18 130/78 (95) 95 09/16/20 21:00 Nasal Cannula 3.0 09/16/20 20:00 98.1 104 20 133/88 (103) 95 09/16/20 15:26 97.8 91 20 126/89 (101) 98 09/16/20 12:00 97.7 98 18 121/83 (96) 98 Intake and Output 09/16/20 09/17/20 19:00 07:00 Intake Total 500 ml 360 ml Output Total 600 ml Balance 500 ml -240 ml Intake Oral 360 ml Other 500 ml Output Urine Total 600 ml General Appearance: no acute distress HEENT: normocephalic Respiratory: chest wall non-tender, lungs clear Cardiovascular: normal peripheral pulses, normal rate Abdomen: normal bowel sounds Laboratory Tests 09/17/20 06:39: White Blood Count 5.7, Red Blood Count 4.11L, Hemoglobin 11.1L, Hematocrit 36.3L , Mean Corpuscular Volume 88, Mean Corpuscular Hemoglobin 27.1, Mean Corpuscular Hemoglobin Concent 30.7L, Red Cell Distribution Width 16.1H, Platelet Count 447, Mean Platelet Volume 6.3L, Neutrophils (%) (Auto) 63.2, Lymphocytes (%) (Auto) 25.1, Monocytes (%) (Auto) 7.9, Eosinophils (%) (Auto) 2.2, Basophils (%) (Auto) 1.6, Sodium Level 136, Potassium Level 4.5, Chloride Level 103, Carbon Dioxide Level 29, Anion Gap 5, Blood Urea Nitrogen 21H, Creatinine 1.1, Estimat Glomerular Filtration Rate > 60, Glucose Level 100, Calcium Level 9.2, Phosphorus Level 3.5, Magnesium Level 1.9, Total Bilirubin 0.1L, Aspartate Amino Transf (AST/SGOT) 48H, Alanine Aminotransferase (ALT/SGPT) 31, Alkaline Phosphatase 112, C-Reactive Protein, Quantitative 1.6H, Total Protein 7.7, Albumin 1.6L, Globulin 6.1, Albumin/Globulin Ratio 0.3L Current Medications Medications (Trade) Dose Ordered Sig/Kenia Route PRN Reason Start Time Stop Time Status Last Admin Dose Admin Acetaminophen (Tylenol) 650 mg Q4H PRN ORAL Mild Pain (Pain Scale 1-3) 09/10/20 01:15 10/10/20 01:14 09/10/20 22:51 Azithromycin (Zithromax) 1,200 mg ONCE A WEEK ORAL 09/12/20 11:00 09/19/20 10:59 09/12/20 12:20 Fluconazole (Diflucan) 200 mg DAILY ORAL 09/13/20 14:15 09/17/20 23:59 09/17/20 08:14 Folic Acid (Folate) 1 mg DAILY ORAL 09/12/20 09:30 10/12/20 09:29 09/17/20 08:14 Haloperidol Lactate (Haldol) 5 mg Q6H PRN IM Agitation 09/10/20 15:30 10/25/20 15:29 Meropenem 500 mg/ Sodium Chloride 55 ml @ 110 mls/hr EVERY 8 HOURS IVPB 09/12/20 14:00 09/17/20 23:59 09/17/20 05:12 Quetiapine Fumarate (SEROqueL) 50 mg BEDTIME ORAL 09/10/20 21:00 10/25/20 20:59 09/16/20 21:13 Trimethoprim/ Sulfamethoxazole (Bactrim-DS) 1 tab Q12HR ORAL 09/12/20 11:00 09/19/20 10:59 09/17/20 08:14 Assessment/Plan Assessment/Plan IMPRESSION: 1. Cavitary pneumonia. 2. Spontaneous right pneumothorax. 3. AIDS. 4. Chronic marijuana usage. DISCUSSION: Chest tube clamped yesterday Dislodged last night This Am cxr does not show PTX; lung stays fully expanded AFB smear x 3 negative Advised to titrate FiO2 down; saturating 98% on 3 L OK to dc home as third AFB is also negative Would recommend treatment for PCP (empirically) John Salguero Omar Syed MD Sep 17, 2020 09:56
--- NOTE | 2020-09-17 10:20 | NUR ---
RD ASSESSMENT & RECOMMENDATIONS SEE CARE ACTIVITY FOR COMPLETE ASSESSMENT DAILY ESTIMATED NEEDS: Needs based on HIV, h/o underweight/ 55kg 30-35 kcals/kg 3846-2466 total kcals 1.25 g protein/kg 69-110 g total protein 25-30 mL/kg 1133-9874 total fluid mLs NUTRITION DIAGNOSIS: Altered nutrition related lab values r/t clinical status as evidenced by low K(3.2), low mg(1.7), elev LD(403). CURRENT DIET:Regular PO DIET RECOMMENDATIONS: REGULAR/ texture as tolerated ADDITIONAL RECOMMENDATIONS: 1) Obtain a STANDING weight for accurate CBW 2) Ensure Enlive TID w/ meals + snacks in b/w 3) Monitor PO tolerance, need for texture downgrade: h/o +oral thrush 4) Monitor lytes, replete as needed 5) Rec WC eval, partial thickness buttock wound Add CARLO BID 6) monitor WBC, need for neutropenic diet
[2020-09-17 12:00] VITALS: BP 124/84
--- NOTE | 2020-09-17 12:37 | Infectious Diseases Prog Note ---
Assessment/Plan Assessment/Plan IMPRESSION: Pneumonia with pneumocystis E coli ESBL Pneumothorax Postive blood culture with Leuconostoc & Staph epidermidis will try to rule out tuberculosis, AFB X 3; neg R/O Pneumocystis. Pyuria, may have UTI. Has right hydronephrosis, HIV/AIDS, CD4=29 Emphysema, Oral candidiasis, anemia, cachexia. RECOMMENDATIONS: Discontinue Meropenem & fluconazole Continue Zithromax Increase the dose of Bactrim Case was D/W pharmacy Negative T spot test. Will start on ART soon Subjective ROS Limited/Unobtainable: Yes Constitutional: Denies: fever Respiratory: Reports: shortness of breath Allergies: Coded Allergies: No Known Allergies (Unverified , 06/30/19) Objective Last 24 Hour Vital Signs Date Time Temp Pulse Resp B/P (MAP) Pulse Ox O2 Delivery O2 Flow Rate FiO2 09/17/20 09:00 Nasal Cannula 2.0 09/17/20 08:00 97.2 107 20 112/75 (87) 94 09/17/20 04:00 97.5 106 18 117/83 (94) 94 09/17/20 00:00 97.7 99 18 130/78 (95) 95 09/16/20 21:00 Nasal Cannula 3.0 09/16/20 20:00 98.1 104 20 133/88 (103) 95 09/16/20 15:26 97.8 91 20 126/89 (101) 98 Height (Feet): 5 Height (Inches): 4.00 Weight (Pounds): 120 General Appearance: no acute distress HEENT: mucous membranes moist Respiratory/Chest: lungs clear, other - oxygen by nasal cannula Cardiovascular: normal rate Abdomen: soft, non tender Extremities: no edema Neurologic/Psychiatric: alert, responsive Musculoskeletal: atrophy Laboratory Tests Test 09/17/20 06:39 White Blood Count 5.7 K/UL (4.8-10.8) Red Blood Count 4.11 M/UL (4.70-6.10) L Hemoglobin 11.1 G/DL (14.2-18.0) L Hematocrit 36.3 % (42.0-52.0) L Mean Corpuscular Volume 88 FL (80-99) Mean Corpuscular Hemoglobin 27.1 PG (27.0-31.0) Mean Corpuscular Hemoglobin Concent 30.7 G/DL (32.0-36.0) L Red Cell Distribution Width 16.1 % (11.6-14.8) H Platelet Count 447 K/UL (150-450) Mean Platelet Volume 6.3 FL (6.5-10.1) L Neutrophils (%) (Auto) 63.2 % (45.0-75.0) Lymphocytes (%) (Auto) 25.1 % (20.0-45.0) Monocytes (%) (Auto) 7.9 % (1.0-10.0) Eosinophils (%) (Auto) 2.2 % (0.0-3.0) Basophils (%) (Auto) 1.6 % (0.0-2.0) Sodium Level 136 MMOL/L (136-145) Potassium Level 4.5 MMOL/L (3.5-5.1) Chloride Level 103 MMOL/L (98-107) Carbon Dioxide Level 29 MMOL/L (21-32) Anion Gap 5 mmol/L (5-15) Blood Urea Nitrogen 21 mg/dL (7-18) H Creatinine 1.1 MG/DL (0.55-1.30) Estimat Glomerular Filtration Rate > 60 mL/min (>60) Glucose Level 100 MG/DL (74-106) Calcium Level 9.2 MG/DL (8.5-10.1) Phosphorus Level 3.5 MG/DL (2.5-4.9) Magnesium Level 1.9 MG/DL (1.8-2.4) Total Bilirubin 0.1 MG/DL (0.2-1.0) L Aspartate Amino Transf (AST/SGOT) 48 U/L (15-37) H Alanine Aminotransferase (ALT/SGPT) 31 U/L (12-78) Alkaline Phosphatase 112 U/L (46-116) C-Reactive Protein, Quantitative 1.6 mg/dL (0.00-0.90) H Total Protein 7.7 G/DL (6.4-8.2) Albumin 1.6 G/DL (3.4-5.0) L Globulin 6.1 g/dL Albumin/Globulin Ratio 0.3 (1.0-2.7) L Current Medications Medications (Trade) Dose Ordered Sig/Kenia Route PRN Reason Start Time Stop Time Status Last Admin Dose Admin Acetaminophen (Tylenol) 650 mg Q4H PRN ORAL Mild Pain (Pain Scale 1-3) 09/10/20 01:15 10/10/20 01:14 09/10/20 22:51 Azithromycin (Zithromax) 1,200 mg ONCE A WEEK ORAL 09/12/20 11:00 09/19/20 10:59 09/12/20 12:20 Fluconazole (Diflucan) 200 mg DAILY ORAL 09/13/20 14:15 09/17/20 23:59 09/17/20 08:14 Folic Acid (Folate) 1 mg DAILY ORAL 09/12/20 09:30 10/12/20 09:29 09/17/20 08:14 Haloperidol Lactate (Haldol) 5 mg Q6H PRN IM Agitation 09/10/20 15:30 10/25/20 15:29 Meropenem 500 mg/ Sodium Chloride 55 ml @ 110 mls/hr EVERY 8 HOURS IVPB 09/12/20 14:00 09/17/20 23:59 09/17/20 05:12 Quetiapine Fumarate (SEROqueL) 50 mg BEDTIME ORAL 09/10/20 21:00 10/25/20 20:59 09/16/20 21:13 Trimethoprim/ Sulfamethoxazole (Bactrim-DS) 1 tab Q12HR ORAL 09/12/20 11:00 09/19/20 10:59 09/17/20 08:14 Pasha Mendez MD Sep 17, 2020 12:37
--- NOTE | 2020-09-17 12:55 | Nephrology Progress Note ---
Assessment/Plan Problem List: (1) Pneumothorax (2) Amphetamine abuse (3) HIV (human immunodeficiency virus infection) (4) Severe protein-calorie malnutrition (5) Electrolyte imbalance (6) Proteinuria Assessment Electrolyte imbalance: Hypokalemia, hyponatremia Hypoalbuminemia, 2+ proteinuria UTI Cavitary pneumonia Anemia Drug abuse, urine positive for amphetamine Right chest tube, spontaneous right pneumothorax AIDS Plan September 17: Labs reviewed. Renal parameters stable. Continue per consultants. September 16: No labs drawn today. Stable from renal standpoint of view. Will check labs tomorrow. September 15: Labs reviewed. Stable from renal standpoint of view. Serum sodium 132. Continue per consultants. September 14: No labs drawn today. Labs from September 13 reviewed. Serum sodium 132. Serum magnesium 1.6. Will repeat lab tomorrow. Per orders. September 13: No labs drawn yet today. Patient pulled out his chest tube last night. Continue per pulmonary. Further comments upon getting the blood results today. September 12: Patient continues to have chest tube over the right side. Minimal drainage according to the RN. Chemistry panel done today. Continue to watch electrolytes and renal parameters. Continue per consultants. Like acid and B12 ordered Previously: Aim to correct electrolytes Per pulmonary, per ID Keep the blood pressure and blood sugar in check Per orders Subjective ROS Limited/Unobtainable: No Constitutional: Reports: malaise Objective Objective Last 24 Hour Vital Signs Date Time Temp Pulse Resp B/P (MAP) Pulse Ox O2 Delivery O2 Flow Rate FiO2 09/17/20 09:00 Nasal Cannula 2.0 09/17/20 08:00 97.2 107 20 112/75 (87) 94 09/17/20 04:00 97.5 106 18 117/83 (94) 94 09/17/20 00:00 97.7 99 18 130/78 (95) 95 09/16/20 21:00 Nasal Cannula 3.0 09/16/20 20:00 98.1 104 20 133/88 (103) 95 09/16/20 15:26 97.8 91 20 126/89 (101) 98 Intake and Output0 09/16/20 09/17/20 19:00 07:00 Intake Total 500 ml 360 ml Output Total 600 ml Balance 500 ml -240 ml Intake Oral 360 ml Other 500 ml Output Urine Total 600 ml Current Medications Medications (Trade) Dose Ordered Sig/Kenia Route PRN Reason Start Time Stop Time Status Last Admin Dose Admin Acetaminophen (Tylenol) 650 mg Q4H PRN ORAL Mild Pain (Pain Scale 1-3) 09/10/20 01:15 10/10/20 01:14 09/10/20 22:51 Azithromycin (Zithromax) 1,200 mg ONCE A WEEK ORAL 09/12/20 11:00 09/19/20 10:59 09/12/20 12:20 Folic Acid (Folate) 1 mg DAILY ORAL 09/12/20 09:30 10/12/20 09:29 09/17/20 08:14 Haloperidol Lactate (Haldol) 5 mg Q6H PRN IM Agitation 09/10/20 15:30 10/25/20 15:29 Quetiapine Fumarate (SEROqueL) 50 mg BEDTIME ORAL 09/10/20 21:00 10/25/20 20:59 09/16/20 21:13 Trimethoprim/ Sulfamethoxazole (Bactrim-DS) 2 tab Q8HR ORAL 09/17/20 14:00 09/24/20 13:59 Laboratory Tests 09/17/20 06:39: White Blood Count 5.7, Red Blood Count 4.11L, Hemoglobin 11.1L, Hematocrit 36.3L , Mean Corpuscular Volume 88, Mean Corpuscular Hemoglobin 27.1, Mean Corpuscular Hemoglobin Concent 30.7L, Red Cell Distribution Width 16.1H, Platelet Count 447, Mean Platelet Volume 6.3L, Neutrophils (%) (Auto) 63.2, Lymphocytes (%) (Auto) 25.1, Monocytes (%) (Auto) 7.9, Eosinophils (%) (Auto) 2.2, Basophils (%) (Auto) 1.6, Sodium Level 136, Potassium Level 4.5, Chloride Level 103, Carbon Dioxide Level 29, Anion Gap 5, Blood Urea Nitrogen 21H, Creatinine 1.1, Estimat Glomerular Filtration Rate > 60, Glucose Level 100, Calcium Level 9.2, Phosphorus Level 3.5, Magnesium Level 1.9, Total Bilirubin 0.1L, Aspartate Amino Transf (AST/SGOT) 48H, Alanine Aminotransferase (ALT/SGPT) 31, Alkaline Phospha tase 112, C-Reactive Protein, Quantitative 1.6H, Total Protein 7.7, Albumin 1.6L , Globulin 6.1, Albumin/Globulin Ratio 0.3L Height (Feet): 5 Height (Inches): 4.00 Weight (Pounds): 120 General Appearance: no apparent distress Objective No change Jimy Mahmood MD Sep 17, 2020 12:54
[2020-09-17 16:00] VITALS: BP 124/86
--- NOTE | 2020-09-17 16:43 | NUR ---
CASE MANAGEMENT: REVIEW SI: PNA w/ PNEUMOCYSTIS . T 97.2 HR 107 RR 19 BP 124/84 SAT 94% NC/2L H/H 11.1/36.3 BUN 21 AST 48 PNEUMOCYSTIS SMEAR DFA -- POSITIVE IS: DIFLUCAN PO QD MEROPENEM IV Q8HR BACTRIM-DS PO Q12HR AZITHROMYCIN POX1 MED/SURG STATUS DCP: PATIENT IS FROM HOME
--- NOTE | 2020-09-17 18:00 | NUR ---
NURSE NOTES: right chest s/p chest tube removal site intact with stitches. No s/s of infection. No skin issues.
--- NOTE | 2020-09-17 18:58 | NUR ---
NURSE HAND-OFF: Important Events on Shift: n/a Patient Status: stable Diet: regular soft easy chew Pending Orders: Pending Results/Labs: Pending MD notification: Latest Vital Signs: Temperature 97.7 , Pulse 107 , B/P 124 /86 , Respiratory Rate 20 , O2 SAT 94 , Nasal Cannula, O2 Flow Rate 2.0 . Vital Sign Comment: Latest Estrella Fall Score: 60 Fall Risk: High Risk Safety Measures: Call light Within Reach, Bed Alarm Zone 1, Side Rails Side Rails x2, Bed position Low and Locked. Fall Precautions: Yellow Socks Yellow Gown Report given to kayleigh and endorsed plan of care.
--- NOTE | 2020-09-17 19:45 | NUR ---
NURSE NOTES: RECEIVED PATIENT FROM MALIA GUERRA. PATIENT IS AWAKE, AAOX4, ON ROOM AIR, NO ACUTE DISTRESS NOTED. PATIENT DENIES SOB AND PAIN. HAS PRN O2 2L. PIV ON RIGHT FA 22G INTACT AND PATENT. DRESSINGS ON LATERAL CHEST INTACT AND CLEAN, NO BLEEDING NOTED. WOUND DRESSINGS ON BUTTOCKS INTACT AND DRY. BED IS LOCKED AND LOW, BED ALARMS ACTIVE, SIDE RAILS UP X2 AND CALL LIGHT IS WITHIN REACH. WILL CONTINUE TO MONITOR.
[2020-09-17 20:00] VITALS: BP 130/87
--- NOTE | 2020-09-17 20:20 | Psychiatric Progress Note ---
Psychiatry Progress Note Psychiatry Progress Note Subjective the pt is doing better dec anxiety Medications Current Medications Medications (Trade) Dose Ordered Sig/Kenia Route PRN Reason Start Time Stop Time Status Last Admin Dose Admin Acetaminophen (Tylenol) 650 mg Q4H PRN ORAL Mild Pain (Pain Scale 1-3) 09/10/20 01:15 10/10/20 01:14 09/17/20 19:04 Azithromycin (Zithromax) 1,200 mg ONCE A WEEK ORAL 09/12/20 11:00 09/19/20 10:59 09/12/20 12:20 Folic Acid (Folate) 1 mg DAILY ORAL 09/12/20 09:30 10/12/20 09:29 09/17/20 08:14 Haloperidol Lactate (Haldol) 5 mg Q6H PRN IM Agitation 09/10/20 15:30 10/25/20 15:29 Quetiapine Fumarate (SEROqueL) 50 mg BEDTIME ORAL 09/10/20 21:00 10/25/20 20:59 09/16/20 21:13 Trimethoprim/ Sulfamethoxazole (Bactrim-DS) 2 tab Q8HR ORAL 09/17/20 14:00 09/24/20 13:59 09/17/20 13:52 Neurological/Psychiatric: Reports: anxiety, depressed, emotional problems Allergies: Coded Allergies: No Known Allergies (Unverified , 06/30/19) Objective Data Height (Feet): 5 Height (Inches): 4.00 Weight (Pounds): 120 General Appearance: alert, alert oriented x3 Additional Comments: lert, oriented times self, place, situation. Mood is anxious. Affect is blunted, congruent with mood. Thought process is concrete. Thought content, there is no suicidal or homicidal ideation. Cognition is impaired. Assessment/Plan Kingsley I: ASSESSMENT: Kingsley I Anxiety disorder. Depressive disorder. Kingsley II Deferred. Kingsley III HIV. Kingsley IV Moderate. Kingsley V 40. PLAN: 1. Seroquel at bedtime. 2. Haldol p.r.n. 3. Provide the patient with reality orientation and discussed with the nurse. Status: progressing Status Narrative ASSESSMENT: Kingsley I Anxiety disorder. Depressive disorder. Kingsley II Deferred. Kingsley III HIV. Kingsley IV Moderate. Kingsley V 40. PLAN: 1. Seroquel at bedtime. 2. Haldol p.r.n. 3. Provide the patient with reality orientation and discussed with the nurse. Assessment/Plan: ASSESSMENT: Kingsley I Anxiety disorder. Depressive disorder. Kingsley II Deferred. Kingsley III HIV. Kingsley IV Moderate. Kingsley V 40. PLAN: 1. Seroquel at bedtime. 2. Haldol p.r.n. 3. Provide the patient with reality orientation and discussed with the nurse. Denae Jaquez MD Sep 17, 2020 20:20
--- NOTE | 2020-09-17 21:12 | General Progress Note ---
Subjective ROS Limited/Unobtainable: Yes Allergies: Coded Allergies: No Known Allergies (Unverified , 06/30/19) Objective Last 24 Hour Vital Signs Date Time Temp Pulse Resp B/P (MAP) Pulse Ox O2 Delivery O2 Flow Rate FiO2 09/17/20 16:00 97.7 107 20 124/86 (99) 94 09/17/20 14:12 94 Nasal Cannula 2.0 28 09/17/20 12:00 97.2 104 19 124/84 (97) 94 09/17/20 09:00 Nasal Cannula 2.0 09/17/20 08:00 97.2 107 20 112/75 (87) 94 09/17/20 04:00 97.5 106 18 117/83 (94) 94 09/17/20 00:00 97.7 99 18 130/78 (95) 95 Intake and Output 09/16/20 09/17/20 19:00 07:00 Intake Total 500 ml 360 ml Output Total 600 ml Balance 500 ml -240 ml Intake Oral 360 ml Other 500 ml Output Urine Total 600 ml Laboratory Tests 09/17/20 06:39: White Blood Count 5.7, Red Blood Count 4.11L, Hemoglobin 11.1L, Hematocrit 36.3L , Mean Corpuscular Volume 88, Mean Corpuscular Hemoglobin 27.1, Mean Corpuscular Hemoglobin Concent 30.7L, Red Cell Distribution Width 16.1H, Platelet Count 447, Mean Platelet Volume 6.3L, Neutrophils (%) (Auto) 63.2, Lymphocytes (%) (Auto) 25.1, Monocytes (%) (Auto) 7.9, Eosinophils (%) (Auto) 2.2, Basophils (%) (Auto) 1.6, Sodium Level 136, Potassium Level 4.5, Chloride Level 103, Carbon Dioxide Level 29, Anion Gap 5, Blood Urea Nitrogen 21H, Creatinine 1.1, Estimat Glomerular Filtration Rate > 60, Glucose Level 100, Calcium Level 9.2, Phosphorus Level 3.5, Magnesium Level 1.9, Total Bilirubin 0.1L, Aspartate Amino Transf (AST/SGOT) 48H, Alanine Aminotransferase (ALT/SGPT) 31, Alkaline Phosph atase 112, C-Reactive Protein, Quantitative 1.6H, Total Protein 7.7, Albumin 1.6L, Globulin 6.1, Albumin/Globulin Ratio 0.3L Height (Feet): 5 Height (Inches): 4.00 Weight (Pounds): 120 Assessment/Plan Problem List: (1) Oral thrush ICD Codes: B37.0 - Candidal stomatitis SNOMED: 96261519 (2) Pneumonia ICD Codes: J18.9 - Pneumonia, unspecified organism SNOMED: 717171732 (3) Amphetamine abuse ICD Codes: F15.10 - Other stimulant abuse, uncomplicated SNOMED: 31258871 (4) Pneumonia ICD Codes: J18.9 - Pneumonia, unspecified organism SNOMED: 657253980 (5) Pneumothorax ICD Codes: J93.9 - Pneumothorax, unspecified SNOMED: 96545688 (6) Cachexia ICD Codes: R64 - Cachexia SNOMED: 539042385 (7) HIV (human immunodeficiency virus infection) ICD Codes: B20 - Human immunodeficiency virus [HIV] disease SNOMED: 21251798 (8) COPD (chronic obstructive pulmonary disease) ICD Codes: J44.9 - Chronic obstructive pulmonary disease, unspecified SNOMED: 28029109 (9) Severe protein-calorie malnutrition ICD Codes: E43 - Unspecified severe protein-calorie malnutrition SNOMED: 632496033, 422682058, 242972751 Status: progressing Assessment/Plan: pneumothorax resolved r/o tb wt loss afebrile no night sweats hiv prn oxygen support Tino Rodriges MD Sep 17, 2020 21:12
[2020-09-18] VITALS: BP 120/81
[2020-09-18 04:00] VITALS: BP 123/80
[2020-09-18] MEDS: Bactrim-DS 1 tab ORAL SCH ×3 (06:25→20:58)
--- NOTE | 2020-09-18 07:40 | NUR ---
HAND-OFF: Report given to MALIA Argueta.
--- NOTE | 2020-09-18 07:41 | NUR ---
NURSE NOTES: Received patient from Emily, RN. Pt awake in bed, alert and oriented x 3-4, no SOB, bed in lowest position with breaks engaged and alarm on, denies any pain or discomfort at this time, IV line patent and intact, on room air, will continue to monitor and proceed with plan of care, call light within reach.
[2020-09-18 08:00] VITALS: BP 116/82
--- NOTE | 2020-09-18 10:20 | Pulmonology Progress Note ---
Subjective ROS Limited/Unobtainable: Yes Interval Events: Chest tube no longer inplace; follwoup CXR show s re-expanded lung Constitutional: Denies: fever HEENT: Repors: no symptoms Respiratory: Reports: no symptoms Cardiovascular: Reports: no symptoms Gastrointestinal/Abdominal: Reports: no symptoms Genitourinary: Reports: no symptoms Neurologic: Reports: no symptoms Musculoskeletal: Reports: pain Allergies: Coded Allergies: No Known Allergies (Unverified , 06/30/19) Objective Last 24 Hour Vital Signs Date Time Temp Pulse Resp B/P (MAP) Pulse Ox O2 Delivery O2 Flow Rate FiO2 09/18/20 08:00 98.4 100 18 116/82 (93) 96 09/18/20 04:00 97.4 95 18 123/80 (94) 96 09/18/20 00:00 98.1 104 17 120/81 (94) 92 09/17/20 21:00 Nasal Cannula 2.0 09/17/20 20:00 97.9 101 19 130/87 (101) 93 09/17/20 16:00 97.7 107 20 124/86 (99) 94 09/17/20 14:12 94 Nasal Cannula 2.0 28 09/17/20 12:00 97.2 104 19 124/84 (97) 94 Intake and Output 09/17/20 09/18/20 18:59 06:59 Intake Total 520 ml 400 ml Output Total 560 ml 1200 ml Balance -40 ml -800 ml Intake Oral 520 ml 400 ml Output Urine Total 560 ml 1200 ml General Appearance: no acute distress HEENT: normocephalic Respiratory: chest wall non-tender, lungs clear Cardiovascular: normal peripheral pulses, normal rate Abdomen: normal bowel sounds Current Medications Medications (Trade) Dose Ordered Sig/Kenia Route PRN Reason Start Time Stop Time Status Last Admin Dose Admin Acetaminophen (Tylenol) 650 mg Q4H PRN ORAL Mild Pain (Pain Scale 1-3) 09/10/20 01:15 10/10/20 01:14 09/17/20 19:04 Azithromycin (Zithromax) 1,200 mg ONCE A WEEK ORAL 09/12/20 11:00 09/19/20 10:59 09/12/20 12:20 Folic Acid (Folate) 1 mg DAILY ORAL 09/12/20 09:30 10/12/20 09:29 09/18/20 08:26 Haloperidol Lactate (Haldol) 5 mg Q6H PRN IM Agitation 09/10/20 15:30 10/25/20 15:29 Quetiapine Fumarate (SEROqueL) 50 mg BEDTIME ORAL 09/10/20 21:00 10/25/20 20:59 09/17/20 22:53 Trimethoprim/ Sulfamethoxazole (Bactrim-DS) 2 tab Q8HR ORAL 09/17/20 14:00 09/24/20 13:59 09/18/20 06:25 Assessment/Plan Assessment/Plan IMPRESSION: 1. Cavitary pneumonia. 2. Spontaneous right pneumothorax. 3. AIDS. 4. Chronic marijuana usage. DISCUSSION: Chest tube clamped yesterday Dislodged last night This Am cxr does not show PTX; lung stays fully expanded AFB smear x 3 negative Advised to titrate FiO2 down; saturating 98% on 3 L OK to dc home as third AFB is also negative Would recommend treatment for PCP (empirically) Wean off O2 John Salguero Omar Syed MD Sep 18, 2020 10:20
[2020-09-18 12:00] VITALS: BP 122/83
--- NOTE | 2020-09-18 12:57 | Cardiac Electrophysiology PN ---
Assessment/Plan Assessment/Plan 1. Chest pain and shortness of breath. Ruled out for UT protocol. The patient's amphetamine is positive. Likely due to pneumothorax EF 55% 2. HIV, with oral thrush. 3. Ruled out for TB despite cavitary lesion. 4. Pneumothorax, status post right-sided chest tube, on IV antibiotic Pulled out his chest tube 09/13/20. Still has the sutures loose 5. Substance abuse. DW RN Subjective Subjective Alert in NAD. Off TB isolation as 3 AFBs were negative. No CP. Pulled out his chest tube and still has dressing on his chest and sutures in place Objective Last 24 Hour Vital Signs Date Time Temp Pulse Resp B/P (MAP) Pulse Ox O2 Delivery O2 Flow Rate FiO2 09/18/20 12:00 96.8 104 20 122/83 (96) 94 09/18/20 08:00 98.4 100 18 116/82 (93) 96 09/18/20 04:00 97.4 95 18 123/80 (94) 96 09/18/20 00:00 98.1 104 17 120/81 (94) 92 09/17/20 21:00 Nasal Cannula 2.0 09/17/20 20:00 97.9 101 19 130/87 (101) 93 09/17/20 16:00 97.7 107 20 124/86 (99) 94 09/17/20 14:12 94 Nasal Cannula 2.0 28 Intake and Output 09/17/20 09/18/20 19:00 07:00 Intake Total 520 ml 400 ml Output Total 560 ml 1200 ml Balance -40 ml -800 ml Intake Oral 520 ml 400 ml Output Urine Total 560 ml 1200 ml Objective HEAD AND NECK: No JVD. LUNGS: Coarse rhonchi. Chest tube site and the sutures covered with dressing CARDIOVASCULAR: Regular S1 and S2 with no gallop. ABDOMEN: Soft. EXTREMITIES: No pitting edema. Artur Patton MD Sep 18, 2020 12:57
--- NOTE | 2020-09-18 13:09 | Nephrology Progress Note ---
Assessment/Plan Problem List: (1) Pneumothorax (2) Amphetamine abuse (3) HIV (human immunodeficiency virus infection) (4) Severe protein-calorie malnutrition (5) Electrolyte imbalance (6) Proteinuria Assessment Electrolyte imbalance: Hypokalemia, hyponatremia Hypoalbuminemia, 2+ proteinuria UTI Cavitary pneumonia Anemia Drug abuse, urine positive for amphetamine Right chest tube, spontaneous right pneumothorax AIDS Plan September 18: No labs drawn today. Stable from renal standpoint of view. Continue per consultants. September 17: Labs reviewed. Renal parameters stable. Continue per consultants. September 16: No labs drawn today. Stable from renal standpoint of view. Will check labs tomorrow. September 15: Labs reviewed. Stable from renal standpoint of view. Serum sodium 132. Continue per consultants. September 14: No labs drawn today. Labs from September 13 reviewed. Serum sodium 132. Serum magnesium 1.6. Will repeat lab tomorrow. Per orders. September 13: No labs drawn yet today. Patient pulled out his chest tube last night. Continue per pulmonary. Further comments upon getting the blood results today. September 12: Patient continues to have chest tube over the right side. Minimal drainage according to the RN. Chemistry panel done today. Continue to watch electrolytes and renal parameters. Continue per consultants. Like acid and B12 ordered Previously: Aim to correct electrolytes Per pulmonary, per ID Keep the blood pressure and blood sugar in check Per orders Subjective ROS Limited/Unobtainable: No Constitutional: Reports: malaise Objective Objective Last 24 Hour Vital Signs Date Time Temp Pulse Resp B/P (MAP) Pulse Ox O2 Delivery O2 Flow Rate FiO2 09/18/20 12:00 96.8 104 20 122/83 (96) 94 09/18/20 08:00 98.4 100 18 116/82 (93) 96 09/18/20 04:00 97.4 95 18 123/80 (94) 96 09/18/20 00:00 98.1 104 17 120/81 (94) 92 09/17/20 21:00 Nasal Cannula 2.0 09/17/20 20:00 97.9 101 19 130/87 (101) 93 09/17/20 16:00 97.7 107 20 124/86 (99) 94 09/17/20 14:12 94 Nasal Cannula 2.0 28 Intake and Output 09/17/20 09/18/20 19:00 07:00 Intake Total 520 ml 400 ml Output Total 560 ml 1200 ml Balance -40 ml -800 ml Intake Oral 520 ml 400 ml Output Urine Total 560 ml 1200 ml Height (Feet): 5 Height (Inches): 4.00 Weight (Pounds): 120 General Appearance: no apparent distress Objective No change Jimy Mahmood MD Sep 18, 2020 13:09
--- NOTE | 2020-09-18 13:44 | Infectious Diseases Prog Note ---
Assessment/Plan Assessment/Plan IMPRESSION: Pneumonia with pneumocystis E coli ESBL Pneumothorax Postive blood culture with Leuconostoc & Staph epidermidis will try to rule out tuberculosis, AFB X 3; neg R/O Pneumocystis. Pyuria, may have UTI. Has right hydronephrosis, HIV/AIDS, CD4=29 Emphysema, Oral candidiasis, anemia, cachexia. RECOMMENDATIONS: Continue Zithromax & high dose Bactrim Case was D/W pharmacy Negative T spot test. Subjective ROS Limited/Unobtainable: No Constitutional: Reports: no symptoms Respiratory: Reports: shortness of breath, other - right side chest pain Cardiovascular: Reports: no symptoms Gastrointestinal/Abdominal: Reports: no symptoms Genitourinary: Reports: no symptoms Allergies: Coded Allergies: No Known Allergies (Unverified , 06/30/19) Objective Last 24 Hour Vital Signs Date Time Temp Pulse Resp B/P (MAP) Pulse Ox O2 Delivery O2 Flow Rate FiO2 09/18/20 12:00 96.8 104 20 122/83 (96) 94 09/18/20 08:00 98.4 100 18 116/82 (93) 96 09/18/20 04:00 97.4 95 18 123/80 (94) 96 09/18/20 00:00 98.1 104 17 120/81 (94) 92 09/17/20 21:00 Nasal Cannula 2.0 09/17/20 20:00 97.9 101 19 130/87 (101) 93 09/17/20 16:00 97.7 107 20 124/86 (99) 94 09/17/20 14:12 94 Nasal Cannula 2.0 28 Height (Feet): 5 Height (Inches): 4.00 Weight (Pounds): 120 HEENT: mucous membranes moist Respiratory/Chest: lungs clear Cardiovascular: normal rate Abdomen: soft, non tender Extremities: no edema Neurologic/Psychiatric: alert, responsive Current Medications Medications (Trade) Dose Ordered Sig/Kenia Route PRN Reason Start Time Stop Time Status Last Admin Dose Admin Acetaminophen (Tylenol) 650 mg Q4H PRN ORAL Mild Pain (Pain Scale 1-3) 09/10/20 01:15 10/10/20 01:14 09/17/20 19:04 Azithromycin (Zithromax) 1,200 mg ONCE A WEEK ORAL 09/12/20 11:00 09/19/20 10:59 09/12/20 12:20 Folic Acid (Folate) 1 mg DAILY ORAL 09/12/20 09:30 10/12/20 09:29 09/18/20 08:26 Haloperidol Lactate (Haldol) 5 mg Q6H PRN IM Agitation 09/10/20 15:30 10/25/20 15:29 Quetiapine Fumarate (SEROqueL) 50 mg BEDTIME ORAL 09/10/20 21:00 10/25/20 20:59 09/17/20 22:53 Trimethoprim/ Sulfamethoxazole (Bactrim-DS) 2 tab Q8HR ORAL 09/17/20 14:00 09/24/20 13:59 09/18/20 13:34 Pasha Mendez MD Sep 18, 2020 13:44
[2020-09-18 16:00] VITALS: BP 125/65
--- NOTE | 2020-09-18 16:42 | NUR ---
CITY COMP[employer] NOTE SW met w/ pt to clarify DC plan. Pt presents as A&O4x. PT reports he will walk-in to homeless senior living until he receives his SSI. Pt declined to be referred to [facility] program (Homeless outreach team). SW explained negative ramification of unlicensed facilities/self-directing. PT verbalized understanding. Pt did not disclose his preferred location/senior living. PT will dc own resource via public transportation. SW provided pants and socks as per request. PT does not have any concern/needs at this time.
--- NOTE | 2020-09-18 17:43 | NUR ---
INSURANCE CLINICALS AND REVIEW FAXED TO (09/15-09/18) [facility] P [phone] F [phone]
--- NOTE | 2020-09-18 19:22 | General Progress Note ---
Subjective ROS Limited/Unobtainable: Yes Allergies: Coded Allergies: No Known Allergies (Unverified , 06/30/19) Objective Last 24 Hour Vital Signs Date Time Temp Pulse Resp B/P (MAP) Pulse Ox O2 Delivery O2 Flow Rate FiO2 09/18/20 19:04 95 Nasal Cannula 2.0 28 09/18/20 16:00 97.9 101 19 125/65 (85) 93 09/18/20 12:00 96.8 104 20 122/83 (96) 94 09/18/20 08:00 98.4 100 18 116/82 (93) 96 09/18/20 04:00 97.4 95 18 123/80 (94) 96 09/18/20 00:00 98.1 104 17 120/81 (94) 92 09/17/20 21:00 Nasal Cannula 2.0 09/17/20 20:00 97.9 101 19 130/87 (101) 93 Intake and Output 09/17/20 09/18/20 19:00 07:00 Intake Total 520 ml 400 ml Output Total 560 ml 1200 ml Balance -40 ml -800 ml Intake Oral 520 ml 400 ml Output Urine Total 560 ml 1200 ml Height (Feet): 5 Height (Inches): 4.00 Weight (Pounds): 120 Assessment/Plan Problem List: (1) Oral thrush ICD Codes: B37.0 - Candidal stomatitis SNOMED: 76134344 (2) Pneumonia ICD Codes: J18.9 - Pneumonia, unspecified organism SNOMED: 726426938 (3) Amphetamine abuse ICD Codes: F15.10 - Other stimulant abuse, uncomplicated SNOMED: 57644684 (4) Pneumonia ICD Codes: J18.9 - Pneumonia, unspecified organism SNOMED: 749987743 (5) Pneumothorax ICD Codes: J93.9 - Pneumothorax, unspecified SNOMED: 39562529 (6) Cachexia ICD Codes: R64 - Cachexia SNOMED: 603916754 (7) HIV (human immunodeficiency virus infection) ICD Codes: B20 - Human immunodeficiency virus [HIV] disease SNOMED: 19529368 (8) COPD (chronic obstructive pulmonary disease) ICD Codes: J44.9 - Chronic obstructive pulmonary disease, unspecified SNOMED: 79719329 (9) Severe protein-calorie malnutrition ICD Codes: E43 - Unspecified severe protein-calorie malnutrition SNOMED: 096043455, 106610920, 122844796 Status: progressing Assessment/Plan: dc to safe place if ok w dr triana and dr hawkins pcp pna abx per id hiv Tino Rodriges MD Sep 18, 2020 19:22
--- NOTE | 2020-09-18 19:30 | NUR ---
NURSE NOTES: Patient was in the bathroom on time of rounds. Alert and oriented x4. Seen ambulating in the room steadily. Patient complained of shortness of breath and was better when on O2 2L via nasal cannula. Instructed to use call light for assistance. Bed in lowest and lock engaged. Will continue plan of care.
--- NOTE | 2020-09-18 19:32 | NUR ---
NURSE HAND-OFF: Important Events on Shift:[safety and comfort, possible discharge tomorrow, ATB PO, 02 saturation monitoring] Patient Status: [stable] Diet: [regular soft easy chew] Pending Orders: [] Pending Results/Labs:[] Pending MD notification:[] Latest Vital Signs: Temperature 97.9 , Pulse 101 , B/P 125 /65 , Respiratory Rate 19 , O2 SAT 95 , Nasal Cannula, O2 Flow Rate 2.0 . Vital Sign Comment: [] Latest Estrella Fall Score: 60 Fall Risk: High Risk Safety Measures: Call light Within Reach, Bed Alarm Zone 1, Side Rails Side Rails x2, Bed position Low and Locked. Fall Precautions: Yellow Socks Yellow Gown Report given to [MALIA Espinoza].
[2020-09-18 20:00] VITALS: BP 131/86
--- NOTE | 2020-09-18 21:38 | NUR ---
NURSE NOTES: Patient complained of IV site tenderness. IV removed. Attempted to insert a new IV access. but patient refused. Explained the risks and benefits. Patient verbalized "not this time." Will try again later.
--- NOTE | 2020-09-18 23:44 | Psychiatric Progress Note ---
Psychiatry Progress Note Psychiatry Progress Note Subjective the pt is doing better dec anxiety Medications Current Medications Medications (Trade) Dose Ordered Sig/Kenia Route PRN Reason Start Time Stop Time Status Last Admin Dose Admin Acetaminophen (Tylenol) 650 mg Q4H PRN ORAL Mild Pain (Pain Scale 1-3) 09/10/20 01:15 10/10/20 01:14 09/17/20 19:04 Azithromycin (Zithromax) 1,200 mg ONCE A WEEK ORAL 09/12/20 11:00 09/19/20 10:59 09/12/20 12:20 Folic Acid (Folate) 1 mg DAILY ORAL 09/12/20 09:30 10/12/20 09:29 09/18/20 08:26 Haloperidol Lactate (Haldol) 5 mg Q6H PRN IM Agitation 09/10/20 15:30 10/25/20 15:29 Quetiapine Fumarate (SEROqueL) 50 mg BEDTIME ORAL 09/10/20 21:00 10/25/20 20:59 09/18/20 20:58 Trimethoprim/ Sulfamethoxazole (Bactrim-DS) 2 tab Q8HR ORAL 09/17/20 14:00 09/24/20 13:59 09/18/20 20:58 Neurological/Psychiatric: Reports: anxiety, depressed, emotional problems Allergies: Coded Allergies: No Known Allergies (Unverified , 06/30/19) Objective Data Height (Feet): 5 Height (Inches): 4.00 Weight (Pounds): 120 General Appearance: no apparent distress Additional Comments: lert, oriented times self, place, situation. Mood is anxious. Affect is blunted, congruent with mood. Thought process is concrete. Thought content, there is no suicidal or homicidal ideation. Cognition is impaired. Assessment/Plan [place] I: ASSESSMENT: [place] I Anxiety disorder. Depressive disorder. [place] II Deferred. [place] III HIV. [place] IV Moderate. [place] V 40. PLAN: 1. Seroquel at bedtime. 2. Haldol p.r.n. 3. Provide the patient with reality orientation and discussed with the nurse. Status: progressing Status Narrative ASSESSMENT: [place] I Anxiety disorder. Depressive disorder. [place] II Deferred. [place] III HIV. [place] IV Moderate. [place] V 40. PLAN: 1. Seroquel at bedtime. 2. Haldol p.r.n. 3. Provide the patient with reality orientation and discussed with the nurse. Assessment/Plan: ASSESSMENT: [place] I Anxiety disorder. Depressive disorder. [place] II Deferred. [place] III HIV. [place] IV Moderate. [place] V 40. PLAN: 1. Seroquel at bedtime. 2. Haldol p.r.n. 3. Provide the patient with reality orientation and discussed with the nurse. Denae Jaquez MD Sep 18, 2020 23:44
[2020-09-19] VITALS: BP 110/79
[2020-09-19 04:00] VITALS: BP 138/98
[2020-09-19] MEDS: Bactrim-DS 1 tab ORAL SCH ×2 (05:41→13:44)
--- NOTE | 2020-09-19 06:04 | NUR ---
NURSE NOTES: Attempted to insert IV access but patient got anxious while in the process, he removed tourniquet and refused IV insertion. Reminded the risks and benefits.
--- NOTE | 2020-09-19 06:47 | NUR ---
NURSE HAND-OFF: Important Events on Shift: Patient refused IV insertion, Tachy Patient Status: Diet: Regular soft easy chew Pending Orders: Pending Results/Labs: Pending MD notification: Latest Vital Signs: Temperature 98.3 , Pulse 119 , B/P 138 /98 , Respiratory Rate 22 , O2 SAT 92 , Room Air, O2 Flow Rate 2.0 . Vital Sign Comment: Latest Estrella Fall Score: 60 Fall Risk: High Risk Safety Measures: Call light Within Reach, Bed Alarm Zone 1, Side Rails Side Rails x2, Bed position Low and Locked. Fall Precautions: Yellow Socks Yellow Gown
--- NOTE | 2020-09-19 07:24 | NUR ---
HAND-OFF: Report given to MALIA Argueta.
--- NOTE | 2020-09-19 07:35 | NUR ---
NURSE NOTES: Received patient from MALIA Barrow. Pt awake in bed, alert and oriented x 3-4, no SOB, bed in lowest position with breaks engaged and alarm on, denies any pain or discomfort at this time, IV line reinsertion refused by patient per night cleaner RN, on room air, will continue to monitor and proceed with plan of care, call light within reach.
[2020-09-19 08:00] VITALS: BP 131/91
--- NOTE | 2020-09-19 10:53 | Pulmonology Progress Note ---
Subjective ROS Limited/Unobtainable: Yes Interval Events: Chest tube no longer inplace; follwoup CXR show s re-expanded lung Constitutional: Reports: no symptoms HEENT: Repors: no symptoms Respiratory: Reports: no symptoms Cardiovascular: Reports: no symptoms Gastrointestinal/Abdominal: Reports: no symptoms Genitourinary: Reports: no symptoms Neurologic: Reports: no symptoms Musculoskeletal: Reports: pain Allergies: Coded Allergies: No Known Allergies (Unverified , 06/30/19) Objective Last 24 Hour Vital Signs Date Time Temp Pulse Resp B/P (MAP) Pulse Ox O2 Delivery O2 Flow Rate FiO2 09/19/20 08:00 98.1 110 20 131/91 (104) 92 09/19/20 05:44 119 09/19/20 04:00 98.3 127 22 138/98 (111) 92 09/19/20 00:00 98.1 114 20 110/79 (89) 92 09/18/20 21:31 115 24 92 09/18/20 21:00 Nasal Cannula 2.0 09/18/20 21:00 Room Air 09/18/20 20:00 98.4 117 24 131/86 (101) 96 09/18/20 19:04 95 Nasal Cannula 2.0 28 09/18/20 16:00 97.9 101 19 125/65 (85) 93 09/18/20 12:00 96.8 104 20 122/83 (96) 94 Intake and Output 09/18/20 09/19/20 19:00 07:00 Intake Total 600 ml Output Total 1300 ml Balance -700 ml Intake Oral 600 ml Output Urine Total 1300 ml # Voids 3 # Bowel Movements 1 1 General Appearance: no acute distress HEENT: normocephalic Respiratory: chest wall non-tender, lungs clear Cardiovascular: normal peripheral pulses, normal rate Abdomen: normal bowel sounds Current Medications Medications (Trade) Dose Ordered Sig/Kenia Route PRN Reason Start Time Stop Time Status Last Admin Dose Admin Acetaminophen (Tylenol) 650 mg Q4H PRN ORAL Mild Pain (Pain Scale 1-3) 09/10/20 01:15 10/10/20 01:14 09/17/20 19:04 Azithromycin (Zithromax) 1,200 mg ONCE A WEEK ORAL 09/12/20 11:00 09/19/20 10:59 09/12/20 12:20 Folic Acid (Folate) 1 mg DAILY ORAL 09/12/20 09:30 10/12/20 09:29 09/19/20 08:02 Haloperidol Lactate (Haldol) 5 mg Q6H PRN IM Agitation 09/10/20 15:30 10/25/20 15:29 Quetiapine Fumarate (SEROqueL) 50 mg BEDTIME ORAL 09/10/20 21:00 10/25/20 20:59 09/18/20 20:58 Trimethoprim/ Sulfamethoxazole (Bactrim-DS) 2 tab Q8HR ORAL 09/17/20 14:00 09/24/20 13:59 09/19/20 05:41 Assessment/Plan Assessment/Plan IMPRESSION: 1. Cavitary pneumonia. 2. Spontaneous right pneumothorax. 3. AIDS. 4. Chronic marijuana usage. DISCUSSION: Chest tube clamped yesterday Dislodged last night This Am cxr does not show PTX; lung stays fully expanded AFB smear x 3 negative Advised to titrate FiO2 down; saturating 98% on 3 L OK to dc home as third AFB is also negative Would recommend treatment for PCP (empirically) Weaned off O2 John Salguero Omar Syed MD Sep 19, 2020 10:53
--- NOTE | 2020-09-19 11:00 | Nephrology Progress Note ---
Assessment/Plan Problem List: (1) Pneumothorax (2) Amphetamine abuse (3) HIV (human immunodeficiency virus infection) (4) Severe protein-calorie malnutrition (5) Electrolyte imbalance (6) Proteinuria Assessment Electrolyte imbalance: Hypokalemia, hyponatremia Hypoalbuminemia, 2+ proteinuria UTI Cavitary pneumonia Anemia Drug abuse, urine positive for amphetamine Right chest tube, spontaneous right pneumothorax AIDS Plan September 19: Stable from renal standpoint of view. No labs drawn today. September 18: No labs drawn today. Stable from renal standpoint of view. Continue per consultants. September 17: Labs reviewed. Renal parameters stable. Continue per consultants. September 16: No labs drawn today. Stable from renal standpoint of view. Will check labs tomorrow. September 15: Labs reviewed. Stable from renal standpoint of view. Serum sodium 132. Continue per consultants. September 14: No labs drawn today. Labs from September 13 reviewed. Serum sodium 132. Serum magnesium 1.6. Will repeat lab tomorrow. Per orders. September 13: No labs drawn yet today. Patient pulled out his chest tube last night. Continue per pulmonary. Further comments upon getting the blood results today. September 12: Patient continues to have chest tube over the right side. Minimal drainage according to the RN. Chemistry panel done today. Continue to watch electrolytes and renal parameters. Continue per consultants. Like acid and B12 ordered Previously: Aim to correct electrolytes Per pulmonary, per ID Keep the blood pressure and blood sugar in check Per orders Subjective ROS Limited/Unobtainable: No Objective Objective Last 24 Hour Vital Signs Date Time Temp Pulse Resp B/P (MAP) Pulse Ox O2 Delivery O2 Flow Rate FiO2 09/19/20 08:00 98.1 110 20 131/91 (104) 92 09/19/20 05:44 119 09/19/20 04:00 98.3 127 22 138/98 (111) 92 09/19/20 00:00 98.1 114 20 110/79 (89) 92 09/18/20 21:31 115 24 92 09/18/20 21:00 Nasal Cannula 2.0 09/18/20 21:00 Room Air 09/18/20 20:00 98.4 117 24 131/86 (101) 96 09/18/20 19:04 95 Nasal Cannula 2.0 28 09/18/20 16:00 97.9 101 19 125/65 (85) 93 09/18/20 12:00 96.8 104 20 122/83 (96) 94 Intake and Output 09/18/20 09/19/20 19:00 07:00 Intake Total 600 ml Output Total 1300 ml Balance -700 ml Intake Oral 600 ml Output Urine Total 1300 ml # Voids 3 # Bowel Movements 1 1 Height (Feet): 5 Height (Inches): 4.00 Weight (Pounds): 120 General Appearance: no apparent distress Objective No change Jimy Mahmood MD Sep 19, 2020 11:00
--- NOTE | 2020-09-19 11:30 | NUR ---
NURSE NOTES: Dr Rodriges made aware regarding patient's discharge preference (to the streets/unlicensed intermediate) wants m Addendum: 09/19/20 at 1137 by Ellie Tello RN Dr Rodriges made aware regarding patient's discharge preference (to the streets/unlicensed intermediate) wants for pt to dc to a safe place but pt refuses and SS discussed with pt risk of discharging to the streets. Will relay to case management. Also spoke with Dr. Yu regarding the sutures on the old chest tube site, per he will check on it.
--- NOTE | 2020-09-19 11:47 | Infectious Diseases Prog Note ---
Assessment/Plan Assessment/Plan IMPRESSION: Pneumonia with pneumocystis E coli ESBL Pneumothorax Postive blood culture with Leuconostoc & Staph epidermidis will try to rule out tuberculosis, AFB X 3; neg R/O Pneumocystis. Pyuria, may have UTI. Has right hydronephrosis, HIV/AIDS, CD4=29 Emphysema, Oral candidiasis, anemia, cachexia. RECOMMENDATIONS: Continue Zithromax 1200mg weekly Continue Bactrim DS 2 tab q8hrs X 18 days Then 1 daily Refer to HIV clinic in area to start ART Subjective ROS Limited/Unobtainable: No Constitutional: Reports: no symptoms Respiratory: Reports: no symptoms Gastrointestinal/Abdominal: Reports: no symptoms Genitourinary: Reports: no symptoms Allergies: Coded Allergies: No Known Allergies (Unverified , 06/30/19) Objective Last 24 Hour Vital Signs Date Time Temp Pulse Resp B/P (MAP) Pulse Ox O2 Delivery O2 Flow Rate FiO2 09/19/20 08:00 98.1 110 20 131/91 (104) 92 09/19/20 05:44 119 09/19/20 04:00 98.3 127 22 138/98 (111) 92 09/19/20 00:00 98.1 114 20 110/79 (89) 92 09/18/20 21:31 115 24 92 09/18/20 21:00 Nasal Cannula 2.0 09/18/20 21:00 Room Air 09/18/20 20:00 98.4 117 24 131/86 (101) 96 09/18/20 19:04 95 Nasal Cannula 2.0 28 09/18/20 16:00 97.9 101 19 125/65 (85) 93 09/18/20 12:00 96.8 104 20 122/83 (96) 94 Height (Feet): 5 Height (Inches): 4.00 Weight (Pounds): 120 HEENT: mucous membranes moist, other - decayed teeth Respiratory/Chest: lungs clear Cardiovascular: normal rate Abdomen: soft, non tender Extremities: no edema Neurologic/Psychiatric: alert, responsive Current Medications Medications (Trade) Dose Ordered Sig/Kenia Route PRN Reason Start Time Stop Time Status Last Admin Dose Admin Acetaminophen (Tylenol) 650 mg Q4H PRN ORAL Mild Pain (Pain Scale 1-3) 09/10/20 01:15 10/10/20 01:14 09/17/20 19:04 Folic Acid (Folate) 1 mg DAILY ORAL 09/12/20 09:30 10/12/20 09:29 09/19/20 08:02 Haloperidol Lactate (Haldol) 5 mg Q6H PRN IM Agitation 09/10/20 15:30 10/25/20 15:29 Quetiapine Fumarate (SEROqueL) 50 mg BEDTIME ORAL 09/10/20 21:00 10/25/20 20:59 09/18/20 20:58 Trimethoprim/ Sulfamethoxazole (Bactrim-DS) 2 tab Q8HR ORAL 09/17/20 14:00 09/24/20 13:59 09/19/20 05:41 Pasha Mendez MD Sep 19, 2020 11:47
[2020-09-19 12:00] VITALS: BP 124/84
--- NOTE | 2020-09-19 13:05 | Consultation ---
History of Present Illness General Date patient seen: Sep 19, 2020 Reason for Hospitalization: General Complaint Present Illness HPI This is a very pleasant 50-year-old male who had a pneumothorax on the right side status post chest tube placement in emergency department which was sp ontaneously removed by patient himself at the bedside said he felt that he was coming up slowly so he just pulled out himself. Dressings were applied thereafter and patient was monitored since is improved and stable condition without complication. Identified to have a hanging suture as well as a bump around the prior chest tube site surgery was called to eval and assist with care patient seen patient evaluate chart reviewed Allergies: Coded Allergies: No Known Allergies (Unverified , 06/30/19) COVID-19 Screening Contact w/high risk pt: No Recent Travel to affected area: No Experienced COVID-19 symptoms?: No Medication History No Active Prescriptions or Reported Meds Patient History History Provided By: Patient, Medical Record, PMD Healthcare decision maker Resuscitation status Advanced Directive on File Past Medical/Surgical History Past Medical/Surgical History: (1) Acute chest pain (2) Oral thrush (3) Pneumonia (4) Amphetamine abuse (5) Anxiety (6) Pneumothorax (7) Electrolyte imbalance (8) Proteinuria (9) Pneumonia (10) Cachexia (11) HIV (human immunodeficiency virus infection) (12) Failure to thrive in child (13) COPD (chronic obstructive pulmonary disease) (14) Complicated UTI (urinary tract infection) (15) Severe protein-calorie malnutrition Review of Systems Review of Symptoms General ROS: no weight loss or fever Psychological ROS: no depression or mood changes, no memory loss Ophthalmic ROS: no visual changes or eye irritation ENT ROS: no nasal congestion, hearing loss, dizziness Allergy and Immunology ROS: no allergic symptoms or urticaria Hematological and Lymphatic ROS: no swollen glands, unusual bleeding or bruising Endocrine ROS: no polyuria, polydipsia, weight changes, temperature intolerance Respiratory ROS: no cough, shortness of breath, or wheezing Cardiovascular ROS: no chest pain or dyspnea on exertion Gastrointestinal ROS: denies abdominal pain, bright red blood in stool. Musculoskeletal ROS: no myalgias or arthralgias Neurological ROS: no TIA or stroke symptoms Dermatological ROS: no new or changing skin lesions, rashes or pruritis Physical Exam Physical Exam General appearance: alert, cooperative, no distress, appears stated age Head: Normocephalic, without obvious abnormality, atraumatic Eyes: conjunctivae/corneas clear. PERRL, EOM's intact. Fundi benign Throat: Lips, mucosa, and tongue normal. Teeth and gums normal Neck: supple, symmetrical, trachea midline, no adenopathy, thyroid: not enlarged, symmetric, no tenderness/mass/nodules, no carotid bruit and no JVD Lungs: clear to auscultation bilaterally Heart: regular rate and rhythm, S1, S2 normal, no murmur, click, rub or gallop Abdomen: soft, non-tender. Bowel sounds normal. No masses, no organomegaly Extremities: extremities normal, atraumatic, no cyanosis or edema Pulses: 2+ and symmetric Skin: Skin color, texture, turgor normal. No rashes or lesions Neurologic: Grossly normal Last 24 Hour Vital Signs Date Time Temp Pulse Resp B/P (MAP) Pulse Ox O2 Delivery O2 Flow Rate FiO2 09/19/20 12:00 97.2 108 19 124/84 (97) 94 09/19/20 08:00 98.1 110 20 131/91 (104) 92 09/19/20 05:44 119 09/19/20 04:00 98.3 127 22 138/98 (111) 92 09/19/20 00:00 98.1 114 20 110/79 (89) 92 09/18/20 21:31 115 24 92 09/18/20 21:00 Nasal Cannula 2.0 09/18/20 21:00 Room Air 09/18/20 20:00 98.4 117 24 131/86 (101) 96 09/18/20 19:04 95 Nasal Cannula 2.0 28 09/18/20 16:00 97.9 101 19 125/65 (85) 93 Intake and Output 09/18/20 09/19/20 19:00 07:00 Intake Total 600 ml Output Total 1300 ml Balance -700 ml Intake Oral 600 ml Output Urine Total 1300 ml # Voids 3 # Bowel Movements 1 1 Height (Feet): 5 Height (Inches): 4.00 Weight (Pounds): 120 Medications Current Medications Medications (Trade) Dose Ordered Sig/Kenia Route PRN Reason Start Time Stop Time Status Last Admin Dose Admin Acetaminophen (Tylenol) 650 mg Q4H PRN ORAL Mild Pain (Pain Scale 1-3) 09/10/20 01:15 10/10/20 01:14 09/17/20 19:04 Folic Acid (Folate) 1 mg DAILY ORAL 09/12/20 09:30 10/12/20 09:29 09/19/20 08:02 Haloperidol Lactate (Haldol) 5 mg Q6H PRN IM Agitation 09/10/20 15:30 10/25/20 15:29 Quetiapine Fumarate (SEROqueL) 50 mg BEDTIME ORAL 09/10/20 21:00 10/25/20 20:59 09/18/20 20:58 Trimethoprim/ Sulfamethoxazole (Bactrim-DS) 2 tab Q8HR ORAL 09/17/20 14:00 09/24/20 13:59 09/19/20 05:41 Assessment/Plan Problem List: (1) Oral thrush ICD Codes: B37.0 - Candidal stomatitis SNOMED: 45290406 (2) Pneumonia ICD Codes: J18.9 - Pneumonia, unspecified organism SNOMED: 812535935 (3) Amphetamine abuse ICD Codes: F15.10 - Other stimulant abuse, uncomplicated SNOMED: 07146284 (4) Pneumothorax Assessment & Plan: s/p R chest tube removed by patient currently noted to have suture and small bump small bump is a resolving hematoma. no infection suture removed at bedside dressings applied okay to d/c f/u with pcp diet as tolerated activity as tolerated restrict flight for 2 weeks ICD Codes: J93.9 - Pneumothorax, unspecified SNOMED: 14567316 (5) Electrolyte imbalance ICD Codes: E87.8 - Other disorders of electrolyte and fluid balance, not elsewhere classified SNOMED: 796154472 (6) Proteinuria ICD Codes: R80.9 - Proteinuria, unspecified SNOMED: 63485279 (7) Pneumonia ICD Codes: J18.9 - Pneumonia, unspecified organism SNOMED: 296405721 (8) Anxiety ICD Codes: F41.9 - Anxiety disorder, unspecified SNOMED: 93304288 (9) Acute chest pain ICD Codes: R07.9 - Chest pain, unspecified SNOMED: 468370793 (10) Cachexia ICD Codes: R64 - Cachexia SNOMED: 314553355 (11) HIV (human immunodeficiency virus infection) ICD Codes: B20 - Human immunodeficiency virus [HIV] disease SNOMED: 39269153 (12) COPD (chronic obstructive pulmonary disease) ICD Codes: J44.9 - Chronic obstructive pulmonary disease, unspecified SNOMED: 93742552 (13) Failure to thrive in child ICD Codes: R62.51 - Failure to thrive in child SNOMED: 123159518 (14) Complicated UTI (urinary tract infection) ICD Codes: N39.0 - Urinary tract infection, site not specified SNOMED: 51883518 (15) Severe protein-calorie malnutrition ICD Codes: E43 - Unspecified severe protein-calorie malnutrition SNOMED: 332296596, 706532254, 220006938 Geronimo Yu Sep 19, 2020 13:05
--- NOTE | 2020-09-19 13:09 | General Progress Note ---
Subjective ROS Limited/Unobtainable: Yes Allergies: Coded Allergies: No Known Allergies (Unverified , 06/30/19) Objective Last 24 Hour Vital Signs Date Time Temp Pulse Resp B/P (MAP) Pulse Ox O2 Delivery O2 Flow Rate FiO2 09/19/20 12:00 97.2 108 19 124/84 (97) 94 09/19/20 08:00 98.1 110 20 131/91 (104) 92 09/19/20 05:44 119 09/19/20 04:00 98.3 127 22 138/98 (111) 92 09/19/20 00:00 98.1 114 20 110/79 (89) 92 09/18/20 21:31 115 24 92 09/18/20 21:00 Nasal Cannula 2.0 09/18/20 21:00 Room Air 09/18/20 20:00 98.4 117 24 131/86 (101) 96 09/18/20 19:04 95 Nasal Cannula 2.0 28 09/18/20 16:00 97.9 101 19 125/65 (85) 93 Intake and Output 09/18/20 09/19/20 19:00 07:00 Intake Total 600 ml Output Total 1300 ml Balance -700 ml Intake Oral 600 ml Output Urine Total 1300 ml # Voids 3 # Bowel Movements 1 1 Height (Feet): 5 Height (Inches): 4.00 Weight (Pounds): 120 Assessment/Plan Problem List: (1) Oral thrush ICD Codes: B37.0 - Candidal stomatitis SNOMED: 60958528 (2) Pneumonia ICD Codes: J18.9 - Pneumonia, unspecified organism SNOMED: 170322001 (3) Amphetamine abuse ICD Codes: F15.10 - Other stimulant abuse, uncomplicated SNOMED: 78792637 (4) Pneumonia ICD Codes: J18.9 - Pneumonia, unspecified organism SNOMED: 271850737 (5) Pneumothorax ICD Codes: J93.9 - Pneumothorax, unspecified SNOMED: 71036601 (6) Cachexia ICD Codes: R64 - Cachexia SNOMED: 807390638 (7) HIV (human immunodeficiency virus infection) ICD Codes: B20 - Human immunodeficiency virus [HIV] disease SNOMED: 95923849 (8) COPD (chronic obstructive pulmonary disease) ICD Codes: J44.9 - Chronic obstructive pulmonary disease, unspecified SNOMED: 60327828 (9) Severe protein-calorie malnutrition ICD Codes: E43 - Unspecified severe protein-calorie malnutrition SNOMED: 194141296, 803615783, 509610579 Status: progressing Assessment/Plan: dc to safe place if ok w dr triana and dr hawkins pcp pna asked dr hartmann to remove remaining stitches from chest tube afebrile hiv Tino Rodriges MD Sep 19, 2020 13:09
--- NOTE | 2020-09-19 14:28 | NUR ---
JOB MOLDER NOTE SW attempted to call [facility] [phone] #7, was on hold for more than 30 minutes, no answer, no vm option. SW called [facility] for outpatient HIV/AIDS appointment, , the call was transferred to [facility] [phone], the call was not answered, had automatic message to leave a for appointment. This SW left a for call back. SW called [facility] [phone], the call was transferred to [facility] [phone], the call was on hold for more than 40 minutes, no one answered v/o vm option. JESSICA attempted to call [facility] [phone], the call was not answered and vm was full. JESSICA spoke w/ male staff from [facility] [phone] , was informed that he did not have [facility] information, was transferred but no one answered w/o vm. JESSICA spoke w/ Suyapa from [facility] [phone] that [facility] is [facility], walk in only. JESSICA explained such attempts and relayed information on [facility] to pt. Pt verbalized understanding, PT verbalized that he will be able to provide self-care and able to F/U w/ OP appt.
--- NOTE | 2020-09-19 14:51 | NUR ---
NURSE NOTES: patient discharged homeless discharge. Patient received prescriptions. Personal belongings inventoried and sent with patient. IV was removed previously. Patient departed on public transportation.
--- NOTE | 2020-09-19 17:12 | Cardiac Electrophysiology PN ---
Assessment/Plan Assessment/Plan 1. Chest pain and shortness of breath. Ruled out for [place] protocol. The patient's amphetamine is positive. Likely due to pneumothorax EF 55% 2. HIV, with oral thrush. 3. Ruled out for TB despite cavitary lesion. 4. Pneumothorax, status post right-sided chest tube, Pulled out his chest tube 09/13/20. Still has the sutures 5. Substance abuse. SANDRA RN DC pending Subjective Subjective Alert in NAD. Off TB isolation as 3 AFBs were negative. No CP. Pulled out his chest tube and still has dressing on his chest and sutures in place DC pending after suture removal Objective Last 24 Hour Vital Signs Date Time Temp Pulse Resp B/P (MAP) Pulse Ox O2 Delivery O2 Flow Rate FiO2 09/19/20 12:00 97.2 108 19 124/84 (97) 94 09/19/20 08:00 98.1 110 20 131/91 (104) 92 09/19/20 05:44 119 09/19/20 04:00 98.3 127 22 138/98 (111) 92 09/19/20 00:00 98.1 114 20 110/79 (89) 92 09/18/20 21:31 115 24 92 09/18/20 21:00 Nasal Cannula 2.0 09/18/20 21:00 Room Air 09/18/20 20:00 98.4 117 24 131/86 (101) 96 09/18/20 19:04 95 Nasal Cannula 2.0 28 Intake and Output 09/18/20 09/19/20 19:00 07:00 Intake Total 600 ml Output Total 1300 ml Balance -700 ml Intake Oral 600 ml Output Urine Total 1300 ml # Voids 3 # Bowel Movements 1 1 Objective HEAD AND NECK: No JVD. LUNGS: Coarse rhonchi. Chest tube site and the sutures covered with dressing CARDIOVASCULAR: Regular S1 and S2 with no gallop. ABDOMEN: Soft. EXTREMITIES: No pitting edema. Artur Patton MD Sep 19, 2020 17:12
--- NOTE | 2020-09-20 00:04 | Psychiatric Progress Note ---
Psychiatry Progress Note Psychiatry Progress Note Subjective the pt is doing better dec anxiety no changes Neurological/Psychiatric: Reports: anxiety, depressed, emotional problems Allergies: Coded Allergies: No Known Allergies (Unverified , 06/30/19) Objective Data Height (Feet): 5 Height (Inches): 4.00 Weight (Pounds): 120 General Appearance: no apparent distress Additional Comments: lert, oriented times self, place, situation. Mood is anxious. Affect is blunted, congruent with mood. Thought process is concrete. Thought content, there is no suicidal or homicidal ideation. Cognition is impaired. Assessment/Plan Ringwood I: ASSESSMENT: Ringwood I Anxiety disorder. Depressive disorder. Ringwood II Deferred. Ringwood III HIV. Ringwood IV Moderate. Ringwood V 40. PLAN: 1. Seroquel at bedtime. 2. Haldol p.r.n. 3. Provide the patient with reality orientation and discussed with the nurse. Status: progressing Status Narrative ASSESSMENT: Ringwood I Anxiety disorder. Depressive disorder. Ringwood II Deferred. Ringwood III HIV. Ringwood IV Moderate. Ringwood V 40. PLAN: 1. Seroquel at bedtime. 2. Haldol p.r.n. 3. Provide the patient with reality orientation and discussed with the nurse. Assessment/Plan: ASSESSMENT: Ringwood I Anxiety disorder. Depressive disorder. Ringwood II Deferred. Ringwood III HIV. Ringwood IV Moderate. Ringwood V 40. PLAN: 1. Seroquel at bedtime. 2. Haldol p.r.n. 3. Provide the patient with reality orientation and discussed with the nurse. Denae Jaquez MD Sep 20, 2020 00:04
== END 2020-09-19 14:45 | disposition other institution (70) | DRG 892 ==
LOC: EMR 17:55 → 2E 19:28 → EDBEDREQ 20:04 → 2W 22:03 → 4E 09-15 17:10
PROC: 0W9930Z Drainage of Right Pleural Cavity with Drainage Device, Percutaneous Approach (ICD-10-PCS; principal; 2020-09-09)
DX: B20 Human immunodeficiency virus [HIV] disease (principal); B59 Pneumocystosis; E43 Unspecified severe protein-calorie malnutrition; N39.0 Urinary tract infection, site not specified; B37.0 Candidal stomatitis; F41.8 Other specified anxiety disorders; F32.9 Major depressive disorder, single episode, unspecified; Z59.0 Homelessness; J44.0 Chronic obstructive pulmonary disease with (acute) lower respiratory infection; E87.6 Hypokalemia; E87.1 Hypo-osmolality and hyponatremia; D64.9 Anemia, unspecified; F15.10 Other stimulant abuse, uncomplicated; F12.90 Cannabis use, unspecified, uncomplicated; N13.30 Unspecified hydronephrosis; Z68.20 Body mass index [BMI] 20.0-20.9, adult; J93.11 Primary spontaneous pneumothorax
CPT/HCPCS: 36415; 71045; 71250; 74176; 80053; 80061; 80202; 80307; 81003; 82550; 82607; 82728; 82746; 82803; 82977; 83036; 83540; 83550; 83605; 83615; 83735; 83880; 83930; 83935; 84100; 84300; 84443; 84484; 84550; 85025; 85610; 85730; 86140; 86360; 86710; 87040; 87086; 87116; 87181; 93005; 93306; 93970; 96361; 96365; 96368; 96375; 99291; J2250; J7030; J8499; U0002